=== PATIENT | female | born 1945 | race Caucasian/White ===

== ENCOUNTER → 2019-09-18 14:30 | Outpatient (BNVA) | payer MEDICARE, MEDICAID, SELFPAY | PROVIDERS: Family Provider Family Medicine; PCP Family Medicine; Visit Provider Urology | DX: N39.41 Urge incontinence (principal); N99.89 Other postprocedural complications and disorders of genitourinary system; N39.0 Urinary tract infection, site not specified | CPT/HCPCS: 81001 ==

== ENCOUNTER 2019-11-07 19:26 | Emergency (ER) | payer MEDICARE, MEDICAID, SELFPAY ==
[2019-11-07 19:27] VITALS: BP 142/96; PULSE 81; RESP 18; TEMP 36.6; O2SAT 96; BMI 41.1
--- NOTE | 2019-11-07 19:42 | ECG_ITS ---
Measurements Intervals [place] Rate: 81 P: CA: 0 QRS: -11 QRSD: 91 T: 152 QT: 372 QTc: 434 ECTOPIC ATRIAL RHYTHM WITH FREQUENT SUPRAVENTRICULAR ECTOPIC BEATS POSSIBLE ANTERIOR MYOCARDIAL INFARCTION , OF INDETERMINATE AGE MODERATE T-WAVE ABNORMALITY, CONSIDER LATERAL ISCHEMIA Compared to ECG 07/17/2019 23:30:45 T-wave abnormality now present Possible ischemia now present Ectopic atrial rhythm no longer present Left ventricular hypertrophy no longer present Myocardial infarct finding still present Electronically Signed On 11-08-2019 11:12:18 TEXTILES PRINTER by Destiny Goodman M.D. [id number]
--- NOTE | 2019-11-07 19:42 | XRR_ITS ---
PROCEDURE INFORMATION: Exam: XR Chest, 1 View Exam date and time: 11/07/2019 9:00 PM Age: 74 years old Clinical indication: Shortness of breath; Additional info: SOB x 3 days TECHNIQUE: Imaging protocol: XR of the chest Views: 1 view. COMPARISON: CR Chest 1 [place] [id number] 07/17/2019 11:39 PM FINDINGS: Lungs: Lungs are well aerated without a focal area of consolidation. Pleural space: Unremarkable. No pleural effusion. No pneumothorax. Heart/Mediastinum: The cardiac silhouette appears enlarged, some of which is magnification related to the AP projection. Bones/joints: Unremarkable. XR/XR chest 1V portable [id number] IMPRESSION: Lungs are well aerated without a focal area of consolidation.
--- NOTE | 2019-11-07 19:43 | ED_ITS ---
HPI - General Adult General: Chief complaint: Shortness of Breath/Dyspnea Stated complaint: MULTIPLE COMPL. Time Seen by Provider: 11/07/19 19:35 History of Present Illness: HPI narrative: Patient arrives via ambulance with complaints of some shortness of breath states her CPAP quit working last night. That she has had a cough for a while has been short of breath quit smoking last week. Said his cough has been productive she has had some chills. Complains of pain when deep inspiration history of COPD MD complaint: Shortness of breath Onset (ago): day(s) Associated symptoms: Reports cough, fevers/chills and short of breath; Deny chest pain, dyspnea, headache(s), nausea, rash or vomiting Review of Systems Const: Denies: fever, chills or body aches Eyes: Denies: change in vision or blurry vision ENMT: Denies: throat pain or nasal congestion Card: Denies: chest pain or shortness of breath on exertion Resp: Denies: shortness of breath, productive cough or non-productive cough GI: Denies: abdominal pain, nausea or vomiting Musc: Denies: extremity pain Skin/Breast: Denies: rash Neuro: Denies: headache Psych: Denies: anxiety or depression Timo/Lymph: Denies: easy bruising PFSH ED PFSH: Social History Smoking and tobacco status: former smoker Alcohol intake: never Marital status: Current occupational status: disabled Physical Exam Const: COMMON NORMALS: no apparent distress, average body habitus and oriented x3 HENMT: COMMON NORMALS: normocephalic HEAD & SCALP: normal to inspection and normocephalic FACE & SINUS: normal facial exam Eye: COMMON NORMALS: conjunctivae normal GENERAL EYE: normal appearance of both eyes CONJUNCTIVA: Yes conjunctivae normal Neck/C-Spine: COMMON NORMALS: no JVD Chest: COMMONS NORMALS: inspection of chest normal Resp: COMMON NORMALS: normal respiratory effort AUSCULTATION: diminished lung sounds (Bilateral) bilateral Cardio: COMMON NORMALS: no JVD, regular rate and regular rhythm RATE: regular rate RHYTHM: regular rhythm GI: COMMON NORMALS: normal to inspection, nondistended, normoactive bowel sounds Extremity: COMMON NORMALS: normal to inspection and full ROM Neuro: COMMON NORMALS: oriented x3 Course Vital Signs: Vital signs: Vital Signs Temperature 97.8 F 11/07/19 19:27 Pulse Rate 88 11/07/19 20:23 Respiratory Rate 18 11/07/19 20:18 Blood Pressure 142/96 11/07/19 19:27 Pulse Oximetry 93 11/07/19 20:23 MDM - General Adult MDM Narrative: Medical decision making narrative: Discussed case with Dr. Smith Lab Data: Labs: Lab Results 11/07/19 11/07/19 11/07/19 Range/Units 19:54 19:58 19:58 WBC 4.7 (4.0-10.0) 10^3/ uL RBC 4.23 (4.1-5.3) 10^6/u L Hgb 13.3 (11.5-15.3) g/dL Hct 42.3 (37.0-47.0) % MCV 100.0 H (81-99) fL MCH 31.4 (28.0-34.0) pg MCHC 31.4 (30.0-36.0) g/dL RDW 13.8 (12.1-15.1) % Plt Count 166 (130-400) 10^3/c mm MPV 10.7 H (7.4-10.4) fL Neut % (Auto) 53.1 % Lymph % (Auto) 32.3 % [place] % (Auto) 13.2 % Eos % (Auto) 0.8 % Baso % (Auto) 0.2 % Neut # (Auto) 2.5 (1.8-7.7) 10^3/u L Lymph # (Auto) 1.5 (0.8-4.8) 10^3/u L [place] # (Auto) 0.6 (0.2-0.9) 10^3/u L Eos # (Auto) 0.0 (0.0-0.8) 10^3/u L Baso # (Auto) 0.0 (0.0-0.1) 10^3/u L Nucleated RBC % (a uto) 0 % Nucleated RBCs # 0.0 /100WBC Sodium 142 (136-145) mmol/L Potassium 3.5 (3.5-5.1) mmol/L Chloride 107 (98-107) mmol/L Carbon Dioxide 23 (22-29) mmol/L Anion Gap 15.5 (5-19) BUN 8 (8-23) mg/dL Creatinine 0.8 (0.5-0.9) mg/dL Glucose 105 (65-115) mg/dL Calcium 10.9 H (8.5-10.5) mg/dL Total Bilirubin 0.3 (0.15-1.2) mg/dL AST 33 H (0-32) U/L ALT 24 (0-33) U/L Alkaline Phosphata se 154 H (35-105) IU/L Troponin T Baselin e (0-10) ng/mL Troponin T 120 Min justin (0-10) ng/mL Delta Troponin T (0-10) ABS# NT-Pro-B Natriuret Pep 342 (0-450) pg/mL Total Protein 6.6 (6.6-8.7) g/dL Albumin 3.2 L (3.5-5.2) g/dL Globulin 3.4 (1.3-4.6) g/dL Urine Color Yellow (Yellow) Urine Appearance Clear (CLEAR) Urine pH 6 (5-7) Ur Specific Gravit y 1.010 (1.005-1.030) Urine Protein Neg (Negative) Urine Glucose (UA) Norm (Normal) Urine Ketones Negative (Negative) Urine Blood 2+ H (Negative) Urine Nitrate Negative (Negative) Urine Bilirubin Neg (NEGATIVE) Urine Urobilinogen Norm (Negative) mg/dL Ur Leukocyte Ilana ase Trace H (Negative) Urine RBC 0-4 H (0-2) /hpf Urine WBC 5-10 H (0-5) /hpf Ur Squamous Epith Cells 5-10 H (0-5) Urine Bacteria 2+ H (NONE) Influenza Type A A g (Negative) POC Influenza B Ag (Negative) 11/07/19 11/07/19 11/07/19 Range/Units 19:58 20:32 22:03 WBC (4.0-10.0) 10^3/ uL RBC (4.1-5.3) 10^6/u L Hgb (11.5-15.3) g/dL Hct (37.0-47.0) % MCV (81-99) fL MCH (28.0-34.0) pg MCHC (30.0-36.0) g/dL RDW (12.1-15.1) % Plt Count (130-400) 10^3/c mm MPV (7.4-10.4) fL Neut % (Auto) % Lymph % (Auto) % [place] % (Auto) % Eos % (Auto) % Baso % (Auto) % Neut # (Auto) (1.8-7.7) 10^3/u L Lymph # (Auto) (0.8-4.8) 10^3/u L [place] # (Auto) (0.2-0.9) 10^3/u L Eos # (Auto) (0.0-0.8) 10^3/u L Baso # (Auto) (0.0-0.1) 10^3/u L Nucleated RBC % (a uto) % Nucleated RBCs # /100WBC Sodium (136-145) mmol/L Potassium (3.5-5.1) mmol/L Chloride (98-107) mmol/L Carbon Dioxide (22-29) mmol/L Anion Gap (5-19) BUN (8-23) mg/dL Creatinine (0.5-0.9) mg/dL Glucose (65-115) mg/dL Calcium (8.5-10.5) mg/dL Total Bilirubin (0.15-1.2) mg/dL AST (0-32) U/L ALT (0-33) U/L Alkaline Phosphata se (35-105) IU/L Troponin T Baselin e 18 H (0-10) ng/mL Troponin T 120 Min justin 18.55 H (0-10) ng/mL Delta Troponin T 0.55 (0-10) ABS# NT-Pro-B Natriuret Pep (0-450) pg/mL Total Protein (6.6-8.7) g/dL Albumin (3.5-5.2) g/dL Globulin (1.3-4.6) g/dL Urine Color (Yellow) Urine Appearance (CLEAR) Urine pH (5-7) Ur Specific Gravit y (1.005-1.030) Urine Protein (Negative) Urine Glucose (UA) (Normal) Urine Ketones (Negative) Urine Blood (Negative) Urine Nitrate (Negative) Urine Bilirubin (NEGATIVE) Urine Urobilinogen (Negative) mg/dL Ur Leukocyte Ilana ase (Negative) Urine RBC (0-2) /hpf Urine WBC (0-5) /hpf Ur Squamous Epith Cells (0-5) Urine Bacteria (NONE) Influenza Type A A g Negative (Negative) POC Influenza B Ag Negative (Negative) EKG Data^: EKG 1: EKG interpretation date: 11/07/19 EKG interpretation time: 20:42 Interpretation: AFIB, Qwave v3/v4, rate 81bpm EKG 2: EKG interpretation date: 11/07/19 EKG interpretation time: 22:35 Interpretation: 89 bpm, St deviation v4,v5 atrial rhythm Discharge Plan Discharge Patient Disposition: Home, Self-Care Clinical Impression: Atrial fibrillation, chronic, Nicotine dependence, cigarettes, with unspecified nicotine-induced disorders COPD (chronic obstructive pulmonary disease) Qualifiers: COPD type: COPD with acute exacerbation Qualified Code(s): J44.1 - Chronic obstructive pulmonary disease with (acute) exacerbation Condition: Stable Prescriptions: New Zithromax Z-Zheng 250 mg tablet See Rx Instructions .ROUTE .COMPLEX Qty: 6 RF: 0 Medrol (Zheng) 4 mg tablets,dose pack See Rx Instructions .ROUTE .COMPLEX Qty: 21 RF: 0 No Action methenamine hippurate 1 gram tablet 1 gm PO BID Qty: 60 RF: 6 Myrbetriq 25 mg tablet extended release 24 hr 25 mg PO Q24H Qty: 30 RF: 6 albuterol sulfate [ProAir HFA] 90 mcg/actuation HFA aerosol inhaler 2 puff INHALATION Q6H PRN (Reason: SOB) Qty: 3 RF: 2 temazepam [Restoril] 30 mg capsule 30 mg PO ONCE RF: 0 nystatin 100,000 unit/gram powder 1 applic TOPICAL BID RF: 0 Eliquis 5 mg tablet 5 mg PO ONCE RF: 0 diltiazem HCl 240 mg capsule,extended release 24 hr 240 mg PO QAM RF: 0 hydrocodone-acetaminophen 5-325 mg tablet 1 tab PO Q4H PRN (Reason: Pain) RF: 0 pantoprazole [Protonix] 40 mg tablet,delayed release (DR/EC) 40 mg PO BID RF: 0 simethicone 80 mg tablet,chewable 160 mg PO ONCE PRN (Reason: abdominal distention) RF: 0 omega-3 fatty acids 1,000 mg capsule 1,000 mg PO ONCE RF: 0 melatonin 5 mg capsule 5 mg PO ONCE RF: 0 polyethylene glycol 3350 17 gram/dose powder 17 gm PO ONCE RF: 0 cholecalciferol (vitamin D3) 1,000 unit capsule 1,000 unit PO .THREE TIMES WEEKLY RF: 0 gemfibrozil 600 mg tablet 600 mg PO ONCE RF: 0 VITAMIN B12 1 tab PO DAILY RF: 0 tizanidine 4 mg tablet 4 mg PO ONCE RF: 0 Discharge Orders: Discharge Order (Routine); Ordered 11/07/19 Ordered By: Leonard Johnson Referrals: Alyce Lozoya DO [Primary Care Provider] - Discharge Diet: Advance as tolerated Discharge Activity: Increase activity as tolerated Patient Instructions: Chronic Obstructive Pulmonary Disease (ED) Activity Restrictions/Additional Instructions: Follow-up with medical provider as directed. Take medications as prescribed. Return to the ER or your medical provider if condition worsens. Please read and understand discharge instructions. If any questions ask please. Coding Level of Care Code ED Coat Hanger Shaper Machine Operator for Leta Fwakash Exam Comprehensive
--- NOTE | 2019-11-07 19:57 | PC.NURSE ---
collected urine for a UA and sent to lab.
--- NOTE | 2019-11-07 20:02 | PC.NURSE ---
placed patient 3 liters of oxygen due to low oxygen saturation. Consulted with a nurse as patient stated to me she was only on oxygen at night when she is sleeping but is on oxygen at all times.
[2019-11-07 20:07] LABS: Basophils % 0.2 %; Eosinophils % 0.8 %; Hematocrit 42.3 % (37.0-47.0); Hemoglobin 13.3 g/dL (11.5-15.3); Lymphocytes # 1.5 10^3/uL (0.8-4.8); Lymphocytes % 32.3 %; Mean Corpuscular HGB Conc 31.4 g/dL (30.0-36.0); Mean Corpuscular Hemoglobin 31.4 pg (28.0-34.0); Mean Platelet Volume 10.7 fL (7.4-10.4); Monocytes # 0.6 10^3/uL (0.2-0.9); Monocytes % 13.2 %; Neutrophils # 2.5 10^3/uL (1.8-7.7); Neutrophils % 53.1 %; Nucleated Red Blood Cells % 0 %; Platelet Count 166 10^3/cmm (130-400); Red Blood Count 4.23 10^6/uL (4.1-5.3); Red Cell Distribution Width 13.8 % (12.1-15.1); White Blood Count 4.7 10^3/uL (4.0-10.0)
[2019-11-07 20:18] VITALS: PULSE 84; RESP 18; O2SAT 94
[2019-11-07] MEDS: ipratropium-albuterol 3 mL Neb INHALATION (20:18)
[2019-11-07 20:23] VITALS: PULSE 88; O2SAT 93
[2019-11-07 20:30] LABS: Alanine Aminotransferase 24 U/L (0-33); Albumin Level 3.2 g/dL (3.5-5.2); Alkaline Phosphatase 154 IU/L (35-105); Anion Gap 15.5 (5-19); Aspartate Amino Transferase 33 U/L (0-32); Blood Urea Nitrogen 8 mg/dL (8-23); Calcium 10.9 mg/dL (8.5-10.5); Carbon Dioxide 23 mmol/L (22-29); Chloride 107 mmol/L (98-107); Creatinine Clr Calc Pharmacy 81.3951; Globulin 3.4 g/dL (1.3-4.6); Glucose 105 mg/dL (65-115); NT Pro B Type Natriuretic Pept 342 pg/mL (0-450); Potassium 3.5 mmol/L (3.5-5.1); Sodium 142 mmol/L (136-145); Total Bilirubin 0.3 mg/dL (0.15-1.2); Total Protein 6.6 g/dL (6.6-8.7)
[2019-11-07 20:32] LABS: Add Urine Microscopic? YES; Bilirubin Urine Neg (NEGATIVE); Blood Urine 2+ (Negative); Glucose Urine UA Norm (Normal); Ketones Urine Negative (Negative); Leukocyte Esterase Urine Trace (Negative); Nitrate Urine Negative (Negative); Protein Urine Neg (Negative); Urine Appearance Clear (CLEAR); Urine Color Yellow (Yellow); Urobilinogen Urine Norm (Negative); pH Urine 6 (5-7)
[2019-11-07 20:33] LABS: Add Urine Culture? Yes; Bacteria Urine 2+; RBC Urine 0-4 /hpf (0-2)
--- NOTE | 2019-11-07 20:42 | ECG_ITS ---
Measurements Intervals [place] Rate: 89 P: -89 MD: 155 QRS: -7 QRSD: 94 T: 120 QT: 382 QTc: 465 ECTOPIC ATRIAL RHYTHM WITH FREQUENT SUPRAVENTRICULAR PREMATURE COMPLEXES ST DEVIATION AND MODERATE T-WAVE ABNORMALITY, CONSIDER LATERAL ISCHEMIA Compared to ECG 07/17/2019 23:30:45 T-wave abnormality now present Possible ischemia now present Left ventricular hypertrophy no longer present Myocardial infarct finding no longer present Electronically Signed On 11-08-2019 11:10:50 ABE TEACHER by Destiny Goodman M.D. [id number]
[2019-11-07 21:00] LABS: Troponin(5th) Baseline 18 ng/mL (0-10)
[2019-11-07 21:02] LABS: Influenza A by IFA Negative (Negative); Influenza B by IFA Negative (Negative)
[2019-11-07] MEDS: azithromycin 250 mg Tablet 500 MG PO (21:24)
[2019-11-07] MEDS: ketorolac 30 mg/mL INJ 15 MG IVP (21:28)
[2019-11-07 22:36] LABS: Troponin 5 2HR 18.55 ng/mL (0-10); Troponin 5 2HR Delta 0.55 ABS# (0-10)
[2019-11-07 22:46] VITALS: BP 144/70; PULSE 85; RESP 20; O2SAT 93
== END 2019-11-07 22:46 | disposition home or self-care (01) ==
PROVIDERS: Emergency Provider Nurse Practitioner Family; Family Provider Family Medicine; PCP Family Medicine
DX: I48.20 Chronic atrial fibrillation, unspecified (principal); J44.9 Chronic obstructive pulmonary disease, unspecified; Z79.01 Long term (current) use of anticoagulants; Z87.891 Personal history of nicotine dependence; Z99.89 Dependence on other enabling machines and devices
CPT/HCPCS: 36415; 71045; 80053; 81001; 83880; 84484; 85025; 87077; 87086; 87186; 87804; 93005; 94640; 96374; 96375; 99283; 99284; J1885; J2930; Q0144

== ENCOUNTER → 2020-05-05 15:44 | Outpatient (BNVA) | payer MEDICARE, MEDICAID, SELFPAY | PROVIDERS: Family Provider Family Medicine; PCP Family Medicine; Visit Provider Urology | DX: N39.0 Urinary tract infection, site not specified (principal) | CPT/HCPCS: 80053; 81001; 87077; 87086; 87186 ==

== ENCOUNTER → 2020-06-17 11:30 | Outpatient (BNVA) | payer MEDICARE, MEDICAID, SELFPAY | PROVIDERS: Family Provider Family Medicine; PCP Family Medicine; Visit Provider Urology | DX: N39.0 Urinary tract infection, site not specified (principal); N20.9 Urinary calculus, unspecified; N39.41 Urge incontinence | CPT/HCPCS: 80053; 81001; 87077; 87086; 87186 ==

== ENCOUNTER → 2020-07-10 12:07 | Outpatient (BNVA) | payer MEDICARE, MEDICAID, SELFPAY | PROVIDERS: PCP Family Medicine; Visit Provider Family Medicine | DX: I10 Essential (primary) hypertension (principal); F51.01 Primary insomnia; E78.00 Pure hypercholesterolemia, unspecified; M62.838 Other muscle spasm; K92.1 Melena | CPT/HCPCS: 80053; 80061; 82043; 85025; 87635 ==

== ENCOUNTER 2020-07-14 08:57 | Day surgery (SDC) | payer MEDICARE, MEDICAID, SELFPAY ==
[2020-07-09 10:33] VITALS: BMI 40.0
[2020-07-14 09:21] VITALS: BP 131/87; PULSE 66; RESP 18; TEMP 36.3; O2SAT 95
[2020-07-14] MEDS: sodium chloride 0.9% 1,000 ML 30 ML IV ×2 (09:30→09:35)
--- NOTE | 2020-07-14 10:24 | ANES.PREANE2 ---
Pre-Anesthetic Assessment Pre-Anesthetic Assessment: Height/Weight: Height 1.45 m Weight 83.915 kg Temp Pulse Resp BP Pulse Ox 97.3 F L 66 18 131/87 95 07/14/20 09:21 07/14/20 09:21 07/14/20 09:21 07/14/20 09:21 07/14/20 09:21 Preop Diagnosis: gerd, hematochezia Proposed Procedure: Operation Date: 07/14/20 10:30 Proposed Procedures p EGD [id number] 59793 K92.1(Not Applicable) - Karan Burton MD s Colonoscopy(Not Applicable) - Karan Burton MD Familial anesthetic complications: None Was Beta [place] taken within 24 hours: Yes Last intake: Intake Last Liquid Date 07/14/20 Last Liquid Time 02:00 Last Solid Date 07/12/20 Social: Social History: Tobacco and No alcohol Exam: Pre-Anes Outpt Exam: alert, oriented x 3, clear to auscultation bilaterally and regular rate & rhythm Airway: Cervical ROM: Other (cervical discs 1-7 are all bulging, she prefers to lay completely flat without pillow) MP: 2 Dentition: Other (2 teeth remaining) Pulmonary: Pulmonary: COPD and Sleep apnea CV/HEM: CV/HEM: Afib (chronic), Angina (Stable) (atypical) and HTN Comments: echo 2019 - EF 69%, trace AVR GI: GI: GERD and Hiatus hernia Musc/skel: Musc/skel: Lower Back Pain and Scoliosis Comments: neck and lumbar disc bulging, Anesthetic Plan: ASA status: 3 Anesthesia: MAC Risk of > 500 ml blood loss (7ml/kg in children): No Meds/Allergies Current Medications: Current Medications Generic Name Dose Route Start Last Admin Trade Name Freq PRN Reason Stop Dose Admin Sodium Chloride 1,000 mls @ 30 ml s/hr 07/14/20 09:30 07/14/20 09:35 Sodium Chloride 0.9% IV 30 mls/hr .Q24H ANNELIESE Administration PFSH Anesthesia PFSH: Medical History (Updated 07/10/20 @ 11:57 by Alyce Lozoya DO) Atrial fibrillation Atypical chest pain Benign essential hypertension with target blood pressure below 140/90 Chronic episodic atrial fibrillation COPD (chronic obstructive pulmonary disease) GERD (gastroesophageal reflux disease) History of hiatal hernia Hypercholesterolemia Other cervical disc displacement, unspecified cervical region Recurrent UTI Sleep apnea Unspecified hydronephrosis Urgency incontinence Urolithiasis Surgical History H/O cataract extraction H/O esophagogastroduodenoscopy (2015) H/O knee surgery H/O shoulder surgery History of appendectomy History of cholecystectomy S/P hysterectomy Family History Father Stroke Mother Cancer BLADDER, BREAST Brother Cancer ESOPHAGEAL Social History Smoking and tobacco status: former smoker Alcohol intake: never Marital status: Current occupational status: disabled Data Anesthesia Cardiac Studies: Holter Monitor 03/20/20
[2020-07-14 11:40] VITALS: RESP 18
[2020-07-14] MEDS: fentaNYL 50 mcg/mL INJ 2mL 25 MCG IVP (11:40)
--- NOTE | 2020-07-14 12:13 | W.PM.OPSUD ---
Surgery/Procedure H&P Update DATE OF PROCEDURE: July 14, 2020 DATE H&P PERFORMED: 06/16/20 H&P UPDATE INFORMATION: I have reviewed H&P completed within last 30 days, I have examined patient prior to procedure and No changes to prior documentation PREOP DIAGNOSIS: gerd, hematochezia PLANNED PROCEDURE: Operation Date: 07/14/20 10:30 Proposed Procedures p EGD [id number] K92.1(Not Applicable) - Karan Burton MD s Colonoscopy(Not Applicable) - Karan Burton MD
[2020-07-14 12:40] VITALS: BP 100/50; PULSE 50; RESP 18; TEMP 36.6; O2SAT 94
[2020-07-14 12:55] VITALS: BP 106/49; PULSE 50; RESP 18; O2SAT 95
--- NOTE | 2020-07-14 13:20 | ANE.PACU2 ---
Inpatient post-anesthesia follow up: Airway intact: Yes Vital signs: Temperature 97.8 F Pulse Rate 50 Respiratory Rate 18 Blood Pressure 106/49 Pulse Oximetry 95 Oxygen Delivery Me thod Room Air Oxygen Flow Rate 3 Fraction of Inspir ed Oxygen Hydration adequate: Yes Nausea and vomiting: No Pain level: 2 Mental status: Baseline
== END 2020-07-14 13:25 | disposition home or self-care (01) ==
PROVIDERS: PCP Family Medicine; Visit Provider Surgery
PROC: 0DJ08ZZ Inspection of Upper Intestinal Tract, Via Natural or Artificial Opening Endoscopic (ICD-10-PCS; CPT 43235; principal; 2020-07-14 10:30)
PROC: 0DJD8ZZ Inspection of Lower Intestinal Tract, Via Natural or Artificial Opening Endoscopic (ICD-10-PCS; CPT 45378; 2020-07-14 10:30)
DX: K92.1 Melena (principal); K21.9 Gastro-esophageal reflux disease without esophagitis; K29.70 Gastritis, unspecified, without bleeding; K57.30 Diverticulosis of large intestine without perforation or abscess without bleeding; K64.8 Other hemorrhoids; J44.9 Chronic obstructive pulmonary disease, unspecified; G47.30 Sleep apnea, unspecified; I48.91 Unspecified atrial fibrillation; I10 Essential (primary) hypertension; E78.00 Pure hypercholesterolemia, unspecified; Z87.891 Personal history of nicotine dependence
CPT/HCPCS: 12345; 43239; 88305; G0121; J3010; J3490; J7030

== ENCOUNTER 2020-09-21 13:03 | Outpatient (CLI) | payer MEDICARE, MEDICAID, SELFPAY ==
--- NOTE | 2020-09-21 12:45 | USCV_ITS ---
Bre Lara Age: 75 Gender: F : 1945 Exam Date: 09/21/2020 13:28 Ordering Phys: Kwabena Marie MD ([email or web address]) Technologist: Chito Stevens Exam Location: [facility] – [place] Indication: HISTORY: Lower extremity swelling. PROCEDURES: Bilateral duplex Venous Insufficiency study of the Deep and Superficial systems was carried out according to normal protocol with the patient in supine positon for deep system and dependent position for the superficial system. FINDINGS: All deep veins demonstrated compressibility without evidence of intraluminal thrombus or increased echogenicity. Spectral analysis of Doppler signals demonstrates normal response to compression maneuvers indicating patency without obstruction. Reflux determinations were made with the patient in the dependent position, the weight being on the contralateral leg. Vein measurements and reflux times are listed below were applicable. THERE IS DEEP VEIN REFLUX IN THE RT POP. NO SIGNIFICANT REFLUX IN THE GSAPH OR LESSER SAPH VEINS. CONCLUSIONS #1. No evidence of DVT in the above-mentioned identifiable veins. #2. On the right side, no significant venous reflux were noted either in the deep or superficial veins. #3. On the left side, significant venous reflux of greater than 1000 ms was noted in the popliteal vein. No significant venous reflux was noted in the superficial veins. The venous dimensions, reflux time, depth from the surface are as mentioned above Dr Kwabena Marie MD [facility] (Electronically Signed) Final Date: 22 September 2020 09:13 S
== END 2020-09-21 13:04 | disposition home or self-care (01) ==
LOC: RAD 13:05
PROVIDERS: PCP Family Medicine; Visit Provider Internal Medicine Cardiovascular Disease
DX: M79.89 Other specified soft tissue disorders (principal); I87.2 Venous insufficiency (chronic) (peripheral)
CPT/HCPCS: 93970

== ENCOUNTER → 2020-11-09 14:56 | Outpatient (BNVA) | payer MEDICARE, MEDICAID, SELFPAY | PROVIDERS: PCP Family Medicine; Visit Provider Specialist | DX: M17.12 Unilateral primary osteoarthritis, left knee (principal) | CPT/HCPCS: 73560; 73565 ==

== ENCOUNTER → 2020-11-12 16:00 | Outpatient (BNVA) | payer MEDICARE, MEDICAID, SELFPAY | PROVIDERS: PCP Family Medicine; Visit Provider Internal Medicine Cardiovascular Disease | DX: I87.2 Venous insufficiency (chronic) (peripheral) (principal); M79.89 Other specified soft tissue disorders; R07.89 Other chest pain | CPT/HCPCS: 83880 ==

== ENCOUNTER → 2021-02-04 15:30 | Outpatient (BNVA) | payer MEDICARE, MEDICAID, SELFPAY | PROVIDERS: PCP Family Medicine; Visit Provider Family Medicine | DX: E83.52 Hypercalcemia (principal); D53.9 Nutritional anemia, unspecified | CPT/HCPCS: 82310; 82607; 82746; 83970 ==

== ENCOUNTER → 2021-02-22 15:30 | Outpatient (BNVA) | payer MEDICARE, MEDICAID, SELFPAY | PROVIDERS: PCP Family Medicine; Visit Provider Specialist | DX: M17.12 Unilateral primary osteoarthritis, left knee (principal) | CPT/HCPCS: 73560 ==

== ENCOUNTER 2021-02-22 16:48 | Outpatient (CLI) | payer MEDICARE, MEDICAID, SELFPAY ==
--- NOTE | 2021-02-22 17:00 | USR_ITS ---
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 Limited exam focused on the left lower extremity veins. COMPARISON: No relevant prior studies available. FINDINGS: Left deep veins: Unremarkable. The common femoral, femoral, proximal profunda femoral and popliteal veins are patent without thrombus. Normal Doppler waveforms. Normal compressibility and/or augmentation response. Left superficial veins: Unremarkable. Saphenofemoral junction is patent without thrombus. Soft tissues: Subcutaneous soft tissue edema in the left leg. US/CV venous duplex [facility] [id number] IMPRESSION: 1. No evidence for deep vein thrombosis. 2. Subcutaneous soft tissue edema.
== END 2021-02-22 16:49 | disposition home or self-care (01) ==
LOC: RAD 16:52
PROVIDERS: PCP Family Medicine; Visit Provider Specialist
DX: M17.12 Unilateral primary osteoarthritis, left knee (principal); I87.2 Venous insufficiency (chronic) (peripheral); R60.0 Localized edema
CPT/HCPCS: 73560; 93971

== ENCOUNTER 2021-02-24 15:27 | Emergency (ER) | payer MEDICARE, MEDICAID, SELFPAY ==
[2021-02-24] VITALS (12 sets, daily range): BP systolic 106–190; BP diastolic 69–96; PULSE 77–85; RESP 12–26; TEMP 36.7–36.9; O2SAT 94–97; BMI 42.5
[2021-02-24 16:03] LABS: Basophils # 0.1 10^3/uL (0.0-0.1); Basophils % 0.6 %; Eosinophils # 0.1 10^3/uL (0.0-0.8); Eosinophils % 1.4 %; Hematocrit 42.9 % (37.0-47.0); Hemoglobin 13.6 g/dL (11.5-15.3); Lymphocytes # 2.3 10^3/uL (0.8-4.8); Lymphocytes % 29.2 %; Mean Corpuscular HGB Conc 31.7 g/dL (30.0-36.0); Mean Corpuscular Hemoglobin 32.1 pg (28.0-34.0); Mean Corpuscular Volume 101.2 fL (81-99); Mean Platelet Volume 11.8 fL (7.4-10.4); Monocytes # 0.6 10^3/uL (0.2-0.9); Monocytes % 7.5 %; Neutrophils # 4.71 10^3/uL (1.8-7.7); Neutrophils % 60.9 %; Nucleated Red Blood Cells % 0 %; Platelet Count 207 10^3/cmm (130-400); Red Blood Count 4.24 10^6/uL (4.1-5.3); Red Cell Distribution Width 14.7 % (12.1-15.1); White Blood Count 7.7 10^3/uL (4.0-10.0)
[2021-02-24 16:13] LABS: Bilirubin Urine Neg (Negative); Blood Urine 3+ (Negative); Glucose Urine UA Norm (Normal); Ketones Urine Negative (Negative); Leukocyte Esterase Urine 2+ (Negative); Nitrate Urine Negative (Negative); Protein Urine Neg (Negative); Specific Gravity, Urine 1.025 (1.005-1.030); Urine Appearance Hazy (CLEAR); Urine Color Yellow (Yellow); Urobilinogen Urine Norm (Negative); pH Urine 5 (5-7)
[2021-02-24 16:17] LABS: RBC Urine 15-25 /hpf (0-2)
--- NOTE | 2021-02-24 16:17 | ECG_ITS ---
[facility] Test Date: 2021-02-24 Pat Name: Bre Lara Department: Room: Gender: Female Funeral Workers: : 1945 Requested By: Sue Kong I Order Number: [id number] Emmanuel MD: Kwabena Marie M.D. Measurements Intervals [place] Rate: 83 P: [place]: QRS: -12 QRSD: 86 T: 149 QT: 378 QTc: 445 Interpretive Statements ATRIAL FIBRILLATION MODERATE VOLTAGE CRITERIA FOR LVH, CONSIDER NORMAL VARIANT [MEETS CRITERIA IN ONE OF: R(aVL), S(V1), R(V5), R(V5/V6)+S(V1)] INFERIOR MYOCARDIAL INFARCTION [40+ ms Q WAVE AND/OR ST/T ABNORMALITY IN II/aVF], PROBABLY OLD MODERATE T-WAVE ABNORMALITY, CONSIDER LATERAL ISCHEMIA [-0.1+ mV T WAVE IN I/aVL/V5/V6] Compared to ECG 11/07/2019 22:35:02 Myocardial infarct finding now present Ectopic atrial rhythm no longer present T-wave abnormality still present Possible ischemia still present Electronically Signed On 02-24-2021 17:47:19 CDT by Kwabena Marie M.D. [email or web address] [facility] [email or web address].[email or web address]/[id number] f
--- NOTE | 2021-02-24 16:18 | XRR_ITS ---
PROCEDURE INFORMATION: Exam: XR Chest Exam date and time: 02/24/2021 4:18 PM Age: 75 years old Clinical indication: Shortness of breath; Additional info: SOB. A-fib, bilateral edema. HX of chf TECHNIQUE: Imaging protocol: XR of the chest. Views: 1 view. COMPARISON: CR XR chest 1V portable [id number] 11/07/2019 8:51 PM FINDINGS: Lungs: [id number] emphysematous lung changes. No focal lung opacities. Pleural spaces: Unremarkable. No pleural effusion. No pneumothorax. Heart/Mediastinum: Moderate cardiomegaly. Bones/joints: Unremarkable. XR/XR chest 1V portable [id number] IMPRESSION: No acute pulmonary disease identified.
[2021-02-24 16:19] LABS: Bacteria Urine 4+ /hpf; Squamous Epithelial Cell Urine 0-4 /hpf (0-5); WBC Urine 25-40 /hpf (0-5)
[2021-02-24 16:22] LABS: Add Urine Culture? Yes
--- NOTE | 2021-02-24 17:15 | PC.PHAR ---
pt state she is unsure of her medications-pt states she has a nurse from [facility]-medications entered are from pts med list from [facility] and what shows has been filled on ext med history-pts med list from [facility] has lasix 40mg daily but has marked out saying pt not taking [facility] states last filled on oct 01 for 90d/s-pts med list from [facility] has gemfibrozil 600mg [facility] states last filled in 2018
[2021-02-24 17:32] LABS: Troponin(5th) Baseline 16 ng/L (0-10)
[2021-02-24 17:47] LABS: Alanine Aminotransferase 11 U/L (0-33); Albumin Level 3.6 g/dL (3.5-5.2); Alkaline Phosphatase 143 IU/L (35-105); Aspartate Amino Transferase 12 U/L (0-32); Blood Urea Nitrogen 12 mg/dL (8-23); Calcium 9.9 mg/dL (8.5-10.5); Carbon Dioxide 23 mmol/L (22-29); Chloride 110 mmol/L (98-107); Creatinine Clr Calc Pharmacy 80.1233; Globulin 1.7 g/dL (1.3-4.6); Glucose 108 mg/dL (65-115); NT Pro B Type Natriuretic Pept 1128 pg/mL (0-450); Osmolality Calculated 296 mOsm/kg (285-295); Sodium 143 mmol/L (136-145); Total Bilirubin 0.2 mg/dL (0.15-1.2); Total Protein 5.3 g/dL (6.6-8.7)
[2021-02-24 17:49] LABS: Anion Gap 13.9 (5-19); Potassium 3.9 mmol/L (3.5-5.1)
--- NOTE | 2021-02-24 18:17 | ECG_ITS ---
[facility] Test Date: 2021-02-24 Pat Name: Bre Lara Department: Room: Gender: Female Typesetters Printer: : 1945 Requested By: Sue Kong I Order Number: [id number] Emmanuel MD: Destiny Goodman M.D. Measurements Intervals [place] Rate: 84 P: [place]: QRS: -10 QRSD: 87 T: 146 QT: 371 QTc: 440 Interpretive Statements ATRIAL FIBRILLATION MODERATE VOLTAGE CRITERIA FOR LVH, CONSIDER NORMAL VARIANT [MEETS CRITERIA IN ONE OF: R(aVL), S(V1), R(V5), R(V5/V6)+S(V1)] INFERIOR MYOCARDIAL INFARCTION [40+ ms Q WAVE AND/OR ST/T ABNORMALITY IN II/aVF], PROBABLY OLD MODERATE T-WAVE ABNORMALITY, CONSIDER LATERAL ISCHEMIA [-0.1+ mV T WAVE IN I/aVL/V5/V6] Compared to ECG 02/24/2021 16:05:08 No significant changes Electronically Signed On 02-26-2021 22:38:54 CDT by Destiny Goodman M.D. [id number]
[2021-02-24] MEDS: nitrofurantoin SR (BID) 100 mg Capsule PO (19:05)
[2021-02-24] MEDS: FUROsemide 10 mg/mL SDV 4mL 40 MG IVP (19:05)
--- NOTE | 2021-02-24 19:16 | PC.NURSE ---
report and care transferred to CAMPOS Tanner.
--- NOTE | 2021-02-24 19:18 | W.ED.SOB ---
HPI - SOB/Dyspnea General: Chief Complaint: Shortness of Breath/Dyspnea Stated Complaint: INCREASED LEG SWELLING, A-FIB Time Seen by Provider: 02/24/21 16:03 Source: patient Mode of arrival: EMS Limitations: no limitations History of Present Illness: HPI Narrative: Patient is a 75-year-old female with a history of A. fib, congestive heart failure, hypertension, who is not on diuretics because she says oral form of furosemide causes her lots of side effects. She states that over the last 3 to 4 days she has had increased leg swelling, significantly worsening shortness of breath. She also has generalized body aches. She presents to the emergency department for evaluation of these. MD elicited complaint: shortness of breath Pertinent past history: congestive heart failure Onset (ago): day(s) (3) Timing: constant Severity: severe Exacerbating factors: exertion Relieving factors: nothing Known history of: congestive heart failure Associated symptoms: Reports orthopnea; Deny abdominal pain, chest congestion, chest pain, cough, diaphoresis, dizziness, extremity pain, fever(s), hemoptysis, lightheadedness, myalgias, nausea, palpitations, paresthesias, polydipsia, polyuria, rash, sense of impending doom, syncope or vomiting Review of Systems General: Reports: 10 or more systems reviewed and unremarkable except in HPI and below Const: Denies: fever(s) or diaphoresis Card: Reports: orthopnea; Denies: chest pain, palpitations, lightheadedness or syncope Resp: Denies: hemoptysis or chest congestion GI: Denies: abdominal pain, nausea or vomiting Musc: Denies: extremity pain Neuro: Denies: dizziness Endo: Denies: polyuria or polydipsia PFSH ED PFSH: Medical History Atrial fibrillation Benign essential hypertension with target blood pressure below 140/90 Chronic episodic atrial fibrillation COPD (chronic obstructive pulmonary disease) GERD (gastroesophageal reflux disease) Hypercholesterolemia Other cervical disc displacement, unspecified cervical region Recurrent UTI Sleep apnea Unspecified hydronephrosis Urgency incontinence Urolithiasis Surgical History H/O cataract extraction H/O esophagogastroduodenoscopy (07/14/20) H/O knee surgery H/O shoulder surgery History of appendectomy History of cholecystectomy S/P hysterectomy Status post colonoscopy (07/14/20) Family History Father Stroke Mother Cancer BLADDER, BREAST Brother Cancer ESOPHAGEAL Family/Other Cancer Sister Cancer Suicide Denies family history of Diabetes CAD (coronary artery disease) Clotting disorder Dementia Chronic kidney disease (CKD) Anesthesia complication Bleeding disorder Lung disease Social History Smoking and tobacco status: current every day smoker cigarettes Packs smoked per day: 1 Alcohol intake: never Marital status: Current occupational status: disabled Physical Exam Const: COMMON NORMALS: no acute distress, average body habitus, patient oriented x3, no limitations, healthy appearing, alert and well nourished HENMT: COMMON NORMALS: normocephalic, atraumatic and moist oral mucous membranes HEAD & SCALP: normocephalic and atraumatic Neck/C-Spine: COMMON NORMALS: no meningeal signs and no JVD Resp: COMMON NORMALS: normal respiratory effort, No retractions, No use of accessory muscles, clear to auscultation bilaterally and percussion normal AUSCULTATION: clear to auscultation bilaterally PERCUSSION: percussion normal Cardio: COMMON NORMALS: no JVD, regular rate, S1 normal heart sound present, S2 normal heart sound present, No gallops present (Cardio), No clicks present (Cardio), No murmurs present (Cardio), No rub (Cardio) and Peripheral pulses 2+ throughout RATE: regular rate RHYTHM: abnormal rhythm regularly irregular HEART SOUNDS: S1 normal heart sound present and S2 normal heart sound present PERIPHERAL PULSES: Peripheral pulses 2+ throughout GI: COMMON NORMALS: Normal to inspection, nondistended, normoactive bowel sounds present, Soft to palpation, non-tender, No hepatosplenomegaly present, no masses and no bruits PALPATION: Yes Soft to palpation and Yes No hepatosplenomegaly present Extremity: COMMON NORMALS: normal to inspection, full ROM, capillary refill normal and no calf tenderness GENERAL: Yes edema (3+ pitting bilateral) Neuro: COMMON NORMALS: patient oriented x3 SENSORIUM/ORIENTATION: Yes alert MENINGEAL SIGNS: Yes no meningeal signs Course Reevaluation(s): Reevaluation #1: Discussed her lab and imaging findings with her. Explained that she is in CHF exacerbation. Chest x-ray does not show any overt fluid overload. 2-hour troponin delta unremarkable. She has put out about 1-1/2 L of urine so far. She feels better. Advised that we should probably admit her overnight but she declined and felt she was okay to go home. She said she will call Dr. Marie her rice farmer in the morning so we can prescribe her an oral diuretic. Time: 20:46 Consultations: Consultation #1: Discussed the patient with Dr. Garcia, hospitalist and he kindly accepted patient to his service. Time: 20:33 Vital Signs: Vital signs: Vital Signs Temperature 98.0 F 02/24/21 21:49 Pulse Rate 80 02/24/21 21:49 Respiratory Rate 20 H 02/24/21 21:49 Blood Pressure 129/84 02/24/21 21:49 Pulse Oximetry 97 02/24/21 21:49 MDM - SOB/Dyspnea MDM Narrative: Medical decision making narrative: 75-year-old female patient who presented to the emergency department with bilateral lower extremity edema, shortness of breath. She has a history of A. fib and congestive heart failure but is not on any diuretics. She does not take furosemide because she says the oral form gives her lots of side effects. In the emergency department she was noted to be in CHF but does not appear to be in any significant exacerbation. Lungs are clear, chest x-ray is unremarkable and does not show congestion, she is not requiring oxygen. She does have significant pedal edema. She was given a dose of intravenous furosemide 40 mg and she put out about 1-1/2 L of urine. She felt better after this. I was going to admit her overnight so she can be started on an oral diuretic, however she wanted to be discharged home and will call her rice farmer in the morning for him to prescribe one for her. She was also noted to have a urinary tract infection while she was in the emergency department. Medical Records: Attestation: I reviewed the patient's medical records. Lab Data: Attestation: I reviewed the patient's lab results. Labs: Lab Results 06/16/21 06/16/21 06/16/21 Range/Units 15:15 15:15 15:15 WBC 7.7 (4.0-10.0) 10^3/ uL RBC 4.24 (4.1-5.3) 10^6/u L Hgb 13.6 (11.5-15.3) g/dL Hct 42.9 (37.0-47.0) % MCV 101.2 H (81-99) fL MCH 32.1 (28.0-34.0) pg MCHC 31.7 (30.0-36.0) g/dL RDW 14.7 (12.1-15.1) % Plt Count 207 (130-400) 10^3/c mm MPV 11.8 H (7.4-10.4) fL Neut % (Auto) 60.9 % Lymph % (Auto) 29.2 % [place] % (Auto) 7.5 % Eos % (Auto) 1.4 % Baso % (Auto) 0.6 % Neut # (Auto) 4.71 (1.8-7.7) 10^3/u L Lymph # (Auto) 2.3 (0.8-4.8) 10^3/u L [place] # (Auto) 0.6 (0.2-0.9) 10^3/u L Eos # (Auto) 0.1 (0.0-0.8) 10^3/u L Baso # (Auto) 0.1 (0.0-0.1) 10^3/u L Nucleated RBC % (a uto) 0 % Nucleated RBCs # 0.0 /100WBC Sodium Cancelled Potassium Cancelled Chloride Cancelled Carbon Dioxide Cancelled Anion Gap Cancelled BUN Cancelled Creatinine Cancelled GFR Calculation Cancelled Glucose Cancelled Calculated Osmolal ity Cancelled Calcium Cancelled Total Bilirubin Cancelled AST Cancelled ALT Cancelled Alkaline Phosphata se Cancelled Troponin T Gen 5 n g/L Cancelled Troponin T Baselin e (0-10) ng/L Troponin T 120 Min [place] (0-10) ng/L Delta Troponin T (0-10) ABS# NT-Pro-B Natriuret Pep (0-450) pg/mL Total Protein Cancelled Albumin Cancelled Globulin Cancelled Urine Color (Yellow) Urine Appearance (CLEAR) Urine pH (5-7) Ur Specific Gravit y (1.005-1.030) Urine Protein (Negative) Urine Glucose (UA) (Normal) Urine Ketones (Negative) Urine Blood (Negative) Urine Nitrate (Negative) Urine Bilirubin (Negative) Urine Urobilinogen (Negative) mg/dL Ur Leukocyte Ilana ase (Negative) Urine RBC (0-2) /hpf Urine WBC (0-5) /hpf Ur Squamous Epith Cells (0-5) /hpf Amorphous Sediment Urine Bacteria (NONE) /hpf 02/24/21 02/24/21 02/24/21 Range/Units 15:37 17:05 17:05 WBC (4.0-10.0) 10^3/ uL RBC (4.1-5.3) 10^6/u L Hgb (11.5-15.3) g/dL Hct (37.0-47.0) % MCV (81-99) fL MCH (28.0-34.0) pg MCHC (30.0-36.0) g/dL RDW (12.1-15.1) % Plt Count (130-400) 10^3/c mm MPV (7.4-10.4) fL Neut % (Auto) % Lymph % (Auto) % [place] % (Auto) % Eos % (Auto) % Baso % (Auto) % Neut # (Auto) (1.8-7.7) 10^3/u L Lymph # (Auto) (0.8-4.8) 10^3/u L [place] # (Auto) (0.2-0.9) 10^3/u L Eos # (Auto) (0.0-0.8) 10^3/u L Baso # (Auto) (0.0-0.1) 10^3/u L Nucleated RBC % (a uto) % Nucleated RBCs # /100WBC Sodium 143 Potassium 3.9 Chloride 110 H Carbon Dioxide 23 Anion Gap 13.9 BUN 12 Creatinine 0.7 GFR Calculation Not Reportable Glucose 108 Calculated Osmolal ity 296 H Calcium 9.9 Total Bilirubin 0.2 AST 12 ALT 11 Alkaline Phosphata se 143 H Troponin T Gen 5 n g/L Troponin T Baselin e 16 H (0-10) ng/L Troponin T 120 Min [place] (0-10) ng/L Delta Troponin T (0-10) ABS# NT-Pro-B Natriuret Pep 1128 H (0-450) pg/mL Total Protein 5.3 L Albumin 3.6 Globulin 1.7 Urine Color Yellow (Yellow) Urine Appearance Hazy A (CLEAR) Urine pH 5 (5-7) Ur Specific Gravit y 1.025 (1.005-1.030) Urine Protein Neg (Negative) Urine Glucose (UA) Norm (Normal) Urine Ketones Negative (Negative) Urine Blood 3+ H (Negative) Urine Nitrate Negative (Negative) Urine Bilirubin Neg (Negative) Urine Urobilinogen Norm (Negative) mg/dL Ur Leukocyte Ilana ase 2+ H (Negative) Urine RBC 15-25 H (0-2) /hpf Urine WBC 25-40 H (0-5) /hpf Ur Squamous Epith Cells 0-4 H (0-5) /hpf Amorphous Sediment Not Reportable Urine Bacteria 4+ H (NONE) /hpf / Range/Units 19:08 WBC (4.0-10.0) 10^3/ uL RBC (4.1-5.3) 10^6/u L Hgb (11.5-15.3) g/dL Hct (37.0-47.0) % MCV (81-99) fL MCH (28.0-34.0) pg MCHC (30.0-36.0) g/dL RDW (12.1-15.1) % Plt Count (130-400) 10^3/c mm MPV (7.4-10.4) fL Neut % (Auto) % Lymph % (Auto) % [place] % (Auto) % Eos % (Auto) % Baso % (Auto) % Neut # (Auto) (1.8-7.7) 10^3/u L Lymph # (Auto) (0.8-4.8) 10^3/u L [place] # (Auto) (0.2-0.9) 10^3/u L Eos # (Auto) (0.0-0.8) 10^3/u L Baso # (Auto) (0.0-0.1) 10^3/u L Nucleated RBC % (a uto) % Nucleated RBCs # /100WBC Sodium Potassium Chloride Carbon Dioxide Anion Gap BUN Creatinine GFR Calculation Glucose Calculated Osmolal ity Calcium Total Bilirubin AST ALT Alkaline Phosphata se Troponin T Gen 5 n g/L Troponin T Baselin e (0-10) ng/L Troponin T 120 Min [place] 15.21 H (0-10) ng/L Delta Troponin T -0.79 L (0-10) ABS# NT-Pro-B Natriuret Pep (0-450) pg/mL Total Protein Albumin Globulin Urine Color (Yellow) Urine Appearance (CLEAR) Urine pH (5-7) Ur Specific Gravit y (1.005-1.030) Urine Protein (Negative) Urine Glucose (UA) (Normal) Urine Ketones (Negative) Urine Blood (Negative) Urine Nitrate (Negative) Urine Bilirubin (Negative) Urine Urobilinogen (Negative) mg/dL Ur Leukocyte Ilana ase (Negative) Urine RBC (0-2) /hpf Urine WBC (0-5) /hpf Ur Squamous Epith Cells (0-5) /hpf Amorphous Sediment Urine Bacteria (NONE) /hpf Imaging Data^: CXR: Attestation: I personally reviewed and interpreted this imaging study as follows: Radiologist's impression: [address] [id number] ReportSigned Patient: Bre Lara AUnit #: [id number]: 1945cct#:[id number]/Sex: 75 / FADM Date: 02/24/21Loc: ERRoom/Bed:Attending Dr: Ordering Provider/Ordering MD: Sue Kong MD, [facility] [place] Date of Service: 02/24/21 Procedure(s): XR chest 1V portable [id number] Accession Number(s): [id number] Report Number: [id number] PROCEDURE INFORMATION: Exam: XR Chest Exam date and time: 02/24/2021 4:18 PM Age: 75 years old Clinical indication: Shortness of breath; Additional info: SOB. A-fib, bilateral edema. HX of chf TECHNIQUE: Imaging protocol: XR of the chest. Views: 1 view. COMPARISON: CR XR chest 1V portable [id number] 11/07/2019 8:51 PM FINDINGS: Lungs: [id number] emphysematous lung changes. No focal lung opacities. Pleural spaces: Unremarkable. No pleural effusion. No pneumothorax. Heart/Mediastinum: Moderate cardiomegaly. Bones/joints: Unremarkable. XR/XR chest 1V portable [id number] IMPRESSION: No acute pulmonary disease identified. Dictated By:Felice Michael By:Felice Michael Date/Time:02/24/21 [id number]/ 174 EKG Data^: EKG 1: Attestation: I personally reviewed and interpreted this EKG as follows: EKG Interpretation Date: 02/24/21 EKG interpretation time: 16:05 Prior EKG tracings: available for review Interpretation: Atrial fibrillation. Heart rate [address] changes. EKG 2: Attestation: I personally reviewed and interpreted this EKG as follows: EKG Interpretation Date: 02/24/21 EKG interpretation time: 18:39 Prior EKG tracings: available for review Interpretation: Atrial fibrillation. Heart rate 84 bpm. LVH. No significant change from earlier today. Discharge Plan Discharge Patient Disposition: Home Clinical Impression: CHF (congestive heart failure) Qualifiers: Heart failure type: unspecified Heart failure chronicity: unspecified Qualified Code(s): I50.9 - Heart failure, unspecified UTI (urinary tract infection) Qualifiers: Urinary tract infection type: acute cystitis Hematuria presence: without hematuria Qualified Code(s): N30.00 - Acute cystitis without hematuria Condition: Stable Prescriptions: New nitrofurantoin macrocrystal 100 mg capsule 100 mg PO BID 7 Days Qty: 14 RF: 0 Continued hydrocodone-acetaminophen 5-325 mg tablet 1 tab PO QID PRN (Reason: Pain) RF: 0 melatonin 5 mg capsule 5 mg PO BEDTIME RF: 0 polyethylene glycol 3350 17 gram/dose powder 17 gm PO PRN RF: 0 cholecalciferol (vitamin D3) 1,000 unit capsule 2,000 unit PO .THREE TIMES WEEKLY RF: 0 albuterol sulfate [ProAir HFA] 90 mcg/actuation HFA aerosol inhaler 2 puff INHALATION Q6H PRN (Reason: SOB) Qty: 3 RF: 2 diltiazem HCl 360 mg capsule,extended release 24hr 360 mg PO DAILY Qty: 90 RF: 3 Eliquis 5 mg tablet 5 mg PO BID Qty: 180 RF: 3 tizanidine 4 mg tablet 4 mg PO DAILY Qty: 30 RF: 0 ipratropium-albuterol 0.5 mg-3 mg(2.5 mg base)/3 mL Solution For Nebulization 3 ml INHALATION BID PRN (Reason: Shortness Of Breath) RF: 0 Zyrtec 10 mg Tablet 10 mg PO DAILY RF: 0 Tylenol 8 Hour 650 mg Tablet Extended Release 650 mg PO BEDTIME PRN (Reason: unknown) RF: 0 simethicone 166 mg Capsule 166 mg PO PRN RF: 0 omega-3 fatty acids Capsule 1,000 mg PO DAILY RF: 0 vitamin [id number] acid 500-400 mcg Tablet 1 tab PO DAILY RF: 0 potassium chloride 8 mEq capsule, extended release 8 meq PO DAILY RF: 0 Restoril 30 mg capsule 30 mg PO BEDTIME RF: 0 pantoprazole 40 mg tablet,delayed release (DR/EC) 40 mg PO BID RF: 0 simethicone 80 mg tablet,chewable 160 mg PO PRN RF: 0 metoprolol tartrate 25 mg tablet 25 mg PO DAILY RF: 0 Discharge Orders: Discharge ED (Routine); Ordered 02/24/21 Ordered By: Sue Kong Referrals: Sue Kong MD, [facility] [Emergency Provider] - Kwabena Marie MD [Physician] - 1-3 days Alyce Lozoya DO [Primary Care Provider] - 1-3 days Discharge Diet: As Directed Discharge Activity: Increase activity as tolerated Patient Instructions: Heart Failure (ED), Urinary Tract Infection in Women (ED) Activity Restrictions/Additional Instructions: Return for any new or worsening symptoms. Follow-up with your primary care provider within [address] Marie's office tomorrow so he can prescribe a water pill for you. Coding Level of Care Code ED Negative Turner Apprentice for Chg Fwd Exam Detailed
[2021-02-24] MEDS: ondansetron 2 mg/ML SDV 2 mL 4 MG IVP (19:26)
[2021-02-24] MEDS: morphine 4 mg/mL SDV 1 mL IVP (19:26)
[2021-02-24 19:36] LABS: Troponin 5 2HR 15.21 ng/L (0-10)
[2021-02-24 19:37] LABS: Troponin 5 2HR Delta -0.79 ABS# (0-10)
== END 2021-02-24 21:10 | disposition home or self-care (01) ==
PROVIDERS: Emergency Provider Family Medicine; PCP Family Medicine
DX: I11.0 Hypertensive heart disease with heart failure (principal); I50.9 Heart failure, unspecified; N30.00 Acute cystitis without hematuria; Z79.01 Long term (current) use of anticoagulants; J44.9 Chronic obstructive pulmonary disease, unspecified; Z87.440 Personal history of urinary (tract) infections; F17.210 Nicotine dependence, cigarettes, uncomplicated
CPT/HCPCS: 51702; 71045; 80053; 81001; 83880; 84484; 85025; 87077; 87086; 87186; 93005; 96374; 96375; 99284; J1940; J2270; J2405

== ENCOUNTER 2021-02-24 22:45 | Inpatient (IN) | payer MEDICARE, MEDICAID, SELFPAY ==
[2021-02-24 22:47] VITALS: BP 152/96; PULSE 91; RESP 17; TEMP 36.6; O2SAT 90; BMI 42.7
--- NOTE | 2021-02-24 23:05 | XRR_ITS ---
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 Views: 2 or more views. COMPARISON: No relevant prior studies available. FINDINGS: Bones/joints: Impacted proximal humeral neck fracture extends through the greater tuberosity with mild displacement of the greater tuberosity. Glenohumeral joint is grossly aligned. Acromioclavicular alignment is unremarkable. Mild hypertrophic osseous spurring. Bones are diffusely demineralized. Soft tissues: Normal. XR/XR shoulder RT min 2V* [id number] IMPRESSION: Acute right proximal humeral neck fracture.
--- NOTE | 2021-02-24 23:05 | XRR_ITS ---
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 Views: 3 or more views. COMPARISON: No relevant prior studies available. FINDINGS: Bones/joints: Normal. Soft tissues: Normal. XR/XR elbow RT min 3V* [id number] IMPRESSION: No acute findings.
--- NOTE | 2021-02-24 23:06 | ED_ITS ---
HPI - Fall General: Chief Complaint: Fall Stated Complaint: FELL HIT HEAD Time Seen by Provider: 02/24/21 22:48 Source: patient Mode of arrival: EMS Limitations: no limitations History of Present Illness: HPI Narrative: Patient is a 75-year-old female with a history of atrial fibrillation, CHF, HTN, morbid obesity, COPD, GERD, hypercholesterolemia here for evaluation following a fall. Patient was recently discharged from our facility a few hours ago. She was diagnosed with CHF exacerbation as well as a UTI. Physician at the time recommended admission to [facility] however patient wanted to go home. Patient tells me at home she uses a walker at all times as she chronically has problems with gait and balance. She states when she got home she took a step backwards and lost her balance and fell. She did not have any lightheadedness, dizziness, chest pain, shortness of breath. She did strike at the posterior aspect of her head. No LOC. Her main complaint is right shoulder and right elbow pain. Does state her neck feels sore. complaint: fall Onset (ago): hour(s) Fall from: standing Fall witnessed: no Place fall occurred: home Loss of consciousness: None Prolonged down time: no Symptoms prior to fall: none Context: tripped/slipped Location of injury: head and neck Location of injury - extremities: Right: shoulder and elbow Associated symptoms-after fall: Reports neck pain (soreness); Denies abdominal pain, chest pain, headache(s) or lightheadedness Review of Systems Const: Denies: fever(s), chills, body aches, fatigue or malaise Eyes: Denies: change in vision or blurry vision Card: Reports: edema and swelling of feet/ankles; Denies: chest pain, palpitations, irregular heart rhythm, lightheadedness, syncope or pre-syncope Resp: Denies: dyspnea GI: Denies: abdominal pain Musc: Reports: neck pain (soreness) and joint pain (R shoulder/elbow); Denies: back pain or joint swelling Neuro: Denies: headache(s), numbness in extremities, weakness in extremities or sensory changes [facility] ED PFSH: Medical History Atrial fibrillation Benign essential hypertension with target blood pressure below 140/90 Chronic episodic atrial fibrillation COPD (chronic obstructive pulmonary disease) GERD (gastroesophageal reflux disease) Hypercholesterolemia Other cervical disc displacement, unspecified cervical region Recurrent UTI Sleep apnea Unspecified hydronephrosis Urgency incontinence Urolithiasis Surgical History H/O cataract extraction H/O esophagogastroduodenoscopy (07/14/20) H/O knee surgery H/O shoulder surgery History of appendectomy History of cholecystectomy S/P hysterectomy Status post colonoscopy (07/14/20) Family History Father Stroke Mother Cancer BLADDER, BREAST Brother Cancer ESOPHAGEAL Family/Other Cancer Sister Cancer Suicide Denies family history of Diabetes CAD (coronary artery disease) Clotting disorder Dementia Chronic kidney disease (CKD) Anesthesia complication Bleeding disorder Lung disease Social History Smoking and tobacco status: current every day smoker cigarettes Packs smoked per day: 1 Alcohol intake: never Marital status: Current occupational status: disabled Physical Exam Const: COMMON NORMALS: no acute distress, patient oriented x3, no limitations and alert GENERAL APPEARANCE: cooperative NUTRITIONAL APPEARANCE: obese ORIENTATION/CONSCIOUSNESS: Yes awake, Yes oriented to person, Yes oriented to place and Yes oriented to time HENMT: COMMON NORMALS: normocephalic HEAD & SCALP: normal to inspection, normocephalic and other (small abrasion to posterior scalp; does not require repair) FACE & SINUS: normal facial exam Neck/C-Spine: CERVICAL SPINE: Yes cervical ROM normal, Yes Cervical spine tenderness (mid to lower c spine), No step off deformity and No Paracervical muscle tenderness Chest: COMMONS NORMALS: normal inspection of the chest and normal palpation of entire chest wall Resp: COMMON NORMALS: normal respiratory effort and clear to auscultation bilaterally AUSCULTATION: clear to auscultation bilaterally Cardio: COMMON NORMALS: regular rate RATE: regular rate RHYTHM: abnormal rhythm irregularly irregular GI: COMMON NORMALS: Normal to inspection, nondistended, normoactive bowel sounds present, Soft to palpation and non-tender PALPATION: Yes Soft to palpation Back/Pelvis: COMMON NORMALS: thoracic and lumbar spine normal to inspection, no thoracic nor lumbar tenderness and thoraco-lumbar ROM normal Extremity: RIGHT UPPER EXTREMITY: Yes shoulder joint (significant tenderness w /o obvious deformity) Right shoulder: Yes Right shoulder joint ROM exam (dec secondary to pain) and Yes Right shoulder joint neurovascular exam (normal) Neuro: COMMON NORMALS: patient oriented x3, no focal motor deficits and no sensory deficits noted SENSORIUM/ORIENTATION: Yes alert, Yes oriented to person, Yes oriented to place and Yes oriented to time GAIT: Yes Unable to assess gait Course Consultations: Consultation #1: Dr. Garcia-accepts admission Vital Signs: Vital signs: Vital Signs Temperature 97.8 F 02/24/21 22:47 Pulse Rate 91 02/24/21 22:47 Respiratory Rate 20 H 02/24/21 23:22 Blood Pressure 152/96 02/24/21 22:47 Pulse Oximetry 97 02/24/21 23:22 MDM - Fall MDM Narrative: Medical decision making narrative: Patient is a 75-year-old female here following a fall. She tells me she chronically has problems with gait and balance. She tells me she uses a walker at all times and is very unsteady without it. She is noted to have a right proximal humeral fracture following her fall today. With this fracture it is not going to be possible for patient to ambulate with her walker. She is not going to be able to use a wheelchair. Patient ultimately is going to have to go to a retirement facility. She agrees with this plan. Patient will be placed in a sling and admitted to the hospital. Patient was seen here earlier today for complaints of CHF exacerbation. She received IV lasix a few hours ago. She was also found to have a UTI-will start dose of IV Rocephin now. Repeat labs, urine, imaging was not obtained as these were just completed a few hours ago. Spoke to Dr. Smith who agrees with plan for patient. Imaging Data^: XR R shoulder : Radiologist's impression: [address] 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 Pain in right shoulder; Additional info: Fall/trauma TECHNIQUE: Imaging protocol: XR Right shoulder. Views: 2 or more views. COMPARISON: No relevant prior studies available. FINDINGS: Bones/joints: Impacted proximal humeral neck fracture extends through the greater tuberosity with mild displacement of the greater tuberosity. Glenohumeral joint is grossly aligned. Acromioclavicular alignment is unremarkable. Mild hypertrophic osseous spurring. Bones are diffusely demineralized. Soft tissues: Normal. XR/XR shoulder RT min 2V* [id number] IMPRESSION: Acute right proximal humeral neck fracture. Dictated By: Enio Michael Signed By: Enio Michael Signed Date/Time: 02/24/212337 DD/ 36 XR R elbow: Radiologist's impression: [address] [address] XRay Report Signed Patient: Bre Lara Unit #: [id number] : 1945 Age/Sex: 75 / F ADM Date: 02/24/21 Loc: ER Room/Bed: Attending Dr: Ordering Provider/Ordering MD: Virginie Hernández Date of Service: 02/24/21 Procedure(s): XR elbow RT min 3V* 98870 Accession Number(s): [id number] Report Number: [id number] PROCEDURE INFORMATION: Exam: XR Right Elbow Exam date and time: 02/24/2021 11:05 PM Age: 75 years old Clinical indication: Injury or trauma; Blunt trauma (contusions or hematomas); 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 Views: 3 or more views. COMPARISON: No relevant prior studies available. FINDINGS: Bones/joints: Normal. Soft tissues: Normal. XR/XR elbow RT min 3V* [id number] IMPRESSION: No acute findings. Dictated By: Enio Michael Signed By: Enio Michael Signed Date/Time: 02/24/212336 DD/ 35 CT Head: Radiologist's impression: [address] [address]AY Scan ReportSigned Patient: Bre Lara AUnit #: [id number]: cct#:[id number]/Sex: 75 / FADM Date: 02/24/21Loc: ERRoom/Bed:Attending Dr: Ordering Provider/Ordering MD: Virginie Hernández Date of Service: 02/24/21 Procedure(s): CT head wo con* 63683 Accession Number(s): [id number] Report Number: [id number] PROCEDURE INFORMATION: Exam: CT Head Without Contrast Exam date and time: 02/24/2021 11:05 PM Age: 75 years old Clinical indication: Injury or trauma; Blunt trauma (contusions or hematomas); 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 Hit back of head. Lac to back of head. ; Additional info: Trauma/fall TECHNIQUE: Imaging protocol: Computed tomography of the head without contrast. Radiation optimization: All CT scans at this facility use at least one of these dose optimization techniques: automated exposure control; mA and/or kV adjustment per patient size (includes targeted exams where dose is matched to clinical indication); or iterative reconstruction. COMPARISON: CT head wo con* [id number] 07/18/2019 12:47 AM RADIATION DOSE METRICS: Total DLP (mGy-cm): 787.51 FINDINGS: Brain: There is moderate cerebral atrophy. There is mild diffuse heterogeneity of the white matter attenuation, consistent with chronic white matter ischemic changes. Negative for intracranial negative for intracranial mass. No midline shift of brain. Obrien matter and white matter interfaces are preserved. No cerebral sulcal effacement Cerebral ventricles: No ventriculomegaly. Paranasal sinuses: Visualized sinuses are unremarkable. No fluid levels. Mastoid air cells: Visualized mastoid air cells are well aerated. Orbital cavity: Symmetric orbits. Bones/joints: Unremarkable. No acute fracture. Soft tissues: Unremarkable. CT/CT head wo con* [id number] IMPRESSION: 1. Negative for intracranial injury. 2. No changes from comparison Radiation Dose CTDIVOL = (mGy): DLP = 787.51 (mGy-cm) Dictated By:AlecKevinSigned By:Alec,KevinSigned Date/Time:02/24/212358DD/ 57 CT cervical: Radiologist's impression: [place] [place], [place] [address]EV Scan ReportSigned Patient: Bre Lara AUnit #: [id number]: 1945cct#:[id number]/Sex: 75 / FADM Date: 02/24/21Loc: ERRoom/Bed:Attending Dr: Ordering Provider/Ordering MD: Virginie Hernández Date of Service: 02/24/21 Procedure(s): CT cervical spin wo con* 80084 Accession Number(s): [id number] Report Number: [id number] PROCEDURE INFORMATION: Exam: CT Cervical Spine Without Contrast Exam date and time: 02/24/2021 11:05 PM Age: 75 years old Clinical indication: Injury or trauma; Blunt trauma; 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 Hit back of head and has a lac TECHNIQUE: Imaging protocol: Computed tomography images of the cervical spine without contrast. Radiation optimization: All CT scans at this facility use at least one of these dose optimization techniques: automated exposure control; mA and/or kV adjustment per patient size (includes targeted exams where dose is matched to clinical indication); or iterative reconstruction. COMPARISON: CT Cervical Spine wo* [id number] 07/21/2019 10:46 PM RADIATION DOSE METRICS: Total DLP (mGy-cm): 2231.26 FINDINGS: Vertebrae: No acute fractures. No malalignment. Exaggerated lordosis.The cervical spine demonstrates marked degenerative changes at multiple levels. Other bones/joints: Diffuse osseous demineralization. Soft tissues: Unremarkable. Lungs: Lung apices are normal. CT/CT cervical spin wo con* [id number] IMPRESSION: Negative for cervical spine fracture. Radiation Dose CTDIVOL = (mGy): DLP = 2231.26 (mGy-cm) Dictated By:Felice Michael By:Felice Michael Date/Time:02/25/21 0001DD/ 0000 Discharge Plan Discharge Patient Disposition: Admitted As Inpatient Clinical Impression: Unable to care for self CHF (congestive heart failure) Qualifiers: Heart failure type: unspecified Heart failure chronicity: acute on chronic Qualified Code(s): I50.9 - Heart failure, unspecified UTI (urinary tract infection) Qualifiers: Urinary tract infection type: acute cystitis Hematuria presence: with hematuria Qualified Code(s): N30.01 - Acute cystitis with hematuria Closed fracture of proximal end of right humerus Qualifiers: Encounter type: initial encounter Fracture morphology: other fracture Fracture alignment: nondisplaced Qualified Code(s): S42.294A - Other nondisplaced fracture of upper end of right humerus, initial encounter for closed fracture Condition: Stable Coding Level of Care Code ED Electrical Sign Wirer Helper for Leta Fwd Exam Comprehensive
[2021-02-24 23:22] VITALS: RESP 20; O2SAT 97
[2021-02-24] MEDS: morphine 4 mg/mL SDV 1 mL IM (23:22)
[2021-02-25] VITALS (13 sets, daily range): BP systolic 83–150; BP diastolic 55–79; PULSE 78–100; RESP 16–22; TEMP 36.7–37.1; O2SAT 91–98
--- NOTE | 2021-02-25 00:41 | ECG_ITS ---
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 Measurements Intervals [place] Rate: 88 P: [place]: QRS: -6 QRSD: 93 T: 151 QT: 367 QTc: 445 Interpretive Statements ATRIAL FIBRILLATION WITH ABERRANT CONDUCTION OR VENTRICULAR PREMATURE COMPLEXES MODERATE T-WAVE ABNORMALITY, CONSIDER ANTEROLATERAL ISCHEMIA [-0.1+ mV T WAVE IN V3-V6] Compared to ECG 02/24/2021 18:37:59 Ventricular premature complex(es) now present Aberrant conduction of supraventricular beat(s) now present Myocardial infarct finding no longer present T-wave abnormality still present Possible ischemia still present Electronically Signed On 02-25-2021 18:31:07 CDT by Keven Leyva M.D. [id number]
[2021-02-25] MEDS: cefTRIAXone 1,000 MG in sodium chloride 0.9% (plus) 50 ML 100 MG IV (01:36)
--- NOTE | 2021-02-25 01:55 | PC.NURSE ---
report called to CAMPOS Riggs on Med-Surg.
[2021-02-25 02:27] LABS: Anion Gap 14.7 (5-19); Blood Urea Nitrogen 13 mg/dL (8-23); Calcium 9.9 mg/dL (8.5-10.5); Carbon Dioxide 27 mmol/L (22-29); Chloride 105 mmol/L (98-107); Creatinine Clr Calc Pharmacy 80.1233; Glucose 133 mg/dL (65-115); Magnesium 1.7 mg/dL (1.7-2.3); Osmolality Calculated 298 mOsm/kg (285-295); Potassium 3.7 mmol/L (3.5-5.1); Sodium 143 mmol/L (136-145)
--- NOTE | 2021-02-25 03:14 | PM.HP ---
Providers/Chief Complaint Admitting Physician: Red Garcia Primary Care Provider: Alyce Lozoya DO Chief Complaint: FELL HIT HEAD History of Present Illness 75-year-old female with past medical history significant for hypertension, hypercholesterolemia, obstructive sleep apnea, gastroesophageal reflux disease, paroxysmal atrial fibrillation on anticoagulation, chronic obstructive pulmonary disease with presented to the hospital initially for evaluation of increasing lower extremity edema. Patient stated that she was previously on Lasix at home however had stopped this due to adverse effects which she noted as abdominal discomfort, diarrhea. she had refused to take oral Lasix at home. She was agreeable to IV Lasix which were given after which she was advised to remain in the hospital however she had opted to return home. Shortly after returning home she stated that she felt lightheaded dizzy and fell backwards hitting her head. Family member at bedside stated that she had briefly lost consciousness for few seconds. She denies chest pain. At this point she return to the hospital complaining of right shoulder pain. Imaging studies has shown a right proximal humeral neck fracture. At this point she was not able to return home as she stated she is not able to care for herself. As she is dependent on the use of a walker which now limited due to humeral fracture. Requested SNF placement. Laboratory workup on arrival showed a WBC of 7.7, hemoglobin of 13.6, hematocrit of 42.9 and a platelet count of 207. Sodium 143, potassium 3.9, chloride 110, bicarb 23, BUN 12 and creatinine of 0.7. Troponin T delta was -0.7. ProBNP was elevated at 1128. Urinalysis showed negative nitrite, 2+ leukocyte esterase, 25 to 40 abcs and 4+ bacteria. Imaging studies included a chest x-ray which did not show any acute abnormality.CT head and cervical spine were also negative.Right shoulder x-ray showed acute right proximal humeral neck fracture Review of Systems General: Reports: 10 or more systems reviewed and unremarkable except in HPI and below Medications/Allergies Home Medications Medication Instructions Recorded Confirmed Last Taken Type cholecalciferol (vitamin D3) 25 2,000 unit PO .THREE TIMES WEEKLY 09/14/19 02/25/21 07/13/20 History mcg (1,000 unit) capsule cap hydrocodone 5 mg-acetaminophen 325 1 tab PO QID PRN 09/14/19 02/25/21 02/24/21 History mg tablet melatonin 5 mg capsule 5 mg PO BEDTIME cap 09/14/19 02/25/21 02/23/21 History polyethylene glycol 3350 17 17 gm PO PRN gm 09/14/19 02/25/21 02/23/21 History gram/dose oral powder albuterol sulfate 90 mcg/actuation 2 puff INHALATION Q6H PRN #3 each 12/10/19 02/25/21 07/13/20 Rx aerosol inhaler apixaban 5 mg tablet 5 mg PO BID #180 tab 11/23/20 02/25/21 02/24/21 Rx diltiazem HCl 360 mg 360 mg PO DAILY #90 cap 11/23/20 02/25/21 02/24/21 Rx capsule,extended release 24 hr tizanidine 4 mg tablet 4 mg PO DAILY #30 tab 12/24/20 02/25/21 Unknown Rx acetaminophen [Tylenol 8 Hour] 650 mg PO BEDTIME PRN 02/24/21 02/25/21 Unknown History cetirizine [Zyrtec] 10 mg PO DAILY 02/24/21 02/25/21 02/23/21 History ipratropium-albuterol 3 ml INHALATION BID PRN 02/24/21 02/25/21 Unknown History metoprolol tartrate 25 mg PO DAILY 02/24/21 02/25/21 02/23/21 History nitrofurantoin macrocrystal 100 mg PO BID 7 Days #14 cap 02/24/21 02/25/21 Unknown Rx omega-3 fatty acids 1,000 mg PO DAILY 02/24/21 02/25/21 Unknown History pantoprazole 40 mg PO BID 02/24/21 02/25/21 02/24/21 History potassium chloride 8 meq PO DAILY 02/24/21 02/25/21 02/23/21 History simethicone 160 mg PO PRN 02/24/21 02/24/21 Unknown History simethicone 166 mg PO PRN 02/24/21 02/25/21 02/24/21 History temazepam [Restoril] 30 mg PO BEDTIME 02/24/21 02/25/21 Unknown History vitamin C56-[id number] acid 1 tab PO DAILY 02/24/21 02/25/21 02/23/21 History Allergies Allergy/AdvReac Type Severity Reaction Status Date / Time Penicillins Allergy Unknown Unknown Verified 02/24/21 16:59 cefdinir Allergy Unknown Verified 02/24/21 16:59 ciprofloxacin [From Cipro] Allergy NA Verified 02/24/21 16:59 fluoxetine Allergy NA Verified 02/24/21 16:59 nabumetone Allergy NA Verified 02/24/21 16:59 penicillin G Allergy NA Verified 02/24/21 16:59 pentazocine [From Talwin] Allergy NA Verified 02/24/21 16:59 Sulfa (Sulfonamide Allergy NA Verified 02/24/21 16:59 Antibiotics) furosemide [From Lasix] AdvReac diarrhea, Verified 02/24/21 16:59 vomiting, chills, generalized weakness PFSH Acute PFSH: Medical History Atrial fibrillation Benign essential hypertension with target blood pressure below 140/90 Chronic episodic atrial fibrillation COPD (chronic obstructive pulmonary disease) GERD (gastroesophageal reflux disease) Hypercholesterolemia Other cervical disc displacement, unspecified cervical region Recurrent UTI Sleep apnea Unspecified hydronephrosis Urgency incontinence Urolithiasis Surgical History H/O cataract extraction H/O esophagogastroduodenoscopy (07/14/20) H/O knee surgery H/O shoulder surgery History of appendectomy History of cholecystectomy S/P hysterectomy Status post colonoscopy (07/14/20) Family History Father Stroke Mother Cancer BLADDER, BREAST Brother Cancer ESOPHAGEAL Family/Other Cancer Sister Cancer Suicide Denies family history of Diabetes CAD (coronary artery disease) Clotting disorder Dementia Chronic kidney disease (CKD) Anesthesia complication Bleeding disorder Lung disease Social History Smoking and tobacco status: current every day smoker cigarettes Packs smoked per day: 1 Alcohol intake: never Marital status: Current occupational status: disabled Vitals/I&O/Wt Last Vital Signs Temp 98.1 F 02/25/21 03:59 Pulse 81 02/25/21 03:59 Resp 16 02/25/21 03:59 BP 139/79 02/25/21 03:59 Pulse Ox 92 02/25/21 03:59 02/24/21 02/24/21 02/25/21 14:59 22:59 06:59 Intake Total 50 / 50 Output Total 600 / 600 Balance -550 / -550 Weight last 48 hrs Weight 86.183 kg Physical Exam Narrative: EXAM NARRATIVE: General-Alert, awake, no distress HEENT-grossly unremarkable CVS- regular rate rhythm obvious murmurs Chest - CTABL Abdomen -soft nontender nondistended Extremities- LUE sling, B/L LE - 2+ edema Urinary Catheter Management^: [place]: Cath Placed During This Visit: yes Urinary Catheter Date of Insertion: 02/25/21 Urinary Catheter Time of Insertion: 00:55 Data : 02/25/21 01:50 A&P Assessment and plan (1) CHF (congestive heart failure): Status: Acute Qualifiers: Heart failure chronicity: acute on chronic Heart failure type: unspecified Qualified Code(s): I50.9 - Heart failure, unspecified (2) UTI (urinary tract infection): Status: Acute Qualifiers: Hematuria presence: with hematuria Urinary tract infection type: acute cystitis Qualified Code(s): N30.01 - Acute cystitis with hematuria (3) Closed fracture of proximal end of right humerus: Status: Acute Qualifiers: Encounter type: initial encounter Fracture alignment: nondisplaced Fracture morphology: other fracture Qualified Code(s): S42.294A - Other nondisplaced fracture of upper end of right humerus, initial encounter for closed fracture (4) Hypercholesterolemia: Status: Chronic (5) Chronic episodic atrial fibrillation: Status: Acute (6) COPD (chronic obstructive pulmonary disease): Status: Chronic Qualifiers: COPD type: COPD with acute exacerbation Qualified Code(s): J44.1 - Chronic obstructive pulmonary disease with (acute) exacerbation (7) Benign essential hypertension with target blood pressure below 140/90: Status: Acute Fall with right proximal humeral fracture Right UE sling Consider ortho consult Likely non-surgical management CT head neg / Cervical spine neg Pain control PT/OT consult Acute CHF exacerbation No prior echo - unspecified type Lasix 40 mg IV daily ECHO ordered Daily weight Low NA diet Paroxysmal Atrial fibrillation Diltiazem 360 ER daily Metoprolol 25mg PO BID Monitor on telemetry Held OAC - can resume if stable May need med dose adjustment UTI Follow up on ucx Multiple allergies Macrobid 100 mg PO BID Further abx plan per culture results Additional Medical Problems Hypertension Dyslipidemia [place] GERD DVT ppx - SCDs - resume OAC if stable Attestations Medical Necessity Statement*: anticipate over 2 midnight stay in hospital for eval and treatment Time Spent in Patient Care: Greater than 35 minutes (>than 50% of time spent in counselling and/or direct pt care on unit). Coding Level of Care Code Acute Business Process Architect for Chg Fwd Diagnoses CHF (congestive heart failure) I50.9 Heart failure chronicity: acute on chronic Heart failure type: unspecified UTI (urinary tract infection) N30.01 Hematuria presence: with hematuria Urinary tract infection type: acute cystitis Closed fracture of proximal end of right humerus S42.294A Encounter type: initial encounter Fracture alignment: nondisplaced Fracture morphology: other fracture Hypercholesterolemia E78.00 Chronic episodic atrial fibrillation I48.20 COPD (chronic obstructive pulmonary disease) J44.1 COPD type: COPD with acute exacerbation Benign essential hypertension with target blood pressure below 140/90 I10
[2021-02-25] MEDS: HYDROcodone-acetaminophen 5-325 mg Tablet 1 TAB PO ×5 (04:31→22:23)
--- NOTE | 2021-02-25 06:06 | USCV_ITS ---
Bre Lara Age: 75 Gender: F : 1945 Exam Date: 02/25/2021 14:13 Ordering Phys: Red Garcia MD Technologist: Annamarie Gold Exam Location: [facility] Indication: Edema, respiratory distress BP: 101 / 69 HR: 73 Rhythm: Sinus Technical Quality: Suboptimal MEASUREMENTS (Male / Female) Normal Values 2D ECHO LV Diastolic Diameter PLAX 4.0 cm 4.2 - 5.9 / 3.9 - 5.3 cm LV Systolic Diameter PLAX 2.5 cm LV Chamber Size 3.7 cm IVS Diastolic Thickness 1.4 cm 0.6 - 1.0 / 0.6 - 0.9 cm IVS Systolic Thickness 1.8 cm LVPW Diastolic Thickness 1.1 cm 0.6 - 1.0 / 0.6 - 0.9 cm LVPW Systolic Thickness 1.6 cm RV Chamber Size 2.4 cm LVOT Diameter 2.0 cm LV Ejection Fraction 2D Teich 67.8 % LV Ejection Fraction MOD 2C 56.7 % LV Ejection Fraction 2C AL 56.7 % LA Diameter 4.1 cm LA Width 3.4 cm LA Height 6.2 cm RA Width 2.7 cm RA Height 5.4 cm Aorta at Sinotubular Diameter 2.9 cm M-MODE LV Diastolic Diameter MM 5.4 cm 4.2 - 5.9 / 3.9 - 5.3 cm LV Systolic Diameter MM 3.1 cm LV Ejection Fraction MM Teich 72.7 % IVS Diastolic Thickness MM 1.1 cm 0.6 - 1.0 / 0.6 - 0.9 cm IVS Systolic Thickness MM 1.9 cm LVPW Diastolic Thickness MM 1.4 cm 0.6 - 1.0 / 0.6 - 0.9 cm LVPW Systolic Thickness MM 1.7 cm RV Diastolic Diameter MM 1.4 cm Aortic Annulus Diameter 3.2 cm LA Ao Ratio MM 1.3 MV E Point Septal Separation 0.5 cm DOPPLER AV Peak Velocity 151.0 cm/s LVOT Peak Velocity 86.0 cm/s AV Area Cont Eq vti 1.7 cm squared AV Area Cont Eq pk 1.8 cm squared MV Area PHT 4.9 cm squared MV E' Velocity 90.0 cm/s TV Peak E Velocity 52.0 cm/s Right Atrial Pressure 3.0 mmHg PV Peak Velocity 64.0 cm/s RV Acceleration Time 0.1 s RV Ejection Time 0.3 s RV AcT/ET 0.3 FINDINGS Left Ventricle Left ventricular cavity not well visualized. Probably normal left ventricle systolic function. Left ventricular ejection fraction is estimated at 60-65%. This study is inadequate for estimation of regional wall motion abnormality. Right Ventricle Right ventricle not well visualized. Normal right ventricular size and systolic function. Right Atrium Mildly increased right atrial size. Left Atrium Severely increased left atrial size. Mitral Valve Thickened mitral valve. Trace mitral valve regurgitation. Aortic Valve Aortic valve not well visualized. No aortic valve stenosis. Tricuspid Valve Tricuspid valve not well visualized. Trace tricuspid valve regurgitation. Pulmonic Valve Pulmonic valve not well visualized. Trace pulmonary valve regurgitation. Pericardium No pericardial effusion. Aorta Normal size aortic root and proximal ascending aorta. CONCLUSIONS 1. This is a technically very difficult study. 2. Probably normal left ventricle systolic function. Left ventricular ejection fraction is estimated at 60-65%. This study is inadequate for estimation of regional wall motion abnormality. 3. Normal right ventricular size and systolic function. 4. Severely increased left atrial size. 5. Repeat study with echo contrast may be considered for better assessment of regional wall motion abnormality. Destiny Goodman MD (Electronically Signed) Final Date: 25 February 2021 18:38 S
[2021-02-25] MEDS: FUROsemide 10 mg/mL SDV 4mL 40 MG IVP (06:21)
[2021-02-25] MEDS: nitrofurantoin SR (BID) 100 mg Capsule PO ×2 (09:11→18:15)
[2021-02-25] MEDS: dilTIAZem ER (24HR) 180 mg Capsule 360 MG PO (09:11)
[2021-02-25] MEDS: docusate sodium 100 mg Capsule PO ×2 (09:11→18:15)
[2021-02-25] MEDS: metoprolol tartrate 25 mg Tablet PO (09:11)
[2021-02-25] MEDS: pantoprazole DR 40 mg Tablet PO (09:11)
--- NOTE | 2021-02-25 11:19 | XR_ITS ---
WS: [id number] Exam: XR ribs RT 2V* [id number] Date/Time of Exam: 02/25/2021 1:29 PM Reason For Exam: fall No acute right rib fracture or pneumothorax is noted. Healed posterior right sixth rib fracture is no karime. There is an impacted comminuted fracture of the surgical neck and head of the humerus which appe ars to be recent. There is posterior rotation of the humeral head. This was not present on the chest radiograph performed 02/24/2021. XR/XR ribs RT 2V* [id number] IMPRESSION: 1. No acute right rib fracture or pneumothorax. 2. Comminuted impacted fracture of the surgical neck and head of the right slim rayray which appears recent.
--- NOTE | 2021-02-25 13:57 | P.CONIM_ITS ---
Providers/Reason For Consult Consulting Physician/Specialty*: Chris Lucas MD; orthopedic surgery Reason for Consult*: Right humerus fracture Attending Physician: Eusebio Keenan DO Primary Care Provider: Alyce Lozoya DO History of Present Illness History of Present Illness Bre Lara is a 75 year old female who fell at home the evening of 02/24/2021. She describes losing loss of consciousness following with immediate pain in the shoulder. Radiographs on admission revealed a right proximal femoral fracture. She is previously dependent on a walker for ambulation and is now limited due to her humeral fracture. She is asking for a retirement placement. Meds/Allergies Home Medications and Allergies Home Medications Medication Instructions Recorded Confirmed Last Taken Type cholecalciferol (vitamin D3) 25 2,000 unit PO .THREE TIMES WEEKLY 09/14/19 02/25/21 07/13/20 History mcg (1,000 unit) capsule cap hydrocodone 5 mg-acetaminophen 325 1 tab PO QID PRN 09/14/19 02/25/21 02/24/21 History mg tablet melatonin 5 mg capsule 5 mg PO BEDTIME cap 09/14/19 02/25/21 02/23/21 History polyethylene glycol 3350 17 17 gm PO PRN gm 09/14/19 02/25/21 02/23/21 History gram/dose oral powder albuterol sulfate 90 mcg/actuation 2 puff INHALATION Q6H PRN #3 each 12/10/19 02/25/21 07/13/20 Rx aerosol inhaler apixaban 5 mg tablet 5 mg PO BID #180 tab 11/23/20 02/25/21 02/24/21 Rx diltiazem HCl 360 mg 360 mg PO DAILY #90 cap 11/23/20 02/25/21 02/24/21 Rx capsule,extended release 24 hr tizanidine 4 mg tablet 4 mg PO DAILY #30 tab 12/24/20 02/25/21 Unknown Rx acetaminophen [Tylenol 8 Hour] 650 mg PO BEDTIME PRN 02/24/21 02/25/21 Unknown History cetirizine [Zyrtec] 10 mg PO DAILY 02/24/21 02/25/21 02/23/21 History ipratropium-albuterol 3 ml INHALATION BID PRN 02/24/21 02/25/21 Unknown History metoprolol tartrate 25 mg PO DAILY 02/24/21 02/25/21 02/23/21 History nitrofurantoin macrocrystal 100 mg PO BID 7 Days #14 cap 02/24/21 02/25/21 Unknown Rx omega-3 fatty acids 1,000 mg PO DAILY 02/24/21 02/25/21 Unknown History pantoprazole 40 mg PO BID 02/24/21 02/25/21 02/24/21 History potassium chloride 8 meq PO DAILY 02/24/21 02/25/21 02/23/21 History simethicone 166 mg PO PRN 02/24/21 02/25/21 02/24/21 History temazepam [Restoril] 30 mg PO BEDTIME 02/24/21 02/25/21 Unknown History vitamin [id number] acid 1 tab PO DAILY 02/24/21 02/25/21 02/23/21 History Allergies Allergy/AdvReac Type Severity Reaction Status Date / Time Penicillins Allergy Unknown Unknown Verified 02/24/21 16:59 cefdinir Allergy Unknown Verified 02/24/21 16:59 ciprofloxacin [From Cipro] Allergy NA Verified 02/24/21 16:59 fluoxetine Allergy NA Verified 02/24/21 16:59 nabumetone Allergy NA Verified 02/24/21 16:59 penicillin G Allergy NA Verified 02/24/21 16:59 pentazocine [From Talwin] Allergy NA Verified 02/24/21 16:59 Sulfa (Sulfonamide Allergy NA Verified 02/24/21 16:59 Antibiotics) furosemide [From Lasix] AdvReac diarrhea, Verified 02/24/21 16:59 vomiting, chills, generalized weakness Current Medications Current Medications Generic Name Dose Route Start Last Admin Trade Name Freq PRN Reason Stop Dose Admin Hydrocodone Bitart/Acetaminophen 1 tab 02/25/21 01:37 02/25/21 09:11 Hydrocodone-Acetaminophen 5-325 Mg Tablet PO 1 tab Q4H PRN Administration MODERATE TO SEVERE PAIN Diltiazem HCl 360 mg 02/25/21 09:00 02/25/21 09:11 Diltiazem Er (24hr) 180 Mg Capsule PO 360 mg DAILY ANNELIESE Administration Docusate Sodium 100 mg 02/25/21 09:00 02/25/21 09:11 Docusate Sodium 100 Mg Capsule PO 100 mg BID ANNELIESE Administration Furosemide 40 mg 02/25/21 06:30 02/25/21 06:21 Furosemide 10 Mg/Ml Sdv 4ml IVP 40 mg Q24H ANNELIESE Administration Metoprolol Tartrate 25 mg 02/25/21 09:00 02/25/21 09:11 Metoprolol Tartrate 25 Mg Tablet PO 25 mg DAILY ANNELIESE Administration Nitrofurantoin Macrocrystals 100 mg 02/25/21 09:00 02/25/21 09:11 Nitrofurantoin Sr (Bid) 100 Mg Capsule PO 100 mg BID ANNELIESE Administration Pantoprazole Sodium 40 mg 02/25/21 09:00 02/25/21 09:[address] 40 Mg Tablet PO 40 mg DAILY ANNELIESE Administration PFSH Acute PFSH: Medical History Atrial fibrillation Benign essential hypertension with target blood pressure below 140/90 Chronic episodic atrial fibrillation COPD (chronic obstructive pulmonary disease) GERD (gastroesophageal reflux disease) Hypercholesterolemia Other cervical disc displacement, unspecified cervical region Recurrent UTI Sleep apnea Unspecified hydronephrosis Urgency incontinence Urolithiasis Surgical History H/O cataract extraction H/O esophagogastroduodenoscopy (07/14/20) H/O knee surgery H/O shoulder surgery History of appendectomy History of cholecystectomy S/P hysterectomy Status post colonoscopy (07/14/20) Family History Father Stroke Mother Cancer BLADDER, BREAST Brother Cancer ESOPHAGEAL Family/Other Cancer Sister Cancer Suicide Denies family history of Diabetes CAD (coronary artery disease) Clotting disorder Dementia Chronic kidney disease (CKD) Anesthesia complication Bleeding disorder Lung disease Social History Smoking and tobacco status: current every day smoker cigarettes Packs smoked per day: 1 Alcohol intake: never Marital status: Current occupational status: disabled Vitals/I&O/Wt Last Vital Signs Temp 98.2 F 02/25/21 11:22 Pulse 78 02/25/21 11:22 Resp 18 02/25/21 11:22 BP 101/69 02/25/21 11:22 Pulse Ox 92 02/25/21 11:22 02/24/21 02/25/21 02/25/21 22:59 06:59 14:59 Intake Total 50 / 50 Output Total 600 / 600 1000 / 1000 Balance -550 / -550 -1000 / -1000 Weight last 48 hrs Weight 190 lb Physical Exam Narrative: EXAM NARRATIVE: Patient is a heavier set female in no obvious distress. She is immobilized in sling. She answers questions appropriately. She has swelling about her right shoulder and humerus She is unable to move her shoulder due to pain. She can actively flex and extend her elbow to some degree although is limited by pain. She has no distal right motor or sensory deficits. Urinary Catheter Management^: [place]: Cath Placed During This Visit: yes Reason for Continuing Indwelling Catheter: Other Urinary Catheter Date of Insertion: 02/25/21 Urinary Catheter Time of Insertion: 00:55 Data Imaging^: Xray Ortho: My impression: 3 views of the right shoulder consisting of AP and internal and external rotation as well as a scapular Y radiograph are obtained. The patient has a fracture that appears to be 3 part surgical neck and tuberosities overall alignment is very reasonable. A&P Assessment and plan (1) Closed fracture of proximal end of right humerus: Current position of the proximal humerus fracture is satisfactory. I told the patient that I do not think that I could improve her outcome at all with surgery. I recommend a sling for comfort. I will have her begin working with occupational therapy here. She can perform pendulum exercises and active range of motion of her elbow wrist and hand. I would like to see her back in clinic in 2 weeks with repeat radiographs to be sure no displacement occurs. For si gnout anticipate nonweightbearing status for at least 6 weeks on the right upper extremity. Status: Acute Qualifiers: Encounter type: initial encounter Fracture alignment: nondisplaced Fracture morphology: other fracture Qualified Code(s): S42.294A - Other nondisplaced fracture of upper end of right humerus, initial encounter for closed fracture Coding Level of Care Code Acute Terminal Makeup Operator for [facility] Fwd Diagnoses Closed fracture of proximal end of right humerus S42.294A Encounter type: initial encounter Fracture alignment: nondisplaced Fracture morphology: other fracture
--- NOTE | 2021-02-25 17:36 | PM.PN ---
Subjective Subjective: Interval history: Patient has no complaints. She knows she will need to go to a fdc for therapy. I was in the room her son and daughter came in. They were just asking when transfer would occur. I told them it was up to her insurance. Vitals/I&O/Wt Last Vital Signs Temp 98.4 F 02/25/21 15:45 Pulse 78 02/25/21 15:45 Resp 16 02/25/21 15:45 BP 100/58 02/25/21 15:45 Pulse Ox 91 02/25/21 15:45 02/25/21 02/25/21 02/25/21 06:59 14:59 22:59 Intake Total 50 / 50 Output Total 600 / 600 1000 / 1000 Balance -550 / -550 -1000 / -1000 Weight last 48 hrs Weight 86.183 kg Physical Exam Narrative: EXAM NARRATIVE: Obese woman who appears approximately her stated age she appears to be in mild distress due to pain and dyspnea. Heart regular S1-S2 without murmurs clicks clicks gallops or rubs Lungs I could only auscultate anteriorly due to her severe pain in her right shoulder. She was clear anteriorly. Abdomen obese nontender nondistended positive bowel sounds Extremities pitting edema to the lower extremities. Urinary Catheter Management^: [place]: Cath Placed During This Visit: yes Reason for Continuing Indwelling Catheter: Other Urinary Catheter Date of Insertion: 02/25/21 Urinary Catheter Time of Insertion: 00:55 Data : 02/25/21 01:50 A&P Assessment and plan (1) CHF (congestive heart failure): Status: Acute Qualifiers: Heart failure chronicity: acute on chronic Heart failure type: unspecified Qualified Code(s): I50.9 - Heart failure, unspecified (2) UTI (urinary tract infection): Status: Acute Qualifiers: Hematuria presence: with hematuria Urinary tract infection type: acute cystitis Qualified Code(s): N30.01 - Acute cystitis with hematuria (3) Closed fracture of proximal end of right humerus: Status: Acute Qualifiers: Encounter type: initial encounter Fracture alignment: nondisplaced Fracture morphology: other fracture Qualified Code(s): S42.294A - Other nondisplaced fracture of upper end of right humerus, initial encounter for closed fracture (4) Hypercholesterolemia: Status: Chronic (5) Chronic episodic atrial fibrillation: Status: Acute (6) COPD (chronic obstructive pulmonary disease): Status: Chronic Qualifiers: COPD type: COPD with acute exacerbation Qualified Code(s): J44.1 - Chronic obstructive pulmonary disease with (acute) exacerbation (7) Benign essential hypertension with target blood pressure below 140/90: Status: Acute Fall with right proximal humeral fracture Right UE sling ortho consulted- appreciate input Pain control PT/OT consult SNF since pt uses walker and unable to use with sling Acute CHF exacerbation Echo done, BUT note reported. Need to follow up. Continue Lasix 40 mg IV daily Consideration for other oral diuretic therapy on discharge as pt has untolerable side effects from lasix. Daily weight Low NA diet Paroxysmal Atrial fibrillation Diltiazem 360 ER daily Metoprolol 25mg PO BID Monitor on telemetry restart AC UTI Follow up on ucx Multiple allergies Macrobid 100 mg PO BID Further abx plan per culture results Additional Medical Problems Hypertension Dyslipidemia [place] GERD DVT ppx - SCDs /AC Attestations Medical Necessity Statement*: pt requires IV diuretics for CHF IV meds for pain control. Will require another [place] Coding Level of Care Code Acute Organizational Effectiveness Consultant for [facility] Fwd Diagnoses CHF (congestive heart failure) I50.9 Heart failure chronicity: acute on chronic Heart failure type: unspecified UTI (urinary tract infection) N30.01 Hematuria presence: with hematuria Urinary tract infection type: acute cystitis Closed fracture of proximal end of right humerus S42.294A Encounter type: initial encounter Fracture alignment: nondisplaced Fracture morphology: other fracture Hypercholesterolemia E78.00 Chronic episodic atrial fibrillation I48.20 COPD (chronic obstructive pulmonary disease) J44.1 COPD type: COPD with acute exacerbation Benign essential hypertension with target blood pressure below 140/90 I10
--- NOTE | 2021-02-25 17:48 | P.PN_ITS ---
Subjective Subjective: Interval history: Patient has no complaints. She knows she will need to go to a shelter for therapy. I was in the room her son and daughter came in. They were just asking when transfer would occur. I told them it was up to her insurance. Vitals/I&O/Wt Last Vital Signs Temp 98.4 F 02/25/21 15:45 Pulse 78 02/25/21 15:45 Resp 16 02/25/21 15:45 BP 100/58 02/25/21 15:45 Pulse Ox 91 02/25/21 15:45 02/25/21 02/25/21 02/25/21 06:59 14:59 22:59 Intake Total 50 / 50 Output Total 600 / 600 1000 / 1000 Balance -550 / -550 -1000 / -1000 Weight last 48 hrs Weight 86.183 kg Physical Exam 2 Narrative: EXAM NARRATIVE: Obese woman who appears approximately her stated age she appears to be in mild distress due to pain and dyspnea. Heart regular S1-S2 without murmurs clicks clicks gallops or rubs Lungs I could only auscultate anteriorly due to her severe pain in her right shoulder. She was clear anteriorly. Abdomen obese nontender nondistended positive bowel sounds Extremities pitting edema to the lower extremities. Urinary Catheter Management^: [place]: Cath Placed During This Visit: yes Reason for Continuing Indwelling Catheter: Other Urinary Catheter Date of Insertion: 02/25/21 Urinary Catheter Time of Insertion: 00:55 Data : 02/25/21 01:50 A&P Assessment and plan (1) CHF (congestive heart failure): Status: Acute Qualifiers: Heart failure chronicity: acute on chronic Heart failure type: unspecified Qualified Code(s): I50.9 - Heart failure, unspecified (2) UTI (urinary tract infection): Status: Acute Qualifiers: Hematuria presence: with hematuria Urinary tract infection type: acute cystitis Qualified Code(s): N30.01 - Acute cystitis with hematuria (3) Closed fracture of proximal end of right humerus: Status: Acute Qualifiers: Encounter type: initial encounter Fracture alignment: nondisplaced Fracture morphology: other fracture Qualified Code(s): S42.294A - Other nondisplaced fracture of upper end of right humerus, initial encounter for closed fracture (4) Hypercholesterolemia: Status: Chronic (5) Chronic episodic atrial fibrillation: Status: Acute (6) COPD (chronic obstructive pulmonary disease): Status: Chronic Qualifiers: COPD type: COPD with acute exacerbation Qualified Code(s): J44.1 - Chronic obstructive pulmonary disease with (acute) exacerbation (7) Benign essential hypertension with target blood pressure below 140/90: Status: Acute Fall with right proximal humeral fracture Right UE sling ortho consulted- appreciate input. Not surgical candidate at this time. NWB right shoulder for 6 weeks. FU in 2 weeks to ensure stability of should. Pain control PT/OT consult SNF since pt uses walker and unable to use with sling Acute CHF exacerbation Echo done, BUT note reported. Need to follow up. Continue Lasix 40 mg IV daily Consideration for other oral diuretic therapy on discharge as pt has untolerable side effects from lasix. Daily weight Low NA diet Paroxysmal Atrial fibrillation Diltiazem 360 ER daily Metoprolol 25mg PO BID Monitor on telemetry restart AC UTI Follow up on ucx Multiple allergies Macrobid 100 mg PO BID Further abx plan per culture results Additional Medical Problems Hypertension Dyslipidemia [place] GERD DVT ppx - SCDs /AC Attestations Medical Necessity Statement*: Pt requires IV diuresis and IV pain medication. Requires continued hospitalization Coding Level of Care Code Acute Food Services Director for [facility] Fwd Diagnoses CHF (congestive heart failure) I50.9 Heart failure chronicity: acute on chronic Heart failure type: unspecified UTI (urinary tract infection) N30.01 Hematuria presence: with hematuria Urinary tract infection type: acute cystitis Closed fracture of proximal end of right humerus S42.294A Encounter type: initial encounter Fracture alignment: nondisplaced Fracture morphology: other fracture Hypercholesterolemia E78.00 Chronic episodic atrial fibrillation I48.20 COPD (chronic obstructive pulmonary disease) J44.1 COPD type: COPD with acute exacerbation Benign essential hypertension with target blood pressure below 140/90 I10
[2021-02-25 18:48] LABS: SARS Covid-2 Antigen Negative (Negative)
--- NOTE | 2021-02-25 19:50 | PC.NURSE ---
Blood Pressure Patient blood pressure auto by machine is 83/60. This nurse unable to hear manual BP. Patient is asymptomatic at this time. Patient care nurse TIP Mcgregor notified and will assess manual BP.
[2021-02-26] VITALS (12 sets, daily range): BP systolic 105–124; BP diastolic 63–74; PULSE 67–99; RESP 18–22; TEMP 36.5–36.9; O2SAT 91–98
[2021-02-26] MEDS: HYDROcodone-acetaminophen 5-325 mg Tablet 1 TAB PO ×5 (02:23→22:04)
[2021-02-26] MEDS: FUROsemide 10 mg/mL SDV 4mL 40 MG IVP (05:35)
[2021-02-26 06:29] LABS: Basophils % 0.5 %; Eosinophils # 0.1 10^3/uL (0.0-0.8); Eosinophils % 0.9 %; Hematocrit 40.5 % (37.0-47.0); Lymphocytes # 1.9 10^3/uL (0.8-4.8); Lymphocytes % 24.5 %; Mean Corpuscular HGB Conc 32.1 g/dL (30.0-36.0); Mean Corpuscular Hemoglobin 32.5 pg (28.0-34.0); Mean Corpuscular Volume 101.3 fL (81-99); Mean Platelet Volume 11.2 fL (7.4-10.4); Monocytes # 0.7 10^3/uL (0.2-0.9); Monocytes % 9.2 %; Neutrophils # 4.95 10^3/uL (1.8-7.7); Neutrophils % 64.5 %; Nucleated Red Blood Cells % 0 %; Platelet Count 163 10^3/cmm (130-400); Red Cell Distribution Width 14.1 % (12.1-15.1); White Blood Count 7.7 10^3/uL (4.0-10.0)
[2021-02-26 06:51] LABS: Anion Gap 14.6 (5-19); Blood Urea Nitrogen 14 mg/dL (8-23); Carbon Dioxide 27 mmol/L (22-29); Chloride 100 mmol/L (98-107); Creatinine Clr Calc Pharmacy 80.1233; Glucose 105 mg/dL (65-115); Osmolality Calculated 287 mOsm/kg (285-295); Potassium 3.6 mmol/L (3.5-5.1); Sodium 138 mmol/L (136-145)
[2021-02-26] MEDS: dilTIAZem ER (24HR) 180 mg Capsule 360 MG PO (10:53)
[2021-02-26] MEDS: metoprolol tartrate 25 mg Tablet PO (10:53)
[2021-02-26] MEDS: docusate sodium 100 mg Capsule PO ×2 (10:54→18:31)
[2021-02-26] MEDS: pantoprazole DR 40 mg Tablet PO (10:54)
[2021-02-26] MEDS: nitrofurantoin SR (BID) 100 mg Capsule PO ×2 (10:58→18:30)
--- NOTE | 2021-02-26 17:50 | P.PN_ITS ---
Subjective Subjective: Interval history: Pending insurance auth wants to keep hcaves noted constipation Medications: Reviewed: Yes Vitals/I&O/Wt Last Vital Signs Temp 97.9 F 02/26/21 16:00 Pulse 70 02/26/21 16:00 Resp 18 02/26/21 16:00 BP 109/66 02/26/21 16:00 Pulse Ox 91 02/26/21 16:00 02/26/21 02/26/21 02/26/21 06:59 14:59 22:59 Intake Total 236 / 236 480 / 480 Output Total 1050 / 2050 1100 / 1100 Balance -814 / -1814 -620 / -620 Weight last 48 hrs Weight 86.183 kg Physical Exam Narrative: EXAM NARRATIVE: General-Alert, awake, no distress HEENT-grossly unremarkable CVS- regular rate rhythm obvious murmurs Chest - CTABL Abdomen -soft nontender nondistended Extremities- LUE sling, B/L LE - 2+ edema Urinary Catheter Management^: Chaves: Cath Placed During This Visit: yes Reason for Continuing Indwelling Catheter: Other Urinary Catheter Date of Insertion: 02/25/21 Urinary Catheter Time of Insertion: 00:55 Data : 02/26/21 06:06 02/26/21 06:06 A&P Assessment and plan (1) CHF (congestive heart failure): Status: Acute Qualifiers: Heart failure chronicity: acute on chronic Heart failure type: unspecified Qualified Code(s): I50.9 - Heart failure, unspecified (2) UTI (urinary tract infection): Status: Acute Qualifiers: Hematuria presence: with hematuria Urinary tract infection type: acute cystitis Qualified Code(s): N30.01 - Acute cystitis with hematuria (3) Closed fracture of proximal end of right humerus: Status: Acute Qualifiers: Encounter type: initial encounter Fracture alignment: nondisplaced Fracture morphology: other fracture Qualified Code(s): S42.294A - Other nondisplaced fracture of upper end of right humerus, initial encounter for closed fracture (4) Hypercholesterolemia: Status: Chronic (5) Chronic episodic atrial fibrillation: Status: Acute (6) COPD (chronic obstructive pulmonary disease): Status: Chronic Qualifiers: COPD type: COPD with acute exacerbation Qualified Code(s): J44.1 - Chronic obstructive pulmonary disease with (acute) exacerbation (7) Benign essential hypertension with target blood pressure below 140/90: Status: Acute Fall with right proximal humeral fracture Right UE sling ortho consulted- appreciate input. Not surgical candidate at this time. NWB right shoulder for 6 weeks. FU in 2 weeks to ensure stability of should. Pain control PT/OT consult SNF since pt uses walker and unable to use with sling Acute CHF exacerbation Echo done, BUT note reported. Need to follow up. Continue Lasix 40 mg IV daily Consideration for other oral diuretic therapy on discharge as pt has untolera ble side effects from lasix. Daily weight Low NA diet Paroxysmal Atrial fibrillation Diltiazem 360 ER daily Metoprolol 25mg PO BID Monitor on telemetry restart AC UTI Follow up on ucx Multiple allergies Macrobid 100 mg PO BID Further abx plan per culture results Additional Medical Problems Hypertension Dyslipidemia SAL[place] GERD DVT ppx - SCDs /AC Attestations Medical Necessity Statement*: continue hospital stay until pending insurane auth Time Spent in Patient Care: Greater than 35 minutes (>than 50% of time spent in counselling and/or direct pt care on unit) . Coding Level of Care Code Acute Technology Training Associate for [facility] Fwd Diagnoses CHF (congestive heart failure) I50.9 Heart failure chronicity: acute on chronic Heart failure type: unspecified UTI (urinary tract infection) N30.01 Hematuria presence: with hematuria Urinary tract infection type: acute cystitis Closed fracture of proximal end of right humerus S42.294A Encounter type: initial encounter Fracture alignment: nondisplaced Fracture morphology: other fracture Hypercholesterolemia E78.00 Chronic episodic atrial fibrillation I48.20 COPD (chronic obstructive pulmonary disease) J44.1 COPD type: COPD with acute exacerbation Benign essential hypertension with target blood pressure below 140/90 I10
[2021-02-26] MEDS: morphine 4 mg/mL SDV 1 mL 2 MG IVP (18:06)
[2021-02-26] MEDS: polyethylene glycol 3350 Pkt 17 gm PO (18:31)
--- NOTE | 2021-02-26 20:14 | PC.RESP ---
Smoking Cessation and Pulmonary Rehab information sent to patient.
[2021-02-27] VITALS (11 sets, daily range): BP systolic 100–130; BP diastolic 56–79; PULSE 75–89; RESP 15–20; TEMP 36.3–37; O2SAT 96–98
[2021-02-27] MEDS: HYDROcodone-acetaminophen 5-325 mg Tablet 1 TAB PO ×4 (02:08→20:45)
[2021-02-27] MEDS: morphine 4 mg/mL SDV 1 mL 2 MG IVP (05:22)
[2021-02-27] MEDS: FUROsemide 10 mg/mL SDV 4mL 40 MG IVP (07:02)
[2021-02-27] MEDS: polyethylene glycol 3350 Pkt 17 gm PO ×2 (08:15→17:55)
[2021-02-27] MEDS: dilTIAZem ER (24HR) 180 mg Capsule 360 MG PO (08:16)
[2021-02-27] MEDS: pantoprazole DR 40 mg Tablet PO (08:17)
[2021-02-27] MEDS: docusate sodium 100 mg Capsule PO ×2 (08:17→17:55)
[2021-02-27] MEDS: metoprolol tartrate 25 mg Tablet PO (08:18)
[2021-02-27] MEDS: nitrofurantoin SR (BID) 100 mg Capsule PO ×2 (09:40→17:55)
[2021-02-27] MEDS: acetaminophen 325 mg Tablet 650 MG PO (13:01)
--- NOTE | 2021-02-27 18:34 | PM.PN ---
Subjective Subjective: Interval history: Pending insurance auth wants to keep chaves noted constipation Medications: Reviewed: Yes Vitals/I&O/Wt Last Vital Signs Temp 98.0 F 02/27/21 20:00 Pulse 77 02/27/21 22:07 Resp 17 02/27/21 22:07 BP 110/77 02/27/21 20:00 Pulse Ox 97 02/27/21 22:07 02/27/21 02/27/21 02/28/21 14:59 22:59 06:59 Intake Total 240 / 240 240 / 480 Output Total 1700 / 1700 Balance 240 / 240 -1460 / -1220 Physical Exam Narrative: EXAM NARRATIVE: General-Alert, awake, no distress HEENT-grossly unremarkable CVS- regular rate rhythm obvious murmurs Chest - CTABL Abdomen -soft nontender nondistended Extremities- LUE sling, B/L LE - 2+ edema Urinary Catheter Management^: Chaves: Cath Placed During This Visit: yes Reason for Continuing Indwelling Catheter: Other Urinary Catheter Date of Insertion: 02/25/21 Urinary Catheter Time of Insertion: 00:55 Data : 02/26/21 06:06 02/26/21 06:06 A&P Assessment and plan (1) CHF (congestive heart failure): Status: Acute Qualifiers: Heart failure chronicity: acute on chronic Heart failure type: unspecified Qualified Code(s): I50.9 - Heart failure, unspecified (2) UTI (urinary tract infection): Status: Acute Qualifiers: Hematuria presence: with hematuria Urinary tract infection type: acute cystitis Qualified Code(s): N30.01 - Acute cystitis with hematuria (3) Closed fracture of proximal end of right humerus: Status: Acute Qualifiers: Encounter type: initial encounter Fracture alignment: nondisplaced Fracture morphology: other fracture Qualified Code(s): S42.294A - Other nondisplaced fracture of upper end of right humerus, initial encounter for closed fracture (4) Hypercholesterolemia: Status: Chronic (5) Chronic episodic atrial fibrillation: Status: Acute (6) COPD (chronic obstructive pulmonary disease): Status: Chronic Qualifiers: COPD type: COPD with acute exacerbation Qualified Code(s): J44.1 - Chronic obstructive pulmonary disease with (acute) exacerbation (7) Benign essential hypertension with target blood pressure below 140/90: Status: Acute Fall with right proximal humeral fracture Right UE sling ortho consulted- appreciate input. Not surgical candidate at this time. NWB right shoulder for 6 weeks. FU in 2 weeks to ensure stability of should. Pain control PT/OT consult SNF since pt uses walker and unable to use with sling Acute CHF exacerbation Echo done, BUT note reported. Need to follow up. Continue Lasix 40 mg IV daily Consideration for other oral diuretic therapy on discharge as pt has untolerable side effects from lasix. Daily weight Low NA diet Paroxysmal Atrial fibrillation Diltiazem 360 ER daily Metoprolol 25mg PO BID Monitor on telemetry restart AC UTI Follow up on ucx Multiple allergies Macrobid 100 mg PO BID Further abx plan per culture results Additional Medical Problems Hypertension Dyslipidemia SALBADOR GERD DVT ppx - SCDs /AC Attestations Medical Necessity Statement*: pending dischage placement arrangements Time Spent in Patient Care: Greater than 35 minutes (>than 50% of time spent in counselling and/or direct pt care on unit). Coding Level of Care Code Acute Cylindrical Mixer for Yashirag Fwd Diagnoses CHF (congestive heart failure) I50.9 Heart failure chronicity: acute on chronic Heart failure type: unspecified UTI (urinary tract infection) N30.01 Hematuria presence: with hematuria Urinary tract infection type: acute cystitis Closed fracture of proximal end of right humerus S42.294A Encounter type: initial encounter Fracture alignment: nondisplaced Fracture morphology: other fracture Hypercholesterolemia E78.00 Chronic episodic atrial fibrillation I48.20 COPD (chronic obstructive pulmonary disease) J44.1 COPD type: COPD with acute exacerbation Benign essential hypertension with target blood pressure below 140/90 I10
[2021-02-27] MEDS: zolpidem 5 mg Tablet PO (23:05)
[2021-02-28] VITALS (9 sets, daily range): BP systolic 113–138; BP diastolic 68–79; PULSE 75–113; RESP 16–22; TEMP 36.2–37.2; O2SAT 92–100
[2021-02-28] MEDS: morphine 4 mg/mL SDV 1 mL 2 MG IVP (01:53)
[2021-02-28] MEDS: FUROsemide 10 mg/mL SDV 4mL 40 MG IVP (06:02)
[2021-02-28 06:09] LABS: Basophils % 0.5 %; Eosinophils # 0.1 10^3/uL (0.0-0.8); Eosinophils % 0.9 %; Hemoglobin 12.2 g/dL (11.5-15.3); Lymphocytes # 1.4 10^3/uL (0.8-4.8); Lymphocytes % 15.5 %; Mean Corpuscular HGB Conc 32.1 g/dL (30.0-36.0); Mean Corpuscular Hemoglobin 32.1 pg (28.0-34.0); Mean Platelet Volume 11.4 fL (7.4-10.4); Monocytes # 0.7 10^3/uL (0.2-0.9); Monocytes % 8.3 %; Neutrophils # 6.57 10^3/uL (1.8-7.7); Neutrophils % 74.3 %; Nucleated Red Blood Cells % 0 %; Platelet Count 191 10^3/cmm (130-400); Red Cell Distribution Width 13.8 % (12.1-15.1); White Blood Count 8.8 10^3/uL (4.0-10.0)
[2021-02-28 06:27] LABS: Alanine Aminotransferase 9 U/L (0-33); Alkaline Phosphatase 109 IU/L (35-105); Anion Gap 16.7 (5-19); Aspartate Amino Transferase 13 U/L (0-32); Blood Urea Nitrogen 21 mg/dL (8-23); Calcium 9.8 mg/dL (8.5-10.5); Carbon Dioxide 26 mmol/L (22-29); Chloride 97 mmol/L (98-107); Creatinine Clr Calc Pharmacy 80.1233; Globulin 2.7 g/dL (1.3-4.6); Glucose 107 mg/dL (65-115); Osmolality Calculated 285 mOsm/kg (285-295); Potassium 3.7 mmol/L (3.5-5.1); Sodium 136 mmol/L (136-145); Total Bilirubin 0.5 mg/dL (0.15-1.2); Total Protein 5.7 g/dL (6.6-8.7)
[2021-02-28] MEDS: nitrofurantoin SR (BID) 100 mg Capsule PO ×2 (09:39→18:23)
[2021-02-28] MEDS: docusate sodium 100 mg Capsule PO ×2 (09:40→18:23)
[2021-02-28] MEDS: dilTIAZem ER (24HR) 180 mg Capsule 360 MG PO (09:40)
[2021-02-28] MEDS: HYDROcodone-acetaminophen 5-325 mg Tablet 1 TAB PO ×4 (09:40→22:22)
[2021-02-28] MEDS: pantoprazole DR 40 mg Tablet PO (09:41)
[2021-02-28] MEDS: polyethylene glycol 3350 Pkt 17 gm PO ×2 (09:41→18:24)
[2021-02-28] MEDS: metoprolol tartrate 25 mg Tablet PO (09:41)
--- NOTE | 2021-02-28 12:18 | PC.CHAP ---
Pastoral Care Encounter/Spiritual Assessment Type of Contact [] Declined engineering professor visit [] Patient/Family/Request visit [] Outpatient visit [] Follow-up visit [] Physician referral [] Code/Alert [XX] Routine visit [] Staff referral [] Actively dying [] Patient sleeping [] Family support [] [] Out of room [] Palliative care [] [XX] Receiving care in room [] Pre-surgical visit [] Trauma [] Long length of stay [] ICU visit [] Other: Relational/Emotional Strength [] Patient feels connected with others/family/visitors/staff [] Distress [] Loneliness/isolation [] Abandonment Spirituality of Patient [] Person of Jessica [] Attends Shinto of their Jessica [] Believes in Prayer [] Reads Bible or Scientology materials [] There are Spiritual issues to be addressed Drill Press Operator Interventions [] Prayer [] Active listening [] Non-anxious presence [] Spiritual/emotional support [] Crisis/trauma care [] Spiritual counseling [] Bereavement support [] Provided bereavement packet [] Provided Bible/devotional materials [] Provided toy/stuffed animal, coloring book to patient or family member [] Provided Communion [] Anointing/Baxter [] Salvation [] Completed spiritual assessment [] Other: Impact on Illness or Injury [] Angry [] Fearful [] Anxious [] Often cries [] Exhaustion [] Unable to work [] Unable to attend caodaism [] Unable to walk/stand [] Unable to read [] Unable to drive [] Unable to eat/drink [] Unable to sleep [] Unable to be with family [] Patient intubated [] Other: Summary Time spent with patient
--- NOTE | 2021-02-28 14:15 | PC.SOCIAL ---
Pg 2 IMM. Explained to pt Pg 2 IMM. No questions voiced. Provided pt a copy. Signed, dated, & timed a copy & placed in chart.
--- NOTE | 2021-02-28 14:51 | PM.PN ---
Subjective Subjective: Interval history: 75-year-old female with past medical history significant for hypertension, hypercholesterolemia, obstructive sleep apnea, gastroesophageal reflux disease, paroxysmal atrial fibrillation on anticoagulation, chronic obstructive pulmonary disease with presented to the hospital initially for evaluation of increasing lower extremity edema. Patient stated that she was previously on Lasix at home however had stopped this due to adverse effects which she noted as abdominal discomfort, diarrhea. she had refused to take oral Lasix at home. She was agreeable to IV Lasix which were given after which she was advised to remain in the hospital however she had opted to return home. Shortly after returning home she stated that she felt lightheaded dizzy and fell backwards hitting her head. Family member at bedside stated that she had briefly lost consciousness for few seconds. She denies chest pain. At this point she return to the hospital complaining of right shoulder pain. Imaging studies has shown a right proximal humeral neck fracture. At this point she was not able to return home as she stated she is not able to care for herself. As she is dependent on the use of a walker which now limited due to humeral fracture. Requested SNF placement. Laboratory workup on arrival showed a WBC of 7.7, hemoglobin of 13.6, hematocrit of 42.9 and a platelet count of 207. Sodium 143, potassium 3.9, chloride 110, bicarb 23, BUN 12 and creatinine of 0.7. Troponin T delta was -0.7. ProBNP was elevated at 1128. Urinalysis showed negative nitrite, 2+ leukocyte esterase, 25 to 40 abcs and 4+ bacteria. Imaging studies included a chest x-ray which did not show any acute abnormality.CT head and cervical spine were also negative. Right shoulder x-ray showed acute right proximal humeral neck fracture. This was placed in a sling. Upon admission to the hospital patient was seen by orthopedic surgery. No surgical intervention was required. Patient was continued on pain control. Additionally was started on Lasix 40 mg IV daily. Patient remains stable. Had been awaiting placement to alf facility. Patient agreed to Lasix as long as she has a Medina in place. At this time she stated that she was not able to get up quickly to use the restroom due to humeral fracture and thus wanted Medina to remain in place. Was agreeable to oral Lasix as long as Medina is in place. 02/28/2021 No new clinical events overnight. Medications: Reviewed: Yes Vitals/I&O/Wt Last Vital Signs Temp 97.1 F L 02/28/21 12:00 Pulse 81 02/28/21 12:00 Resp 18 02/28/21 12:00 BP 135/79 02/28/21 12:00 Pulse Ox 93 02/28/21 12:00 02/27/21 02/28/21 02/28/21 22:59 06:59 14:59 Intake Total 240 / 480 480 / 480 Output Total 1700 / 1700 925 / 2625 Balance -1460 / -1220 -925 / -2145 480 / 480 Physical Exam Narrative: EXAM NARRATIVE: General-Alert, awake, no distress HEENT-grossly unremarkable CVS- regular rate rhythm obvious murmurs Chest - CTABL Abdomen -soft nontender nondistended Extremities- LUE sling, B/L LE - 2+ edema with bruising around shoulder Urinary Catheter Management^: Medina: Cath Placed During This Visit: yes Reason for Continuing Indwelling Catheter: Other Urinary Catheter Date of Insertion: 02/25/21 Urinary Catheter Time of Insertion: 00:55 Data : 02/28/21 05:30 02/28/21 05:30 A&P Assessment and plan (1) CHF (congestive heart failure): Status: Acute Qualifiers: Heart failure chronicity: acute on chronic Heart failure type: unspecified Qualified Code(s): I50.9 - Heart failure, unspecified (2) UTI (urinary tract infection): Status: Acute Qualifiers: Hematuria presence: with hematuria Urinary tract infection type: acute cystitis Qualified Code(s): N30.01 - Acute cystitis with hematuria (3) Closed fracture of proximal end of right humerus: Status: Acute Qualifiers: Encounter type: initial encounter Fracture alignment: nondisplaced Fracture morphology: other fracture Qualified Code(s): S42.294A - Other nondisplaced fracture of upper end of right humerus, initial encounter for closed fracture (4) Hypercholesterolemia: Status: Chronic (5) Chronic episodic atrial fibrillation: Status: Acute (6) COPD (chronic obstructive pulmonary disease): Status: Chronic Qualifiers: COPD type: COPD with acute exacerbation Qualified Code(s): J44.1 - Chronic obstructive pulmonary disease with (acute) exacerbation (7) Benign essential hypertension with target blood pressure below 140/90: Status: Acute Fall with right proximal humeral fracture Right UE sling ortho consulted- appreciate input. Not surgical candidate at this time. NWB right shoulder for 6 weeks. FU in 2 weeks to ensure stability of should. Pain control PT/OT consult SNF since pt uses walker and unable to use with sling Acute CHF exacerbation Echo done, BUT note reported. Need to follow up. Continue Lasix 40 mg IV daily -change to Lasix 40 mg oral daily while Medina in place Low NA diet Monitor daily weights Paroxysmal Atrial fibrillation Diltiazem 360 ER daily Metoprolol 25mg PO BID Monitor on telemetry Continue Eliquis 5 mg oral b.i.d. UTI -Klebsiella pneumonia Multiple allergies Macrobid 100 mg PO BID x7 days total Additional Medical Problems Hypertension Dyslipidemia SALBADOR GERD DVT ppx - SCDs /AC Attestations Medical Necessity Statement*: Require further hospitalization for management of heart failure exacerbation, left humeral fracture awaiting placement Time Spent in Patient Care: Greater than 35 minutes (>than 50% of time spent in counselling and/or direct pt care on unit). Coding Level of Care Code Acute Emergency Response Technician for Yashirag Fwd Diagnoses CHF (congestive heart failure) I50.9 Heart failure chronicity: acute on chronic Heart failure type: unspecified UTI (urinary tract infection) N30.01 Hematuria presence: with hematuria Urinary tract infection type: acute cystitis Closed fracture of proximal end of right humerus S42.294A Encounter type: initial encounter Fracture alignment: nondisplaced Fracture morphology: other fracture Hypercholesterolemia E78.00 Chronic episodic atrial fibrillation I48.20 COPD (chronic obstructive pulmonary disease) J44.1 COPD type: COPD with acute exacerbation Benign essential hypertension with target blood pressure below 140/90 I10
[2021-03-01] VITALS (7 sets, daily range): BP systolic 111–147; BP diastolic 70–82; PULSE 85–101; RESP 16–18; TEMP 36.7–36.9; O2SAT 95–98
[2021-03-01] MEDS: acetaminophen 325 mg Tablet 650 MG PO ×2 (04:42→12:21)
[2021-03-01] MEDS: dilTIAZem ER (24HR) 180 mg Capsule 360 MG PO (09:26)
[2021-03-01] MEDS: polyethylene glycol 3350 Pkt 17 gm PO (09:27)
[2021-03-01] MEDS: docusate sodium 100 mg Capsule PO (09:27)
[2021-03-01] MEDS: FUROsemide 40 mg Tablet PO (09:27)
[2021-03-01] MEDS: metoprolol tartrate 25 mg Tablet PO (09:27)
[2021-03-01] MEDS: pantoprazole DR 40 mg Tablet PO (09:27)
[2021-03-01] MEDS: nitrofurantoin SR (BID) 100 mg Capsule PO (09:29)
--- NOTE | 2021-03-01 14:32 | P.DS_ITS ---
Discharge Providers Date of Admission: 02/25/21 00:57 Date of Discharge: March 01, 2021 Attending Provider at Admission: Red Garcia Attending Provider at Discharge: Red Garcia Primary Care Provider: Alyce Lozoya DO Diagnoses at Discharge Discharge Diagnosis (1) CHF (congestive heart failure): Status: Acute Qualifiers: Heart failure chronicity: acute on chronic Heart failure type: unspecified Qualified Code(s): I50.9 - Heart failure, unspecified (2) UTI (urinary tract infection): Status: Acute Qualifiers: Hematuria presence: with hematuria Urinary tract infection type: acute cystitis Qualified Code(s): N30.01 - Acute cystitis with hematuria (3) Closed fracture of proximal end of right humerus: Status: Acute Qualifiers: Encounter type: initial encounter Fracture alignment: nondisplaced Fracture morphology: other fracture Qualified Code(s): S42.294A - Other nondisplaced fracture of upper end of right humerus, initial encounter for closed fracture (4) Hypercholesterolemia: Status: Chronic (5) Chronic episodic atrial fibrillation: Status: Acute (6) COPD (chronic obstructive pulmonary disease): Status: Chronic Qualifiers: COPD type: COPD with acute exacerbation Qualified Code(s): J44.1 - Chronic obstructive pulmonary disease with (acute) exacerbation (7) Benign essential hypertension with target blood pressure below 140/90: Status: Acute Reason for Visit Reason for Visit: FELL HIT HEAD Hospital Course Hospital Course 75-year-old female with past medical history significant for hypertension, hypercholesterolemia, obstructive sleep apnea, gastroesophageal reflux disease, paroxysmal atrial fibrillation on anticoagulation, chronic obstructive pulmonary disease with presented to the hospital initially for evaluation of increasing lower extremity edema. Patient stated that she was previously on Lasix at home however had stopped this due to adverse effects which she noted as abdominal discomfort, diarrhea. she had refused to take oral Lasix at home. She was agreeable to IV Lasix which were given after which she was advised to remain in the hospital however she had opted to return home. Shortly after returning home she stated that she felt lightheaded dizzy and fell backwards hitting her head. Family member at bedside stated that she had briefly lost consciousness for few seconds. She denies chest pain. At this point she return to the hospital complaining of right shoulder pain. Imaging studies has shown a right proximal humeral neck fracture. At this point she was not able to return home as she stated she is not able to care for herself. As she is dependent on the use of a walker which now limited due to humeral fracture. Requested SNF placement. Laboratory workup on arrival showed a WBC of 7.7, hemoglobin of 13.6, hematocrit of 42.9 and a platelet count of 207. Sodium 143, potassium 3.9, chloride 110, bicarb 23, BUN 12 and creatinine of 0.7. Troponin T delta was -0.7. ProBNP was elevated at 1128. Urinalysis showed negative nitrite, 2+ leukocyte esterase, 25 to 40 abcs and 4+ bacteria. Imaging studies included a chest x-ray which did not show any acute abnormality.CT head and cervical spine were also negative.Right shoulder x-ray showed acute right proximal humeral neck fracture. Patient was seen by orthopedic surgery and recommendations were to continue sling and follow-up outpatient. No surgical intervention was needed. In addition patient was continued on Lasix 40 mg IV daily. Noted significant improvement in lower extremity edema. Respiratory status also remained stable. Echocardiogram showed preserved EF with severely dilated left atrium.Patient stated due to limited mobility Medina catheter to remain for now. She was found to have urinary tract infection. This was on arrival. Culture results showed Klebsiella pneumonia. She was started on nitrofurantoin which was continued for an additional 4 days at the time of discharge. Patient remained afebrile. Discharged in stable condition. Physical Exam Narrative: EXAM NARRATIVE: General-Alert, awake, no distress HEENT-grossly unremarkable CVS- regular rate rhythm obvious murmurs Chest - CTABL Abdomen -soft nontender nondistended Extremities- LUE sling, B/L LE - 2+ edema with bruising around shoulder Urinary Catheter Management^: Medina: Cath Placed During This Visit: yes Reason for Continuing Indwelling Catheter: Other Urinary Catheter Date of Insertion: 02/25/21 Urinary Catheter Time of Insertion: 00:55 Discharge Data Data Completed and Pending: Completed Studies During Hospitalization Category Date Time Status CT cervical spin wo con* [id number] Urge nt Cat Scan 02/24/21 23:[address] head wo con* 7 0450 Urgent Cat Scan 02/24/21 23:05 Completed XR elbow RT min 3 V* [id number] Urgent Exams 02/24/21 23:05 Completed XR ribs RT 2V* 71 100 Routine Exams 02/25/21 11:19 Completed XR shoulder RT mi n 2V* [id number] Urgent Exams 02/24/21 23:05 Completed CV echo complete* [id number] Routine Ultrasound 02/25/21 06:06 Completed Pending at discharge Category Date Time Status COVID [SARS Covid -2 Antigen] Routin e Lab 03/01/21 14:10 Received Labs from last 24 hours 03/01/21 14:10 SARS-CoV-2 Ag (Rap id) Pending Vitals: Last Vital Signs Temp 98.5 F 03/01/21 11:55 Pulse 86 03/01/21 11:55 Resp 18 03/01/21 11:55 BP 116/79 03/01/21 11:55 Pulse Ox 98 03/01/21 11:55 Discharge Plan Discharge Patient Disposition: Xfer [facility] Condition: Stable Prescriptions: New furosemide 40 mg Tablet 40 mg PO DAILY@0800 Qty: 30 RF: 0 Continued hydrocodone-acetaminophen 5-325 mg tablet 1 tab PO QID PRN (Reason: Pain) RF: 0 melatonin 5 mg capsule 5 mg PO BEDTIME RF: 0 polyethylene glycol 3350 17 gram/dose powder 17 gm PO PRN RF: 0 cholecalciferol (vitamin D3) 1,000 unit capsule 2,000 unit PO .THREE TIMES WEEKLY RF: 0 albuterol sulfate [ProAir HFA] 90 mcg/actuation HFA aerosol inhaler 2 puff INHALATION Q6H PRN (Reason: SOB) Qty: 3 RF: 2 diltiazem HCl 360 mg capsule,extended release 24hr 360 mg PO DAILY Qty: 90 RF: 3 Eliquis 5 mg tablet 5 mg PO BID Qty: 180 RF: 3 tizanidine 4 mg tablet 4 mg PO DAILY Qty: 30 RF: 0 ipratropium-albuterol 0.5 mg-3 mg(2.5 mg base)/3 mL Solution For Nebulization 3 ml INHALATION BID PRN (Reason: Shortness Of Breath) RF: 0 cetirizine [Zyrtec] 10 mg Tablet 10 mg PO DAILY RF: 0 acetaminophen [Tylenol 8 Hour] 650 mg Tablet Extended Release 650 mg PO BEDTIME PRN (Reason: unknown) RF: 0 simethicone 166 mg Capsule 166 mg PO PRN RF: 0 omega-3 fatty acids Capsule 1,000 mg PO DAILY RF: 0 vitamin V80-ganfs acid 500-400 mcg Tablet 1 tab PO DAILY RF: 0 potassium chloride 8 mEq capsule, extended release 8 meq PO DAILY RF: 0 pantoprazole 40 mg tablet,delayed release (DR/EC) 40 mg PO BID RF: 0 metoprolol tartrate 25 mg tablet 25 mg PO DAILY RF: 0 nitrofurantoin macrocrystal 100 mg capsule 100 mg PO BID 4 Days Qty: 14 RF: 0 Discontinued temazepam [Restoril] 30 mg capsule 30 mg PO BEDTIME RF: 0 Discharge Orders: Discharge Order (Routine); Ordered 03/01/21 Ordered By: Red Garcia Referrals: Alyce Lozoya DO [Primary Care Provider] - Chris Lucas MD [Physician] - 2 weeks Discharge Diet: Cardiac Discharge Activity: Limit activity as instructed Activity Restrictions/Additional Instructions: Exercises as per occupational therapy Discharge Attestations Time Spent in Discharge Care*: greater than 30 min Specific Discharge Activities: educating patient, educating and/or supporting family/caregiver, discussing with pcp/other providers, discussing with director of casework services/social workers/dc planners, documenting/other paperwork and evaluating patient/reviewing data Status at Discharge: Cognitive status at discharge: cognitively intact , Behavioral status at discharge: cooperative , Functional status at discharge: other assisted ambulation (LUE sling in place- Difficult useing walker due to this) Overall status at discharge: patient is progressing back to baseline Quality Metrics Clinical Quality Measures During this hospital stay, did patient experience: None Coding Level of Care Code Acute [facility] DC note Diagnoses CHF (congestive heart failure) I50.9 Heart failure chronicity: acute on chronic Heart failure type: unspecified UTI (urinary tract infection) N30.01 Hematuria presence: with hematuria Urinary tract infection type: acute cystitis Closed fracture of proximal end of right humerus S42.294A Encounter type: initial encounter Fracture alignment: nondisplaced Fracture morphology: other fracture Hypercholesterolemia E78.00 Chronic episodic atrial fibrillation I48.20 COPD (chronic obstructive pulmonary disease) J44.1 COPD type: COPD with acute exacerbation Benign essential hypertension with target blood pressure below 140/90 I10
[2021-03-01 14:38] LABS: SARS Covid-2 Antigen Negative (Negative)
[2021-03-01] MEDS: TRAMadol 50 mg Tablet PO (18:11)
== END 2021-03-01 18:35 | disposition skilled nursing facility (03) | DRG 292 ==
LOC: ER 02-25 01:01 → MEDSURG 02-25 01:39
PROVIDERS: Internal Medicine; Admitting Provider Hospitalist; Emergency Provider Physician Assistant; PCP Family Medicine; Visit Provider Hospitalist
DX: I11.0 Hypertensive heart disease with heart failure (principal); S42.294A Other nondisplaced fracture of upper end of right humerus, initial encounter for closed fracture; J44.1 Chronic obstructive pulmonary disease with (acute) exacerbation; N30.01 Acute cystitis with hematuria; I50.33 Acute on chronic diastolic (congestive) heart failure; W18.30XA Fall on same level, unspecified, initial encounter; E78.00 Pure hypercholesterolemia, unspecified; G47.33 Obstructive sleep apnea (adult) (pediatric); K21.9 Gastro-esophageal reflux disease without esophagitis; I48.0 Paroxysmal atrial fibrillation; Z79.01 Long term (current) use of anticoagulants; M50.20 Other cervical disc displacement, unspecified cervical region; Z87.440 Personal history of urinary (tract) infections; Z87.442 Personal history of urinary calculi; F17.210 Nicotine dependence, cigarettes, uncomplicated; T50.1X6A Underdosing of loop [high-ceiling] diuretics, initial encounter; Z91.128 Patient's intentional underdosing of medication regimen for other reason; Z79.51 Long term (current) use of inhaled steroids; Z79.891 Long term (current) use of opiate analgesic; B96.1 Klebsiella pneumoniae [K. pneumoniae] as the cause of diseases classified elsewhere
CPT/HCPCS: 36415; 51702; 70450; 71045; 71100; 72125; 73030; 73080; 73560; 80048; 80053; 81001; 83735; 83880; 84484; 85025; 87077; 87086; 87186; 87426; 93005; 93306; 93971; 94660; 96372; 96374; 96375; 97110; 97162; 97166; 97530; 97535; 99284; 99285; J0696; J1940; J2270; J2405

== ENCOUNTER → 2021-03-16 11:27 | Outpatient (BNVA) | payer MEDICARE, MEDICAID, SELFPAY | PROVIDERS: PCP Family Medicine; Visit Provider Orthopaedic Surgery | DX: S42.294A Other nondisplaced fracture of upper end of right humerus, initial encounter for closed fracture (principal); W19.XXXA Unspecified fall, initial encounter | CPT/HCPCS: 73030 ==

== ENCOUNTER 2021-03-27 16:40 | Inpatient (IN) | payer MEDICARE, MEDICAID, SELFPAY ==
[2021-03-27 16:42] VITALS: BP 151/73; PULSE 84; RESP 16; TEMP 36.8; O2SAT 96; BMI 42.5
[2021-03-27 17:14] VITALS: BP 134/78; PULSE 81; RESP 15; O2SAT 95
--- NOTE | 2021-03-27 17:14 | CTR_ITS ---
PROCEDURE INFORMATION: Exam: CT Chest Without Contrast; Diagnostic Exam date and time: 03/27/2021 5:14 PM Age: 75 years old Clinical indication: Injury or trauma; Fall; Generalized; Blunt trauma (contusions or hematomas); Patient HX: Fell this am denies injury is on elequis. Best images possible; Additional info: Fall on eliquis TECHNIQUE: Imaging protocol: Diagnostic computed tomography of the chest without contrast. Radiation optimization: All CT scans at this facility use at least one of these dose optimization techniques: automated exposure control; mA and/or kV adjustment per patient size (includes targeted exams where dose is matched to clinical indication); or iterative reconstruction. COMPARISON: CT chest w con* [id number] 03/15/2019 1:46 PM RADIATION DOSE METRICS: Total DLP (mGy-cm): 2303.59 FINDINGS: Lungs: There is subpleural atelectasis of the dependent portions of the lungs. There is an unchanged 5 mm nodule left lung image 21. There are moderate emphysematous changes. There is subpleural atelectasis of the dependent portions of the lungs. There is some mild ground-glass opacity in the right lung base that may reflect atelectasis, mild contusion or pneumonitis. Pleural spaces: Unremarkable. No pneumothorax. No pleural effusion. Heart: The heart is enlarged. Aorta: Unremarkable. No aortic aneurysm. Lymph nodes: Unchanged left perifissural lymph node image 23. Bones/joints: There is a subacute to comminuted fracture of the surgical neck and greater tuberosity of the right humerus with some immature bony remodeling/callus. No right glenohumeral joint dislocation. There is diffuse osteopenia. Age indeterminate fractures of the anterior left 2nd through 8th ribs are noted. Probable old fractures of the right anterior 8th and 9th ribs are noted. There are also posteromedial left rib fracture deformities that have a more chronic appearance with sclerosis and bridging bone. There is a buckle fracture of the manubrium of the sternum. No acute fracture in the thoracic spine. Moderate to severe degenerative changes and osteopenia in the thoracic spine are noted. Soft tissues: Unremarkable. IMPRESSION: 1. There is a subacute to comminuted fracture of the surgical neck and greater tuberosity of the right humerus with some immature bony remodeling/callus. 2. Age indeterminate fractures of the anterior left 2nd through 8th ribs are noted. 3. There is a buckle fracture of the manubrium of the sternum. 4. There is some mild ground-glass opacity in the right lung base that may reflect atelectasis, mild contusion or pneumonitis. 5. Unchanged 5 mm nodular density left lung stable since March 15, 2019. No follow-up is necessary. PROCEDURE INFORMATION: Exam: CT Abdomen And Pelvis Without Contrast Exam date and time: 03/27/2021 5:14 PM Age: 75 years old Clinical indication: Injury or trauma; Fall; Generalized; Blunt trauma (contusions or hematomas); Patient HX: Fell this am denies injury is on elequis. Best images possible; Additional info: Fall on eliquis TECHNIQUE: Imaging protocol: Computed tomography of the abdomen and pelvis without contrast. Radiation optimization: All CT scans at this facility use at least one of these dose optimization techniques: automated exposure control; mA and/or kV adjustment per patient size (includes targeted exams where dose is matched to clinical indication); or iterative reconstruction. COMPARISON: CT chest w con* [id number] 03/15/2019 1:46 PM RADIATION DOSE METRICS: Total DLP (mGy-cm): 2303.59 FINDINGS: Liver: The liver is intact. The liver measures 22.3 cm in length. Gallbladder and bile ducts: There has been a cholecystectomy. There is no common bile duct dilation. Pancreas: Normal. No ductal dilation. Spleen: Normal. No splenomegaly. Adrenal glands: Normal. No mass. Kidneys and ureters: There is no evidence of hydronephrosis. There is nonobstructive left nephrolithiasis with the largest calculus measuring 9 mm in size. There is atrophy and cortical thinning left kidney. Stomach and bowel: Extensive diverticulosis is present in the distal colon. There is a segment of sigmoid colonic wall thickening with haziness of the adjacent fat consistent with mild acute colitis/diverticulitis. As an underlying colonic malignancy cannot be excluded, a follow-up examination after a course of treatment is recommended if clinically warranted. Appendix: No evidence of appendicitis. Intraperitoneal space: Unremarkable. No free air. No significant fluid collection. Vasculature: The aorta demonstrates moderate atherosclerotic calcification. Lymph nodes: Unremarkable.No enlarged lymph nodes. Urinary bladder: There is nonspecific bladder wall thickening. This may be related to incomplete distention. Reproductive: Unremarkable as visualized. Bones/joints: There is severe osteopenia. There is osteopenia. There is grade 1/grade 2 degenerative spondylolisthesis of L5 on S1. No additional acute bony abnormality. Soft tissues: Unremarkable. Other findings: There is laxity of the pelvic floor. CT/CT chest abd pel wo con IMPRESSION: 1. There is a segment of sigmoid colonic wall thickening with haziness of the adjacent fat consistent with mild acute colitis/diverticulitis. As an underlying colonic malignancy cannot be excluded, a follow-up examination after a course of treatment is recommended if clinically warranted. 2. No additional acute abnormality in the abdomen or pelvis. Radiation Dose CTDIVOL = (mGy): DLP = 2303.59~2303.59 (mGy-cm)
--- NOTE | 2021-03-27 17:14 | XRR_ITS ---
PROCEDURE INFORMATION: Exam: XR Right Shoulder Exam date and time: 03/27/2021 5:14 PM Age: 75 years old Clinical indication: Injury or trauma; Fall; Blunt trauma (contusions or hematomas); Shoulder; Right; Additional info: Fall/ pain. Previous FX TECHNIQUE: Imaging protocol: XR Right shoulder. Views: 2 or more views. COMPARISON: CR XR shoulder RT min 2V* [id number] 03/16/2021 11:36 AM FINDINGS: Bones/joints: There is a comminuted subacute fracture of the surgical neck and greater tuberosity right humerus unchanged in alignment compared to the prior exam. No glenohumeral joint dislocation. No new fracture. There is bony remodeling compatible with subacute fracture. Soft tissues: Normal. XR/XR shoulder RT min 2V* [id number] IMPRESSION: There is a comminuted subacute fracture of the surgical neck and greater tuberosity right humerus unchanged in alignment compared to the prior exam.
--- NOTE | 2021-03-27 17:14 | CTR_ITS ---
PROCEDURE INFORMATION: Exam: CT Head Without Contrast Exam date and time: 03/27/2021 5:14 PM Age: 75 years old Clinical indication: Injury or trauma; Fall; Blunt trauma (contusions or hematomas); Without loss of consciousness; Patient HX: Fell this am denies injury is on elequis. Best images possible; Additional info: Fall on eliquis TECHNIQUE: Imaging protocol: Computed tomography of the head without contrast. Radiation optimization: All CT scans at this facility use at least one of these dose optimization techniques: automated exposure control; mA and/or kV adjustment per patient size (includes targeted exams where dose is matched to clinical indication); or iterative reconstruction. COMPARISON: CT head wo con* [id number] 02/24/2021 11:36 PM RADIATION DOSE METRICS: Total DLP (mGy-cm): 1743.3 FINDINGS: Brain: Normal. No hemorrhage. Unremarkable white matter. No mass effect. Cerebral ventricles: No ventriculomegaly. Paranasal sinuses: Visualized sinuses are unremarkable. No fluid levels. Mastoid air cells: Visualized mastoid air cells are well aerated. Bones/joints: Unremarkable. No acute fracture. Soft tissues: Unremarkable. CT/CT head wo con* [id number] IMPRESSION: Negative for intracranial hemorrhage or mass effect. Radiation Dose CTDIVOL = (mGy): DLP = 1743.3 (mGy-cm)
--- NOTE | 2021-03-27 17:14 | CTR_ITS ---
PROCEDURE INFORMATION: Exam: CT Cervical Spine Without Contrast Exam date and time: 03/27/2021 5:14 PM Age: 75 years old Clinical indication: Injury or trauma; Fall; Blunt trauma; Patient HX: Fell this am denies injury is on elequis. Best images possible; Additional info: Fall on eliquis TECHNIQUE: Imaging protocol: Computed tomography images of the cervical spine without contrast. Radiation optimization: All CT scans at this facility use at least one of these dose optimization techniques: automated exposure control; mA and/or kV adjustment per patient size (includes targeted exams where dose is matched to clinical indication); or iterative reconstruction. COMPARISON: CT cervical spin wo con* [id number] 02/24/2021 11:39 PM RADIATION DOSE METRICS: Total DLP (mGy-cm): 1526.75 FINDINGS: Vertebrae: No acute fracture. Normal alignment. C2-C3: No significant disc protrusion. No severe spinal canal stenosis. No significant neural foraminal narrowing. C3-C4: No significant disc protrusion. No severe spinal canal stenosis. No significant neural foraminal narrowing. C4-C5: No significant disc protrusion. No severe spinal canal stenosis. No significant neural foraminal narrowing. C5-C6: No significant disc protrusion. No severe spinal canal stenosis. No significant neural foraminal narrowing. C6-C7: No significant disc protrusion. No severe spinal canal stenosis. No significant neural foraminal narrowing. C7-T1: No significant disc protrusion. No severe spinal canal stenosis. No significant neural foraminal narrowing. Soft tissues: Unremarkable. Lungs: Lung apices are normal. CT/CT cervical spin wo con* [id number] IMPRESSION: Negative for fracture or dislocation Radiation Dose CTDIVOL = (mGy): DLP = 1526.75 (mGy-cm)
--- NOTE | 2021-03-27 17:18 | ECG_ITS ---
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 Measurements Intervals [place] Rate: 84 P: HI: QRS: 30 QRSD: 82 T: 152 QT: 365 QTc: 432 Interpretive Statements ATRIAL FIBRILLATION SEPTAL MYOCARDIAL INFARCTION [40+ ms Q WAVE IN V1/V2], OF INDETERMINATE AGE Compared to ECG 02/25/2021 01:02:39 Myocardial infarct finding now present Ventricular premature complex(es) no longer present Aberrant conduction of supraventricular beat(s) no longer present T-wave abnormality no longer present Possible ischemia no longer present Electronically Signed On 03-28-2021 20:03:02 CDT by Kwabena Marie M.D. [id number]
--- NOTE | 2021-03-27 17:19 | XRR_ITS ---
PROCEDURE INFORMATION: Exam: XR Right Elbow Exam date and time: 03/27/2021 5:19 PM Age: 75 years old Clinical indication: Injury or trauma; Fall; Blunt trauma (contusions or hematomas); Elbow; Right; Additional info: Fall/ pain TECHNIQUE: Imaging protocol: XR Right elbow. Views: 1 or 2 views. COMPARISON: CR (UP EXM, ) 02/24/2021 11:05 PM FINDINGS: Bones/joints: No elbow joint effusion. No acute fracture or dislocation. Soft tissues: There is soft tissue edema. Soft tissue calcifications dorsal to the proximal ulna are noted. XR/XR elbow RT 2V [id number] IMPRESSION: No acute bony abnormality.
--- NOTE | 2021-03-27 17:56 | PC.NURSE ---
Patient going via gurney to CT.
[2021-03-27 18:58] VITALS: BP 152/96; PULSE 79; RESP 18; O2SAT 96
[2021-03-27 19:22] LABS: Add Urine Microscopic? YES; Bacteria Urine TRACE /hpf; Bilirubin Urine Neg (Negative); Blood Urine Neg (Negative); Glucose Urine UA Norm (Normal); Ketones Urine Negative (Negative); Leukocyte Esterase Urine 1+ (Negative); Mucus Urine TRACE /hpf; Nitrate Urine Negative (Negative); Protein Urine Neg (Negative); Specific Gravity, Urine 1.005 (1.005-1.030); Squamous Epithelial Cell Urine 0-4 /hpf (0-5); Urine Appearance SL Hazy (CLEAR); Urine Color Yellow (Yellow); Urobilinogen Urine Norm (Negative); WBC Urine 25-40 /hpf (0-5); pH Urine 7 (5-7)
[2021-03-27 19:23] LABS: Add Urine Culture? Yes
[2021-03-27 19:36] LABS: Basophils # 0.1 10^3/uL (0.0-0.1); Basophils % 0.7 %; Eosinophils # 0.1 10^3/uL (0.0-0.8); Eosinophils % 1.3 %; Hematocrit 39.5 % (37.0-47.0); Hemoglobin 12.3 g/dL (11.5-15.3); Lymphocytes # 1.6 10^3/uL (0.8-4.8); Lymphocytes % 22.8 %; Mean Corpuscular HGB Conc 31.1 g/dL (30.0-36.0); Mean Corpuscular Hemoglobin 32.5 pg (28.0-34.0); Mean Corpuscular Volume 104.5 fL (81-99); Mean Platelet Volume 10.1 fL (7.4-10.4); Monocytes # 0.5 10^3/uL (0.2-0.9); Monocytes % 7.5 %; Neutrophils # 4.85 10^3/uL (1.8-7.7); Neutrophils % 67.4 %; Nucleated Red Blood Cells % 0 %; Platelet Count 213 10^3/cmm (130-400); Positive C 1; Red Blood Count 3.78 10^6/uL (4.1-5.3); Red Cell Distribution Width 14.6 % (12.1-15.1); White Blood Count 7.2 10^3/uL (4.0-10.0)
[2021-03-27] MEDS: FUROsemide 10 mg/mL SDV 4mL 40 MG IVP (19:41)
[2021-03-27 20:02] LABS: Alanine Aminotransferase 8 U/L (0-33); Albumin Level 3.2 g/dL (3.5-5.2); Alkaline Phosphatase 190 IU/L (35-105); Aspartate Amino Transferase 9 U/L (0-32); Blood Urea Nitrogen 10 mg/dL (8-23); Calcium 9.5 mg/dL (8.5-10.5); Carbon Dioxide 27 mmol/L (22-29); Chloride 105 mmol/L (98-107); Creatinine Clr Calc Pharmacy 80.1233; Glucose 93 mg/dL (65-115); NT Pro B Type Natriuretic Pept 1209 pg/mL (0-450); Osmolality Calculated 293 mOsm/kg (285-295); Sodium 142 mmol/L (136-145); Total Bilirubin 0.3 mg/dL (0.15-1.2); Total Protein 5.2 g/dL (6.6-8.7)
[2021-03-27 20:44] LABS: Troponin(5th) Baseline 17 ng/L (0-10)
[2021-03-27] MEDS: HYDROcodone-acetaminophen 5-325 mg Tablet 1 TAB PO (21:29)
[2021-03-27 22:38] LABS: Troponin 5 2HR 16.22 ng/L (0-10)
[2021-03-27 22:43] LABS: Troponin 5 2HR Delta -0.78 ABS# (0-10)
[2021-03-27 22:44] VITALS: BP 148/89; PULSE 96; RESP 18; TEMP 37; O2SAT 96
--- NOTE | 2021-03-27 23:08 | W.ED.GENADLT ---
HPI - General Adult General: Chief complaint: General Medical Stated complaint: CHILLS Time Seen by Provider: 03/27/21 16:45 History of Present Illness: HPI narrative: The patient is a 75-year-old female with past medical history atrial fibrillation on Eliquis, CHF, and approximately a month ago fell fracturing her proximal right humerus and she has followed up with orthopedic surgery and they recommend no intervention despite it not healing well. Today she comes to the ER complaining of chills. She says she fell earlier today she thinks on her left side but she cannot remember the details. She says she felt like she lowered herself to the floor but complains of pain on her left side when I touch her left ribs. She also complains of right shoulder pain chronically since it was fractured. She also has a history of CHF and after her discharge 3 weeks ago she has not taken her Lasix because she is unable to tolerate it it makes her nauseous and vomit as well as diarrhea. She has been having increasing lower extremity edema and now complains of shortness of breath worse with lying flat. She has 2-3+ pitting edema in bilateral lower extremities. Severity: moderate Quality: sharp Pain Consistency: constant Associated symptoms: Reports no associated symptoms and dyspnea; Deny chest pain, confusion, headache(s), rash or palpitations Review of Systems General: Reports: 10 or more systems reviewed and unremarkable except in HPI and below Const: Reports: chills; Denies: fever(s) or fatigue Eyes: Denies: change in vision, blurry vision or eye redness ENMT: Denies: throat pain, swelling of lips/tongue, ear or mastoid pain or nasal congestion Card: Reports: edema; Denies: chest pain, palpitations, irregular heart rhythm, dyspnea on exertion or orthopnea Resp: Reports: dyspnea; Denies: productive cough or non-productive cough GI: Denies: abdominal pain, diarrhea or GI cramping : Denies: flank pain, difficulty voiding, urinary frequency or urinary urgency Musc: Denies: neck pain, back pain, extremity pain, joint pain, joint redness, limited range of motion or muscle weakness Skin/Breast: Denies: rash, pruritus, erythema, skin pain or skin tenderness Neuro: Denies: headache(s), numbness in extremities, weakness in extremities, sensory changes, difficulty walking, dizziness, confusion or Slurred speech present Psych: Denies: anxiety or depression Endo: Denies: polyuria All/Imm: Denies: urticaria, throat swelling or tongue swelling PFSH ED PFSH: Medical History Atrial fibrillation Benign essential hypertension with target blood pressure below 140/90 Chronic episodic atrial fibrillation COPD (chronic obstructive pulmonary disease) GERD (gastroesophageal reflux disease) Hypercholesterolemia Other cervical disc displacement, unspecified cervical region Recurrent UTI Sleep apnea Unspecified hydronephrosis Urgency incontinence Urolithiasis Surgical History H/O cataract extraction H/O esophagogastroduodenoscopy (07/14/20) H/O knee surgery H/O shoulder surgery History of appendectomy History of cholecystectomy S/P hysterectomy Status post colonoscopy (07/14/20) Family History Father Stroke Mother Cancer BLADDER, BREAST Brother Cancer ESOPHAGEAL Family/Other Cancer Sister Cancer Suicide Denies family history of Diabetes CAD (coronary artery disease) Clotting disorder Dementia Chronic kidney disease (CKD) Anesthesia complication Bleeding disorder Lung disease Social History Smoking and tobacco status: current every day smoker cigarettes Packs smoked per day: 1 Alcohol intake: never Marital status: Current occupational status: disabled Physical Exam Narrative: EXAM NARRATIVE: 2-3+ bilateral lower extremity pitting edema to knee. A. fib with normal rate. She is tender to her left chest wall. Right shoulder tenderness chronic and chronic bruising as well from previous injury. Const: COMMON NORMALS: no acute distress, average body habitus, patient oriented x3, no limitations, healthy appearing, alert and well nourished GENERAL APPEARANCE: cooperative, comfortable, well kempt and well developed ORIENTATION/CONSCIOUSNESS: Yes awake, Yes oriented to person, Yes oriented to place and Yes oriented to time HENMT: COMMON NORMALS: normocephalic, external ears normal and Normal external nose present HEAD & SCALP: normal to inspection and normocephalic NOSE: Normal external nose present EXTERNAL EAR: Yes external ears normal MOUTH: Normal oral and palatal mucosa present THROAT: posterior oropharynx normal Eye: COMMON NORMALS: Equal, round and reactive pupils present and EOMs intact bilaterally GENERAL EYE: appearance normal, both eyes and all related structures PUPIL: Yes Equal, round and reactive pupils present Neck/C-Spine: COMMON NORMALS: full ROM, no lymphadenopathy, no meningeal signs and no JVD GENERAL: Yes normal visual inspection Lymph: LYMPHATIC: no lymphadenopathy noted Chest: COMMONS NORMALS: normal inspection of the chest and normal palpation of entire chest wall Resp: COMMON NORMALS: normal respiratory effort, No retractions, No use of accessory muscles, clear to auscultation bilaterally and percussion normal EFFORT & INSPECTION: Yes able to speak in complete sentences AUSCULTATION: clear to auscultation bilaterally PERCUSSION: percussion normal Cardio: COMMON NORMALS: no JVD, regular rate, S1 normal heart sound present, S2 normal heart sound present and Peripheral pulses 2+ throughout RATE: regular rate RHYTHM: abnormal rhythm (Atrial fibrillation) irregularly irregular HEART SOUNDS: S1 normal heart sound present and S2 normal heart sound present PERIPHERAL PULSES: Peripheral pulses 2+ throughout GI: COMMON NORMALS: Normal to inspection, nondistended, normoactive bowel sounds present, Soft to palpation, non-tender and no masses INSPECTION: Yes normal to inspection PALPATION: Yes Soft to palpation : COMMON NORMALS: Yes no CVA tenderness BLADDER/KIDNEY EXAM: Yes no CVA tenderness Back/Pelvis: COMMON NORMALS: no CVA tenderness, thoracic and lumbar spine normal to inspection, no thoracic nor lumbar tenderness and thoraco-lumbar ROM normal Extremity: COMMON NORMALS: normal to inspection, full ROM, capillary refill normal, no joint enlargement and no pedal edema NARRATIVE EXTREMITY EXAM: 2-3+ pitting edema to lower extremities up to the knees bilaterally. GENERAL: Yes normal exam except as noted Neuro: COMMON NORMALS: patient oriented x3, CN's II-XII intact bilaterally, moves all extremities, no focal motor deficits, no sensory deficits noted and gait normal SENSORIUM/ORIENTATION: Yes alert, Yes oriented to person, Yes oriented to place and Yes oriented to time MENINGEAL SIGNS: Yes no meningeal signs Psych: COMMON NORMALS: mental status grossly normal, Normal thought process present, cooperative, normal affect and speech normal APPEARANCE: Yes well kempt ATTITUDE: Yes calm SPEECH: Yes normal speech THOUGHT PROCESS: Normal thought process present Skin: COMMON NORMALS: no rashes or lesions noted GENERAL SKIN EXAM: no rashes or lesions noted Course Vital Signs: Vital signs: Vital Signs Temperature 98.6 F 03/27/21 22:44 Pulse Rate 96 03/27/21 22:44 Respiratory Rate 18 03/27/21 22:44 Blood Pressure 148/89 03/27/21 22:44 Pulse Oximetry 96 03/27/21 22:44 MDM - General Adult MDM Narrative: Medical decision making narrative: The patient came to the ER initially complaining of chills, shortness of breath however on exam she noted moderate left chest wall tenderness and CT did show fractured ribs 2 through 8 on the left side. It says age-indeterminate but she has no fall since a month ago that she can recall. She is tender there so they are likely acute. They are not displaced. No respiratory distress. Also her BNP is elevated and she is complaining of orthopnea with 2-3+ pitting edema in lower extremities. Catheter was placed and given IV Lasix as she is intolerant of this medication at home and has not taken it since discharge despite being prescribed it. She easily produced 1 L of urine. Discussed with Dr. Marc who accepts for observation Lab Data: Labs: Lab Results 03/27/21 03/27/21 03/27/21 Range/Units 19:00 19:25 19:25 WBC 7.2 (4.0-10.0) 10^3/ uL RBC 3.78 L (4.1-5.3) 10^6/u L Hgb 12.3 (11.5-15.3) g/dL Hct 39.5 (37.0-47.0) % MCV 104.5 H (81-99) fL MCH 32.5 (28.0-34.0) pg MCHC 31.1 (30.0-36.0) g/dL RDW 14.6 (12.1-15.1) % Plt Count 213 (130-400) 10^3/c mm MPV 10.1 (7.4-10.4) fL Neut % (Auto) 67.4 % Lymph % (Auto) 22.8 % [place] % (Auto) 7.5 % Eos % (Auto) 1.3 % Baso % (Auto) 0.7 % Neut # (Auto) 4.85 (1.8-7.7) 10^3/u L Lymph # (Auto) 1.6 (0.8-4.8) 10^3/u L [place] # (Auto) 0.5 (0.2-0.9) 10^3/u L Eos # (Auto) 0.1 (0.0-0.8) 10^3/u L Baso # (Auto) 0.1 (0.0-0.1) 10^3/u L Nucleated RBC % (a uto) 0 % Nucleated RBCs # 0.0 /100WBC Sodium 142 (136-145) mmol/L Potassium 4.0 (3.5-5.1) mmol/L Chloride 105 (98-107) mmol/L Carbon Dioxide 27 (22-29) mmol/L Anion Gap 14.0 (5-19) BUN 10 (8-23) mg/dL Creatinine 0.6 (0.5-0.9) mg/dL GFR Calculation Not Reportable Glucose 93 (65-115) mg/dL Calculated Osmolal ity 293 (285-295) mOsm/k g Calcium 9.5 (8.5-10.5) mg/dL Total Bilirubin 0.3 (0.15-1.2) mg/dL AST 9 (0-32) U/L ALT 8 (0-33) U/L Alkaline Phosphata se 190 H (35-105) IU/L Troponin T Baselin e (0-10) ng/L NT-Pro-B Natriuret Pep 1209 H (0-450) pg/mL Total Protein 5.2 L (6.6-8.7) g/dL Albumin 3.2 L (3.5-5.2) g/dL Globulin 2.0 (1.3-4.6) g/dL Urine Color Yellow (Yellow) Urine Appearance Sl hazy (CLEAR) Urine pH 7 (5-7) Ur Specific Gravit y 1.005 (1.005-1.030) Urine Protein Neg (Negative) Urine Glucose (UA) Norm (Normal) Urine Ketones Negative (Negative) Urine Blood Neg (Negative) Urine Nitrate Negative (Negative) Urine Bilirubin Neg (Negative) Urine Urobilinogen Norm (Negative) mg/dL Ur Leukocyte Ilana ase 1+ H (Negative) Urine RBC None (0-2) /hpf Urine WBC 25-40 H (0-5) /hpf Ur Squamous Epith Cells 0-4 H (0-5) /hpf Amorphous Sediment Not Reportable Urine Bacteria Trace (NONE) /hpf Urine Mucus Trace /hpf 03/27/21 Range/Units 19:25 WBC (4.0-10.0) 10^3/ uL RBC (4.1-5.3) 10^6/u L Hgb (11.5-15.3) g/dL Hct (37.0-47.0) % MCV (81-99) fL MCH (28.0-34.0) pg MCHC (30.0-36.0) g/dL RDW (12.1-15.1) % Plt Count (130-400) 10^3/c mm MPV (7.4-10.4) fL Neut % (Auto) % Lymph % (Auto) % [place] % (Auto) % Eos % (Auto) % Baso % (Auto) % Neut # (Auto) (1.8-7.7) 10^3/u L Lymph # (Auto) (0.8-4.8) 10^3/u L [place] # (Auto) (0.2-0.9) 10^3/u L Eos # (Auto) (0.0-0.8) 10^3/u L Baso # (Auto) (0.0-0.1) 10^3/u L Nucleated RBC % (a uto) % Nucleated RBCs # /100WBC Sodium (136-145) mmol/L Potassium (3.5-5.1) mmol/L Chloride (98-107) mmol/L Carbon Dioxide (22-29) mmol/L Anion Gap (5-19) BUN (8-23) mg/dL Creatinine (0.5-0.9) mg/dL GFR Calculation Glucose (65-115) mg/dL Calculated Osmolal ity (285-295) mOsm/k g Calcium (8.5-10.5) mg/dL Total Bilirubin (0.15-1.2) mg/dL AST (0-32) U/L ALT (0-33) U/L Alkaline Phosphata se (35-105) IU/L Troponin T Baselin e 17 H (0-10) ng/L NT-Pro-B Natriuret Pep (0-450) pg/mL Total Protein (6.6-8.7) g/dL Albumin (3.5-5.2) g/dL Globulin (1.3-4.6) g/dL Urine Color (Yellow) Urine Appearance (CLEAR) Urine pH (5-7) Ur Specific Gravit y (1.005-1.030) Urine Protein (Negative) Urine Glucose (UA) (Normal) Urine Ketones (Negative) Urine Blood (Negative) Urine Nitrate (Negative) Urine Bilirubin (Negative) Urine Urobilinogen (Negative) mg/dL Ur Leukocyte Ilana ase (Negative) Urine RBC (0-2) /hpf Urine WBC (0-5) /hpf Ur Squamous Epith Cells (0-5) /hpf Amorphous Sediment Urine Bacteria (NONE) /hpf Urine Mucus /hpf Discharge Plan Discharge Patient Disposition: Admitted As Inpatient Admit Provider: Lisa Marc Clinical Impression: Acute exacerbation of CHF (congestive heart failure), Fracture of ribs, multiple Condition: Stable Coding Level of Care Code ED Die Maker Apprentice for Leta Albarran
[2021-03-27 23:15] VITALS: BP 126/73; PULSE 84; RESP 20; TEMP 37.5; O2SAT 94
--- NOTE | 2021-03-27 23:18 | ECG_ITS ---
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 Measurements Intervals [place] Rate: 88 P: DE: QRS: 8 QRSD: 83 T: 155 QT: 350 QTc: 426 Interpretive Statements ATRIAL FIBRILLATION WITH ABERRANT CONDUCTION OR VENTRICULAR PREMATURE COMPLEXES SEPTAL MYOCARDIAL INFARCTION [40+ ms Q WAVE IN V1/V2], OF INDETERMINATE AGE Compared to ECG 02/25/2021 01:02:39 Myocardial infarct finding now present T-wave abnormality no longer present Possible ischemia no longer present Electronically Signed On 03-30-2021 16:52:07 CDT by Destiny Goodman M.D. [id number]
--- NOTE | 2021-03-27 23:18 | PM.HP ---
Providers/Chief Complaint Admitting Physician: Lisa Marc MD Primary Care Provider: Alyce Lozoya DO Chief Complaint: CHILLS History of Present Illness Bre Lara is a 75 year old female recently discharged to SNF from 03/01 returned today with increasing LE edema, mechanical fall at home this morning. In the setting of noncompliance with p.o. Lasix. She reports allergy to it as diarrhea vomiting but apparently tolerates the IV form. Recent history is notable for being admitted at [facility] between February 24 to March 01 after presenting with increasing lower extremity edema again in the setting of Lasix noncompliance. She was found to have CHF exacerbation, treated with with IV Lasix which she tolerated well. She had also sustained a fall prior to that admission which resulted in a humeral neck fracture which is being managed conservatively at this point. Since she was unable to care for herself and could not ambulate with a walker anymore given the fracture she was discharged to SNF. She was discharged from SNF 4 days ago. Hospital course also significant for Klebsiella pneumonia UTI for which she received treatment with IV antibiotics. She denies any fever chills palpitations chest pain today. On imaging today, she is found to have subacute comminuted fracture of the humerus, already known from last admission, age and indeterminate fractures of the anterior left second through eighth ribs, buckle fracture of the manubrium of the sternum. Incidental note made of groundglass opacities in the right lung base that may be atelectasis versus developing pneumonitis. Incidental note made of sigmoid colonic wall thickening probable acute colitis or diverticulitis however malignancy could not be excluded either. Review of Systems General: Reports: 10 or more systems reviewed and unremarkable except in HPI and below Const: Denies: fever(s), chills or body aches Eyes: Denies: change in vision, blurry vision or photophobia ENMT: Reports: hoarseness; Denies: throat pain, enlarged tonsils, odynophagia or nasal congestion Card: Denies: chest pain, palpitations, irregular heart rhythm, edema, swelling of feet/ankles, lightheadedness, pre-syncope, dyspnea on exertion or orthopnea Resp: Denies: dyspnea, productive cough, non-productive cough, wheezing, stridor, pain on inspiration, change in phlegm color, hemoptysis or chest congestion GI: Denies: abdominal pain, nausea, vomiting, hematemesis, coffee ground emesis, dysphagia, heartburn, diarrhea, constipation, GI cramping, change in stool character, hematochezia or melena : Denies: flank pain, difficulty voiding, dysuria, urinary frequency, urinary urgency, urinary hesitancy or hematuria Musc: Denies: neck pain, back pain, extremity pain, joint swelling, joint warmth or deformity Neuro: Denies: headache(s), numbness in extremities, weakness in extremities, sensory changes, difficulty walking, frequent falls, dizziness, vertigo, behavioral changes, Slurred speech present or seizure-like activity Psych: Denies: anxiety, depression, suicidal ideation or homicidal ideation Endo: Denies: polyuria, polydipsia, tired all the time, cold intolerance or hot flashes Timo/Lymph: Denies: easy bruising or easy bleeding Medications/Allergies Home Medications Medication Instructions Recorded Confirmed Last Taken Type cholecalciferol (vitamin D3) 25 2,000 unit PO .THREE TIMES WEEKLY 09/14/19 03/16/21 07/13/20 History mcg (1,000 unit) capsule cap hydrocodone 5 mg-acetaminophen 325 1 tab PO QID PRN 09/14/19 03/16/21 02/24/21 History mg tablet melatonin 5 mg capsule 5 mg PO BEDTIME cap 09/14/19 03/16/21 02/23/21 History polyethylene glycol 3350 17 17 gm PO PRN gm 09/14/19 03/16/21 02/23/21 History gram/dose oral powder albuterol sulfate 90 mcg/actuation 2 puff INHALATION Q6H PRN #3 each 12/10/19 03/16/21 07/13/20 Rx aerosol inhaler apixaban 5 mg tablet 5 mg PO BID #180 tab 11/23/20 03/16/21 02/24/21 Rx diltiazem HCl 360 mg 360 mg PO DAILY #90 cap 11/23/20 03/16/21 02/24/21 Rx capsule,extended release 24 hr tizanidine 4 mg tablet 4 mg PO DAILY #30 tab 12/24/20 03/16/21 Unknown Rx acetaminophen [Tylenol 8 Hour] 650 mg PO BEDTIME PRN 02/24/21 03/16/21 Unknown History cetirizine [Zyrtec] 10 mg PO DAILY 02/24/21 03/16/21 02/23/21 History ipratropium-albuterol 3 ml INHALATION BID PRN 02/24/21 03/16/21 Unknown History metoprolol tartrate 25 mg PO DAILY 02/24/21 03/16/21 02/23/21 History omega-3 fatty acids 1,000 mg PO DAILY 02/24/21 03/16/21 Unknown History pantoprazole 40 mg PO BID 02/24/21 03/16/21 02/24/21 History potassium chloride 8 meq PO DAILY 02/24/21 03/16/21 02/23/21 History simethicone 166 mg PO PRN 02/24/21 03/16/21 02/24/21 History vitamin K61-mdyws acid 1 tab PO DAILY 02/24/21 03/16/21 02/23/21 History furosemide 40 mg PO DAILY@0800 #30 tab 03/01/21 03/16/21 Unknown Rx nystatin 100,000 unit/gram topical 1 applic TOPICAL BID 30 Days #30 g 03/25/21 Unknown Rx cream Allergies Allergy/AdvReac Type Severity Reaction Status Date / Time Penicillins Allergy Unknown Unknown Verified 03/16/21 11:22 cefdinir Allergy Unknown Verified 03/16/21 11:22 ciprofloxacin [From Cipro] Allergy NA Verified 03/16/21 11:22 fluoxetine Allergy NA Verified 03/16/21 11:22 nabumetone Allergy NA Verified 03/16/21 11:22 penicillin G Allergy NA Verified 03/16/21 11:22 pentazocine [From Talwin] Allergy NA Verified 03/16/21 11:22 Sulfa (Sulfonamide Allergy NA Verified 03/16/21 11:22 Antibiotics) furosemide [From Lasix] AdvReac diarrhea, Verified 03/16/21 11:22 vomiting, chills, generalized weakness PFSH Acute PFSH: Medical History Atrial fibrillation Benign essential hypertension with target blood pressure below 140/90 Chronic episodic atrial fibrillation COPD (chronic obstructive pulmonary disease) GERD (gastroesophageal reflux disease) Hypercholesterolemia Other cervical disc displacement, unspecified cervical region Recurrent UTI Sleep apnea Unspecified hydronephrosis Urgency incontinence Urolithiasis Surgical History H/O cataract extraction H/O esophagogastroduodenoscopy (07/14/20) H/O knee surgery H/O shoulder surgery History of appendectomy History of cholecystectomy S/P hysterectomy Status post colonoscopy (07/14/20) Family History Father Stroke Mother Cancer BLADDER, BREAST Brother Cancer ESOPHAGEAL Family/Other Cancer Sister Cancer Suicide Denies family history of Diabetes CAD (coronary artery disease) Clotting disorder Dementia Chronic kidney disease (CKD) Anesthesia complication Bleeding disorder Lung disease Social History Smoking and tobacco status: current every day smoker cigarettes Packs smoked per day: 1 Alcohol intake: never Marital status: Current occupational status: disabled Vitals/I&O/Wt Last Vital Signs Temp 99.5 F 03/27/21 23:15 Pulse 84 03/27/21 23:15 Resp 20 H 03/27/21 23:15 BP 126/73 03/27/21 23:15 Pulse Ox 94 03/27/21 23:15 Weight last 48 hrs Weight 86.183 kg Physical Exam Narrative: EXAM NARRATIVE: General: No acute distress, AO x3 HEENT: PERRLA, pupils bilaterally equal and reactive, pallors not present Chest: Normal vesicular breath sounds, no added sounds, equal good air entry bilaterally CVS: S1-S2 regular, no murmurs, no tachycardia, no gallops, no rubs Abdomen: Soft, nontender, no organomegaly, bowel sounds present Neuro: No focal deficits, no facial deformity, AO x3, power 5/5 in all limbs Extremities: Right arm in shoulder sling, 2+ pitting edema B/L LE Urinary Catheter Management^: [place] Latex: Cath Placed During This Visit: yes Reason for Continuing Indwelling Catheter: Other Urinary Catheter Date of Insertion: 03/27/21 Urinary Catheter Time of Insertion: 18:55 Data : 03/27/21 19:25 03/27/21 19:25 Micro: Microbiology 03/27/21 20:53 Blood Culture - Preliminary Blood SPECIMEN COLLECTED 03/27/21 19:25 Blood Culture - Preliminary Blood SPECIMEN COLLECTED A&P Assessment and plan (1) Acute exacerbation of CHF (congestive heart failure): Status: Acute Qualifiers: Heart failure type: diastolic Qualified Code(s): I50.33 - Acute on chronic diastolic (congestive) heart failure (2) Fracture of ribs, multiple: Status: Acute Qualifiers: Encounter type: initial encounter Fracture type: closed Laterality: left Qualified Code(s): S22.42XA - Multiple fractures of ribs, left side, initial encounter for closed fracture (3) UTI (urinary tract infection): Status: Acute Qualifiers: Hematuria presence: with hematuria Urinary tract infection type: acute cystitis Qualified Code(s): N30.01 - Acute cystitis with hematuria (4) COPD (chronic obstructive pulmonary disease): Status: Chronic Qualifiers: COPD type: COPD with acute exacerbation Qualified Code(s): J44.1 - Chronic obstructive pulmonary disease with (acute) exacerbation (5) Recurrent UTI: Status: Acute (6) Chronic episodic atrial fibrillation: Status: Acute Additional A&P Information #Acute on chronic CHF exacerbation related to noncompliance with prescribed diuretics Echo recently with preserved EF with severely dilated left atrium Start Lasix 40 mg IV q12h Monitor daily weight, I/O, urine output and renal function Currently at baseline 02 requirement # Manubrium fracture : manage conservatively # Multiple rib fractures, age indeterminate Incentive spirometry Pain control with Percocet monitor for pneumonia, atelactasis, PTX # right proximal humeral fracture Continue Right UE sling Follows with Dr. Lucas as outpatient #Paroxysmal Atrial fibrillation Continue Diltiazem 360 ER daily, Metoprolol 25mg PO BID, Eliquis 5 mg oral b.i.d. # Asymptomatic bacteriuria: Monitor off antibiotics for now Attestations Medical Necessity Statement*: Acute on chronic CHF exacerbation,needs iv diuresis , rib fractures, needs close monitoring of respiratory status Coding Level of Care Code Acute Imaging Engineer for Chg Fwd Diagnoses Acute exacerbation of CHF (congestive heart failure) I50.33 Heart failure type: diastolic Fracture of ribs, multiple S22.42XA Encounter type: initial encounter Fracture type: closed Laterality: left UTI (urinary tract infection) N30.01 Hematuria presence: with hematuria Urinary tract infection type: acute cystitis COPD (chronic obstructive pulmonary disease) J44.1 COPD type: COPD with acute exacerbation Recurrent UTI N39.0 Chronic episodic atrial fibrillation I48.20
[2021-03-27 23:43] VITALS: PULSE 88; RESP 18; O2SAT 96
[2021-03-28] VITALS (10 sets, daily range): BP systolic 94–149; BP diastolic 60–80; PULSE 55–98; RESP 15–18; TEMP 36–36.9; O2SAT 90–97
[2021-03-28] MEDS: cefTRIAXone 1,000 MG in sodium chloride 0.9% (plus) 100 ML 100 MG IV ×2 (00:23→23:14)
[2021-03-28] MEDS: FUROsemide 10 mg/mL SDV 4mL 40 MG IVP ×3 (00:28→23:14)
[2021-03-28] MEDS: temazepam 15 mg Capsule 30 MG PO ×2 (01:00→21:29)
[2021-03-28] MEDS: HYDROcodone-acetaminophen 5-325 mg Tablet 1 TAB PO ×4 (03:38→21:29)
[2021-03-28 07:12] LABS: Basophils # 0.1 10^3/uL (0.0-0.1); Basophils % 0.8 %; Eosinophils # 0.1 10^3/uL (0.0-0.8); Eosinophils % 1.5 %; Hematocrit 40.4 % (37.0-47.0); Hemoglobin 12.5 g/dL (11.5-15.3); Lymphocytes # 1.8 10^3/uL (0.8-4.8); Lymphocytes % 27.3 %; Mean Corpuscular HGB Conc 30.9 g/dL (30.0-36.0); Mean Corpuscular Hemoglobin 32.2 pg (28.0-34.0); Mean Corpuscular Volume 104.1 fL (81-99); Mean Platelet Volume 10.3 fL (7.4-10.4); Monocytes # 0.7 10^3/uL (0.2-0.9); Monocytes % 9.9 %; Neutrophils # 3.94 10^3/uL (1.8-7.7); Neutrophils % 60.2 %; Nucleated Red Blood Cells % 0 %; Platelet Count 214 10^3/cmm (130-400); Red Blood Count 3.88 10^6/uL (4.1-5.3); Red Cell Distribution Width 14.4 % (12.1-15.1); White Blood Count 6.6 10^3/uL (4.0-10.0)
[2021-03-28 07:38] LABS: Alanine Aminotransferase 7 U/L (0-33); Albumin Level 2.9 g/dL (3.5-5.2); Alkaline Phosphatase 181 IU/L (35-105); Anion Gap 11.4 (5-19); Aspartate Amino Transferase 11 U/L (0-32); Blood Urea Nitrogen 9 mg/dL (8-23); Calcium 9.5 mg/dL (8.5-10.5); Carbon Dioxide 30 mmol/L (22-29); Chloride 101 mmol/L (98-107); Creatinine Clr Calc Pharmacy 80.1233; Globulin 2.8 g/dL (1.3-4.6); Glucose 96 mg/dL (65-115); Osmolality Calculated 287 mOsm/kg (285-295); Potassium 3.4 mmol/L (3.5-5.1); Sodium 139 mmol/L (136-145); Total Bilirubin 0.4 mg/dL (0.15-1.2); Total Protein 5.7 g/dL (6.6-8.7)
[2021-03-28] MEDS: ipratropium-albuterol 3 mL Neb INHALATION (08:03)
[2021-03-28] MEDS: dilTIAZem ER (24HR) 180 mg Capsule 360 MG PO (08:58)
[2021-03-28] MEDS: nystatin cream 30 gm 1 APPLIC TOPICAL ×2 (08:58→17:43)
[2021-03-28] MEDS: apixaban 5 mg Tablet PO ×2 (08:59→17:42)
[2021-03-28] MEDS: metoprolol tartrate 25 mg Tablet PO (08:59)
[2021-03-28] MEDS: pantoprazole DR 40 mg Tablet PO ×2 (08:59→17:42)
--- NOTE | 2021-03-28 10:24 | PC.CHAP ---
Pastoral Care Encounter/Spiritual Assessment Type of Contact [] Declined manager crisis visit [] Patient/Family/Request visit [] Outpatient visit [] Follow-up visit [] Physician referral [] Code/Alert [x] Routine visit [] Staff referral [] Actively dying [] Patient sleeping [] Family support [] [] Out of room [] Palliative care [] [] Receiving care in room [] Pre-surgical visit [] Trauma [] Long length of stay [] ICU visit [] Other: Relational/Emotional Strength [x Patient feels connected with others/family/visitors/staff [] Distress [] Loneliness/isolation [] Abandonment Spirituality of Patient [x] Person of Jessica [] Attends Mu-Ism of their Jessica [x] Believes in Prayer [] Reads Bible or Methodist materials [] There are Spiritual issues to be addressed Manager Investment Interventions [x] Prayer [x] Active listening [x] Non-anxious presence [x] Spiritual/emotional support [] Crisis/trauma care [] Spiritual counseling [] Bereavement support [] Provided bereavement packet [] Provided Bible/devotional materials [] Provided toy/stuffed animal, coloring book to patient or family member [] Provided Communion [] Anointing/[place] [] Salvation [x] Completed spiritual assessment [] Other: Impact on Illness or Injury [] Angry [] Fearful [] Anxious [] Often cries [] Exhaustion [] Unable to work [] Unable to attend buddhism [] Unable to walk/stand [] Unable to read [] Unable to drive [] Unable to eat/drink [] Unable to sleep [] Unable to be with family [] Patient intubated [] Other: Summary Manager Investment prayed with patient. Time spent with patient 7 minutes.
--- NOTE | 2021-03-28 10:48 | PC.NURSE ---
Patient resting with eyes closed, no distress noted, FLACC pain level 0.
--- NOTE | 2021-03-28 10:55 | PC.NURSE ---
Patient requesting milk of magnesia, reports I normally have several BM's a day and last one I had was yesterday morning. Dr. Garcia notified.
--- NOTE | 2021-03-28 11:27 | P.PN_ITS ---
Subjective Subjective: Interval history: requesting pain medication. No new clinical events overnight. Medications: Reviewed: Yes Vitals/I&O/Wt Last Vital Signs Temp 97.4 F L 03/28/21 11:13 Pulse 78 03/28/21 11:13 Resp 17 03/28/21 11:13 BP 124/75 03/28/21 11:13 Pulse Ox 97 03/28/21 11:13 03/27/21 03/28/21 03/28/21 22:59 06:59 14:59 Intake Total 100 / 100 Output Total 1700 / 1700 Balance -1600 / -1600 Weight last 48 hrs Weight 86.183 kg Physical Exam Narrative: EXAM NARRATIVE: General: No acute distress, AO x3 HEENT: PERRLA, pupils bilaterally equal and reactive, pallors not present Chest: Normal vesicular breath sounds, no added sounds, equal good air entry bilaterally CVS: S1-S2 regular, no murmurs, no tachycardia, no gallops, no rubs Abdomen: Soft, nontender, no organomegaly, bowel sounds present Neuro: No focal deficits, no facial deformity, AO x3, power 5/5 in all limbs Extremities: Right arm in shoulder sling, 2+ pitting edema B/L LE Urinary Catheter Management^: [place] Latex: Cath Placed During This Visit: yes Reason for Continuing Indwelling Catheter: Other Urinary Catheter Date of Insertion: 03/27/21 Urinary Catheter Time of Insertion: 18:55 Data : 03/28/21 06:39 03/28/21 06:39 Micro: Microbiology 03/27/21 20:53 Blood Culture - Preliminary Blood SPECIMEN COLLECTED 03/27/21 19:25 Blood Culture - Preliminary Blood SPECIMEN COLLECTED A&P Assessment and plan (1) Acute exacerbation of CHF (congestive heart failure): Status: Acute Qualifiers: Heart failure type: diastolic Qualified Code(s): I50.33 - Acute on chronic diastolic (congestive) heart failure (2) Fracture of ribs, multiple: Status: Acute Qualifiers: Encounter type: initial encounter Fracture type: closed Laterality: left Qualified Code(s): S22.42XA - Multiple fractures of ribs, left side, initial encounter for closed fracture (3) UTI (urinary tract infection): Status: Acute Qualifiers: Hematuria presence: with hematuria Urinary tract infection type: acute cystitis Qualified Code(s): N30.01 - Acute cystitis with hematuria (4) COPD (chronic obstructive pulmonary disease): Status: Chronic Qualifiers: COPD type: COPD with acute exacerbation Qualified Code(s): J44.1 - Chronic obstructive pulmonary disease with (acute) exacerbation (5) Recurrent UTI: Status: Acute (6) Chronic episodic atrial fibrillation: Status: Acute Additional A&P Information #Acute on chronic CHF exacerbation related to noncompliance with prescribed diuretics Echo recently with preserved EF with severely dilated left atrium Continue Lasix 40 mg IV q12h Monitor daily weight, I/O, urine output and renal function Currently at baseline 02 requirement # Manubrium fracture : manage conservatively Pain control # Multiple rib fractures, age indeterminate Incentive spirometry Pain control with Percocet Monitor for pneumonia, atelactasis, PTX # Right proximal humeral fracture Continue Right UE sling Follows with Dr. Lucas as outpatient #Paroxysmal Atrial fibrillation Continue Diltiazem 360 ER daily, Metoprolol 25mg PO BID, Eliquis 5 mg oral b.i.d. # Asymptomatic bacteriuria: Monitor off antibiotics for now Attestations Medical Necessity Statement*: Continue hospitalization for management of heart failure exacerbation requiring IV diuretics Time Spent in Patient Care: Greater than 35 minutes (>than 50% of time spent in counselling and/or direct pt care on unit) . Coding Level of Care Code Acute Director Of Public Works for Leta Albarran Diagnoses Acute exacerbation of CHF (congestive heart failure) I50.33 Heart failure type: diastolic Fracture of ribs, multiple S22.42XA Encounter type: initial encounter Fracture type: closed Laterality: left UTI (urinary tract infection) N30.01 Hematuria presence: with hematuria Urinary tract infection type: acute cystitis COPD (chronic obstructive pulmonary disease) J44.1 COPD type: COPD with acute exacerbation Recurrent UTI N39.0 Chronic episodic atrial fibrillation I48.20
[2021-03-28] MEDS: tizanidine 4 mg Tablet PO (13:56)
--- NOTE | 2021-03-28 13:57 | PC.NURSE ---
PRN pain medication and zanaflex given per doctors orders, patient rates pain 10/10 to her back, ribs, shoulder. See MAR for further details.
--- NOTE | 2021-03-28 18:41 | PC.NURSE ---
Patient tolerated sitting up in chair for lunch and dinner, patient encouraged to keep up ambulation and mobility with assistance, verbalized understanding.
[2021-03-29] VITALS (11 sets, daily range): BP systolic 96–131; BP diastolic 62–76; PULSE 60–104; RESP 17–20; TEMP 36.4–37.4; O2SAT 91–96
[2021-03-29] MEDS: HYDROcodone-acetaminophen 5-325 mg Tablet 1 TAB PO ×3 (04:28→17:52)
[2021-03-29 06:46] LABS: Basophils % 0.4 %; Eosinophils # 0.1 10^3/uL (0.0-0.8); Eosinophils % 1.2 %; Hematocrit 43.4 % (37.0-47.0); Hemoglobin 13.1 g/dL (11.5-15.3); Lymphocytes # 1.9 10^3/uL (0.8-4.8); Lymphocytes % 23.6 %; Mean Corpuscular HGB Conc 30.2 g/dL (30.0-36.0); Mean Corpuscular Hemoglobin 31.7 pg (28.0-34.0); Mean Corpuscular Volume 105.1 fL (81-99); Mean Platelet Volume 10.3 fL (7.4-10.4); Monocytes # 0.5 10^3/uL (0.2-0.9); Monocytes % 6.5 %; Neutrophils # 5.47 10^3/uL (1.8-7.7); Neutrophils % 67.9 %; Nucleated Red Blood Cells % 0 %; Platelet Count 211 10^3/cmm (130-400); Red Blood Count 4.13 10^6/uL (4.1-5.3); Red Cell Distribution Width 14.3 % (12.1-15.1); White Blood Count 8.1 10^3/uL (4.0-10.0)
[2021-03-29 07:19] LABS: Alanine Aminotransferase < 5 U/L (0-33); Alkaline Phosphatase 187 IU/L (35-105); Anion Gap 14.3 (5-19); Aspartate Amino Transferase 7 U/L (0-32); Blood Urea Nitrogen 13 mg/dL (8-23); Carbon Dioxide 31 mmol/L (22-29); Chloride 100 mmol/L (98-107); Creatinine Clr Calc Pharmacy 80.1233; Globulin 2.9 g/dL (1.3-4.6); Glucose 93 mg/dL (65-115); Osmolality Calculated 294 mOsm/kg (285-295); Potassium 3.3 mmol/L (3.5-5.1); Sodium 142 mmol/L (136-145); Total Bilirubin 0.3 mg/dL (0.15-1.2); Total Protein 5.9 g/dL (6.6-8.7)
[2021-03-29] MEDS: pantoprazole DR 40 mg Tablet PO ×2 (09:18→17:50)
[2021-03-29] MEDS: apixaban 5 mg Tablet PO ×2 (09:18→17:50)
[2021-03-29] MEDS: dilTIAZem ER (24HR) 180 mg Capsule 360 MG PO (09:18)
[2021-03-29] MEDS: metoprolol tartrate 25 mg Tablet PO (09:18)
[2021-03-29] MEDS: tizanidine 4 mg Tablet PO (09:32)
[2021-03-29] MEDS: nystatin cream 30 gm 1 APPLIC TOPICAL ×2 (09:33→17:50)
--- NOTE | 2021-03-29 11:04 | PC.NUTR ---
Nutrition assessment completed for MST score of 2. Recommend Ensure with meals to provide additional kcal/protein. Recommend encourage po intakes of meals/supplements and provide preferences as appropriate. Also recommend [employer] eval--notified nurse. See RD assessment for further details.
[2021-03-29] MEDS: FUROsemide 10 mg/mL SDV 4mL 40 MG IVP (11:35)
[2021-03-29] MEDS: potassium chloride ER 20 mEq Tablet 40 MEQ PO (14:21)
--- NOTE | 2021-03-29 16:04 | PM.PN ---
Subjective Subjective: Interval history: Patient was seen and examined this morning, no acute events overnight. Medications: Reviewed: Yes Vitals/I&O/Wt Last Vital Signs Temp 97.8 F 03/29/21 12:00 Pulse 76 03/29/21 12:00 Resp 18 03/29/21 12:00 BP 96/64 03/29/21 12:00 Pulse Ox 93 03/29/21 12:00 03/29/21 03/29/21 03/29/21 06:59 14:59 22:59 Intake Total 700 / 700 Output Total 2300 / 3500 Balance -2300 / -2900 700 / 700 Weight last 48 hrs Weight 86.183 kg Physical Exam Const: COMMON NORMALS: patient oriented x3 HENMT: COMMON NORMALS: normocephalic and atraumatic HEAD & SCALP: normocephalic and atraumatic Resp: COMMON NORMALS: clear to auscultation bilaterally AUSCULTATION: clear to auscultation bilaterally Cardio: COMMON NORMALS: regular rate, regular rhythm, S1 normal heart sound present, S2 normal heart sound present, No gallops present (Cardio), No murmurs present (Cardio), No rub (Cardio) and Peripheral pulses 2+ throughout RATE: regular rate RHYTHM: regular rhythm HEART SOUNDS: S1 normal heart sound present and S2 normal heart sound present PERIPHERAL PULSES: Peripheral pulses 2+ throughout GI: COMMON NORMALS: Normal to inspection, nondistended, normoactive bowel sounds present, Soft to palpation, non-tender, No hepatosplenomegaly present and no masses AUSCULTATION: Yes normoactive bowel sounds PALPATION: Yes Soft to palpation and Yes No hepatosplenomegaly present RECTAL EXAM: deferred Extremity: COMMON NORMALS: no clubbing, cyanosis or edema and no pedal edema OTHER: Right arm in shoulder sling Neuro: COMMON NORMALS: patient oriented x3 Urinary Catheter Management^: [place] Latex: Cath Placed During This Visit: yes Reason for Continuing Indwelling Catheter: Other Urinary Catheter Date of Insertion: 03/27/21 Urinary Catheter Time of Insertion: 18:55 Data : 03/29/21 06:22 03/29/21 06:22 Micro: Microbiology 03/27/21 19:00 Urine Culture - Preliminary Urine,Clean Catch Gram Negative Rods 03/27/21 20:53 Blood Culture - Preliminary Blood NEGATIVE TO DATE 03/27/21 19:25 Blood Culture - Preliminary Blood NEGATIVE TO DATE A&P Assessment and plan (1) Acute exacerbation of CHF (congestive heart failure): Status: Acute Qualifiers: Heart failure type: diastolic Qualified Code(s): I50.33 - Acute on chronic diastolic (congestive) heart failure (2) Fracture of ribs, multiple: Status: Acute Qualifiers: Encounter type: initial encounter Fracture type: closed Laterality: left Qualified Code(s): S22.42XA - Multiple fractures of ribs, left side, initial encounter for closed fracture (3) UTI (urinary tract infection): Status: Acute Qualifiers: Hematuria presence: with hematuria Urinary tract infection type: acute cystitis Qualified Code(s): N30.01 - Acute cystitis with hematuria (4) COPD (chronic obstructive pulmonary disease): Status: Chronic Qualifiers: COPD type: COPD with acute exacerbation Qualified Code(s): J44.1 - Chronic obstructive pulmonary disease with (acute) exacerbation (5) Recurrent UTI: Status: Acute (6) Chronic episodic atrial fibrillation: Status: Acute Additional A&P Information #Acute on chronic CHF exacerbation related to noncompliance with prescribed diuretics Echo recently with preserved EF with severely dilated left atrium Continue Lasix 40 mg IV q12h Monitor daily weight, I/O, urine output and renal function Currently at baseline 02 requirement # Manubrium fracture : manage conservatively Pain control # Multiple rib fractures, age indeterminate Incentive spirometry Pain control with Percocet Monitor for pneumonia, atelactasis, PTX # Right proximal humeral fracture Continue Right UE sling Follows with Dr. Lucas as outpatient #Paroxysmal Atrial fibrillation Continue Diltiazem 360 ER daily, Metoprolol 25mg PO BID, Eliquis 5 mg oral b.i.d. # Asymptomatic bacteriuria: Monitor off antibiotics for now Attestations Medical Necessity Statement*: Patient is to be in hospital for management of decompensated heart failure Coding Level of Care Code Acute Production Scheduler for Leta Albarran Diagnoses Acute exacerbation of CHF (congestive heart failure) I50.33 Heart failure type: diastolic Fracture of ribs, multiple S22.42XA Encounter type: initial encounter Fracture type: closed Laterality: left UTI (urinary tract infection) N30.01 Hematuria presence: with hematuria Urinary tract infection type: acute cystitis COPD (chronic obstructive pulmonary disease) J44.1 COPD type: COPD with acute exacerbation Recurrent UTI N39.0 Chronic episodic atrial fibrillation I48.20
--- NOTE | 2021-03-29 18:58 | PC.RESP ---
SMOKING CESSATION AND PULMONARY REHAB INFORMATION SENT TO PATIENT.
[2021-03-29] MEDS: temazepam 15 mg Capsule 30 MG PO (21:15)
[2021-03-30] VITALS (10 sets, daily range): BP systolic 101–115; BP diastolic 65–73; PULSE 61–101; RESP 18–20; TEMP 36.6–36.9; O2SAT 94–98
[2021-03-30] MEDS: HYDROcodone-acetaminophen 5-325 mg Tablet 1 TAB PO ×4 (00:48→16:36)
[2021-03-30 06:58] LABS: Basophils % 0.3 %; Eosinophils # 0.1 10^3/uL (0.0-0.8); Eosinophils % 1.5 %; Hematocrit 41.2 % (37.0-47.0); Hemoglobin 12.8 g/dL (11.5-15.3); Lymphocytes # 1.8 10^3/uL (0.8-4.8); Lymphocytes % 20.5 %; Mean Corpuscular HGB Conc 31.1 g/dL (30.0-36.0); Mean Corpuscular Hemoglobin 31.8 pg (28.0-34.0); Mean Corpuscular Volume 102.5 fL (81-99); Mean Platelet Volume 10.3 fL (7.4-10.4); Monocytes # 0.8 10^3/uL (0.2-0.9); Monocytes % 8.5 %; Neutrophils # 6.07 10^3/uL (1.8-7.7); Neutrophils % 68.7 %; Nucleated Red Blood Cells % 0 %; Platelet Count 206 10^3/cmm (130-400); Red Blood Count 4.02 10^6/uL (4.1-5.3); Red Cell Distribution Width 14.1 % (12.1-15.1); White Blood Count 8.8 10^3/uL (4.0-10.0)
[2021-03-30 07:19] LABS: Alanine Aminotransferase < 5 U/L (0-33); Albumin Level 2.7 g/dL (3.5-5.2); Alkaline Phosphatase 166 IU/L (35-105); Anion Gap 12.6 (5-19); Aspartate Amino Transferase 7 U/L (0-32); Blood Urea Nitrogen 15 mg/dL (8-23); Calcium 9.9 mg/dL (8.5-10.5); Carbon Dioxide 29 mmol/L (22-29); Chloride 102 mmol/L (98-107); Creatinine Clr Calc Pharmacy 80.1233; Globulin 2.9 g/dL (1.3-4.6); Glucose 102 mg/dL (65-115); Osmolality Calculated 291 mOsm/kg (285-295); Potassium 3.6 mmol/L (3.5-5.1); Sodium 140 mmol/L (136-145); Total Bilirubin 0.3 mg/dL (0.15-1.2); Total Protein 5.6 g/dL (6.6-8.7)
[2021-03-30] MEDS: FUROsemide 10 mg/mL SDV 4mL 40 MG IVP (10:12)
[2021-03-30] MEDS: nystatin cream 30 gm 1 APPLIC TOPICAL ×2 (10:12→16:36)
[2021-03-30] MEDS: dilTIAZem ER (24HR) 180 mg Capsule 360 MG PO (10:12)
[2021-03-30] MEDS: metoprolol tartrate 25 mg Tablet PO (10:12)
[2021-03-30] MEDS: apixaban 5 mg Tablet PO ×2 (10:12→16:36)
[2021-03-30] MEDS: pantoprazole DR 40 mg Tablet PO ×2 (10:12→16:36)
--- NOTE | 2021-03-30 10:51 | PC.SOCIAL ---
IMM UPDATE Gave patient IMM update. Provided her copy of pg 2. Verbalized understanding. 03/30/21 @ 0945. Initialed, dated, timed and placed in chart.
--- NOTE | 2021-03-30 12:03 | P.PN_ITS ---
Subjective Subjective: Interval history: Patient was seen and examined this morning , continue to have good urine output , currently she is net around 5ls negative. Deny any shortness of breath. Overall she is doing better. Medications: Reviewed: Yes Vitals/I&O/Wt Last Vital Signs Temp 98.1 F 03/30/21 11:52 Pulse 86 03/30/21 11:52 Resp 18 03/30/21 11:52 BP 115/69 03/30/21 11:52 Pulse Ox 97 03/30/21 11:52 03/29/21 03/30/21 03/30/21 22:59 06:59 14:59 Intake Total 480 / 1180 50 / 1230 Output Total 1400 / 1400 800 / 2200 Balance -920 / -220 -750 / -970 Physical Exam Const: COMMON NORMALS: patient oriented x3 HENMT: COMMON NORMALS: normocephalic and atraumatic HEAD & SCALP: normocephalic and atraumatic Resp: COMMON NORMALS: clear to auscultation bilaterally AUSCULTATION: clear to auscultation bilaterally Cardio: COMMON NORMALS: regular rate, regular rhythm, S1 normal heart sound present, S2 normal heart sound present, No gallops present (Cardio), No murmurs present (Cardio), No rub (Cardio) and Peripheral pulses 2+ throughout RATE: regular rate RHYTHM: regular rhythm HEART SOUNDS: S1 normal heart sound present and S2 normal heart sound present PERIPHERAL PULSES: Peripheral pulses 2+ throughout GI: COMMON NORMALS: Normal to inspection, nondistended, normoactive bowel sounds present, Soft to palpation, non-tender, No hepatosplenomegaly present and no masses AUSCULTATION: Yes normoactive bowel sounds PALPATION: Yes Soft to palpation and Yes No hepatosplenomegaly present RECTAL EXAM: deferred Extremity: COMMON NORMALS: no clubbing, cyanosis or edema and no pedal edema OTHER: Right arm in shoulder sling Neuro: COMMON NORMALS: patient oriented x3 Urinary Catheter Management^: Medina Latex: Cath Placed During This Visit: yes Reason for Continuing Indwelling Catheter: Other Urinary Catheter Date of Insertion: 03/27/21 Urinary Catheter Time of Insertion: 18:55 Data : 03/30/21 06:30 03/30/21 06:30 Micro: Microbiology 03/27/21 19:00 Urine Culture - Preliminary Urine,Clean Catch Gram Negative Rods A&P Assessment and plan (1) Acute exacerbation of CHF (congestive heart failure): Status: Acute Qualifiers: Heart failure type: diastolic Qualified Code(s): I50.33 - Acute on chronic diastolic (congestive) heart failure (2) Fracture of ribs, multiple: Status: Acute Qualifiers: Encounter type: initial encounter Fracture type: closed Laterality: left Qualified Code(s): S22.42XA - Multiple fractures of ribs, left side, initial encounter for closed fracture (3) UTI (urinary tract infection): Status: Acute Qualifiers: Hematuria presence: with hematuria Urinary tract infection type: acute cystitis Qualified Code(s): N30.01 - Acute cystitis with hematuria (4) COPD (chronic obstructive pulmonary disease): Status: Chronic Qualifiers: COPD type: COPD with acute exacerbation Qualified Code(s): J44.1 - Chronic obstructive pulmonary disease with (acute) exacerbation (5) Recurrent UTI: Status: Acute (6) Chronic episodic atrial fibrillation: Status: Acute Additional A&P Information #Acute on chronic CHF exacerbation related to noncompliance with prescribed diuretics Echo recently with preserved EF with severely dilated left atrium Continue Lasix 40 mg IV q12h. Monitor daily weight, I/O, urine output and renal function Currently at baseline 02 requirement # Manubrium fracture : manage conservatively Pain control # Multiple rib fractures, age indeterminate Incentive spirometry Pain control with Percocet Monitor for pneumonia, atelactasis, PTX # Right proximal humeral fracture Continue Right UE sling Follows with Dr. Lucas as outpatient #Paroxysmal Atrial fibrillation Continue Diltiazem 360 ER daily, Metoprolol 25mg PO BID, Eliquis 5 mg oral b.i.d. # Asymptomatic bacteriuria: Monitor off antibiotics for now Attestations Medical Necessity Statement*: Patient needs to be in the hospital for management of decompensated heart failure. Coding Level of Care Code Acute Press Room Supervisor for Chg Fwd Diagnoses Acute exacerbation of CHF (congestive heart failure) I50.33 Heart failure type: diastolic Fracture of ribs, multiple S22.42XA Encounter type: initial encounter Fracture type: closed Laterality: left UTI (urinary tract infection) N30.01 Hematuria presence: with hematuria Urinary tract infection type: acute cystitis COPD (chronic obstructive pulmonary disease) J44.1 COPD type: COPD with acute exacerbation Recurrent UTI N39.0 Chronic episodic atrial fibrillation I48.20
[2021-03-30 15:22] LABS: Coronavirus Test Green County Not Detected
[2021-03-30] MEDS: tizanidine 4 mg Tablet PO (19:20)
[2021-03-30] MEDS: temazepam 15 mg Capsule 30 MG PO (21:10)
[2021-03-31] MEDS: cefTRIAXone 1,000 MG in sodium chloride 0.9% (plus) 100 ML 100 MG IV (00:34)
[2021-03-31] MEDS: HYDROcodone-acetaminophen 5-325 mg Tablet 1 TAB PO ×3 (00:54→14:00)
[2021-03-31 04:00] VITALS: BP 108/66; PULSE 69; RESP 18; TEMP 36.7; O2SAT 96
[2021-03-31 06:13] LABS: Basophils # 0.1 10^3/uL (0.0-0.1); Basophils % 0.6 %; Eosinophils # 0.2 10^3/uL (0.0-0.8); Hematocrit 40.3 % (37.0-47.0); Hemoglobin 12.3 g/dL (11.5-15.3); Lymphocytes # 2.5 10^3/uL (0.8-4.8); Lymphocytes % 29.6 %; Mean Corpuscular HGB Conc 30.5 g/dL (30.0-36.0); Mean Corpuscular Hemoglobin 31.9 pg (28.0-34.0); Mean Corpuscular Volume 104.4 fL (81-99); Mean Platelet Volume 10.2 fL (7.4-10.4); Monocytes # 0.6 10^3/uL (0.2-0.9); Monocytes % 7.6 %; Neutrophils # 4.98 10^3/uL (1.8-7.7); Neutrophils % 59.8 %; Nucleated Red Blood Cells % 0 %; Platelet Count 221 10^3/cmm (130-400); Red Blood Count 3.86 10^6/uL (4.1-5.3); White Blood Count 8.3 10^3/uL (4.0-10.0)
[2021-03-31 06:20] VITALS: PULSE 71
[2021-03-31 06:29] LABS: Alanine Aminotransferase < 5 U/L (0-33); Albumin Level 2.8 g/dL (3.5-5.2); Alkaline Phosphatase 144 IU/L (35-105); Anion Gap 13.8 (5-19); Aspartate Amino Transferase 7 U/L (0-32); Blood Urea Nitrogen 17 mg/dL (8-23); Calcium 10.3 mg/dL (8.5-10.5); Carbon Dioxide 30 mmol/L (22-29); Chloride 100 mmol/L (98-107); Creatinine Clr Calc Pharmacy 80.1233; Globulin 2.9 g/dL (1.3-4.6); Glucose 88 mg/dL (65-115); Osmolality Calculated 291 mOsm/kg (285-295); Potassium 3.8 mmol/L (3.5-5.1); Sodium 140 mmol/L (136-145); Total Bilirubin 0.2 mg/dL (0.15-1.2); Total Protein 5.7 g/dL (6.6-8.7)
[2021-03-31 07:26] VITALS: BP 101/68; PULSE 80; RESP 16; TEMP 36.8; O2SAT 93
[2021-03-31 08:40] VITALS: PULSE 89; RESP 16; O2SAT 92
--- NOTE | 2021-03-31 09:05 | PM.DCS ---
Discharge Providers Date of Admission: 03/27/21 23:19 Date of Discharge: March 31, 2021 Attending Provider at Admission: Lisa Marc MD Attending Provider at Discharge: Luis Luther MD Primary Care Provider: Alyce Lozoya DO Diagnoses at Discharge Discharge Diagnosis (1) Acute exacerbation of CHF (congestive heart failure): Status: Resolved Qualifiers: Heart failure type: diastolic Qualified Code(s): I50.33 - Acute on chronic diastolic (congestive) heart failure (2) Fracture of ribs, multiple: Status: Acute Qualifiers: Encounter type: initial encounter Fracture type: closed Laterality: left Qualified Code(s): S22.42XA - Multiple fractures of ribs, left side, initial encounter for closed fracture (3) UTI (urinary tract infection): Status: Resolved Qualifiers: Hematuria presence: with hematuria Urinary tract infection type: acute cystitis Qualified Code(s): N30.01 - Acute cystitis with hematuria (4) COPD (chronic obstructive pulmonary disease): Status: Chronic Qualifiers: COPD type: COPD with acute exacerbation Qualified Code(s): J44.1 - Chronic obstructive pulmonary disease with (acute) exacerbation (5) Recurrent UTI: Status: Resolved (6) Chronic episodic atrial fibrillation: Status: Acute Reason for Visit Reason for Visit: [facility] Hospital Course Hospital Course 75 year old female with past medical history of heart failure with preserved ejection fraction, A. fib, COPD, hypertension recently discharged to SNF from 03/01 returned with increasing LE edema, mechanical fall at home. Upon removal in the ER she was worked up for above mentioned complaint. On imaging she was found to have subacute comminuted fracture of the humerus, already known from last admission, age and indeterminate fractures of the anterior left second through eighth ribs, buckle fracture of the manubrium of the sternum. She was admitted for the management of acute on chronic CHF exacerbation, she has known history of noncompliance with Lasix , as it causes diarrhea itching nausea vomiting. During this hospital stay she was kept on IV diuresis, he responded very well, with good urine output, and with significant improvement in bilateral lower extremity swelling as well as shortness of breath.At the time of discharge she was euvolemic, she was discharged on torsemide 20 mg p.o. daily, given the proven recent benefit of torsemide in patient with heart failure with preservation fraction, and she also not been on torsemide in the past. Right proximal humeral fracture Continue Right UE sling, Follows with Dr. Lucas as outpatient.Manubrium fracture : Was managed conservatively. Multiple rib fractures were also managed conservatively, incentive spirometer pain control. She was also managed for UTI she was on ceftriaxone, urine culture grew E. coli sensitive to ceftriaxone, blood culture grew Corynebacterium species 1 out of 4 bottles, likely contaminant, will follow repeat blood culture.For her history of paroxysmal A. fib she was continued on Diltiazem 360 ER daily, Metoprolol 25mg PO BID, Eliquis 5 mg oral b.i.d. heart rate was well controlled. Patient overall responded very well to medical management and is being discharged in stable condition to home.Patient refused going to any detention.Continue to follow Dr. Marie as an outpatient, as well as Dr. Lucas as an outpatient. Physical Exam Const: COMMON NORMALS: patient oriented x3 HENMT: COMMON NORMALS: normocephalic and atraumatic HEAD & SCALP: normocephalic and atraumatic Resp: COMMON NORMALS: clear to auscultation bilaterally AUSCULTATION: clear to auscultation bilaterally Cardio: COMMON NORMALS: regular rate, regular rhythm, S1 normal heart sound present, S2 normal heart sound present, No gallops present (Cardio), No murmurs present (Cardio), No rub (Cardio) and Peripheral pulses 2+ throughout RATE: regular rate RHYTHM: regular rhythm HEART SOUNDS: S1 normal heart sound present and S2 normal heart sound present PERIPHERAL PULSES: Peripheral pulses 2+ throughout GI: COMMON NORMALS: Normal to inspection, nondistended, normoactive bowel sounds present, Soft to palpation, non-tender, No hepatosplenomegaly present and no masses AUSCULTATION: Yes normoactive bowel sounds PALPATION: Yes Soft to palpation and Yes No hepatosplenomegaly present RECTAL EXAM: deferred Extremity: COMMON NORMALS: no clubbing, cyanosis or edema and no pedal edema OTHER: Right arm in shoulder sling Neuro: COMMON NORMALS: patient oriented x3 Urinary Catheter Management^: Medina Latex: Cath Placed During This Visit: yes, but has since been removed by the nurse Reason for Continuing Indwelling Catheter: Decision to DC Catheter Urinary Catheter Date of Insertion: 03/27/21 Urinary Catheter Time of Insertion: 18:55 Date Urinary Catheter Removed: 03/30/21 Time Urinary Catheter Discontinued: 15:30 Discharge Data Data Completed and Pending: Completed Studies During Hospitalization Category Date Time Status CT cervical spin wo con* [id number] Urge nt Cat Scan 03/27/21 17:[address] chest abd pel wo con Urgent Cat Scan 03/27/21 17:[address] head wo con* [id number] Urgent Cat Scan 03/27/21 17:14 Completed XR elbow RT 2V [id number] Stat Exams 03/27/21 17:19 Completed XR shoulder RT mi n 2V* [id number] Stat Exams 03/27/21 17:14 Completed Pending at discharge Category Date Time Status Blood Culture Sta t Lab 03/27/21 20:53 Results Complete Blood Co unt w/Auto AM LABS Lab 04/01/21 04:00 Ordered Comprehensive Met abolic Panel AM LA BS Lab 04/01/21 04:00 Ordered Labs from last 24 hours 03/31/21 03/31/21 03/29/21 05:20 05:20 09:23 WBC 8.3 RBC 3.86 L Hgb 12.3 Hct 40.3 MCV 104.4 H MCH 31.9 MCHC 30.5 RDW 14.0 Plt Count 221 MPV 10.2 Neut % (Auto) 59.8 Lymph % (Auto) 29.6 Allen % (Auto) 7.6 Eos % (Auto) 2.0 Baso % (Auto) 0.6 Neut # (Auto) 4.98 Lymph # (Auto) 2.5 Allen # (Auto) 0.6 Eos # (Auto) 0.2 Baso # (Auto) 0.1 Nucleated RBC % (a uto) 0 Nucleated RBCs # 0.0 Sodium 140 Potassium 3.8 Chloride 100 Carbon Dioxide 30 H Anion Gap 13.8 BUN 17 Creatinine 0.7 GFR Calculation Not Reportable Glucose 88 Calculated Osmolal ity 291 Calcium 10.3 Total Bilirubin 0.2 AST 7 ALT < 5 Alkaline Phosphata se 144 H Total Protein 5.7 L Albumin 2.8 L Globulin 2.9 Nasal/Oral COVID-1 9 PCR Not detected Vitals: Last Vital Signs Temp 98.3 F 03/31/21 07:26 Pulse 89 03/31/21 08:40 Resp 16 03/31/21 08:40 BP 101/68 03/31/21 07:26 Pulse Ox 92 03/31/21 08:40 Discharge Plan Discharge Patient Disposition: Home Condition: Stable Prescriptions: New torsemide 20 mg tablet 20 mg PO DAILY Qty: 30 RF: 1 Klor-Con 10 10 mEq tablet extended release 20 meq PO DAILY Qty: 30 RF: 1 Continued hydrocodone-acetaminophen 5-325 mg tablet 1 tab PO QID PRN (Reason: Pain) RF: 0 melatonin 5 mg capsule 5 mg PO BEDTIME RF: 0 polyethylene glycol 3350 17 gram/dose powder 17 gm PO DAILY PRN (Reason: Constipation) RF: 0 cholecalciferol (vitamin D3) 1,000 unit capsule 2,000 unit PO .THREE TIMES WEEKLY RF: 0 albuterol sulfate [ProAir HFA] 90 mcg/actuation HFA aerosol inhaler 2 puff INHALATION Q6H PRN (Reason: SOB) Qty: 3 RF: 2 diltiazem HCl 360 mg capsule,extended release 24hr 360 mg PO DAILY Qty: 90 RF: 3 Eliquis 5 mg tablet 5 mg PO BID Qty: 180 RF: 3 tizanidine 4 mg tablet 4 mg PO DAILY Qty: 30 RF: 0 nystatin 100,000 unit/gram cream 1 applic topical BID 30 Days Qty: 30 RF: 2 ipratropium-albuterol 0.5 mg-3 mg(2.5 mg base)/3 mL Solution For Nebulization 3 ml INHALATION BID PRN (Reason: Shortness Of Breath) RF: 0 cetirizine [Zyrtec] 10 mg Tablet 10 mg PO DAILY RF: 0 acetaminophen [Tylenol 8 Hour] 650 mg Tablet Extended Release 650 mg PO BEDTIME PRN (Reason: unknown) RF: 0 simethicone 166 mg Capsule 166 mg PO PRN RF: 0 omega-3 fatty acids Capsule 1,000 mg PO DAILY RF: 0 vitamin F08-dyqwa acid 500-400 mcg Tablet 1 tab PO DAILY RF: 0 pantoprazole 40 mg tablet,delayed release (DR/EC) 40 mg PO BID RF: 0 metoprolol tartrate 25 mg tablet 25 mg PO DAILY RF: 0 temazepam 30 mg Capsule 30 mg PO DAILY RF: 0 Discontinued potassium chloride 8 mEq capsule, extended release 8 meq PO DAILY RF: 0 Discharge Orders: Discharge Order (Routine); Ordered 03/31/21 Ordered By: Luis Luther Referrals: [facility] [Outside] [facility]) [Outside] Kwabena Marie MD [Physician] - 04/19/21 3:00 pm Discharge Diet: Cardiac Discharge Activity: Increase activity as tolerated Patient Instructions: Potassium Chloride (By mouth), Torsemide (By mouth), Heart Failure (DC), Atrial Fibrillation (DC), Urinary Tract Infection in Women (DC), Rib Fracture (DC), CHF Stoplight Discharge Attestations Time Spent in Discharge Care*: less than 30 min Specific Discharge Activities: educating patient, educating and/or supporting family/caregiver, discussing with pcp/other providers, discussing with disability case manager/social workers/dc planners, documenting/other paperwork and evaluating patient/reviewing data Status at Discharge: Cognitive status at discharge: cognitively intact, Behavioral status at discharge: cooperative, Quality Metrics Clinical Quality Measures During this hospital stay, did patient experience: None Coding Level of Care Code Acute Chg FW DC note Diagnoses Acute exacerbation of CHF (congestive heart failure) I50.33 Heart failure type: diastolic Fracture of ribs, multiple S22.42XA Encounter type: initial encounter Fracture type: closed Laterality: left UTI (urinary tract infection) N30.01 Hematuria presence: with hematuria Urinary tract infection type: acute cystitis COPD (chronic obstructive pulmonary disease) J44.1 COPD type: COPD with acute exacerbation Recurrent UTI N39.0 Chronic episodic atrial fibrillation I48.20
[2021-03-31] MEDS: pantoprazole DR 40 mg Tablet PO (09:41)
[2021-03-31] MEDS: nystatin cream 30 gm 1 APPLIC TOPICAL (09:41)
[2021-03-31] MEDS: apixaban 5 mg Tablet PO (09:41)
[2021-03-31] MEDS: metoprolol tartrate 25 mg Tablet PO (09:41)
[2021-03-31] MEDS: dilTIAZem ER (24HR) 180 mg Capsule 360 MG PO (09:41)
[2021-03-31 12:00] VITALS: BP 127/79; PULSE 75; RESP 18; TEMP 36.9; O2SAT 93
[2021-03-31 14:23] VITALS: BP 127/79; PULSE 75; RESP 18; TEMP 36.9; O2SAT 93
--- NOTE | 2021-03-31 14:24 | PC.NURSE ---
PT HAS DONE WELL FOR ME TODAY. PT HAS HAD SOME COMPLAINTS OF PAIN. PAIN SEEMS TO BE TOLERATED WELL WITH ORDERED PRN HYDROCODONE. PT IS DOING WELL GETTING UP TO THE BEDSIDE COMMODE AND GETTING HERSELF BACK IN BED. PT WILL DISCHARGE TODAY. DISCHARGE PAPERWORK GONE OVER WITH PT. ALL QUESTIONS ANSWERE. IV WAS REMOVED. PT TOLERATED WELL. CATHETER TIP INTACT. PT WAS ASSISTED IN GETTING DRESSED BY THIS NURSE AND THE AID. PT WAS THEN WHEELED OUT BY THE AID. PT SAFELY DISCHARGED FROM THE HOSPITAL.
== END 2021-03-31 14:28 | disposition home health service (06) | DRG 292 ==
LOC: ER 18:43 → MEDSURG 22:11
PROVIDERS: Hospitalist; Admitting Provider Student in an Organized Health Care Education/Training Program; Emergency Provider Family Medicine; PCP Family Medicine; Visit Provider Internal Medicine
DX: I11.0 Hypertensive heart disease with heart failure (principal); S42.214A Unspecified nondisplaced fracture of surgical neck of right humerus, initial encounter for closed fracture; S22.42XA Multiple fractures of ribs, left side, initial encounter for closed fracture; I48.20 Chronic atrial fibrillation, unspecified; J44.1 Chronic obstructive pulmonary disease with (acute) exacerbation; I50.33 Acute on chronic diastolic (congestive) heart failure; T50.1X6A Underdosing of loop [high-ceiling] diuretics, initial encounter; Z91.128 Patient's intentional underdosing of medication regimen for other reason; K21.9 Gastro-esophageal reflux disease without esophagitis; E78.00 Pure hypercholesterolemia, unspecified; Z87.440 Personal history of urinary (tract) infections; G47.30 Sleep apnea, unspecified; Z87.442 Personal history of urinary calculi; F17.210 Nicotine dependence, cigarettes, uncomplicated; Z79.51 Long term (current) use of inhaled steroids; Z79.01 Long term (current) use of anticoagulants; W18.30XA Fall on same level, unspecified, initial encounter
CPT/HCPCS: 36415; 51702; 70450; 71250; 72125; 73030; 73070; 74176; 80053; 81001; 83880; 84484; 85025; 87040; 87077; 87086; 87186; 87205; 87635; 93005; 94640; 96374; 97116; 97161; 97530; 99285; J0696; J1940

== ENCOUNTER 2021-04-11 20:35 | Emergency (ER) | payer MEDICARE, MEDICAID, SELFPAY ==
[2021-04-11 20:39] VITALS: PULSE 98; RESP 18; TEMP 37; O2SAT 98; BMI 43.2
[2021-04-11 20:42] VITALS: BP 180/102; PULSE 91; RESP 18; O2SAT 95; O2SAT 96
--- NOTE | 2021-04-11 21:08 | XRR_ITS ---
PROCEDURE INFORMATION: Exam: XR Chest Exam date and time: 04/11/2021 9:08 PM Age: 75 years old Clinical indication: Dyspnea; Additional info: SOB TECHNIQUE: Imaging protocol: XR of the chest. Views: 1 view. COMPARISON: CT chest abd pel wo con 03/27/2021 6:13 PM FINDINGS: Lungs: Unremarkable. No consolidation. Pleural spaces: Unremarkable. No pleural effusion. No pneumothorax. Heart/Mediastinum: Borderline cardiomegaly. Bones/joints: Unremarkable. XR/XR chest 1V portable [id number] IMPRESSION: Borderline cardiomegaly.
--- NOTE | 2021-04-11 21:10 | ECG_ITS ---
[facility] ED Test Date: 2021-04-11 Pat Name: Bre Lara Department: Room: Gender: Female Emergency Response Coordinator: : 1945 Requested By: Sammy Martinez Order Number: [id number] Emmanuel MD: Destiny Goodman M.D. Measurements Intervals [place] Rate: 87 P: SC: QRS: -28 QRSD: 85 T: 127 QT: 357 QTc: 430 Interpretive Statements ATRIAL FIBRILLATION WITH ABERRANT CONDUCTION OR VENTRICULAR PREMATURE COMPLEXES VOLTAGE CRITERIA FOR LVH [MEETS CRITERIA IN ONE OF: R(aVL), S(V1), R(V5), R(V5/V6)+S(V1)] INFERIOR MYOCARDIAL INFARCTION [40+ ms Q WAVE AND/OR ST/T ABNORMALITY IN II/aVF], OF INDETERMINATE AGE MODERATE T-WAVE ABNORMALITY, CONSIDER LATERAL ISCHEMIA [-0.1+ mV T WAVE IN I/aVL/V5/V6] Compared to ECG 04/11/2021 21:29:41 No significant changes Electronically Signed On 04-15-2021 9:56:28 CDT by Destiny Goodman M.D. [id number]
[2021-04-11 22:00] VITALS: BP 150/94; PULSE 94; RESP 18; O2SAT 92
[2021-04-11] MEDS: ondansetron 2 mg/ML SDV 2 mL 4 MG IV (22:05)
[2021-04-11] MEDS: dexamethasone 4 mg/mL INJ 6 MG IVP (22:10)
[2021-04-11 22:17] LABS: ABG PCO2 43.9 mmHg (35-45); ABG PH Result 7.47 (7.35-7.45); Arterial Blood Gas Hematocrit 41.4 % (37-47); Base Excess ABG 6.9 mmol/L (-2.0-2.0); Blood Gas Sample Site Brachial, left; Blood Gas Sample Type Arterial; HCO3 ABG 31.5 mmol/L (22-26); Oxygen Device ROOM AIR; PO2 ABG 67.4 mmHg (80.0-100.0)
[2021-04-11 22:27] LABS: Basophils # 0.1 10^3/uL (0.0-0.1); Basophils % 0.6 %; Eosinophils # 0.1 10^3/uL (0.0-0.8); Eosinophils % 0.7 %; Hematocrit 42.8 % (37.0-47.0); Hemoglobin 13.7 g/dL (11.5-15.3); Lymphocytes # 1.6 10^3/uL (0.8-4.8); Lymphocytes % 15.8 %; Mean Corpuscular Hemoglobin 32.5 pg (28.0-34.0); Mean Corpuscular Volume 101.4 fL (81-99); Mean Platelet Volume 10.7 fL (7.4-10.4); Monocytes # 0.6 10^3/uL (0.2-0.9); Neutrophils # 7.81 10^3/uL (1.8-7.7); Neutrophils % 76.4 %; Nucleated Red Blood Cells % 0 %; Platelet Count 295 10^3/cmm (130-400); Red Blood Count 4.22 10^6/uL (4.1-5.3); Red Cell Distribution Width 14.1 % (12.1-15.1); White Blood Count 10.2 10^3/uL (4.0-10.0)
[2021-04-11 22:37] LABS: SARS Covid-2 Antigen Negative (Negative)
[2021-04-11 22:53] LABS: INR 1.04 (0.8-1.2)
[2021-04-11 22:54] LABS: Partial Thromboplastin Time 28.1 SECONDS (23.9-36.7)
[2021-04-11 22:55] LABS: Fibrinogen 499 mg/dL (174-498)
[2021-04-11 22:57] LABS: D Dimer 1.56 ug/mIFEU (0-0.59)
[2021-04-11 23:00] VITALS: BP 155/74; RESP 22; O2SAT 94
[2021-04-11 23:01] LABS: Troponin(5th) Baseline 15 ng/L (0-10)
[2021-04-11 23:07] LABS: NT Pro B Type Natriuretic Pept 1454 pg/mL (0-450); Procalcitonin 0.06 ng/mL (0-0.5)
--- NOTE | 2021-04-11 23:10 | ECG_ITS ---
[facility] Test Date: 2021-04-11 Pat Name: Bre Lara Department: Room: Gender: Female Welt Maker: : 1945 Requested By: Sammy Martinez Order Number: [id number] Emmanuel MD: DAYDAY REDDING Measurements Intervals [place] Rate: 85 P: AL: QRS: -28 QRSD: 87 T: 134 QT: 339 QTc: 405 Interpretive Statements ATRIAL FIBRILLATION WITH ABERRANT CONDUCTION OR VENTRICULAR PREMATURE COMPLEXES VOLTAGE CRITERIA FOR LVH [MEETS CRITERIA IN ONE OF: R(aVL), S(V1), R(V5), R(V5/V6)+S(V1)] INFERIOR MYOCARDIAL INFARCTION [40+ ms Q WAVE AND/OR ST/T ABNORMALITY IN II/aVF], PROBABLY OLD MODERATE T-WAVE ABNORMALITY, CONSIDER LATERAL ISCHEMIA [-0.1+ mV T WAVE IN I/aVL/V5/V6] Compared to ECG 03/27/2021 23:39:45 Left ventricular hypertrophy now present T-wave abnormality now present Possible ischemia now present Myocardial infarct finding still present Electronically Signed On 04-12-2021 23:37:18 CDT by DAYDAY REDDING [id number]
[2021-04-11 23:18] LABS: Alanine Aminotransferase 6 U/L (0-33); Albumin Level 3.3 g/dL (3.5-5.2); Alkaline Phosphatase 164 IU/L (35-105); Aspartate Amino Transferase 10 U/L (0-32); Blood Urea Nitrogen 11 mg/dL (8-23); C Reactive Protein 31.7 mg/L (0.0-4.9); Calcium 10.1 mg/dL (8.5-10.5); Carbon Dioxide 24 mmol/L (22-29); Chloride 103 mmol/L (98-107); Creatinine Clr Calc Pharmacy 84.3394; Glucose 124 mg/dL (65-115); Osmolality Calculated 295 mOsm/kg (285-295); Sodium 142 mmol/L (136-145); Total Bilirubin 0.3 mg/dL (0.15-1.2); Total Protein 5.3 g/dL (6.6-8.7)
[2021-04-11 23:21] LABS: Anion Gap 18.8 (5-19); Potassium 3.8 mmol/L (3.5-5.1)
--- NOTE | 2021-04-11 23:24 | CTR_ITS ---
PROCEDURE INFORMATION: Exam: CT Abdomen And Pelvis With Contrast Exam date and time: 04/11/2021 11:24 PM Age: 75 years old Clinical indication: Abdominal pain; Localized; Left lower quadrant (llq); Prior surgery; Surgery date: 6+ months; Surgery type: Appy, gb, hernia; Patient HX: C/O llq abd pain w n/v/d x 1 week; Additional info: Llq pain TECHNIQUE: Imaging protocol: Computed tomography of the abdomen and pelvis with contrast. Radiation optimization: All CT scans at this facility use at least one of these dose optimization techniques: automated exposure control; mA and/or kV adjustment per patient size (includes targeted exams where dose is matched to clinical indication); or iterative reconstruction. Contrast material: VISI 320; Contrast volume: 95 ml; Contrast route: INTRAVENOUS (IV); COMPARISON: CT chest abd pel wo con 03/27/2021 6:13 PM RADIATION DOSE METRICS: Total DLP (mGy-cm): 1592.06 FINDINGS: Liver: Normal. No mass. Gallbladder and bile ducts: Stable cholecystectomy. Pancreas: Normal. No ductal dilation. Spleen: One or more stable accessory splenules. Adrenal glands: Normal. No mass. Kidneys and ureters: Stable left nonobstructing renal calyceal stones. Stomach and bowel: Severe colonic diverticulosis. Dilated loops of small bowel up to 4.6 cm in diameter with decompressed loops distally with no definite transition point suggesting jejunitis and proximal ileitis in the left abdomen. Appendix: Normal appendix. Intraperitoneal space: Unremarkable. No free air. No significant fluid collection. Vasculature: Calcification of the abdominal aorta and/or iliac arteries consistent with atherosclerotic vessel disease. Lymph nodes: Unremarkable. No enlarged lymph nodes. Urinary bladder: Unremarkable as visualized. Reproductive: Stable hysterectomy. Bones/joints: Grade 2 anterior non-spondylitic spondylolisthesis of L5 on S1. Soft tissues: Unremarkable. CT/CT abdomen pelvis w con* [id number] IMPRESSION: Dilated loops of small bowel up to 4.6 cm in diameter with decompressed loops distally with no definite transition point suggesting jejunitis and proximal ileitis in the left abdomen. Radiation Dose CTDIVOL = (mGy): DLP = 1592.06 (mGy-cm)
[2021-04-12] VITALS: BP 145/79; RESP 22; O2SAT 96
[2021-04-12 00:17] LABS: Lactic Sepsis W/Reflex 1.9 mmol/L (0.5-2.2)
[2021-04-12 00:23] LABS: Troponin 5 2HR 15.85 ng/L (0-10); Troponin 5 2HR Delta 0.85 ABS# (0-10)
--- NOTE | 2021-04-12 00:24 | W.ED.COVID ---
HPI - COVID General: Chief Complaint: COVID symptoms Stated Complaint: chills Time Seen by Provider: 04/11/21 20:45 Triage information: No fever, cough or shortness of breath. No known COVID + exposure last 14 days History of Present Illness: HPI Narrative: 85-year-old female has been home from the hospital 10 days. She presents with abdominal pain, vomiting, and diarrhea for the past few days. She denies significant fever. She says she is a little short of breath, but has a history of heart failure. She has been chilling at home. Negative by PCR for Covid on 03/29. COVID 19 common symptoms: positive chills, cough, dyspnea, nausea, vomiting and diarrhea; negative fever(s), non-productive cough, productive cough or headache(s) COVID 19 other sytmptoms: negative chest pain or requiring oxygen Onset (ago): day(s) Severity: moderate Pertinent comorbid conditions: hypertension, heart disease and COPD/respiratory disease Treatment prior to arrival: none COVID Results: SARS-CoV-2 Antigen (Rapid) Negative (Negative) 04/11/21 22:00 04/11/21 SARS-CoV-2 RNA (RT-PCR) Not detected (NOT DETECTED) 07/10/20 13:08 07/10/20 Nasal/Oral Coronavirus 2019 PCR Not detected 03/29/21 09:23 03/29/21 Review of Systems Const: Reports: chills; Denies: fever(s) Card: Denies: chest pain Resp: Reports: dyspnea; Denies: productive cough or non-productive cough GI: Reports: abdominal pain, nausea, vomiting and diarrhea; Denies: hematochezia Neuro: Denies: headache(s) PFSH ED PFSH: Medical History Atrial fibrillation Benign essential hypertension with target blood pressure below 140/90 Chronic episodic atrial fibrillation COPD (chronic obstructive pulmonary disease) GERD (gastroesophageal reflux disease) Hypercholesterolemia Other cervical disc displacement, unspecified cervical region Recurrent UTI Sleep apnea Unspecified hydronephrosis Urgency incontinence Urolithiasis Surgical History H/O cataract extraction H/O esophagogastroduodenoscopy (07/14/20) H/O knee surgery H/O shoulder surgery History of appendectomy History of cholecystectomy S/P hysterectomy Status post colonoscopy (07/14/20) Family History Father Stroke Mother Cancer BLADDER, BREAST Brother Cancer ESOPHAGEAL Family/Other Cancer Sister Cancer Suicide Denies family history of Diabetes CAD (coronary artery disease) Clotting disorder Dementia Chronic kidney disease (CKD) Anesthesia complication Bleeding disorder Lung disease Social History Smoking and tobacco status: current every day smoker cigarettes Packs smoked per day: 1 Alcohol intake: never Marital status: Current occupational status: disabled Physical Exam Const: COMMON NORMALS: no acute distress and alert Eye: COMMON NORMALS: Equal, round and reactive pupils present and EOMs intact bilaterally PUPIL: Yes Equal, round and reactive pupils present Chest: COMMONS NORMALS: normal inspection of the chest Resp: COMMON NORMALS: normal respiratory effort, No use of accessory muscles and clear to auscultation bilaterally AUSCULTATION: clear to auscultation bilaterally Cardio: COMMON NORMALS: regular rate RATE: regular rate RHYTHM: abnormal rhythm irregularly irregular GI: COMMON NORMALS: Soft to palpation INSPECTION: Yes abdominal distension AUSCULTATION: Yes normoactive bowel sounds PALPATION: Yes Soft to palpation, Yes Tenderness to palpation present (GI) and Yes Guarding due to palpation present (GI) Neuro: SENSORIUM/ORIENTATION: Yes alert Course Vital Signs: Vital signs: Vital Signs Temperature 98.6 F 04/11/21 20:39 Pulse Rate 94 04/11/21 22:00 Respiratory Rate 20 H 04/12/21 05:14 Blood Pressure 151/81 04/12/21 05:14 Pulse Oximetry 95 04/12/21 05:14 MDM - COVID MDM Narrative: Medical decision making narrative: Patient has maintained oxygen saturations here. Her white blood cell count is 10.2. Other labs are benign. Her COVID-19 antigen test is negative again. CT shows enteritis with some distended loops, but no distinct transition point. She will be placed on Flagyl. She is allergic to Cipro and penicillin. She will be given magnesium citrate for the ileus. She will be allowed discharge. Lab Data: Labs: Lab Results 04/11/21 04/11/21 04/11/21 Range/Units 21:50 21:50 21:50 WBC 10.2 H (4.0-10.0) 10^3/ uL RBC 4.22 (4.1-5.3) 10^6/u L Hgb 13.7 (11.5-15.3) g/dL Hct 42.8 (37.0-47.0) % MCV 101.4 H (81-99) fL MCH 32.5 (28.0-34.0) pg MCHC 32.0 (30.0-36.0) g/dL RDW 14.1 (12.1-15.1) % Plt Count 295 (130-400) 10^3/c mm MPV 10.7 H (7.4-10.4) fL Neut % (Auto) 76.4 % Lymph % (Auto) 15.8 % Sumner % (Auto) 6.0 % Eos % (Auto) 0.7 % Baso % (Auto) 0.6 % Neut # (Auto) 7.81 H (1.8-7.7) 10^3/u L Lymph # (Auto) 1.6 (0.8-4.8) 10^3/u L Sumner # (Auto) 0.6 (0.2-0.9) 10^3/u L Eos # (Auto) 0.1 (0.0-0.8) 10^3/u L Baso # (Auto) 0.1 (0.0-0.1) 10^3/u L Nucleated RBC % (a uto) 0 % Nucleated RBCs # 0.0 /100WBC PT 13.90 (12.1-14.9) SECO NDS INR 1.04 (0.8-1.2) APTT 28.1 (23.9-36.7) SECO NDS Fibrinogen 499 H (174-498) mg/dL D-Dimer 1.56 H (0-0.59) ug/mIFE U Specimen Type Sample Site ABG pH (7.35-7.45) ABG pCO2 (35-45) mmHg ABG pO2 (80.0-100.0) mmH g ABG HCO3 (22-26) mmol/L ABG Base Excess (-2.0-2.0) mmol/ L Jj Test Hematocrit (37-47) % O2 Delivery Device [employer] ID Sodium 142 (136-145) mmol/L Potassium 3.8 (3.5-5.1) mmol/L Chloride 103 (98-107) mmol/L Carbon Dioxide 24 (22-29) mmol/L Anion Gap 18.8 (5-19) BUN 11 (8-23) mg/dL Creatinine 0.6 (0.5-0.9) mg/dL GFR Calculation Not Reportable Glucose 124 H (65-115) mg/dL Calculated Osmolal ity 295 (285-295) mOsm/k g Lactic Acid (0.5-2.2) mmol/L Calcium 10.1 (8.5-10.5) mg/dL Total Bilirubin 0.3 (0.15-1.2) mg/dL AST 10 (0-32) U/L ALT 6 (0-33) U/L Alkaline Phosphata se 164 H (35-105) IU/L Troponin T Baselin e (0-10) ng/L Troponin T 120 Min [place] (0-10) ng/L Delta Troponin T (0-10) ABS# C-Reactive Protein 31.7 H (0.0-4.9) mg/L NT-Pro-B Natriuret Pep 1454 H (0-450) pg/mL Total Protein 5.3 L (6.6-8.7) g/dL Albumin 3.3 L (3.5-5.2) g/dL Globulin 2.0 (1.3-4.6) g/dL Procalcitonin 0.06 (0-0.5) ng/mL SARS-CoV-2 Ag (Rap id) (Negative) 04/11/21 04/11/21 04/11/21 Range/Units 21:50 22:00 22:05 WBC (4.0-10.0) 10^3/ uL RBC (4.1-5.3) 10^6/u L Hgb (11.5-15.3) g/dL Hct (37.0-47.0) % MCV (81-99) fL MCH (28.0-34.0) pg MCHC (30.0-36.0) g/dL RDW (12.1-15.1) % Plt Count (130-400) 10^3/c mm MPV (7.4-10.4) fL Neut % (Auto) % Lymph % (Auto) % Sumner % (Auto) % Eos % (Auto) % Baso % (Auto) % Neut # (Auto) (1.8-7.7) 10^3/u L Lymph # (Auto) (0.8-4.8) 10^3/u L Sumner # (Auto) (0.2-0.9) 10^3/u L Eos # (Auto) (0.0-0.8) 10^3/u L Baso # (Auto) (0.0-0.1) 10^3/u L Nucleated RBC % (a uto) % Nucleated RBCs # /100WBC PT (12.1-14.9) SECO NDS INR (0.8-1.2) APTT (23.9-36.7) SECO NDS Fibrinogen (174-498) mg/dL D-Dimer (0-0.59) ug/mIFE U Specimen Type Arterial Sample Site Brachial, left ABG pH 7.47 H (7.35-7.45) ABG pCO2 43.9 (35-45) mmHg ABG pO2 67.4 L (80.0-100.0) mmH g ABG HCO3 31.5 H (22-26) mmol/L ABG Base Excess 6.9 H (-2.0-2.0) mmol/ L Jj Test N/a Hematocrit 41.4 (37-47) % O2 Delivery Device Room air [employer] ID ellpe Sodium (136-145) mmol/L Potassium (3.5-5.1) mmol/L Chloride (98-107) mmol/L Carbon Dioxide (22-29) mmol/L Anion Gap (5-19) BUN (8-23) mg/dL Creatinine (0.5-0.9) mg/dL GFR Calculation Glucose (65-115) mg/dL Calculated Osmolal ity (285-295) mOsm/k g Lactic Acid (0.5-2.2) mmol/L Calcium (8.5-10.5) mg/dL Total Bilirubin (0.15-1.2) mg/dL AST (0-32) U/L ALT (0-33) U/L Alkaline Phosphata se (35-105) IU/L Troponin T Baselin e 15 H (0-10) ng/L Troponin T 120 Min [place] (0-10) ng/L Delta Troponin T (0-10) ABS# C-Reactive Protein (0.0-4.9) mg/L NT-Pro-B Natriuret Pep (0-450) pg/mL Total Protein (6.6-8.7) g/dL Albumin (3.5-5.2) g/dL Globulin (1.3-4.6) g/dL Procalcitonin (0-0.5) ng/mL SARS-CoV-2 Ag (Rap id) Negative (Negative) 04/11/21 04/11/21 Range/Units 23:30 23:30 WBC (4.0-10.0) 10^3/ uL RBC (4.1-5.3) 10^6/u L Hgb (11.5-15.3) g/dL Hct (37.0-47.0) % MCV (81-99) fL MCH (28.0-34.0) pg MCHC (30.0-36.0) g/dL RDW (12.1-15.1) % Plt Count (130-400) 10^3/c mm MPV (7.4-10.4) fL Neut % (Auto) % Lymph % (Auto) % Sumner % (Auto) % Eos % (Auto) % Baso % (Auto) % Neut # (Auto) (1.8-7.7) 10^3/u L Lymph # (Auto) (0.8-4.8) 10^3/u L Sumner # (Auto) (0.2-0.9) 10^3/u L Eos # (Auto) (0.0-0.8) 10^3/u L Baso # (Auto) (0.0-0.1) 10^3/u L Nucleated RBC % (a uto) % Nucleated RBCs # /100WBC PT (12.1-14.9) SECO NDS INR (0.8-1.2) APTT (23.9-36.7) SECO NDS Fibrinogen (174-498) mg/dL D-Dimer (0-0.59) ug/mIFE U Specimen Type Sample Site ABG pH (7.35-7.45) ABG pCO2 (35-45) mmHg ABG pO2 (80.0-100.0) mmH g ABG HCO3 (22-26) mmol/L ABG Base Excess (-2.0-2.0) mmol/ L Jj Test Hematocrit (37-47) % O2 Delivery Device [employer] ID Sodium (136-145) mmol/L Potassium (3.5-5.1) mmol/L Chloride (98-107) mmol/L Carbon Dioxide (22-29) mmol/L Anion Gap (5-19) BUN (8-23) mg/dL Creatinine (0.5-0.9) mg/dL GFR Calculation Glucose (65-115) mg/dL Calculated Osmolal ity (285-295) mOsm/k g Lactic Acid 1.9 (0.5-2.2) mmol/L Calcium (8.5-10.5) mg/dL Total Bilirubin (0.15-1.2) mg/dL AST (0-32) U/L ALT (0-33) U/L Alkaline Phosphata se (35-105) IU/L Troponin T Baselin e (0-10) ng/L Troponin T 120 Min [place] 15.85 H (0-10) ng/L Delta Troponin T 0.85 (0-10) ABS# C-Reactive Protein (0.0-4.9) mg/L NT-Pro-B Natriuret Pep (0-450) pg/mL Total Protein (6.6-8.7) g/dL Albumin (3.5-5.2) g/dL Globulin (1.3-4.6) g/dL Procalcitonin (0-0.5) ng/mL SARS-CoV-2 Ag (Rap id) (Negative) COVID Results: SARS-CoV-2 Antigen (Rapid) Negative (Negative) 04/11/21 22:00 04/11/21 SARS-CoV-2 RNA (RT-PCR) Not detected (NOT DETECTED) 07/10/20 13:08 07/10/20 Nasal/Oral Coronavirus 2019 PCR Not detected 03/29/21 09:23 03/29/21 Discharge Plan Discharge Patient Disposition: Home Clinical Impression: Acute duodenitis Condition: Stable Prescriptions: New Flagyl 500 mg tablet 500 mg PO Q8H 7 Days Qty: 21 RF: 0 No Action hydrocodone-acetaminophen 5-325 mg tablet 1 tab PO QID PRN (Reason: Pain) RF: 0 melatonin 5 mg capsule 5 mg PO BEDTIME RF: 0 polyethylene glycol 3350 17 gram/dose powder 17 gm PO DAILY PRN (Reason: Constipation) RF: 0 cholecalciferol (vitamin D3) 1,000 unit capsule 2,000 unit PO .THREE TIMES WEEKLY RF: 0 albuterol sulfate [ProAir HFA] 90 mcg/actuation HFA aerosol inhaler 2 puff INHALATION Q6H PRN (Reason: SOB) Qty: 3 RF: 2 diltiazem HCl 360 mg capsule,extended release 24hr 360 mg PO DAILY Qty: 90 RF: 3 Eliquis 5 mg tablet 5 mg PO BID Qty: 180 RF: 3 tizanidine 4 mg tablet 4 mg PO DAILY Qty: 30 RF: 0 nystatin 100,000 unit/gram cream 1 applic topical BID 30 Days Qty: 30 RF: 2 ipratropium-albuterol 0.5 mg-3 mg(2.5 mg base)/3 mL Solution For Nebulization 3 ml INHALATION BID PRN (Reason: Shortness Of Breath) RF: 0 cetirizine [Zyrtec] 10 mg Tablet 10 mg PO DAILY RF: 0 acetaminophen [Tylenol 8 Hour] 650 mg Tablet Extended Release 650 mg PO BEDTIME PRN (Reason: unknown) RF: 0 simethicone 166 mg Capsule 166 mg PO PRN RF: 0 omega-3 fatty acids Capsule 1,000 mg PO DAILY RF: 0 vitamin P98-yohfj acid 500-400 mcg Tablet 1 tab PO DAILY RF: 0 pantoprazole 40 mg tablet,delayed release (DR/EC) 40 mg PO BID RF: 0 metoprolol tartrate 25 mg tablet 25 mg PO DAILY RF: 0 temazepam 30 mg Capsule 30 mg PO DAILY RF: 0 torsemide 20 mg tablet 20 mg PO DAILY Qty: 30 RF: 1 Klor-Con 10 10 mEq tablet extended release 20 meq PO DAILY Qty: 30 RF: 1 Discharge Orders: Discharge ED (Routine); Ordered 04/12/21 Ordered By: Sammy Cedeno Referrals: Alyce Lozoay DO [Primary Care Provider] - 4-7 days Patient Instructions: Infectious Colitis (ED) Activity Restrictions/Additional Instructions: Return for worsening pain despite treatment, fever greater than 100 not relieved by 2 to 3 days of antibiotics, worsening shortness of breath, mental status changes, vomiting liquids or medications, other concerning symptoms. Take the magnesium citrate when you get home, and stay close to a toilet. 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
[2021-04-12] MEDS: diphenhydrAMINE 50 mg/mL SDV 1mL IVP (01:00)
[2021-04-12] MEDS: hydrocortisone 100 mg/2 mL SDV IVP (01:00)
--- NOTE | 2021-04-12 01:13 | PC.NURSE ---
meds delayed due protocol of adm just prior to CT scan
[2021-04-12] MEDS: iodixanol 320 mg/mL 100mL Btl IV (01:16)
[2021-04-12 03:00] VITALS: BP 131/75; O2SAT 93
[2021-04-12 04:00] VITALS: BP 151/81; O2SAT 96
[2021-04-12 04:23] VITALS: RESP 18; O2SAT 94
[2021-04-12] MEDS: morphine 4 mg/mL SDV 1 mL IVP (04:23)
[2021-04-12] MEDS: metroNIDAZOLE 500 MG Tablet PO (04:25)
[2021-04-12 05:14] VITALS: BP 151/81; RESP 20; O2SAT 95
== END 2021-04-12 05:00 | disposition home or self-care (01) ==
PROVIDERS: Emergency Provider Emergency Medicine; PCP Family Medicine
DX: K29.80 Duodenitis without bleeding (principal); Z79.01 Long term (current) use of anticoagulants; I10 Essential (primary) hypertension; J44.9 Chronic obstructive pulmonary disease, unspecified; F17.210 Nicotine dependence, cigarettes, uncomplicated
CPT/HCPCS: 36415; 36600; 71045; 74177; 80053; 82803; 83605; 83880; 84145; 84484; 85025; 85378; 85384; 85610; 85730; 86140; 87040; 87426; 93005; 96374; 96375; 99284; J1100; J1200; J1720; J2270; J2405; Q9967

== ENCOUNTER → 2021-04-13 13:36 | Outpatient (BNVA) | payer MEDICARE, MEDICAID, SELFPAY | PROVIDERS: PCP Family Medicine; Visit Provider Orthopaedic Surgery | DX: S42.294A Other nondisplaced fracture of upper end of right humerus, initial encounter for closed fracture (principal); X58.XXXA Exposure to other specified factors, initial encounter | CPT/HCPCS: 73030 ==

== ENCOUNTER → 2021-04-19 16:14 | Outpatient (BNVA) | payer MEDICARE, MEDICAID, SELFPAY | PROVIDERS: PCP Family Medicine; Visit Provider Internal Medicine Cardiovascular Disease | DX: I50.33 Acute on chronic diastolic (congestive) heart failure (principal); R06.02 Shortness of breath; R55 Syncope and collapse | CPT/HCPCS: 80048; 83880 ==

== ENCOUNTER 2021-04-21 10:00 | Inpatient (IN) | payer MEDICARE, MEDICAID, SELFPAY ==
[2021-04-21] VITALS (13 sets, daily range): BP systolic 121–157; BP diastolic 58–93; PULSE 81–110; RESP 17–20; TEMP 36.7–39.2; O2SAT 93–98; BMI 41.0
--- NOTE | 2021-04-21 10:13 | CT_ITS ---
WS: [id number] CT ABDOMEN PELVIS TECHNIQUE: Contrast-enhanced CT of the abdomen and pelvis with coronal and sagittal reformatted image s. CLINICAL INFORMATION: pain, decreased bowel sounds, colitis COMPARISON: April 12, 2021 DLP: 2369.[address] scans at [facility] use at least one of these dose optimization techniques: automat ed exposure control; mA and/or kV adjustment per patient size (includes targeted exams where dose is matched to clinical indication); or iterative reconstruction. FINDINGS: Fluid distended stomach with air-fluid level. Dilated loops of fluid-filled small bowel with air-flui d levels in the left upper quadrant and mid abdomen similar to the recent examination. Fecalization o f the terminal ileum. Most of the ileal bowel loops are decompressed. No focal transition point or te thering. Findings compatible with partial small bowel obstruction. Persistent air within the colon. Colon is decompressed. Sigmoid diverticulosis. No evidence of acute diverticulitis. No free fluid in the pelvis. Tiny fat-containing umbilical hernia. Normal liver. Cholecystectomy. Bibasilar atelectasis. Cardiomegaly. Fatty atrophy of the pancreas. Di lated common bile duct with a small calculus or sludge in the distal common bile duct unchanged since 2018. Small esophageal hiatal hernia. Adrenal glands are normal. Normal renal parenchymal enhancemen t. No hydronephrosis. Atrophic left kidney. Normal caliber abdominal aorta. Aortic calcification. Adv anced spondylitic changes lumbar spine with grade 1 anterol[address] L5 on S1. CT/CT abdomen pelvis w con* [id number] IMPRESSION: 1. Fluid distended stomach with air-fluid level. Fluid distended loops of smal l bowel with air-fluid levels in the midabdomen and left upper quadrant. Ileal bowel loops relatively decompressed. 2. No focal transition point. Persistent air within the colon. Findings likely due to partial small bowel obstruction. Bowel dilatation is similar to previou s. 3. Sigmoid diverticulosis. No evidence of acute diverticulitis. 4. Small esophageal hiatal hernia. 5. Tiny calculus or sludge within the distal common bile duct unchanged since 2018. 6. Cholecystectomy. 7. No other significant interval changes.
--- NOTE | 2021-04-21 10:15 | W.ED.NAVMDI ---
Documented by User: JOSE Mcknight 04/21/21 10:17 HPI - Nausea/Vomiting/Diarrhea General: Chief complaint: Nausea/Vomiting/Diarrhea Stated complaint: DIARRHEA X 3 DAYS Time Seen by Provider: 04/21/21 10:02 History of Present Illness: HPI Narrative: Patient arrives via ambulance with history of vomiting since yesterday. Had a diagnosed with colitis 2 weeks ago. Patient took antibiotics and got better. But now with vomiting and diarrhea that she said she has had for 3 days. Complains about abdominal pain. MD elicited complaint: nausea, vomiting, diarrhea and abdominal pain Pertinent past history: other (Colitis) Onset (ago): day(s) Description of vomiting: watery Description of diarrhea: watery Associated nausea: Yes Associated abdominal pain: Yes Location of pain: Other (Generalized) Pain consistency: constant Severity: moderate Quality: aching Context: recent antibiotic use Associated symtoms: Reports no associated symptoms and nausea; Denies anxiety, change in vision, chest pain or headache(s) Review of Systems Const: Denies: fever(s), chills or body aches Eyes: Denies: change in vision or blurry vision ENMT: Denies: throat pain or nasal congestion Card: Denies: chest pain or dyspnea on exertion Resp: Denies: dyspnea, productive cough or non-productive cough GI: Reports: nausea, vomiting and diarrhea Musc: Reports: extremity pain (From recent fracture and separation right shoulder and ribs) Skin/Breast: Denies: rash Neuro: Denies: headache(s) Psych: Denies: anxiety or depression Timo/Lymph: Denies: easy bruising PFSH ED PFSH: Medical History Acute exacerbation of CHF (congestive heart failure) Atrial fibrillation Benign essential hypertension with target blood pressure below 140/90 Chronic episodic atrial fibrillation Chronic episodic atrial fibrillation COPD (chronic obstructive pulmonary disease) Fracture of ribs, multiple GERD (gastroesophageal reflux disease) Hypercholesterolemia Other cervical disc displacement, unspecified cervical region Recurrent UTI Sleep apnea Unspecified hydronephrosis Urgency incontinence Urolithiasis UTI (urinary tract infection) Surgical History H/O cataract extraction H/O esophagogastroduodenoscopy (07/14/20) H/O knee surgery H/O shoulder surgery History of appendectomy History of cholecystectomy S/P hysterectomy Status post colonoscopy (07/14/20) Family History Father Stroke Mother Cancer BLADDER, BREAST Brother Cancer ESOPHAGEAL Family/Other Cancer Sister Cancer Suicide Denies family history of Diabetes CAD (coronary artery disease) Clotting disorder Dementia Chronic kidney disease (CKD) Anesthesia complication Bleeding disorder Lung disease Social History Smoking and tobacco status: former smoker Alcohol intake: never Marital status: Current occupational status: disabled Physical Exam Const: COMMON NORMALS: no acute distress, average body habitus and patient oriented x3 HENMT: COMMON NORMALS: normocephalic HEAD & SCALP: normal to inspection and normocephalic FACE & SINUS: normal facial exam Eye: COMMON NORMALS: conjunctivae normal GENERAL EYE: appearance normal, both eyes and all related structures CONJUNCTIVA: Yes conjunctivae normal Neck/C-Spine: COMMON NORMALS: no JVD Chest: COMMONS NORMALS: normal inspection of the chest Resp: COMMON NORMALS: normal respiratory effort and clear to auscultation bilaterally AUSCULTATION: clear to auscultation bilaterally Cardio: COMMON NORMALS: no JVD, regular rate and regular rhythm RATE: regular rate RHYTHM: regular rhythm GI: AUSCULTATION: Yes Hypoactive bowel sounds present PALPATION: Yes Tenderness to palpation present (GI) PERCUSSION: tympanic to percussion Extremity: COMMON NORMALS: normal to inspection and full ROM OTHER: 1+ edema bilateral lower extremities Neuro: COMMON NORMALS: patient oriented x3 Course Vital Signs: Vital signs: Vital Signs Temperature 98.2 F 04/21/21 10:11 Pulse Rate 84 04/21/21 10:11 Respiratory Rate 20 H 04/21/21 10:43 Blood Pressure 140/58 04/21/21 11:16 Pulse Oximetry 93 04/21/21 11:16 MDM - Nausea/Vomiting/Diarrhea Lab Data: Labs: Lab Results 04/21/21 04/21/21 04/21/21 Range/Units 11:00 11:00 11:14 WBC 9.6 (4.0-10.0) 10^3/ uL RBC 4.09 L (4.1-5.3) 10^6/u L Hgb 12.9 (11.5-15.3) g/dL Hct 41.5 (37.0-47.0) % MCV 101.5 H (81-99) fL MCH 31.5 (28.0-34.0) pg MCHC 31.1 (30.0-36.0) g/dL RDW 14.1 (12.1-15.1) % Plt Count 201 (130-400) 10^3/c mm MPV 10.4 (7.4-10.4) fL Neut % (Auto) 82.2 % Lymph % (Auto) 10.2 % [place] % (Auto) 6.2 % Eos % (Auto) 0.6 % Baso % (Auto) 0.5 % Neut # (Auto) 7.91 H (1.8-7.7) 10^3/u L Lymph # (Auto) 1.0 (0.8-4.8) 10^3/u L [place] # (Auto) 0.6 (0.2-0.9) 10^3/u L Eos # (Auto) 0.1 (0.0-0.8) 10^3/u L Baso # (Auto) 0.1 (0.0-0.1) 10^3/u L Nucleated RBC % (a uto) 0 % Nucleated RBCs # 0.0 /100WBC Sodium 140 (136-145) mmol/L Potassium 4.0 (3.5-5.1) mmol/L Chloride 104 (98-107) mmol/L Carbon Dioxide 28 (22-29) mmol/L Anion Gap 12.0 (5-19) BUN 12 (8-23) mg/dL Creatinine 0.5 (0.5-0.9) mg/dL GFR Calculation Not Reportable Glucose 147 H (65-115) mg/dL Calculated Osmolal ity 292 (285-295) mOsm/k g Calcium 9.6 (8.5-10.5) mg/dL Total Bilirubin 0.2 (0.15-1.2) mg/dL AST 10 (0-32) U/L ALT < 5 (0-33) U/L Alkaline Phosphata se 148 H (35-105) IU/L Total Protein 5.8 L (6.6-8.7) g/dL Albumin 3.2 L (3.5-5.2) g/dL Globulin 2.6 (1.3-4.6) g/dL Lipase 7 L (13-60) U/L Urine Color Yellow (Yellow) Urine Appearance Clear (CLEAR) Urine pH 8 H (5-7) Ur Specific Gravit y 1.010 (1.005-1.030) Urine Protein Neg (Negative) Urine Glucose (UA) Norm (Normal) Urine Ketones Negative (Negative) Urine Blood Neg (Negative) Urine Nitrate Negative (Negative) Urine Bilirubin Neg (Negative) Prot Sulfosalicyli c Acd Negative (Negative) Urine Urobilinogen Neg (Negative) mg/dL Ur Leukocyte Ilana ase Negative (Negative) Discharge Plan Discharge Patient Disposition: Admitted As Inpatient Clinical Impression: SBO (small bowel obstruction) Condition: Stable Prescriptions: No Action hydrocodone-acetaminophen 5-325 mg tablet 1 tab PO QID PRN (Reason: Pain) RF: 0 melatonin 5 mg capsule 5 mg PO BEDTIME RF: 0 polyethylene glycol 3350 17 gram/dose powder 17 gm PO DAILY PRN (Reason: Constipation) RF: 0 diltiazem HCl 360 mg capsule,extended release 24hr 360 mg PO DAILY Qty: 90 RF: 3 Eliquis 5 mg tablet 5 mg PO BID Qty: 180 RF: 3 tizanidine 4 mg tablet 4 mg PO DAILY Qty: 30 RF: 0 nystatin 100,000 unit/gram cream 1 applic topical BID 30 Days Qty: 30 RF: 2 cetirizine [Zyrtec] 10 mg Tablet 10 mg PO DAILY RF: 0 acetaminophen [Tylenol 8 Hour] 650 mg Tablet Extended Release 650 mg PO BEDTIME PRN (Reason: Pain) RF: 0 simethicone 166 mg Capsule 166 mg PO PRN RF: 0 vitamin X90-ruugo acid 500-400 mcg Tablet 1 tab PO DAILY RF: 0 pantoprazole 40 mg tablet,delayed release (DR/EC) 40 mg PO BID RF: 0 potassium chloride [Klor-Con 10] 10 mEq tablet extended release 20 meq PO DAILY Qty: 30 RF: 1 ProAir HFA 90 mcg/actuation HFA aerosol inhaler 2 puff INHALATION Q6H PRN (Reason: Shortness Of Breath) RF: 0 metoprolol tartrate 25 mg tablet 25 mg PO DAILY RF: 0 Referrals: Alyce Lozoya DO [Primary Care Provider] - Sign Out Sign Out Data: Patient Sign Out occurred on 04/21/21 at 11:41. Patient's care was discussed, and care was transferred from to Kashmir Cody DO. Coding Level of Care Code ED Waste Collector for Chg Fwd Exam Comprehensive Documented by User: Kashmir Cody DO 04/21/21 12:44 HPI - Nausea/Vomiting/Diarrhea General: Chief complaint: Nausea/Vomiting/Diarrhea Stated complaint: DIARRHEA X 3 DAYS Time Seen by Provider: 04/21/21 10:02 History of Present Illness: HPI Narrative: 75-year-old female who presents emergency room with complaint of 3 days of nausea and vomiting and diarrhea. 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 MD elicited complaint: nausea, vomiting and diarrhea Pertinent past history: bowel obstruction and abdominal surgery Onset (ago): day(s) Description of vomiting: watery and bilious Associated nausea: Yes Associated abdominal pain: Yes Location of pain: Diffuse Severity: moderate Quality: cramping Exacerbating factors: eating Relieving factors: none Associated symtoms: Reports bloating, anorexia, malaise and nausea; Denies altered mental status, anxiety, change in vision, chest pain, cough, diaphoresis, decreased urine output, dizziness, dysuria, epistaxis, fatigue, fecal incontinence, fevers/chills, headache(s), myalgias, numbness, palpitations, rash, short of breath, syncope, tenesmus or weakness Review of Systems Const: Reports: malaise; Denies: fatigue or diaphoresis Eyes: Denies: change in vision ENMT: Denies: epistaxis Card: Denies: chest pain, palpitations or syncope GI: Reports: nausea and bloating; Denies: fecal incontinence : Denies: dysuria Neuro: Denies: headache(s) or dizziness Psych: Denies: anxiety PFSH ED PFSH: Medical History Acute exacerbation of CHF (congestive heart failure) Atrial fibrillation Benign essential hypertension with target blood pressure below 140/90 Chronic episodic atrial fibrillation Chronic episodic atrial fibrillation COPD (chronic obstructive pulmonary disease) Fracture of ribs, multiple GERD (gastroesophageal reflux disease) Hypercholesterolemia Other cervical disc displacement, unspecified cervical region Recurrent UTI Sleep apnea Unspecified hydronephrosis Urgency incontinence Urolithiasis UTI (urinary tract infection) Surgical History H/O cataract extraction H/O esophagogastroduodenoscopy (07/14/20) H/O knee surgery H/O shoulder surgery History of appendectomy History of cholecystectomy S/P hysterectomy Status post colonoscopy (07/14/20) Family History Father Stroke Mother Cancer BLADDER, BREAST Brother Cancer ESOPHAGEAL Family/Other Cancer Sister Cancer Suicide Denies family history of Diabetes CAD (coronary artery disease) Clotting disorder Dementia Chronic kidney disease (CKD) Anesthesia complication Bleeding disorder Lung disease Social History Smoking and tobacco status: former smoker Alcohol intake: never Marital status: Current occupational status: disabled Physical Exam Const: COMMON NORMALS: no acute distress EXAM LIMITATIONS: no altered mental status GENERAL APPEARANCE: cooperative and comfortable ORIENTATION/CONSCIOUSNESS: Yes awake, Yes oriented to person, Yes oriented to place and Yes oriented to time HENMT: COMMON NORMALS: normocephalic, atraumatic and hearing grossly normal bilaterally HEAD & SCALP: normocephalic and atraumatic Neck/C-Spine: COMMON NORMALS: no JVD Resp: COMMON NORMALS: normal respiratory effort, No retractions, No use of accessory muscles and clear to auscultation bilaterally AUSCULTATION: clear to auscultation bilaterally Cardio: COMMON NORMALS: no JVD, regular rate, regular rhythm and No murmurs present (Cardio) RATE: regular rate RHYTHM: regular rhythm GI: COMMON NORMALS: No hepatosplenomegaly present INSPECTION: Yes central obesity AUSCULTATION: Yes Hypoactive bowel sounds present PALPATION: Yes Tenderness to palpation present (GI), Yes Guarding due to palpation present (GI) and Yes No hepatosplenomegaly present PERCUSSION: tympanic to percussion Extremity: COMMON NORMALS: normal to inspection, capillary refill normal, no clubbing, cyanosis or edema, no calf tenderness and no pedal edema Neuro: SENSORIUM/ORIENTATION: Yes oriented to person, Yes oriented to place and Yes oriented to time Skin: COMMON NORMALS: no rashes or lesions noted GENERAL SKIN EXAM: no rashes or lesions noted Course Vital Signs: Vital signs: Vital Signs Temperature 98.2 F 04/21/21 10:11 Pulse Rate 84 04/21/21 10:11 Respiratory Rate 20 H 04/21/21 10:43 Blood Pressure 140/58 04/21/21 11:16 Pulse Oximetry 93 04/21/21 11:16 MDM - Nausea/Vomiting/Diarrhea MDM Narrative: Medical decision making narrative: Reviewed CT and labs. Discussed with hospitalist and Dr. Burton will admit for small bowel obstruction NG tube bowel rest Lab Data: Labs: Lab Results 04/21/21 04/21/21 04/21/21 Range/Units 11:00 11:00 11:14 WBC 9.6 (4.0-10.0) 10^3/ uL RBC 4.09 L (4.1-5.3) 10^6/u L Hgb 12.9 (11.5-15.3) g/dL Hct 41.5 (37.0-47.0) % MCV 101.5 H (81-99) fL MCH 31.5 (28.0-34.0) pg MCHC 31.1 (30.0-36.0) g/dL RDW 14.1 (12.1-15.1) % Plt Count 201 (130-400) 10^3/c mm MPV 10.4 (7.4-10.4) fL Neut % (Auto) 82.2 % Lymph % (Auto) 10.2 % [place] % (Auto) 6.2 % Eos % (Auto) 0.6 % Baso % (Auto) 0.5 % Neut # (Auto) 7.91 H (1.8-7.7) 10^3/u L Lymph # (Auto) 1.0 (0.8-4.8) 10^3/u L [place] # (Auto) 0.6 (0.2-0.9) 10^3/u L Eos # (Auto) 0.1 (0.0-0.8) 10^3/u L Baso # (Auto) 0.1 (0.0-0.1) 10^3/u L Nucleated RBC % (a uto) 0 % Nucleated RBCs # 0.0 /100WBC Sodium 140 (136-145) mmol/L Potassium 4.0 (3.5-5.1) mmol/L Chloride 104 (98-107) mmol/L Carbon Dioxide 28 (22-29) mmol/L Anion Gap 12.0 (5-19) BUN 12 (8-23) mg/dL Creatinine 0.5 (0.5-0.9) mg/dL GFR Calculation Not Reportable Glucose 147 H (65-115) mg/dL Calculated Osmolal ity 292 (285-295) mOsm/k g Calcium 9.6 (8.5-10.5) mg/dL Total Bilirubin 0.2 (0.15-1.2) mg/dL AST 10 (0-32) U/L ALT < 5 (0-33) U/L Alkaline Phosphata se 148 H (35-105) IU/L Total Protein 5.8 L (6.6-8.7) g/dL Albumin 3.2 L (3.5-5.2) g/dL Globulin 2.6 (1.3-4.6) g/dL Lipase 7 L (13-60) U/L Urine Color Yellow (Yellow) Urine Appearance Clear (CLEAR) Urine pH 8 H (5-7) Ur Specific Gravit y 1.010 (1.005-1.030) Urine Protein Neg (Negative) Urine Glucose (UA) Norm (Normal) Urine Ketones Negative (Negative) Urine Blood Neg (Negative) Urine Nitrate Negative (Negative) Urine Bilirubin Neg (Negative) Prot Sulfosalicyli c Acd Negative (Negative) Urine Urobilinogen Neg (Negative) mg/dL Ur Leukocyte Ilana ase Negative (Negative) Discharge Plan Discharge Patient Disposition: Admitted As Inpatient Clinical Impression: SBO (small bowel obstruction) Condition: Stable Prescriptions: No Action hydrocodone-acetaminophen 5-325 mg tablet 1 tab PO QID PRN (Reason: Pain) RF: 0 melatonin 5 mg capsule 5 mg PO BEDTIME RF: 0 polyethylene glycol 3350 17 gram/dose powder 17 gm PO DAILY PRN (Reason: Constipation) RF: 0 diltiazem HCl 360 mg capsule,extended release 24hr 360 mg PO DAILY Qty: 90 RF: 3 Eliquis 5 mg tablet 5 mg PO BID Qty: 180 RF: 3 tizanidine 4 mg tablet 4 mg PO DAILY Qty: 30 RF: 0 nystatin 100,000 unit/gram cream 1 applic topical BID 30 Days Qty: 30 RF: 2 cetirizine [Zyrtec] 10 mg Tablet 10 mg PO DAILY RF: 0 acetaminophen [Tylenol 8 Hour] 650 mg Tablet Extended Release 650 mg PO BEDTIME PRN (Reason: Pain) RF: 0 simethicone 166 mg Capsule 166 mg PO PRN RF: 0 vitamin F17-glmys acid 500-400 mcg Tablet 1 tab PO DAILY RF: 0 pantoprazole 40 mg tablet,delayed release (DR/EC) 40 mg PO BID RF: 0 potassium chloride [Klor-Con 10] 10 mEq tablet extended release 20 meq PO DAILY Qty: 30 RF: 1 ProAir HFA 90 mcg/actuation HFA aerosol inhaler 2 puff INHALATION Q6H PRN (Reason: Shortness Of Breath) RF: 0 metoprolol tartrate 25 mg tablet 25 mg PO DAILY RF: 0 Referrals: Alyce Lozoya DO [Primary Care Provider] - Sign Out Sign Out Data: Patient Sign Out occurred on 04/21/21 at 11:41. Patient's care was discussed, and care was transferred from to Kashmir Cody DO. Coding Level of Care Code ED Waste Collector for Chg Fwd Exam Comprehensive
[2021-04-21] MEDS: iohexol 300 mg/mL 100 mL Btl IV (10:38)
[2021-04-21] MEDS: ondansetron 2 mg/ML SDV 2 mL 4 MG IVP ×2 (10:42→14:31)
[2021-04-21] MEDS: morphine 4 mg/mL SDV 1 mL IVP ×2 (10:43→14:31)
[2021-04-21] MEDS: sodium chloride 0.9% 1,000 ML 999 ML IV (10:44)
[2021-04-21 11:07] LABS: Basophils # 0.1 10^3/uL (0.0-0.1); Basophils % 0.5 %; Eosinophils # 0.1 10^3/uL (0.0-0.8); Eosinophils % 0.6 %; Hematocrit 41.5 % (37.0-47.0); Hemoglobin 12.9 g/dL (11.5-15.3); Lymphocytes % 10.2 %; Mean Corpuscular HGB Conc 31.1 g/dL (30.0-36.0); Mean Corpuscular Hemoglobin 31.5 pg (28.0-34.0); Mean Corpuscular Volume 101.5 fL (81-99); Mean Platelet Volume 10.4 fL (7.4-10.4); Monocytes # 0.6 10^3/uL (0.2-0.9); Monocytes % 6.2 %; Neutrophils # 7.91 10^3/uL (1.8-7.7); Neutrophils % 82.2 %; Nucleated Red Blood Cells % 0 %; Platelet Count 201 10^3/cmm (130-400); Red Blood Count 4.09 10^6/uL (4.1-5.3); Red Cell Distribution Width 14.1 % (12.1-15.1); White Blood Count 9.6 10^3/uL (4.0-10.0)
--- NOTE | 2021-04-21 11:17 | PC.NURSE ---
PATIENT STRAIGHT CATH UA COLLECTED. PATIENT IN BED. PATIENT COMPLAINT OF PAIN IN HER RIGHT ARM FROM WHERE IT IS BROKEN. PATIENT CALL LIGHT WITHIN REACH.
--- NOTE | 2021-04-21 11:31 | PC.NURSE ---
PATIENT RATES PAIN A 9/10 BUT EASING AFTER MORPHINE ADMINISTRATION.
[2021-04-21 11:33] LABS: Alanine Aminotransferase < 5 U/L (0-33); Albumin Level 3.2 g/dL (3.5-5.2); Alkaline Phosphatase 148 IU/L (35-105); Aspartate Amino Transferase 10 U/L (0-32); Blood Urea Nitrogen 12 mg/dL (8-23); Calcium 9.6 mg/dL (8.5-10.5); Carbon Dioxide 28 mmol/L (22-29); Chloride 104 mmol/L (98-107); Globulin 2.6 g/dL (1.3-4.6); Glucose 147 mg/dL (65-115); Lipase 7 U/L (13-60); Osmolality Calculated 292 mOsm/kg (285-295); Sodium 140 mmol/L (136-145); Total Bilirubin 0.2 mg/dL (0.15-1.2); Total Protein 5.8 g/dL (6.6-8.7)
[2021-04-21 12:20] LABS: Add Urine Microscopic? NO; Charge for UA Resulting for Rev
[2021-04-21 12:22] LABS: Bilirubin Urine Neg (Negative); Blood Urine Neg (Negative); Glucose Urine UA Norm (Normal); Ketones Urine Negative (Negative); Nitrate Urine Negative (Negative); Protein Urine Neg (Negative); Sulfosalicylic Acid Urine Negative (Negative); Urine Appearance Clear (CLEAR); Urine Color Yellow (Yellow); Urobilinogen Urine Neg (Negative); pH Urine 8 (5-7)
[2021-04-21 12:23] LABS: Leukocyte Esterase Urine Negative (Negative)
--- NOTE | 2021-04-21 12:47 | PC.PHAR ---
PT STATES SHE IS NOT TAKING TORSEMIDE OR LASIX UNLESS SHE IS IN THE HOSPITAL CATHED DUE TO FREQUENT URINATION.
[2021-04-21] MEDS: LORazepam 2 mg/mL INJ 1 mL 0.5 MG IVP (14:24)
--- NOTE | 2021-04-21 14:44 | PC.NURSE ---
PATIENT PLACED IN HIGH FOWLERS. NG TUBE PLACEMENT BY DR SYKES. PATIENT TOLERATED WELL. PATIENT CONNECTED TO LOW INTERMITTENT SUCTIONING.
--- NOTE | 2021-04-21 16:09 | P.HP_ITS ---
Providers/Chief Complaint Admitting Physician: Jam Mcdonough MD Primary Care Provider: Alyce Lozoya DO Chief Complaint: DIARRHEA X 3 DAYS History of Present Illness Bre Lara is a 75 year old female with past medical history of atrial fibrillation, on chronic anticoagulation, recent femur fracture, Klebsiella UTI, hypertension, COPD, congestive heart failure with preserved ejection fraction she presented to the ER today with history of having 6-7 loose bowel movement a day for last 2 weeks but since last night start him multiple episodes of vomiting so presented to the ER because she was feeling dizzy. She has history of hemorrhoids. Had last EGD and colonoscopy last year and was noted to have moderate sigmoid diverticulosis and internal hemorrhoids. In the ER she had CT abdomen pelvis which showed results as below. Review of Systems General: Reports: 10 or more systems reviewed and unremarkable except in HPI and below Const: Denies: fever(s), chills, body aches, change in appetite, change in we ight, malaise, night sweats, diaphoresis, change in sleep pattern, daytime sleepiness or snoring Eyes: Denies: change in vision, blurry vision, photophobia, eye discomfort or eye discharge ENMT: Denies: throat pain, enlarged tonsils, hoarseness, mouth pain, oral sores, dry mouth, tinnitus, nasal congestion or post nasal drip Card: Denies: chest pain, palpitations, irregular heart rhythm, edema, swelling of feet/ankles, lightheadedness, syncope, pre-syncope, dyspnea on exertion, orthopnea, leg pain with exertion or acrocyanosis Resp: Denies: dyspnea, productive cough, non-productive cough, wheezing, stridor, pain on inspiration, change in phlegm color, hemoptysis or chest congestion GI: Denies: abdominal pain, nausea, vomiting, hematemesis, coffee ground emesis, dysphagia, heartburn, diarrhea, constipation, bloating, GI cramping, change in bowel habits, pain on defecation, hematochezia or melena : Denies: flank pain, dysuria, urinary frequency, urinary urgency, urinary hesitancy, nocturia or hematuria Musc: Denies: neck pain, back pain, extremity pain, joint pain, joint swelling, joint redness, joint stiffness or limited range of motion Neuro: Denies: headache(s), numbness in extremities, weakness in extremities, sensory changes, lack of coordination, difficulty walking, frequent falls, dizziness, vertigo, confusion, Slurred speech present, difficulty communicating thoughts or seizure-like activity Psych: Denies: anxiety, depression, mood swings, panic attacks, hopelessness or irritability Endo: Denies: polyuria, polydipsia, tired all the time, cold intolerance, excessive sweating, flushing or heat intolerance Timo/Lymph: Denies: easy bruising or easy bleeding All/Imm: Denies: tongue swelling, facial swelling or acute wheezing Medications/Allergies Home Medications Medication Instructions Recorded Confirmed Last Taken Type hydrocodone 5 mg-acetaminophen 325 1 tab PO QID PRN 09/14/19 04/21/21 02/24/21 History mg tablet melatonin 5 mg capsule 5 mg PO BEDTIME cap 09/14/19 04/21/21 04/20/21 History polyethylene glycol 3350 17 17 gm PO DAILY PRN gm 09/14/19 04/21/21 02/23/21 History gram/dose oral powder apixaban 5 mg tablet 5 mg PO BID #180 tab 11/23/20 04/21/21 04/20/21 Rx diltiazem HCl 360 mg 360 mg PO DAILY #90 cap 11/23/20 04/21/21 04/20/21 Rx capsule,extended release 24 hr tizanidine 4 mg tablet 4 mg PO DAILY #30 tab 12/24/20 04/21/21 04/20/21 Rx acetaminophen [Tylenol 8 Hour] 650 mg PO BEDTIME PRN 02/24/21 04/21/21 Unknown History cetirizine [Zyrtec] 10 mg PO DAILY 02/24/21 04/21/21 04/20/21 History pantoprazole 40 mg PO BID 02/24/21 04/21/21 04/20/21 History simethicone 166 mg PO PRN 02/24/21 04/21/21 02/24/21 History vitamin D77-[id number] acid 1 tab PO DAILY 02/24/21 04/21/21 04/20/21 History nystatin 100,000 unit/gram topical 1 applic TOPICAL BID 30 Days #30 g 03/25/21 04/21/21 Unknown Rx cream potassium chloride [Klor-Con 10] 20 meq PO DAILY #30 tab 07/04/21/21 04/20/21 Rx ProAir HFA 2 puff INHALATION Q6H PRN 04/21/21 04/21/21 Unknown History metoprolol tartrate 25 mg PO DAILY 04/21/21 04/21/21 04/20/21 History Allergies Allergy/AdvReac Type Severity Reaction Status Date / Time Penicillins Allergy Unknown Unknown Verified 04/21/21 10:09 cefdinir Allergy Unknown Verified 04/21/21 10:09 ciprofloxacin [From Cipro] Allergy NA Verified 04/21/21 10:09 fluoxetine Allergy NA Verified 04/21/21 10:09 nabumetone Allergy NA Verified 04/21/21 10:09 penicillin G Allergy NA Verified 04/21/21 10:09 pentazocine [From Talwin] Allergy NA Verified 04/21/21 10:09 Sulfa (Sulfonamide Allergy NA Verified 04/21/21 10:09 Antibiotics) zolpidem [From Ambien] Allergy hallucinati Verified 04/21/21 10:09 ons furosemide [From Lasix] AdvReac diarrhea, Verified 04/21/21 10:09 vomiting, chills, generalized weakness PFSH Acute PFSH: Medical History (Updated 04/21/21 @ 17:15 by Karan Burton MD) Acute exacerbation of CHF (congestive heart failure) Benign essential hypertension with target blood pressure below 140/90 Chronic episodic atrial fibrillation COPD (chronic obstructive pulmonary disease) Fracture of ribs, multiple GERD (gastroesophageal reflux disease) Hypercholesterolemia Osteoarthritis of left knee Other cervical disc displacement, unspecified cervical region Recurrent UTI Sleep apnea Urgency incontinence Urolithiasis UTI (urinary tract infection) Surgical History H/O cataract extraction H/O esophagogastroduodenoscopy (07/14/20) H/O knee surgery H/O shoulder surgery History of appendectomy History of cholecystectomy S/P hysterectomy Status post colonoscopy (07/14/20) Family History Father Stroke Mother Cancer BLADDER, BREAST Brother Cancer ESOPHAGEAL Family/Other Cancer Sister Cancer Suicide Denies family history of Diabetes CAD (coronary artery disease) Clotting disorder Dementia Chronic kidney disease (CKD) Anesthesia complication Bleeding disorder Lung disease Social History Smoking and tobacco status: former smoker Alcohol intake: never Marital status: Current occupational status: disabled Vitals/I&O/Wt Last Vital Signs Temp 98.2 F 04/21/21 10:11 Pulse 84 04/21/21 14:43 Resp 20 H 04/21/21 10:43 BP 123/68 04/21/21 13:40 Pulse Ox 97 04/21/21 14:43 Weight last 48 hrs Weight 83.007 kg Weight 83.007 kg Physical Exam Narrative: EXAM NARRATIVE: General: No acute distress, AO x3 HEENT: PERRLA, pupils bilaterally equal and reactive Chest: Normal vesicular breath sounds, no added sounds, equal good air entry bilaterally CVS: S1-S2 regular, no murmurs, no tachycardia, no gallops, no rubs Abdomen: Soft, nontender, no organomegaly, bowel sounds present Neuro: No focal deficits, no facial deformity, AO x3, power 5/5 in all limbs Data : 04/21/21 11:00 04/21/21 11:00 Other Labs: Laboratory Results WBC 9.6 10^3/uL (4.0-10.0) 04/21/21 11:00 RBC 4.09 10^6/uL (4.1-5.3) L 04/21/21 11:00 Hgb 12.9 g/dL (11.5-15.3) 04/21/21 11:00 Hct 41.5 % (37.0-47.0) 04/21/21 11:00 MCV 101.5 fL (81-99) H 04/21/21 11:00 MCH 31.5 pg (28.0-34.0) 04/21/21 11:00 MCHC 31.1 g/dL (30.0-36.0) 04/21/21 11:00 RDW 14.1 % (12.1-15.1) 04/21/21 11:00 Plt Count 201 10^3/cmm (130-400) 04/21/21 11:00 MPV 10.4 fL (7.4-10.4) 04/21/21 11:00 Neut % (Auto) 82.2 % 04/21/21 11:00 Lymph % (Auto) 10.2 % 04/21/21 11:00 [place] % (Auto) 6.2 % 04/21/21 11:00 Eos % (Auto) 0.6 % 04/21/21 11:00 Baso % (Auto) 0.5 % 04/21/21 11:00 Neut # (Auto) 7.91 10^3/uL (1.8-7.7) H 04/21/21 11:00 Lymph # (Auto) 1.0 10^3/uL (0.8-4.8) 04/21/21 11:00 [place] # (Auto) 0.6 10^3/uL (0.2-0.9) 04/21/21 11:00 Eos # (Auto) 0.1 10^3/uL (0.0-0.8) 04/21/21 11:00 Baso # (Auto) 0.1 10^3/uL (0.0-0.1) 04/21/21 11:00 Nucleated RBC % (auto) 0 % 04/21/21 11:00 Nucleated RBCs # 0.0 /100WBC 04/21/21 11:00 Sodium 140 mmol/L (136-145) 04/21/21 11:00 Potassium 4.0 mmol/L (3.5-5.1) 04/21/21 11:00 Chloride 104 mmol/L (98-107) 04/21/21 11:00 Carbon Dioxide 28 mmol/L (22-29) 04/21/21 11:00 Anion Gap 12.0 (5-19) 04/21/21 11:00 BUN 12 mg/dL (8-23) 04/21/21 11:00 Creatinine 0.5 mg/dL (0.5-0.9) 04/21/21 11:00 GFR Calculation Not Reportable 04/21/21 11:00 Glucose 147 mg/dL (65-115) H 04/21/21 11:00 Calculated Osmolality 292 mOsm/kg (285-295) 04/21/21 11:00 Calcium 9.6 mg/dL (8.5-10.5) 04/21/21 11:00 Total Bilirubin 0.2 mg/dL (0.15-1.2) 04/21/21 11:00 AST 10 U/L (0-32) 04/21/21 11:00 ALT < 5 U/L (0-33) 04/21/21 11:00 Alkaline Phosphatase 148 IU/L (35-105) H 04/21/21 11:00 Total Protein 5.8 g/dL (6.6-8.7) L 04/21/21 11:00 Albumin 3.2 g/dL (3.5-5.2) L 04/21/21 11:00 Globulin 2.6 g/dL (1.3-4.6) 04/21/21 11:00 Lipase 7 U/L (13-60) L 04/21/21 11:00 Urine Color Yellow (Yellow) 04/21/21 11:14 Urine Appearance Clear (CLEAR) 04/21/21 11:14 Urine pH 8 (5-7) H 04/21/21 11:14 Ur Specific [place] 1.010 (1.005-1.030) 04/21/21 11:14 Urine Protein Neg (Negative) 04/21/21 11:14 Urine Glucose (UA) Norm (Normal) 04/21/21 11:14 Urine Ketones Negative (Negative) 04/21/21 11:14 Urine Blood Neg (Negative) 04/21/21 11:14 Urine Nitrate Negative (Negative) 04/21/21 11:14 Urine Bilirubin Neg (Negative) 04/21/21 11:14 Prot Sulfosalicylic Acd Negative (Negative) 04/21/21 11:14 Urine Urobilinogen Neg mg/dL (Negative) 04/21/21 11:14 Ur Leukocyte Esterase Negative (Negative) 04/21/21 11:14 Impressions Abdomen/Pelvis CT 04/21/21 10:13 IMPRESSION: 1. Fluid distended stomach with air-fluid level. Fluid distended loops of small bowel with air-fluid levels in the midabdomen and left upper quadrant. Ileal bowel loops relatively decompressed. 2. No focal transition point. Persistent air within the colon. Findings likely due to partial small bowel obstruction. Bowel dilatation is similar to previous. 3. Sigmoid diverticulosis. No evidence of acute diverticulitis. 4. Small esophageal hiatal hernia. 5. Tiny calculus or sludge within the distal common bile duct unchanged since 2018. 6. Cholecystectomy. 7. No other significant interval changes. A&P Assessment and plan (1) Abdominal pain: Status: Acute (2) SBO (small bowel obstruction): Status: Acute (3) Benign essential hypertension with target blood pressure below 140/90: Status: Acute (4) Diastolic heart failure: Status: Acute (5) Chronic episodic atrial fibrillation: Status: Acute (6) Chronic venous insufficiency of lower extremity: Status: Acute Additional A&P Information Abdominal pain secondary to possible small bowel obstruction versus ileus: No electrolyte abnormality. Patient does have history of surgical intervention in the past. Does take hydrocodone as needed. Gives possible history of gastroenteritis recently. Appreciate surgery recommendations. NG tube placed. Intermittent suction. Bowel rest. Conservative treatment. NPO. Zofran as needed, famotidine twice daily. Start on IV ciprofloxacin and IV Flagyl. Check blood culture, procalcitonin, TSH, bacterial antigen. History of atrial fibrillation: Takes Cardizem 360 mg daily and metoprolol 25 mg oral daily. Start patient on IV Cardizem 10 mg every 6 hours as needed for heart rate of m ore than 100 bpm and holding for systolic blood pressure of less than 110 mmHg. Metoprolol 2.5 mg IV twice daily Switch Eliquis to full dose Lovenox 1 mg/kg body weight every 12 hourly. Diastolic heart failure: No exacerbation at present. Gives history of allergy to oral diuretics in the past with diarrhea and nausea. IV Lasix 20 mg as needed. History of recurrent UTI: Most recently with E. coli. Does have history of Klebsiella UTI in the past. Because of history of recurrent UTIs will avoid [place] catheterization. Full code. NPO. Full dose Lovenox will help with DVT prophylaxis as well. Attestations Medical Necessity Statement*: Admission for more than 2 midnights for management of small bowel obstruction needing NG tube placement Time Spent in Patient Care: Greater than 35 minutes (>than 50% of time spent in counselling and/or direct pt care on unit) . 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
[2021-04-21 16:54] LABS: NT Pro B Type Natriuretic Pept 965 pg/mL (0-450); Procalcitonin 0.05 ng/mL (0-0.5)
[2021-04-21 17:05] LABS: Iron 26 ug/dL (37-145); Percent Saturation 11.2 % (20-50); Total Iron Binding Capacity 231 mcg/dl; Unsaturated Iron Binding 205 ug/dL (112-347)
[2021-04-21] MEDS: D5-NS 0.45% + KCL 20 mEq 20 MEQ/1,000 ML BAG 50 MEQ IV (17:12)
--- NOTE | 2021-04-21 17:12 | PM.CONSULT ---
Providers/Reason For Consult Consulting Physician/Specialty*: General Surgery Dr. Burton Reason for Consult*: Bowel obstruction Attending Physician: Jam Mcdonough MD Primary Care Provider: Alyce Lozoya DO History of Present Illness History of Present Illness Bre Lara is a 75 year old female on whom I had previously performed an EGD and colonoscopy last year and she was noted to have moderate sigmoid diverticulosis and internal hemorrhoids. I had also previously performed her cholecystectomy Patient states that she has been dealing with 6-7 loose bowel movements a day for the last 2 weeks but last night she started having multiple episodes of vomiting and therefore she presented to the ER today since she was feeling dizzy. Patient states that she has occasional blood in her stool from flareup of her hemorrhoids. She denies significant abdominal pain, hematemesis or melena. She was recently hospitalized in February and March 2021 for CHF exacerbation. Patient has had prior cholecystectomy, bowel resection as a child and hysterectomy Review of Systems General: Reports: 10 or more systems reviewed and unremarkable except in HPI and below Meds/Allergies Home Medications and Allergies Home Medications Medication Instructions Recorded Confirmed Last Taken Type hydrocodone 5 mg-acetaminophen 325 1 tab PO QID PRN 09/14/19 04/21/21 02/24/21 History mg tablet melatonin 5 mg capsule 5 mg PO BEDTIME cap 09/14/19 04/21/21 04/20/21 History polyethylene glycol 3350 17 17 gm PO DAILY PRN gm 09/14/19 04/21/21 02/23/21 History gram/dose oral powder apixaban 5 mg tablet 5 mg PO BID #180 tab 11/23/20 04/21/21 04/20/21 Rx diltiazem HCl 360 mg 360 mg PO DAILY #90 cap 11/23/20 04/21/21 04/20/21 Rx capsule,extended release 24 hr tizanidine 4 mg tablet 4 mg PO DAILY #30 tab 12/24/20 04/21/21 04/20/21 Rx acetaminophen [Tylenol 8 Hour] 650 mg PO BEDTIME PRN 02/24/21 04/21/21 Unknown History cetirizine [Zyrtec] 10 mg PO DAILY 02/24/21 04/21/21 04/20/21 History pantoprazole 40 mg PO BID 02/24/21 04/21/21 04/20/21 History simethicone 166 mg PO PRN 02/24/21 04/21/21 02/24/21 History vitamin H42-mpkjn acid 1 tab PO DAILY 02/24/21 04/21/21 04/20/21 History nystatin 100,000 unit/gram topical 1 applic TOPICAL BID 30 Days #30 g 03/25/21 04/21/21 Unknown Rx cream potassium chloride [Klor-Con 10] 20 meq PO DAILY #30 tab 03/31/21 04/21/21 04/20/21 Rx ProAir HFA 2 puff INHALATION Q6H PRN 04/21/21 04/21/21 Unknown History metoprolol tartrate 25 mg PO DAILY 04/21/21 04/21/21 04/20/21 History Allergies Allergy/AdvReac Type Severity Reaction Status Date / Time Penicillins Allergy Unknown Unknown Verified 04/21/21 10:09 cefdinir Allergy Unknown Verified 04/21/21 10:09 ciprofloxacin [From Cipro] Allergy NA Verified 04/21/21 10:09 fluoxetine Allergy NA Verified 04/21/21 10:09 nabumetone Allergy NA Verified 04/21/21 10:09 penicillin G Allergy NA Verified 04/21/21 10:09 pentazocine [From Talwin] Allergy NA Verified 04/21/21 10:09 Sulfa (Sulfonamide Allergy NA Verified 04/21/21 10:09 Antibiotics) zolpidem [From Ambien] Allergy hallucinati Verified 04/21/21 10:09 ons furosemide [From Lasix] AdvReac diarrhea, Verified 04/21/21 10:09 vomiting, chills, generalized weakness PFSH Acute PFSH: Medical History (Updated 04/21/21 @ 17:15 by Karan Burton MD) Acute exacerbation of CHF (congestive heart failure) Benign essential hypertension with target blood pressure below 140/90 Chronic episodic atrial fibrillation COPD (chronic obstructive pulmonary disease) Fracture of ribs, multiple GERD (gastroesophageal reflux disease) Hypercholesterolemia Osteoarthritis of left knee Other cervical disc displacement, unspecified cervical region Recurrent UTI Sleep apnea Urgency incontinence Urolithiasis UTI (urinary tract infection) Surgical History H/O cataract extraction H/O esophagogastroduodenoscopy (07/14/20) H/O knee surgery H/O shoulder surgery History of appendectomy History of cholecystectomy S/P hysterectomy Status post colonoscopy (07/14/20) Family History Father Stroke Mother Cancer BLADDER, BREAST Brother Cancer ESOPHAGEAL Family/Other Cancer Sister Cancer Suicide Denies family history of Diabetes CAD (coronary artery disease) Clotting disorder Dementia Chronic kidney disease (CKD) Anesthesia complication Bleeding disorder Lung disease Social History Smoking and tobacco status: former smoker Alcohol intake: never Marital status: Current occupational status: disabled Vitals/I&O/Wt Last Vital Signs Temp 98.1 F 04/21/21 16:59 Pulse 87 04/21/21 16:59 Resp 17 04/21/21 16:59 BP 157/93 04/21/21 16:59 Pulse Ox 95 04/21/21 16:59 Weight last 48 hrs Weight 183 lb Weight 183 lb Physical Exam Narrative: EXAM NARRATIVE: HEENT: Normocephalic Eye: Sclera /conjunctiva normal Abdomen: Soft to palpation, nontender, nondistended Neurological: Oriented to place person and time Skin: Intact, no lesions appreciated on gross exam A&P Assessment and plan (1) SBO (small bowel obstruction): 75-year-old female admitted to the hospital with multiple comorbidities and prior abdominal surgeries who presents with nausea, vomiting of 24 hours duration and diarrhea of 2-week duration. Patient is hemodynamically stable without any evidence of peritonitis. CT abdomen and pelvis showed possible partial bowel obstruction Based on his symptoms this could also be ileus but either way the treatment would be bowel rest, NG tube to low abdomen suction Daily abdominal series Stool cultures Daily labs Pepcid for GI prophylaxis Lovenox for DVT prophylaxis IV Cipro and Flagyl given her his 2-week history of diarrhea for suspected enteritis/colitis Status: Acute Consult Attestations Medical Necessity Statement: As per attending physician Coding Level of Care Code Acute Learning Development Specialist for Leta Albarran Diagnoses SBO (small bowel obstruction) K56.609
[2021-04-21] MEDS: metoprolol tartrate 1 mg/1 mL SDV 5 mL 2.5 MG IVP ×2 (17:13→22:28)
[2021-04-21] MEDS: famotidine 20 mg/2 mL INJ IVP (17:13)
[2021-04-21] MEDS: enoxaparin 80 mg/0.8 mL Syringe SUBCUT (17:14)
[2021-04-21] MEDS: metroNIDAZOLE IV 500 MG/100 ML PREMIX 100 MG IV (17:14)
[2021-04-21] MEDS: promethazine 25 mg/mL SDV 1 mL 12.5 MG IM (17:21)
[2021-04-21] MEDS: morphine 4 mg/mL SDV 1 mL 1 MG IVP (17:21)
[2021-04-21 18:17] LABS: Thyroid Stimulating Hormone 1.25 uIU/mL (0.27-4.20)
[2021-04-21] MEDS: ciprofloxacin 200 MG/100 ML PREMIX 100 MG IV (18:23)
[2021-04-22] VITALS (12 sets, daily range): BP systolic 111–127; BP diastolic 72–83; PULSE 86–129; RESP 16–22; TEMP 37.4–39.2; O2SAT 90–97
[2021-04-22] MEDS: haloperidol inj 5 mg/mL INJ 1 mL 1 MG IVP (00:50)
--- NOTE | 2021-04-22 02:35 | PC.NURSE ---
Called Dr Micheal thomas NG tube. Patient has pulled it out twice tonight and only had 200ml out since placement. I requested that we leave it out. Dr Burton agreed to leave it out until he could evaluate her in the morning.
[2021-04-22] MEDS: metroNIDAZOLE IV 500 MG/100 ML PREMIX 100 MG IV (02:47)
--- NOTE | 2021-04-22 03:17 | PC.NURSE ---
Patient is running fever. Does not have any medications in MAR for fever. did apply icepacks to armpits and cold rag to forehead.
[2021-04-22] MEDS: metoprolol tartrate 1 mg/1 mL SDV 5 mL 2.5 MG IVP (04:56)
[2021-04-22] MEDS: famotidine 20 mg/2 mL INJ IVP ×2 (04:57→16:54)
[2021-04-22] MEDS: ciprofloxacin 200 MG/100 ML PREMIX 100 MG IV (04:57)
[2021-04-22] MEDS: enoxaparin 80 mg/0.8 mL Syringe SUBCUT ×2 (04:57→16:55)
[2021-04-22 05:30] LABS: Basophils # 0.1 10^3/uL (0.0-0.1); Basophils % 0.4 %; Eosinophils % 0.1 %; Hematocrit 39.5 % (37.0-47.0); Hemoglobin 11.9 g/dL (11.5-15.3); Lymphocytes # 1.8 10^3/uL (0.8-4.8); Mean Corpuscular HGB Conc 30.1 g/dL (30.0-36.0); Mean Corpuscular Hemoglobin 30.8 pg (28.0-34.0); Mean Corpuscular Volume 102.3 fL (81-99); Mean Platelet Volume 10.9 fL (7.4-10.4); Monocytes # 1.1 10^3/uL (0.2-0.9); Monocytes % 7.7 %; Neutrophils # 11.63 10^3/uL (1.8-7.7); Neutrophils % 79.4 %; Nucleated Red Blood Cells % 0 %; Platelet Count 209 10^3/cmm (130-400); Red Blood Count 3.86 10^6/uL (4.1-5.3); Red Cell Distribution Width 14.5 % (12.1-15.1); White Blood Count 14.6 10^3/uL (4.0-10.0)
--- NOTE | 2021-04-22 06:00 | XR_ITS ---
WS: [id number] Abdomen series, Flat and upright 04/22/2021 Clinical Data: sbo Comparison: KUB, 08/14/2019. Findings: No free air is seen beneath the diaphragms. There are dilated small bowel loops in the uppe r abdomen but air has passed into the colon. There are numerous calcifications overlying the left kid leon. There is a fecal impaction. There are clips in the right upper quadrant from a cholecystectomy. XR/XR abdomen min 2V 14734 Impression: 1. Dilated upper abdominal small bowel loops, but air has passed into the dista l bowel. 2. Left renal calcifications.
[2021-04-22 06:03] LABS: Alanine Aminotransferase 7 U/L (0-33); Alkaline Phosphatase 124 IU/L (35-105); Anion Gap 13.1 (5-19); Aspartate Amino Transferase 8 U/L (0-32); Blood Urea Nitrogen 7 mg/dL (8-23); Calcium 9.2 mg/dL (8.5-10.5); Carbon Dioxide 24 mmol/L (22-29); Chloride 106 mmol/L (98-107); Globulin 2.5 g/dL (1.3-4.6); Glucose 119 mg/dL (65-115); Magnesium 1.8 mg/dL (1.7-2.3); Osmolality Calculated 287 mOsm/kg (285-295); Phosphorus 1.8 mg/dL (2.5-4.5); Potassium 4.1 mmol/L (3.5-5.1); Sodium 139 mmol/L (136-145); Total Bilirubin 0.4 mg/dL (0.15-1.2); Total Protein 5.5 g/dL (6.6-8.7)
--- NOTE | 2021-04-22 06:09 | PC.NURSE ---
Patient up most of the night Pulling at IV and NGtube. Confirmed with Dr Burton that NG tube can wait until this morning when he evaluates her. Continuous complaints of pain and slight fever. Ice packs places in arm pits and groin to bring down fever. PRN meds given for high HR. Will continue to monitor.
[2021-04-22] MEDS: D5-NS 0.45% + KCL 20 mEq 20 MEQ/1,000 ML BAG 50 MEQ IV (08:06)
--- NOTE | 2021-04-22 09:17 | XR_ITS ---
WS: [id number] Portable AP semiupright chest, 04/22/2021 Clinical Data: copd/pna/fever Comparison: Portable chest, 04/11/2021. Findings: No nodules, masses or effusions are seen. There is minimal opacity at the left costophrenic angle which could represent atelectasis. The heart is enlarged. The aortic arch and descending aorta show calcification and tortuosity. No pneumonia or pneumothorax is seen. There are monitor leads on the chest wall. There is a fracture of the right humeral neck. XR/XR chest 1V portable [id number] Impression: 1. Atherosclerosis and cardiomegaly. 2. Minimal opacity left costophrenic angle which may represent atelectasis.
[2021-04-22] MEDS: metoprolol tartrate 1 mg/1 mL SDV 5 mL 5 MG IVP ×3 (09:39→21:35)
--- NOTE | 2021-04-22 10:10 | PC.NURSE ---
covid sending both rapid and send out covid test down to lab
--- NOTE | 2021-04-22 10:15 | P.PN_ITS ---
Subjective Subjective: Interval history: Patient has been complaining of severe abdominal pain, had couple of BMs, no vomiting Vitals/I&O/Wt Last Vital Signs Temp 99.4 F 04/23/21 11:44 Pulse 111 H 04/23/21 11:44 Resp 18 04/23/21 11:44 BP 102/66 04/23/21 11:44 Pulse Ox 94 04/23/21 11:44 04/22/21 04/23/21 04/23/21 22:59 06:59 14:59 Intake Total 200 / 1405 1005 / 1405 535 / 535 Output Total 100 / 100 Balance 100 / 1305 1005 / 1305 535 / 535 Weight last 48 hrs Weight 191 lb 4 oz Weight 187 lb 14.4 oz Weight 183 lb Physical Exam Narrative: EXAM NARRATIVE: Abdomen: Soft, nontender, nondistended Data : 04/23/21 07:23 04/23/21 07:23 Micro: Microbiology 04/22/21 11:40 Blood Culture - Preliminary Blood NEGATIVE TO DATE 04/22/21 11:35 Blood Culture - Preliminary Blood NEGATIVE TO DATE 04/23/21 01:00 Stool Lactoferrin - Final Stool C.difficile Toxin B Gene (PCR) - Final Occult Blood (FIT) - Final 04/21/21 16:50 Blood Culture - Preliminary Blood NEGATIVE TO DATE 04/21/21 17:05 Blood Culture - Preliminary Blood NEGATIVE TO DATE 04/21/21 18:28 MRSA Culture - Final Nose A&P Assessment and plan (1) SBO (small bowel obstruction): 75-year-old female admitted to the hospital with multiple comorbidities and prior abdominal surgeries who presents with nausea, vomiting of 24 hours duration and diarrhea of 2-week duration. Patient is hemodynamically stable without any evidence of peritonitis. CT abdomen and pelvis showed possible partial bowel obstruction Patient had severe abdominal pain, abdominal series shows improvement in ileus/partial SBO Continue clear liquid diet Stool cultures pending Status: Deleted Attestations Medical Necessity Statement*: Partial SBO requiring continued inpatient stay Coding Level of Care Code Acute Pneumatic Tester for [facility] Diagnoses SBO (small bowel obstruction) K56.609
[2021-04-22 11:01] LABS: SARS Covid-2 Antigen Negative (Negative)
--- NOTE | 2021-04-22 12:02 | XR_ITS ---
WS: [id number] Acute abdomen series, 04/22/2021 Clinical Data: abdominal pain, sbo Comparison: Flat and upright films, 04/22/2021 Findings: In the chest there are no nodules, masses or effusions. The heart is enlarged. The pulmonar y vascularity is not increased. The aortic arch and descending aorta show tortuosity. The left costop hrenic angle shows atelectasis and/or scarring. No free air is seen beneath the diaphragms. No abnormal intra-abdominal masses or calcifications are seen. The small bowel has diminished in size and there is passage of air in the colon. The bladder is partly full. XR/XR acute abdomen series 21688 Impression: 1. Cardiomegaly and atherosclerosis unchanged. 2. Improvement in small bowel obstruction with decrease in size of small bowel loops and passage of air into the colon.
[2021-04-22 12:33] LABS: Lactic Sepsis W/Reflex 1.1 mmol/L (0.5-2.2)
[2021-04-22] MEDS: acetaminophen 1,000 MG/100 ML PIGGYBACK 400 MG IV (13:41)
--- NOTE | 2021-04-22 17:31 | P.PN_ITS ---
Subjective Subjective: Interval history: Overnight patient spiked fever. T-max 102.9. Patient pulled out NG tube twice. Today morning patient had 1 bowel movement which as per patient was well formed. She is asking to drink something as feeling extremely thirsty. On examination laying in bed complaining of abdominal pain. Denies any nausea or vomiting or headache or dizziness. Saturating well on room air. Vitals/I&O/Wt Last Vital Signs Temp 99.3 F 04/22/21 15:41 Pulse 101 H 04/22/21 15:31 Resp 22 H 04/22/21 15:31 BP 122/78 04/22/21 15:31 Pulse Ox 97 04/22/21 15:31 04/22/21 04/22/21 04/22/21 06:59 14:59 22:59 Intake Total 1197.5 / 2400.0 200 / 200 100 / 300 Balance 1197.5 / 2300.0 200 / 200 100 / 300 Weight last 48 hrs Weight 85.23 kg Weight 83.007 kg Weight 83.007 kg Physical Exam Narrative: EXAM NARRATIVE: General: No acute distress, AO x3 HEENT: PERRLA, pupils bilaterally equal and reactive Chest: Normal vesicular breath sounds, no added sounds, equal good air entry bi laterally CVS: S1-S2 regular, no murmurs, no tachycardia, no gallops, no rubs Abdomen: Soft, nontender, no organomegaly, bowel sounds present Neuro: No focal deficits, no facial deformity, AO x3, power 5/5 in all limbs Data : 04/22/21 04:51 04/22/21 04:51 Micro: Microbiology 04/21/21 16:50 Blood Culture - Preliminary Blood NEGATIVE TO DATE 04/21/21 17:05 Blood Culture - Preliminary Blood NEGATIVE TO DATE 04/22/21 11:35 Blood Culture - Preliminary Blood SPECIMEN COLLECTED 04/22/21 11:40 Blood Culture - Preliminary Blood SPECIMEN COLLECTED 04/21/21 18:28 MRSA Culture - Final Nose 04/21/21 11:14 Bacterial Antigens - Final Urine Kidney A&P Assessment and plan (1) Abdominal pain: Status: Acute (2) SBO (small bowel obstruction): Status: Acute (3) Benign essential hypertension with target blood pressure below 140/90: Status: Acute (4) Diastolic heart failure: Status: Acute (5) Chronic episodic atrial fibrillation: Status: Acute (6) Chronic venous insufficiency of lower extremity: Status: Acute (7) Sepsis: Status: Acute Additional A&P Information Sepsis: Ruled in by tachycardia, high-grade fever, leukocytosis. MRSA negative, Urine legionella , bacterial antigen negative, urine studies negative for any signs of infection. Check lactate, chest x-ray, procalcitonin/blood cultures. Check stool studies. Check COVID-19 antigen and PCR. Isolation precautions. Abdominal pain secondary to possible small bowel obstruction versus ileus versus possible colitis: Given high-grade fevers overnight high suspicion of colitis. Appreciate surgical recommendations. Broaden antibiotic spectrum to imipenem. Stop ciprofloxacin and Flagyl. Abdominal series as per surgical recommendations. Advance to clear liquid diet. Zofran as needed, famotidine twice daily. History of atrial fibrillation: Takes Cardizem 360 mg daily and metoprolol 25 mg oral daily. Start patient on IV Cardizem 10 mg every 6 hours as needed for heart rate of more than 100 bpm and holding for systolic blood pressure of less than 110 mmHg. Metoprolol 5 mg IV every 6 hourly. Switch Eliquis to full dose Lovenox 1 mg/kg body weight every 12 hourly. Once tolerates clear liquid diet well will switch over to oral medications. Diastolic heart failure: No exacerbation at present. Gives history of allergy to oral diuretics in the past with diarrhea and nausea. IV Lasix 20 mg as needed. History of recurrent UTI: Most recently with E. coli. Does have history of Klebsiella UTI in the past. Because of history of recurrent UTIs will avoid Medina catheterization. Full code. Clear liquid diet. Full dose Lovenox will help with DVT prophylaxis as well. Attestations Medical Necessity Statement*: Requires further hospitalization for management of sepsis of unknown origin, abdominal pain secondary to possible colitis versus ileus Time Spent in Patient Care: Greater than 35 minutes (>than 50% of time spent in counselling and/or direct pt care on unit) . Coding Level of Care Code Acute Chargeback Specialist for [facility] Diagnoses Abdominal pain R10.9 SBO (small bowel obstruction) K56.609 Benign essential hypertension with target blood pressure below 140/90 I10 Diastolic heart failure I50.30 Chronic episodic atrial fibrillation I48.20 Chronic venous insufficiency of lower extremity I87.2 Sepsis A41.9
[2021-04-22 19:55] LABS: Procalcitonin 0.59 ng/mL (0-0.5)
--- NOTE | 2021-04-22 20:52 | PC.NURSE ---
I reported high temp 100.9 to nurse
[2021-04-22] MEDS: ipratropium-albuterol 3 mL Neb INHALATION (21:42)
[2021-04-23] VITALS (18 sets, daily range): BP systolic 101–131; BP diastolic 66–77; PULSE 71–121; RESP 16–19; TEMP 36.9–39.4; O2SAT 92–95
--- NOTE | 2021-04-23 00:01 | PC.NURSE ---
I reported high temp 100.6 and high pluse 109 to nurse
[2021-04-23] MEDS: acetaminophen 1,000 MG/100 ML PIGGYBACK 400 MG IV (01:22)
--- NOTE | 2021-04-23 03:31 | PC.NURSE ---
I reported high temp 99.9 and high pluse 104 to nurse
[2021-04-23] MEDS: enoxaparin 80 mg/0.8 mL Syringe SUBCUT ×2 (04:19→17:41)
[2021-04-23] MEDS: famotidine 20 mg/2 mL INJ IVP ×2 (04:24→19:43)
[2021-04-23] MEDS: metoprolol tartrate 1 mg/1 mL SDV 5 mL 5 MG IVP (04:24)
[2021-04-23] MEDS: ipratropium-albuterol 3 mL Neb INHALATION ×4 (04:37→21:13)
[2021-04-23 07:45] LABS: Basophils % 0.3 %; Eosinophils % 0.1 %; Hematocrit 41.5 % (37.0-47.0); Hemoglobin 12.8 g/dL (11.5-15.3); Lymphocytes # 0.8 10^3/uL (0.8-4.8); Lymphocytes % 5.8 %; Mean Corpuscular HGB Conc 30.8 g/dL (30.0-36.0); Mean Corpuscular Hemoglobin 31.2 pg (28.0-34.0); Mean Corpuscular Volume 101.2 fL (81-99); Mean Platelet Volume 10.8 fL (7.4-10.4); Monocytes # 0.8 10^3/uL (0.2-0.9); Neutrophils # 11.59 10^3/uL (1.8-7.7); Nucleated Red Blood Cells % 0 %; Platelet Count 160 10^3/cmm (130-400); Red Cell Distribution Width 14.5 % (12.1-15.1); White Blood Count 13.3 10^3/uL (4.0-10.0)
[2021-04-23 07:50] LABS: Blood Urea Nitrogen 7 mg/dL (8-23); Calcium 8.6 mg/dL (8.5-10.5); Carbon Dioxide 21 mmol/L (22-29); Chloride 107 mmol/L (98-107); Glucose 106 mg/dL (65-115); Osmolality Calculated 282 mOsm/kg (285-295); Sodium 137 mmol/L (136-145)
[2021-04-23 07:55] LABS: Anion Gap 12.6 (5-19); Potassium 3.6 mmol/L (3.5-5.1)
[2021-04-23] MEDS: D5-NS 0.45% + KCL 20 mEq 20 MEQ/1,000 ML BAG 50 MEQ IV (08:52)
[2021-04-23] MEDS: dilTIAZem 60 mg Tablet PO ×3 (10:12→21:07)
--- NOTE | 2021-04-23 10:45 | PC.CHAP ---
Pastoral Care Encounter/Spiritual Assessment Type of Contact [] Declined viscose department worker visit [] Patient/Family/Request visit [] Outpatient visit [] Follow-up visit [] Physician referral [] Code/Alert [] Routine visit [] Staff referral [] Actively dying [] Patient sleeping [] Family support [] [] Out of room [] Palliative care [] [] Receiving care in room [] Pre-surgical visit [] Trauma [] Long length of stay [] ICU visit [XX] Other: Isolation Relational/Emotional Strength [] Patient feels connected with others/family/visitors/staff [] Distress [] Loneliness/isolation [] Abandonment Spirituality of Patient [] Person of Jessica [] Attends Mandaeism of their Jessica [] Believes in Prayer [] Reads Bible or Yarsani materials [] There are Spiritual issues to be addressed Building Services Coordinator Interventions [] Prayer [] Active listening [] Non-anxious presence [] Spiritual/emotional support [] Crisis/trauma care [] Spiritual counseling [] Bereavement support [] Provided bereavement packet [] Provided Bible/devotional materials [] Provided toy/stuffed animal, coloring book to patient or family member [] Provided Communion [] Anointing/[place] [] Salvation [] Completed spiritual assessment [] Other: Impact on Illness or Injury [] Angry [] Fearful [] Anxious [] Often cries [] Exhaustion [] Unable to work [] Unable to attend nondenominational [] Unable to walk/stand [] Unable to read [] Unable to drive [] Unable to eat/drink [] Unable to sleep [] Unable to be with family [] Patient intubated [] Other: Summary Time spent with patient
--- NOTE | 2021-04-23 12:08 | PC.NUTR ---
Nutrition assessment completed for MST score of 2 (wt loss, decreased appetite) and dx SBO. Consumed 25% of clear liquid tray this AM. Receiving 200 kcal/day from D5 @ 50 ml/hr. Recommend CLEARANCE CUTTER eval d/t documented chewing/swallowing difficulty at admit. Recommend advance diet as tolerated. See full RD assessment for further details.
--- NOTE | 2021-04-23 13:11 | P.PN_ITS ---
Subjective Subjective: Interval history: On exam patient is a lot more awake today. Denies any nausea vomiting, headache. States she tolerated clear liquid diet well. Still complaining of abdominal pain. T-max in last 24 hours 102.9 last night. Since morning 99.4. Had to formed bowel movements. C. difficile came back positive yesterday. Vitals/I&O/Wt Last Vital Signs Temp 99.4 F 04/23/21 11:44 Pulse 111 H 04/23/21 11:44 Resp 18 04/23/21 11:44 BP 102/66 04/23/21 11:44 Pulse Ox 94 04/23/21 11:44 04/22/21 04/23/21 04/23/21 22:59 06:59 14:59 Intake Total 200 / 400 1005 / 1405 535 / 535 Output Total 100 / 100 Balance 100 / 300 1005 / 1305 535 / 535 Weight last 48 hrs Weight 86.75 kg Weight 85.23 kg Weight 83.007 kg Physical Exam Narrative: EXAM NARRATIVE: General: No acute distress, AO x3 HEENT: PERRLA, pupils bilaterally equal and reactive Chest: Normal vesicular breath sounds, no added sounds, equal good air entry bilaterally CVS: S1-S2 regular, no murmurs, no tachycardia, no gallops, no rubs Abdomen: Soft, nontender, no organomegaly, bowel sounds present Neuro: No focal deficits, no facial deformity, AO x3, power 5/5 in all limbs Data : 04/23/21 07:23 04/23/21 07:23 Micro: Microbiology 04/22/21 11:40 Blood Culture - Preliminary Blood NEGATIVE TO DATE 04/22/21 11:35 Blood Culture - Preliminary Blood NEGATIVE TO DATE 04/23/21 01:00 Stool Lactoferrin - Final Stool C.difficile Toxin B Gene (PCR) - Final Occult Blood (FIT) - Final 04/21/21 16:50 Blood Culture - Preliminary Blood NEGATIVE TO DATE 04/21/21 17:05 Blood Culture - Preliminary Blood NEGATIVE TO DATE 04/21/21 18:28 MRSA Culture - Final Nose A&P Assessment and plan (1) Sepsis: Status: Acute (2) C. difficile colitis: Status: Acute (3) Abdominal pain: Status: Acute (4) Benign essential hypertension with target blood pressure below 140/90: Status: Acute (5) Diastolic heart failure: Status: Acute (6) Chronic episodic atrial fibrillation: Status: Acute (7) Chronic venous insufficiency of lower extremity: Status: Acute Additional A&P Information Sepsis: Ruled in by tachycardia, high-grade fever, leukocytosis. MRSA negative, Urine legionella , bacterial antigen negative, urine studies negative for any signs of infection. C. difficile positive. COVID-19 PCR negative. Abdominal pain most likely secondary to C. difficile colitis leading to mild ileus: Ileus have resolved. Appreciate surgical recommendations. Continue imipenem for now. Oral vancomycin 125 4 times daily. Advance to mechanical soft. Concerns for on and off aspiration. Will do swallow evaluation with speech therapy. Abdominal series as per surgical recommendations. Advance diet further. If able to tolerate diet we will stop IV fluids. Zofran as needed, famotidine twice daily. History of atrial fibrillation: Takes Cardizem 360 mg daily and metoprolol 25 mg oral daily. Start on Cardizem 60 mg 4 times daily. Will uptitrate dose as she is able to tolerate diet. Metoprolol 5 mg every 6 hours as needed for heart rate of more than 100. Continue with Lovenox 1 mg/kg body weight every 12 hourly for now. If tolerating oral diet well can switch over to Eliquis from evening. Diastolic heart failure: No exacerbation at present. Gives history of allergy to oral diuretics in the past with diarrhea and nausea. IV Lasix 20 mg as needed. History of recurrent UTI: Most recently with E. coli. Does have history of Klebsiella UTI in the past. Because of history of recurrent UTIs will avoid Medina catheterization. Full code. Mechanical soft diet. Full dose Lovenox will help with DVT prophylaxis as well. Tried calling son to update him regarding Ms. Díaz's health but unable to get in touch for going directly to [facility] which has not been set up. Attestations Medical Necessity Statement*: Requires further hospitalization for management of sepsis secondary to C. difficile, ileus with history of atrial fibrillation diastolic heart failure while diet is advanced. Time Spent in Patient Care: Greater than 35 minutes (>than 50% of time spent in counselling and/or direct pt care on unit) . Coding Level of Care Code Acute Steel Post Installer Supervisor for [facility] Diagnoses Sepsis A41.9 C. difficile colitis A04.72 Abdominal pain R10.9 Benign essential hypertension with target blood pressure below 140/90 I10 Diastolic heart failure I50.30 Chronic episodic atrial fibrillation I48.20 Chronic venous insufficiency of lower extremity I87.2
[2021-04-23] MEDS: morphine 4 mg/mL SDV 1 mL 1 MG IVP ×2 (13:59→19:42)
--- NOTE | 2021-04-23 14:15 | PM.PN ---
Subjective Subjective: Interval history: Patient continues to complain of abdominal pain, no nausea or vomiting, stool cultures positive for C. difficile Vitals/I&O/Wt Last Vital Signs Temp 99.4 F 04/23/21 11:44 Pulse 111 H 04/23/21 11:44 Resp 18 04/23/21 11:44 BP 102/66 04/23/21 11:44 Pulse Ox 94 04/23/21 11:44 04/22/21 04/23/21 04/23/21 22:59 06:59 14:59 Intake Total 200 / 1405 1005 / 1405 535 / 535 Output Total 100 / 100 Balance 100 / 1305 1005 / 1305 535 / 535 Weight last 48 hrs Weight 191 lb 4 oz Weight 187 lb 14.4 oz Weight 183 lb Physical Exam Narrative: EXAM NARRATIVE: Abdomen: Soft, tender, non distended Data : 04/23/21 07:23 04/23/21 07:23 Micro: Microbiology 04/22/21 11:40 Blood Culture - Preliminary Blood NEGATIVE TO DATE 04/22/21 11:35 Blood Culture - Preliminary Blood NEGATIVE TO DATE 04/23/21 01:00 Stool Lactoferrin - Final Stool C.difficile Toxin B Gene (PCR) - Final Occult Blood (FIT) - Final 04/21/21 16:50 Blood Culture - Preliminary Blood NEGATIVE TO DATE 04/21/21 17:05 Blood Culture - Preliminary Blood NEGATIVE TO DATE 04/21/21 18:28 MRSA Culture - Final Nose A&P Assessment and plan (1) C. difficile colitis: 75-year-old female with history of nausea vomiting and diarrhea, stool cultures positive for C. difficile colitis Oral vancomycin 125 mg p.o. 4 times daily for 10 days At this point no surgical intervention is indicated, will sign off Status: Acute Attestations Medical Necessity Statement*: C. difficile colitis Coding Level of Care Code Acute Licensed Physical Therapy Assistant for [facility] Diagnoses C. difficile colitis A04.72
[2021-04-23] MEDS: acetaminophen 325 mg Tablet 650 MG PO (15:56)
[2021-04-24] VITALS (17 sets, daily range): BP systolic 99–121; BP diastolic 62–79; PULSE 74–107; RESP 16–20; TEMP 36.3–38.4; O2SAT 91–96
[2021-04-24] MEDS: morphine 4 mg/mL SDV 1 mL 1 MG IVP ×3 (00:23→10:12)
[2021-04-24] MEDS: ipratropium-albuterol 3 mL Neb INHALATION ×2 (03:53→08:05)
[2021-04-24] MEDS: enoxaparin 80 mg/0.8 mL Syringe SUBCUT (04:22)
[2021-04-24] MEDS: dilTIAZem 60 mg Tablet PO ×4 (04:22→20:30)
[2021-04-24] MEDS: acetaminophen 325 mg Tablet 650 MG PO (04:22)
[2021-04-24] MEDS: D5-NS 0.45% + KCL 20 mEq 20 MEQ/1,000 ML BAG 50 MEQ IV (04:26)
[2021-04-24] MEDS: famotidine 20 mg/2 mL INJ IVP (04:57)
[2021-04-24 06:39] LABS: Basophils # 0.1 10^3/uL (0.0-0.1); Basophils % 0.3 %; Eosinophils # 0.1 10^3/uL (0.0-0.8); Eosinophils % 0.3 %; Hematocrit 38.4 % (37.0-47.0); Hemoglobin 11.8 g/dL (11.5-15.3); Lymphocytes # 1.6 10^3/uL (0.8-4.8); Lymphocytes % 10.6 %; Mean Corpuscular HGB Conc 30.7 g/dL (30.0-36.0); Mean Corpuscular Hemoglobin 30.6 pg (28.0-34.0); Mean Corpuscular Volume 99.7 fl (81-99); Mean Platelet Volume 11.3 fL (7.4-10.4); Monocytes % 6.8 %; Neutrophils % 81.5 %; Nucleated Red Blood Cells % 0 %; Platelet Count 202 10^3/cmm (130-400); Red Blood Count 3.85 10^6/uL (4.1-5.3); Red Cell Distribution Width 14.3 % (12.1-15.1); White Blood Count 15.2 10^3/uL (4.0-10.0)
[2021-04-24 07:06] LABS: Alanine Aminotransferase < 5 U/L (0-33); Albumin Level 2.4 g/dL (3.5-5.2); Alkaline Phosphatase 144 IU/L (35-105); Anion Gap 13.1 (5-19); Aspartate Amino Transferase 8 U/L (0-32); Blood Urea Nitrogen 6 mg/dL (8-23); Calcium 9.3 mg/dL (8.5-10.5); Carbon Dioxide 22 mmol/L (22-29); Chloride 105 mmol/L (98-107); Globulin 2.5 g/dL (1.3-4.6); Glucose 87 mg/dL (65-115); Osmolality Calculated 281 mOsm/kg (285-295); Potassium 3.1 mmol/L (3.5-5.1); Sodium 137 mmol/L (136-145); Total Bilirubin 0.4 mg/dL (0.15-1.2); Total Protein 4.9 g/dL (6.6-8.7)
[2021-04-24] MEDS: vancomycin 1,000 MG in sodium chloride 0.9% 250 ML 250 MG IV (07:30)
--- NOTE | 2021-04-24 08:10 | PC.SOCIAL ---
IM follow up completed and discussed with Son Tushar. He verbalized understanding.
--- NOTE | 2021-04-24 09:32 | CTR_ITS ---
PROCEDURE INFORMATION: Exam: CTA Chest With Contrast Exam date and time: 04/24/2021 9:32 AM Age: 75 years old Clinical indication: Fever and shortness of breath; Prior surgery; Surgery date: 6+ months; Surgery type: Appy, gb, hyst, colon; Additional info: Fever, cdiff, SOB, high dimer TECHNIQUE: Imaging protocol: Computed tomographic angiography of the chest with contrast. 3D rendering (Not supervised by radiologist): MIP and/or 3D reconstructed images were created by the technologist. Radiation optimization: All CT scans at this facility use at least one of these dose optimization techniques: automated exposure control; mA and/or kV adjustment per patient size (includes targeted exams where dose is matched to clinical indication); or iterative reconstruction. Contrast material: OMNI 350; Contrast volume: 95 ml; Contrast route: INTRAVENOUS (IV); COMPARISON: CT chest abd pel wo con 03/27/2021 6:13 PM RADIATION DOSE METRICS: Total DLP (mGy-cm): 2700.14 FINDINGS: Limitations: Study somewhat limited due to streak artifact created by the patient being scanned with the arms at the sides. Pulmonary arteries: There is no evidence of filling defects within the pulmonary arterial circulation to suggest pulmonary embolism. Aorta: There is mild atherosclerotic calcification of the aortic arch and descending thoracic aorta. There is no thoracic aortic aneurysm or dissection. Lungs: There is no acute infiltrate. There is some minimal dependent atelectasis at the left lung base. Small nodule left lung such as an image number [id number] not changed since 03/15/2019. No further follow-up is necessary. Pleural spaces: Unremarkable. No pneumothorax. No pleural effusion. Heart: Unremarkable. No cardiomegaly. No pericardial effusion. Lymph nodes: There is no evidence of lymphadenopathy. Bones/joints: Chronic fracture of the sternal manubrium not significantly changed. There are extensive degenerative changes in the thoracic spine. There is proximal right humerus fracture not significantly changed. Soft tissues: Unremarkable. IMPRESSION: 1. No evidence of pulmonary embolism. 2. Fractures of the proximal right humerus and sternum not changed from the previous study. PROCEDURE INFORMATION: Exam: CT Abdomen And Pelvis With Contrast Exam date and time: 04/24/2021 9:32 AM Age: 75 years old Clinical indication: Fever and shortness of breath; Prior surgery; Surgery date: 6+ months; Surgery type: Appy, gb, hyst, colon; Additional info: Fever, cdiff, SOB, high dimer TECHNIQUE: Imaging protocol: Computed tomography of the abdomen and pelvis with contrast. Radiation optimization: All CT scans at this facility use at least one of these dose optimization techniques: automated exposure control; mA and/or kV adjustment per patient size (includes targeted exams where dose is matched to clinical indication); or iterative reconstruction. Contrast material: OMNI 350; Contrast volume: 95 ml; Contrast route: INTRAVENOUS (IV); COMPARISON: 1. CT chest abd pel wo con 03/27/2021 6:[address] abdomen pelvis w con* [id number] 04/21/2021 10:26:23 AM RADIATION DOSE METRICS: Total DLP (mGy-cm): 2700.14 FINDINGS: Liver: There is no focal abnormality within the liver. Gallbladder and bile ducts: There has been a cholecystectomy. Calcification in the distal common bile duct may represent small stone not changed from previous. Pancreas: Pancreas is mostly fatty. Spleen: The spleen is normal. Adrenal glands: The adrenal glands are normal. The adrenal glands are normal. Kidneys and ureters: There are multiple left renal collecting system calcifications. Left kidney is moderately atrophic. There is no evidence of hydronephrosis. There is no stone along the course of either ureter. Stomach and bowel: There is no evidence of intestinal obstruction. There is abnormal mucosal thickening involving the left colon from the distal transverse colon through the sigmoid. There is some fluid along the pericolic gutter on the left and some mild inflammatory stranding in the pericolonic fat. Findings represent nonspecific colitis hand are compatible with the given clinical history of C diff. Given the stranding in the adjacent fat one could not exclude some mild diverticulitis. Appendix: Not identified Intraperitoneal space: There is no evidence of free intraperitoneal fluid. Vasculature: The aorta demonstrates moderate atherosclerotic calcification. There is no evidence of an abdominal aortic aneurysm. Lymph nodes: There is no evidence of lymphadenopathy. Urinary bladder: Unremarkable as visualized. Reproductive: There has been a hysterectomy. Bones/joints: There is grade 1-2 spondylolisthesis at L5-S1 with severe narrowing and fusion of the L5-S1 disc space not significantly changed. There is chronic compression deformity of the superior endplate of L3 not significantly changed. Soft tissues: Unremarkable. CT/CT angio chest w abd pel w con IMPRESSION: 1. Colitis involving the descending colon 2. No change in common duct stone 3. Left nephrolithiasis Radiation Dose CTDIVOL = (mGy): DLP = 2700.14~2700.14 (mGy-cm)
[2021-04-24] MEDS: potassium chloride ER 20 mEq Tablet 40 MEQ PO (10:12)
[2021-04-24 10:45] LABS: Lactate (Lactic Acid level) 1.6 mmol/L (0.5-2.2)
--- NOTE | 2021-04-24 13:40 | P.PN_ITS ---
Subjective Subjective: Interval history: In last 24 hours patient had a T-max of 101.9 last night. Today morning 99. On examination lying comfortably in bed. States feeling little better but still has abdominal pain. As per the nurse patient has had 3 loose bowel movements. Patient states she does not have vomiting anymore and nausea has improved than mild dry heaving last night. She states she is able to tolerate soft diet for now. Patient is asking for medication to help with sleeping overnight. We discussed about trazodone and patient is agreeable. Vitals/I&O/Wt Last Vital Signs Temp 98.9 F 04/24/21 11:40 Pulse 100 04/24/21 11:40 Resp 20 H 04/24/21 11:40 BP 121/77 04/24/21 11:40 Pulse Ox 96 04/24/21 11:40 04/23/21 04/24/21 04/24/21 22:59 06:59 14:59 Intake Total 440 / 975 978.333 / 1953.333 850 / 850 Output Total 900 / 901 350 / 350 Balance 439 / 974 78.333 / 1052.333 500 / 500 Weight last 48 hrs Weight 85.185 kg Weight 86.75 kg Physical Exam Narrative: EXAM NARRATIVE: General: No acute distress, AO x3 HEENT: PERRLA, pupils bilaterally equal and reactive Chest: Normal vesicular breath sounds, no added sounds, equal good air entry bilaterally CVS: S1-S2 regular, no murmurs, no tachycardia, no gallops, no rubs Abdomen: Soft, tenderness all over the abdomen, no organomegaly, bowel sounds present Neuro: No focal deficits, no facial deformity, AO x3, power 5/5 in all limbs Data : 04/24/21 05:40 04/24/21 05:40 Micro: Microbiology 04/24/21 10:02 Blood Culture - Preliminary Blood SPECIMEN COLLECTED 04/24/21 10:06 Blood Culture - Preliminary Blood SPECIMEN COLLECTED 04/22/21 11:35 Blood Culture - Preliminary Blood 04/23/21 01:00 Stool Lactoferrin - Final Stool Enteric Pathogens (PCR) - Final Parasite Antigen Panel - Final C.difficile Toxin B Gene (PCR) - Final Occult Blood (FIT) - Final 04/22/21 11:40 Blood Culture - Preliminary Blood NEGATIVE TO DATE A&P Assessment and plan (1) Sepsis: Status: Acute (2) C. difficile colitis: Status: Acute (3) Gram-positive bacteremia: Status: Acute (4) Abdominal pain: Status: Acute (5) Diastolic heart failure: Status: Acute (6) Chronic venous insufficiency of lower extremity: Status: Acute (7) Chronic episodic atrial fibrillation: Status: Acute (8) Benign essential hypertension with target blood pressure below 140/90: Status: Acute Additional A&P Information Sepsis: Ruled in by tachycardia, high-grade fever, leukocytosis. MRSA negative, Urine legionella , bacterial antigen negative, urine studies negative for any signs of infection. C. difficile positive. COVID-19 PCR still awaited. Continue isolation precautions. Abdominal pain most likely secondary to C. difficile colitis leading to mild ileus: Ileus have resolved. Appreciate surgical recommendations. 1 out of 3 bottles from admission blood cultures positive for GPC. Given worsening leukocytosis, daily fevers for now we will start patient on IV vancomycin. Continue with imipenem, increase oral vancomycin to 250 mg every 6 hours. Continue with mechanical soft diet. CT chest abdomen pelvis to rule out infective source along with further monitoring of colitis. Appreciate surgical recommendations. We will reconsult if and when needed. Zofran as needed, famotidine twice daily. History of atrial fibrillation: Takes Cardizem 360 mg daily and metoprolol 25 mg oral daily. Patient tolerating oral well. Continue with Cardizem 60 mg 4 times a day, for now keep patient on metoprolol 5 mg IV every 6 hours as needed for heart rate of more than 100. Switch from full dose Lovenox to home dose of Eliquis 5 mg twice daily. Telemetry Diastolic heart failure: No exacerbation at present. Gives history of allergy to oral diuretics in the past with diarrhea and nausea. IV Lasix 20 mg as needed. History of recurrent UTI: Most recently with E. coli. Does have history of Klebsiella UTI in the past. Because of history of recurrent UTIs will avoid Medina catheterization. Trazodone for insomnia. Restart other chronic home oral medications. Med rec done now. Full code. Mechanical soft diet. Full dose Lovenox will help with DVT prophylaxis as well. Replete potassium. Tried calling son to update him regarding Ms. Díaz's health but unable to get in touch for going directly to [facility] which has not been set up. Attestations Medical Necessity Statement*: Patient requires further hospitalization for management of sepsis secondary to C. difficile colitis, GPC bacteremia in setting of history of recurrent UTI, atrial fibrillation while diet is advanced. Time Spent in Patient Care: Greater than 35 minutes (>than 50% of time spent in counselling and/or direct pt care on unit) . Coding Level of Care Code Acute Fast Food Manager for [facility] Diagnoses Sepsis A41.9 C. difficile colitis A04.72 Gram-positive bacteremia R78.81 Abdominal pain R10.9 Diastolic heart failure I50.30 Chronic venous insufficiency of lower extremity I87.2 Chronic episodic atrial fibrillation I48.20 Benign essential hypertension with target blood pressure below 140/90 I10
[2021-04-24] MEDS: HYDROcodone-acetaminophen 5-325 mg Tablet 1 TAB PO ×2 (14:45→20:24)
[2021-04-24] MEDS: iohexol 350 mg/mL 100 mL Btl IV (19:43)
[2021-04-24] MEDS: apixaban 5 mg Tablet PO (20:24)
[2021-04-24] MEDS: pantoprazole DR 40 mg Tablet PO (20:24)
[2021-04-24] MEDS: trazodone 50 mg Tablet PO (20:24)
[2021-04-24] MEDS: nystatin cream 30 gm 1 APPLIC TOPICAL (20:28)
[2021-04-24 21:18] LABS: Quest SARS-CoV-2 RNA NOT DETECTED (NOT DETECTED)
[2021-04-25] MEDS: HYDROcodone-acetaminophen 5-325 mg Tablet 1 TAB PO ×2 (03:16→08:36)
[2021-04-25 03:37] VITALS: BP 121/79; PULSE 95; RESP 17; TEMP 36.7; O2SAT 94
[2021-04-25] MEDS: dilTIAZem 60 mg Tablet PO ×2 (04:47→08:37)
[2021-04-25 06:00] VITALS: PULSE 94
[2021-04-25 06:27] LABS: Basophils % 0.4 %; Eosinophils # 0.2 10^3/uL (0.0-0.8); Eosinophils % 2.7 %; Hematocrit 38.3 % (37.0-47.0); Hemoglobin 11.8 g/dL (11.5-15.3); Lymphocytes # 1.4 10^3/uL (0.8-4.8); Lymphocytes % 15.7 %; Mean Corpuscular HGB Conc 30.8 g/dL (30.0-36.0); Mean Corpuscular Hemoglobin 30.9 pg (28.0-34.0); Mean Corpuscular Volume 100.3 fl (81-99); Mean Platelet Volume 11.1 fL (7.4-10.4); Monocytes # 0.6 10^3/uL (0.2-0.9); Neutrophils # 6.69 10^3/uL (1.8-7.7); Neutrophils % 73.9 %; Nucleated Red Blood Cells % 0 %; Platelet Count 203 10^3/cmm (130-400); Red Blood Count 3.82 10^6/uL (4.1-5.3); Red Cell Distribution Width 14.3 % (12.1-15.1); White Blood Count 9.1 10^3/uL (4.0-10.0)
[2021-04-25 07:04] LABS: Alanine Aminotransferase < 5 U/L (0-33); Albumin Level 2.4 g/dL (3.5-5.2); Alkaline Phosphatase 140 IU/L (35-105); Anion Gap 10.5 (5-19); Aspartate Amino Transferase 7 U/L (0-32); Blood Urea Nitrogen 6 mg/dL (8-23); Calcium 9.6 mg/dL (8.5-10.5); Carbon Dioxide 23 mmol/L (22-29); Chloride 109 mmol/L (98-107); Globulin 2.6 g/dL (1.3-4.6); Glucose 82 mg/dL (65-115); Osmolality Calculated 285 mOsm/kg (285-295); Potassium 3.5 mmol/L (3.5-5.1); Sodium 139 mmol/L (136-145); Total Bilirubin 0.2 mg/dL (0.15-1.2)
[2021-04-25 08:00] VITALS: BP 136/77; PULSE 88; RESP 17; TEMP 36.4; O2SAT 97
[2021-04-25] MEDS: pantoprazole DR 40 mg Tablet PO (08:37)
[2021-04-25] MEDS: D5-NS 0.45% + KCL 20 mEq 20 MEQ/1,000 ML BAG 50 MEQ IV (08:37)
[2021-04-25] MEDS: apixaban 5 mg Tablet PO (08:37)
[2021-04-25] MEDS: nystatin cream 30 gm 1 APPLIC TOPICAL (08:37)
[2021-04-25] MEDS: tizanidine 4 mg Tablet PO (08:37)
--- NOTE | 2021-04-25 08:45 | PC.NURSE ---
Patient assisted to bedside commode, voided 400mL of urine, patient reports I have to push to be able to get my urine out. Notified physician. Small amount of BM noted. green in color, watery. Patient sat up in chair for breakfast, placed non slip socks for fall prevention.
--- NOTE | 2021-04-25 10:28 | PM.DCS ---
Discharge Providers Date of Admission: 04/21/21 12:40 Date of Discharge: April 25, 2021 Attending Provider at Admission: Jam Mcdonough MD Attending Provider at Discharge: Jam Mcdonough MD Consults: Surgery: Dr. Burton Primary Care Provider: lAyce Lozoya DO Diagnoses at Discharge Discharge Diagnosis (1) Sepsis: Status: Acute (2) C. difficile colitis: Status: Acute (3) Gram-positive bacteremia: Status: Acute (4) Abdominal pain: Status: Acute (5) Diastolic heart failure: Status: Acute (6) Chronic venous insufficiency of lower extremity: Status: Acute (7) Chronic episodic atrial fibrillation: Status: Acute (8) Benign essential hypertension with target blood pressure below 140/90: Status: Acute Reason for Visit Reason for Visit: DIARRHEA X 3 DAYS Hospital Course Hospital Course Bre Lara is a 75 year old female with past medical history of atrial fibrillation, on chronic anticoagulation, recent femur fracture, Klebsiella UTI, hypertension, COPD, congestive heart failure with preserved ejection fraction she presented to the ER today with history of having 6-7 loose bowel movement a day for last 2 weeks but since last night start him multiple episodes of vomiting so presented to the ER because she was feeling dizzy. She has history of hemorrhoids. Had last EGD and colonoscopy last year and was noted to have moderate sigmoid diverticulosis and internal hemorrhoids. Patient under the hospital for possible small bowel obstruction versus ileus versus colitis. Surgery was consulted and she was treated conservatively at the start for bowel obstruction and NG tube was placed. Eventually patient started having bowel movements. During hospitalization she was found to be spiking fevers going up to 101 Fahrenheit for which infectious work-up was done and she was found positive for C. difficile colitis. COVID-19 PCR was negative. Blood cultures from admission showed 1 out of 4 bottles positive for GPC's which was ruled out as contaminant. Repeat blood cultures have so far remained negative. Patient was started on oral vancomycin for C. difficile colitis and since then she has stopped having fevers. Patient has been afebrile for over 36 hours. Her bowel movements are more formed and she is back to her baseline with mentation. During hospitalization patient also complained of ongoing urinary frequency for over a year. Urinalysis was done which was negative for UTI. Patient symptoms are most likely secondary to uterine prolapse for which she has been advised to follow-up with gynecology. She has been advised to follow-up with a primary care provider within next 1 week. She is been discharged in hemodynamically stable condition with advised to continue taking oral vancomycin for next 14 days, maintaining her hydration with up to 2 L of liquid including juices/Powerade daily. She is also advised to continue taking GI soft diet with multiple small frequent meals during the day and advance gradually to her usual diet within next 1 week. Physical Exam Narrative: EXAM NARRATIVE: General: No acute distress, AO x3 HEENT: PERRLA, pupils bilaterally equal and reactive Chest: Normal vesicular breath sounds, no added sounds, equal good air entry bilaterally CVS: S1-S2 regular, no murmurs, no tachycardia, no gallops, no rubs Abdomen: Soft, tenderness all over the abdomen, no organomegaly, bowel sounds present Neuro: No focal deficits, no facial deformity, AO x3, power 5/5 in all limbs Discharge Data Data Completed and Pending: Completed Studies During Hospitalization Category Date Time Status CT abdomen pelvis w con* [id number] Stat Cat Scan 04/21/21 10:[address] angio chest w abd pel w con Rout ine Cat Scan 04/24/21 09:32 Completed XR abdomen min 2V [id number] Routine Exams 04/22/21 06:00 Completed XR acute abdomen series [id number] Urgen t Exams 04/22/21 12:02 Completed XR chest 1V erika ble [id number] Routine Exams 04/22/21 09:17 Completed Pending at discharge Category Date Time Status Blood Culture Sta t Lab 04/21/21 16:50 Results Blood Culture Sta t Lab 04/22/21 11:35 Results Blood Culture Sta t Lab 04/24/21 10:02 Results Labs from last 24 hours 04/25/21 04/25/21 04/24/21 05:33 05:33 10:06 WBC 9.1 RBC 3.82 L Hgb 11.8 Hct 38.3 MCV 100.3 H MCH 30.9 MCHC 30.8 RDW 14.3 Plt Count 203 MPV 11.1 H Neut % (Auto) 73.9 Lymph % (Auto) 15.7 [place] % (Auto) 7.0 Eos % (Auto) 2.7 Baso % (Auto) 0.4 Neut # (Auto) 6.69 Lymph # (Auto) 1.4 [place] # (Auto) 0.6 Eos # (Auto) 0.2 Baso # (Auto) 0.0 Nucleated RBC % (a uto) 0 Nucleated RBCs # 0.0 Sodium 139 Potassium 3.5 Chloride 109 H Carbon Dioxide 23 Anion Gap 10.5 BUN 6 L Creatinine 0.4 L GFR Calculation Not Reportable Glucose 82 Calculated Osmolal ity 285 Lactate 1.6 Calcium 9.6 Total Bilirubin 0.2 AST 7 ALT < 5 Alkaline Phosphata se 140 H Total Protein 5.0 L Albumin 2.4 L Globulin 2.6 Procalcitonin 6.60 H SARS-CoV-2 RNA (RT -PCR) 04/23/21 14:15 WBC RBC Hgb Hct MCV MCH MCHC RDW Plt Count MPV Neut % (Auto) Lymph % (Auto) [place] % (Auto) Eos % (Auto) Baso % (Auto) Neut # (Auto) Lymph # (Auto) [place] # (Auto) Eos # (Auto) Baso # (Auto) Nucleated RBC % (a uto) Nucleated RBCs # Sodium Potassium Chloride Carbon Dioxide Anion Gap BUN Creatinine GFR Calculation Glucose Calculated Osmolal ity Lactate Calcium Total Bilirubin AST ALT Alkaline Phosphata se Total Protein Albumin Globulin Procalcitonin SARS-CoV-2 RNA (RT -PCR) Not detected Addt'l Data from Hospital Stay: Abnormal lab results 04/25/21 04/25/21 Range/Units 05:33 05:33 RBC 3.82 L (4.1-5.3) 10^6/u L MCV 100.3 H (81-99) fl MPV 11.1 H (7.4-10.4) fL Chloride 109 H (98-107) mmol/L BUN 6 L (8-23) mg/dL Creatinine 0.4 L (0.5-0.9) mg/dL Alkaline Phosphata se 140 H (35-105) IU/L Total Protein 5.0 L (6.6-8.7) g/dL Albumin 2.4 L (3.5-5.2) g/dL Procalcitonin 6.60 H (0-0.5) ng/mL Laboratory Results WBC 9.1 10^3/uL (4.0- 10.0) 04/25/21 05:33 RBC 3.82 10^6/uL (4.1 -5.3) L 04/25/21 05:33 Hgb 11.8 g/dL (11.5-1 5.3) 04/25/21 05:33 Hct 38.3 % (37.0-47.0 ) 04/25/21 05:33 MCV 100.3 fl (81-99) H 04/25/21 05:33 MCH 30.9 pg (28.0-34. 0) 04/25/21 05:33 MCHC 30.8 g/dL (30.0-3 6.0) 04/25/21 05:33 RDW 14.3 % (12.1-15.1 ) 04/25/21 05:33 Plt Count 203 10^3/cmm (130 -400) 04/25/21 05:33 MPV 11.1 fL (7.4-10.4 ) H 04/25/21 05:33 Neut % (Auto) 73.9 % 04/25/21 05:33 Lymph % (Auto) 15.7 % 04/25/21 05:33 [place] % (Auto) 7.0 % 04/25/21 05:33 Eos % (Auto) 2.7 % 04/25/21 05:33 Baso % (Auto) 0.4 % 04/25/21 05:33 Neut # (Auto) 6.69 10^3/uL (1.8 -7.7) 04/25/21 05:33 Lymph # (Auto) 1.4 10^3/uL (0.8- 4.8) 04/25/21 05:33 [place] # (Auto) 0.6 10^3/uL (0.2- 0.9) 04/25/21 05:33 Eos # (Auto) 0.2 10^3/uL (0.0- 0.8) 04/25/21 05:33 Baso # (Auto) 0.0 10^3/uL (0.0- 0.1) 04/25/21 05:33 Nucleated RBC % (a uto) 0 % 04/25/21 05:33 Nucleated RBCs # 0.0 /100WBC 04/25/21 05:33 Sodium 139 mmol/L (136-1 45) 04/25/21 05:33 Potassium 3.5 mmol/L (3.5-5 .1) 04/25/21 05:33 Chloride 109 mmol/L (98-10 7) H 04/25/21 05:33 Carbon Dioxide 23 mmol/L (22-29) 04/25/21 05:33 Anion Gap 10.5 (5-19) 04/25/21 05:33 BUN 6 mg/dL (8-23) L 04/25/21 05:33 Creatinine 0.4 mg/dL (0.5-0. 9) L 04/25/21 05:33 GFR Calculation Not Reportable 04/25/21 05:33 Glucose 82 mg/dL (65-115) 04/25/21 05:33 Calculated Osmolal ity 285 mOsm/kg (285- 295) 04/25/21 05:33 Lactic Acid 1.1 mmol/L (0.5-2 .2) 04/22/21 11:35 Lactate 1.6 mmol/L (0.5-2 .2) 04/24/21 10:06 Calcium 9.6 mg/dL (8.5-10 .5) 04/25/21 05:33 Phosphorus 1.8 mg/dL (2.5-4. 5) L 04/22/21 04:51 Magnesium 1.8 mg/dL (1.7-2. 3) 04/22/21 04:51 Iron 26 ug/dL (37-145) L 04/21/21 11:00 TIBC 231 mcg/dl 04/21/21 11:00 % Saturation 11.2 % (20-50) L 04/21/21 11:00 Unsat Iron Binding 205 ug/dL (112-34 7) 04/21/21 11:00 Total Bilirubin 0.2 mg/dL (0.15-1 .2) 04/25/21 05:33 AST 7 U/L (0-32) 04/25/21 05:33 ALT < 5 U/L (0-33) 04/25/21 05:33 Alkaline Phosphata se 140 IU/L (35-105) H 04/25/21 05:33 NT-Pro-B Natriuret Pep 965 pg/mL (0-450) H 04/21/21 11:00 Total Protein 5.0 g/dL (6.6-8.7 ) L 04/25/21 05:33 Albumin 2.4 g/dL (3.5-5.2 ) L 04/25/21 05:33 Globulin 2.6 g/dL (1.3-4.6 ) 04/25/21 05:33 Lipase 7 U/L (13-60) L 04/21/21 11:00 Procalcitonin 6.60 ng/mL (0-0.5 ) H 04/25/21 05:33 TSH 1.25 uIU/mL (0.27 -4.20) 04/21/21 11:00 Urine Color Yellow (Yellow) 04/21/21 11:14 Urine Appearance Clear (CLEAR) 04/21/21 11:14 Urine pH 8 (5-7) H 04/21/21 11:14 Ur Specific Gravit y 1.010 (1.005-1.0 30) 04/21/21 11:14 Urine Protein Neg (Negative) 04/21/21 11:14 Urine Glucose (UA) Norm (Normal) 04/21/21 11:14 Urine Ketones Negative (Negati ve) 04/21/21 11:14 Urine Blood Neg (Negative) 04/21/21 11:14 Urine Nitrate Negative (Negati ve) 04/21/21 11:14 Urine Bilirubin Neg (Negative) 04/21/21 11:14 Prot Sulfosalicyli c Acd Negative (Negati ve) 04/21/21 11:14 Urine Urobilinogen Neg mg/dL (Negati ve) 04/21/21 11:14 Ur Leukocyte Ilana ase Negative (Negati ve) 04/21/21 11:14 Nasal/Oral COVID-1 9 PCR Cancelled 04/22/21 10:07 SARS-CoV-2 RNA (RT -PCR) Not detected (NO T DETECTED) 04/23/21 14:15 SARS-CoV-2 Ag (Rap id) Negative (Negati ve) 04/22/21 10:08 Impressions Abdomen/Pelvis CT 04/21/21 10:13 IMPRESSION: 1. Fluid distended stomach with air-fluid level. Fluid distended loops of small bowel with air-fluid levels in the midabdomen and left upper quadrant. Ileal bowel loops relatively decompressed. 2. No focal transition point. Persistent air within the colon. Findings likely due to partial small bowel obstruction. Bowel dilatation is similar to previous. 3. Sigmoid diverticulosis. No evidence of acute diverticulitis. 4. Small esophageal hiatal hernia. 5. Tiny calculus or sludge within the distal common bile duct unchanged since 2018. 6. Cholecystectomy. 7. No other significant interval changes. Abdomen X-Ray 04/22/21 06:00 Impression: 1. Dilated upper abdominal small bowel loops, but air has passed into the distal bowel. 2. Left renal calcifications. Chest X-Ray 04/22/21 09:17 Impression: 1. Atherosclerosis and cardiomegaly. 2. Minimal opacity left costophrenic angle which may represent atelectasis. Chest/Abdomen X-ray 04/22/21 12:02 Impression: 1. Cardiomegaly and atherosclerosis unchanged. 2. Improvement in small bowel obstruction with decrease in size of small bowel loops and passage of air into the colon. Chest/Abdomen/Pelvis CT 04/24/21 09:32 IMPRESSION: 1. Colitis involving the descending colon 2. No change in common duct stone 3. Left nephrolithiasis Radiation Dose CTDIVOL = (mGy): DLP = 2700.14~2700.14 (mGy-cm) Microbiology 04/24/21 10:02 Blood Blood Culture - Preliminary NEGATIVE TO DATE 04/24/21 10:06 Blood Blood Culture - Preliminary NEGATIVE TO DATE 04/22/21 11:35 Blood Blood Culture - Preliminary 04/23/21 01:00 Stool Stool Lactoferrin - Final 04/23/21 01:00 Stool Enteric Pathogens (PCR) - Final 04/23/21 01:00 Stool Parasite Antigen Panel - Final 04/23/21 01:00 Stool C.difficile Toxin B Gene (PCR) - Final 04/23/21 01:00 Stool Occult Blood (FIT) - Final 04/22/21 11:40 Blood Blood Culture - Preliminary NEGATIVE TO DATE 04/21/21 16:50 Blood Blood Culture - Preliminary NEGATIVE TO DATE 04/21/21 17:05 Blood Blood Culture - Preliminary NEGATIVE TO DATE 04/21/21 18:28 Nose MRSA Culture - Final 04/21/21 11:14 Urine Kidney Bacterial Antigens - Final Vitals: Last Vital Signs Temp 97.6 F 04/25/21 08:00 Pulse 88 04/25/21 08:00 Resp 17 04/25/21 08:00 BP 136/77 04/25/21 08:00 Pulse Ox 97 04/25/21 08:00 Discharge Plan Discharge Patient Disposition: Home Condition: Stable Prescriptions: New vancomycin 250 mg capsule 250 mg PO QID 14 Days Qty: 56 RF: 0 Continued hydrocodone-acetaminophen 5-325 mg tablet 1 tab PO QID PRN (Reason: Pain) RF: 0 melatonin 5 mg capsule 5 mg PO BEDTIME RF: 0 polyethylene glycol 3350 17 gram/dose powder 17 gm PO DAILY PRN (Reason: Constipation) RF: 0 diltiazem HCl 360 mg capsule,extended release 24hr 360 mg PO DAILY Qty: 90 RF: 3 Eliquis 5 mg tablet 5 mg PO BID Qty: 180 RF: 3 tizanidine 4 mg tablet 4 mg PO DAILY Qty: 30 RF: 0 nystatin 100,000 unit/gram cream 1 applic topical BID 30 Days Qty: 30 RF: 2 cetirizine [Zyrtec] 10 mg Tablet 10 mg PO DAILY RF: 0 acetaminophen [Tylenol 8 Hour] 650 mg Tablet Extended Release 650 mg PO BEDTIME PRN (Reason: Pain) RF: 0 simethicone 166 mg Capsule 166 mg PO PRN RF: 0 vitamin D10-tjkro acid 500-400 mcg Tablet 1 tab PO DAILY RF: 0 pantoprazole 40 mg tablet,delayed release (DR/EC) 40 mg PO BID RF: 0 potassium chloride [Klor-Con 10] 10 mEq tablet extended release 20 meq PO DAILY Qty: 30 RF: 1 ProAir HFA 90 mcg/actuation HFA aerosol inhaler 2 puff INHALATION Q6H PRN (Reason: Shortness Of Breath) RF: 0 metoprolol tartrate 25 mg tablet 25 mg PO DAILY RF: 0 Discharge Orders: Discharge Order (Routine); Ordered 04/25/21 Ordered By: Jam Mcdonough Referrals: Shankar Wilder MD [Physician] - 2 weeks (Uterine prolapse) Alyce Lozoya DO [Primary Care Provider] - 4-7 days Discharge Diet: Advance as tolerated, As Directed and GI Soft Discharge Activity: Resume usual activity Patient Instructions: Opioid Safety Activity Restrictions/Additional Instructions: Please make sure you take multiple small meals during the day. You maintain your hydration by taking up to 2 L of liquid every day including juices/Powerade/Gatorade. Please continue take antibiotics with vancomycin 4 times a day for next 14 days. Please follow-up with a primary care provider within next 1 week. Please follow-up with gynecology within next 2 weeks for possible uterine prolapse given your history of urinary frequency. Discharge Attestations Time Spent in Discharge Care*: greater than 30 min Specific Discharge Activities: educating patient, educating and/or supporting family/caregiver, discussing with correctional case manager/social workers/dc planners, documenting/other paperwork and evaluating patient/reviewing data Status at Discharge: Cognitive status at discharge: cognitively intact, Behavioral status at discharge: cooperative, Functional status at discharge: independent ambulation Overall status at discharge: patient is back to baseline Quality Metrics Clinical Quality Measures During this hospital stay, did patient experience: None Coding Level of Care Code Acute Chg FW DC note Diagnoses Sepsis A41.9 C. difficile colitis A04.72 Gram-positive bacteremia R78.81 Abdominal pain R10.9 Diastolic heart failure I50.30 Chronic venous insufficiency of lower extremity I87.2 Chronic episodic atrial fibrillation I48.20 Benign essential hypertension with target blood pressure below 140/90 I10
--- NOTE | 2021-04-25 11:31 | PC.NURSE ---
discharge instructions provided to patient, verbalized understanding, ride called and belongings gathered, patient dressed and ready to go.
[2021-04-25 12:24] VITALS: BP 136/77; PULSE 88; RESP 17; TEMP 36.4; O2SAT 97
--- NOTE | 2021-04-28 12:14 | PC.SOCIAL ---
discharge follow up phone call made. patient has appointment with Alyce Lozoya tomorrow, 04-29-21. Patient hasn't made her follow up appointment with Dr. Wilder but she will. Patient doesn't wish for me to make the appointment. Pt is taking Vancomycin as prescribed.
== END 2021-04-25 12:25 | disposition home health service (06) | DRG 689 ==
LOC: ER 12:44 → MEDSURG 14:33
PROVIDERS: Nurse Practitioner Family; Surgery; Admitting Provider Student in an Organized Health Care Education/Training Program; Emergency Provider Family Medicine; PCP Family Medicine; Visit Provider Student in an Organized Health Care Education/Training Program
DX: N39.0 Urinary tract infection, site not specified (principal); A41.9 Sepsis, unspecified organism; K56.609 Unspecified intestinal obstruction, unspecified as to partial versus complete obstruction; I48.20 Chronic atrial fibrillation, unspecified; A04.72 Enterocolitis due to Clostridium difficile, not specified as recurrent; K56.7 Ileus, unspecified; I50.32 Chronic diastolic (congestive) heart failure; J44.9 Chronic obstructive pulmonary disease, unspecified; I11.0 Hypertensive heart disease with heart failure; I87.2 Venous insufficiency (chronic) (peripheral); M17.12 Unilateral primary osteoarthritis, left knee; K21.9 Gastro-esophageal reflux disease without esophagitis; R19.7 Diarrhea, unspecified; Z87.440 Personal history of urinary (tract) infections; Z98.49 Cataract extraction status, unspecified eye; Z20.822 Contact with and (suspected) exposure to COVID-19; Z80.3 Family history of malignant neoplasm of breast; Z82.3 Family history of stroke; Z80.0 Family history of malignant neoplasm of digestive organs; Z81.8 Family history of other mental and behavioral disorders; Z90.710 Acquired absence of both cervix and uterus; Z90.49 Acquired absence of other specified parts of digestive tract; Z88.0 Allergy status to penicillin; Z88.2 Allergy status to sulfonamides; Z79.01 Long term (current) use of anticoagulants; Z87.19 Personal history of other diseases of the digestive system
CPT/HCPCS: 36415; 71045; 71275; 74019; 74022; 74177; 80048; 80053; 81003; 82274; 83540; 83550; 83605; 83630; 83690; 83735; 83880; 84100; 84145; 84443; 85025; 86403; 87040; 87205; 87426; 87493; 87506; 87635; 87641; 92523; 92610; 94640; 94664; 96361; 96372; 96374; 96375; 96376; 99285; J0743; J0744; J1630; J1650; J2060; J2270; J2405; J2550; J3370; J3490; J7030; J7050; Q9967; S0030

== ENCOUNTER 2021-05-05 17:04 | Emergency (ER) | payer MEDICARE, MEDICAID, SELFPAY ==
[2021-05-05 17:08] VITALS: BP 114/56; PULSE 83; RESP 16; TEMP 36.6; O2SAT 98; BMI 41.2
--- NOTE | 2021-05-05 17:51 | XRR_ITS ---
PROCEDURE INFORMATION: Exam: XR Chest Exam date and time: 05/05/2021 5:51 PM Age: 76 years old Clinical indication: Shortness of breath; Additional info: SOB TECHNIQUE: Imaging protocol: XR of the chest. Views: 1 view. COMPARISON: CR XR chest 1V portable [id number] 04/22/2021 9:47 AM FINDINGS: Tubes, catheters and devices: Left-sided medical transcriptionist demonstrated. Lungs: No consolidative pulmonary infiltrates are noted. Pleural spaces: No pleural effusion. No pneumothorax. Heart/Mediastinum: Mild cardiomegaly is noted. Vasculature: Mild atherosclerosis and tortuosity of the thoracic aorta. Bones/joints: Unremarkable. XR/XR chest 1V portable [id number] IMPRESSION: 1. Mild cardiomegaly is noted. 2. No acute pulmonary abnormality demonstrated.
[2021-05-05 18:00] VITALS: BP 118/59; PULSE 72; RESP 18; O2SAT 95
--- NOTE | 2021-05-05 18:15 | W.ED.GENADLT ---
HPI - General Adult General: Chief complaint: General Medical Stated complaint: COMPLICATIONS FROM CHF/ EDEMA Time Seen by Provider: 05/05/21 17:36 Source: patient Mode of arrival: ambulatory Limitations: no limitations History of Present Illness: HPI narrative: Patient is a 76-year-old female with a history of congestive heart failure who has a prescription for oral diuretics but the patient does not take them. She states that they give her diarrhea and so she does not take the diuretics. She complains of progressively worsening leg swelling and mild shortness of breath. She noticed today that the swelling was above her knee and so she called for an ambulance to bring her in to be seen. She states that what she usually does is not to take her diuretics, when the swelling gets bad she comes into the hospital for admission and IV diuresis and then she will be discharged home when she improves. She states that she usually also gets a Med[place] catheter and she wants that done for her Onset (ago): week(s) Location: lower extremity Quality: aching Pain Consistency: constant Relieving factors: none Exacerbating factors: none Associated symptoms: Reports short of breath; Deny chest pain, confusion, cough, diaphoresis, decreased appetite, dyspnea, fevers/chills, headache(s), malaise, nausea, rash, palpitations, seizures, syncope or vomiting Review of Systems General: Reports: 10 or more systems reviewed and unremarkable except in HPI and below Const: Denies: malaise or diaphoresis Card: Denies: chest pain, palpitations or syncope Resp: Denies: dyspnea GI: Denies: nausea or vomiting Skin/Breast: Denies: rash Neuro: Denies: headache(s) or confusion PFS ED PFSH: Medical History (Reviewed 05/05/21 @ 21:53 by Sue Kong MD, [facility] [place] [facility] [place] Acute exacerbation of CHF (congestive heart failure) Benign essential hypertension with target blood pressure below 140/90 Chronic episodic atrial fibrillation Chronic venous insufficiency of lower extremity COPD (chronic obstructive pulmonary disease) Diastolic heart failure Fracture of ribs, multiple GERD (gastroesophageal reflux disease) Hypercholesterolemia Osteoarthritis of left knee Other cervical disc displacement, unspecified cervical region Recurrent UTI Sleep apnea Urgency incontinence Urolithiasis UTI (urinary tract infection) Surgical History (Reviewed 05/05/21 @ 21:53 by Sue Kong MD, [facility] [place] [facility] [place] H/O cataract extraction H/O esophagogastroduodenoscopy (07/14/20) H/O knee surgery H/O shoulder surgery History of appendectomy History of cholecystectomy S/P hysterectomy Status post colonoscopy (07/14/20) Family History (Reviewed 05/05/21 @ 21:53 by Sue Kong MD, [facility] [place] [facility] [place] Father Stroke Mother Cancer BLADDER, BREAST Brother Cancer ESOPHAGEAL Family/Other Cancer Sister Cancer Suicide Denies family history of Diabetes CAD (coronary artery disease) Clotting disorder Dementia Chronic kidney disease (CKD) Anesthesia complication Bleeding disorder Lung disease Social History (Reviewed 05/05/21 @ 21:53 by Sue oKng MD, [facility] [place] [place] Smoking and tobacco status: current every day smoker cigarettes Packs smoked per day: 1 Alcohol intake: never Marital status: Current occupational status: disabled Physical Exam Const: COMMON NORMALS: no acute distress, average body habitus, patient oriented x3, no limitations, healthy appearing, alert and well nourished HENMT: COMMON NORMALS: normocephalic, atraumatic and moist oral mucous membranes HEAD & SCALP: normocephalic and atraumatic Neck/C-Spine: COMMON NORMALS: no meningeal signs and no JVD Resp: COMMON NORMALS: normal respiratory effort, No retractions, No use of accessory muscles, clear to auscultation bilaterally and percussion normal AUSCULTATION: clear to auscultation bilaterally PERCUSSION: percussion normal Cardio: COMMON NORMALS: no JVD, regular rate, regular rhythm, S1 normal heart sound present, S2 normal heart sound present, No gallops present (Cardio), No clicks present (Cardio), No murmurs present (Cardio), No rub (Cardio) and Peripheral pulses 2+ throughout RATE: regular rate RHYTHM: regular rhythm HEART SOUNDS: S1 normal heart sound present and S2 normal heart sound present PERIPHERAL PULSES: Peripheral pulses 2+ throughout GI: COMMON NORMALS: Normal to inspection, nondistended, normoactive bowel sounds present, Soft to palpation, non-tender, No hepatosplenomegaly present, no masses and no bruits PALPATION: Yes Soft to palpation and Yes No hepatosplenomegaly present Extremity: COMMON NORMALS: normal to inspection, full ROM, capillary refill normal and no calf tenderness GENERAL: Yes edema (2+ pitting pedal edema) Neuro: COMMON NORMALS: patient oriented x3 SENSORIUM/ORIENTATION: Yes alert MENINGEAL SIGNS: Yes no meningeal signs Course Reevaluation(s): Reevaluation #1: Discussed her lab and imaging findings with her. Negative for acute findings. No signs of exacerbation of congestive heart failure. Advised that she does not meet admission criteria we will discharge her home. Spent a significant amount of time counseling her on the importance of taking her diuretics at home. She however states that she will not take it only return if her symptoms get worse. Time: 20:26 Vital Signs: Vital signs: Vital Signs Temperature 97.8 F 05/05/21 17:08 Pulse Rate 71 05/05/21 18:30 Respiratory Rate 18 05/05/21 19:58 Blood Pressure 131/60 05/05/21 18:30 Pulse Oximetry 94 05/05/21 18:30 MDM - General Adult MDM Narrative: Medical decision making narrative: 76-year-old female patient with a history of congestive heart failure who presents to the emergency department for intravenous diuretics. She has progressive leg swelling some shortness of breath. She has oral diuretics but refuses to take them as she says the side effects are unbearable for her. In the emergency department evaluation does not show she is in CHF exacerbation. She does have pedal edema and was given a single dose of intravenous furosemide. She does not meet admission criteria and so she is discharged home. Patient was adamant that she would not take her oral diuretics. Medical Records: Attestation: I reviewed the patient's medical records. Lab Data: Attestation: I reviewed the patient's lab results. Labs: Lab Results 05/05/21 05/05/21 Range/Units 17:45 17:45 WBC 8.7 (4.0-10.0) 10^3/ uL RBC 3.86 L (4.1-5.3) 10^6/u L Hgb 12.0 (11.5-15.3) g/dL Hct 39.7 (37.0-47.0) % MCV 102.8 H (81-99) fl MCH 31.1 (28.0-34.0) pg MCHC 30.2 (30.0-36.0) g/dL RDW 14.6 (12.1-15.1) % Plt Count 316 (130-400) 10^3/c mm MPV 9.8 (7.4-10.4) fL Neut % (Auto) 63.7 % Lymph % (Auto) 25.9 % Cameron % (Auto) 7.6 % Eos % (Auto) 2.0 % Baso % (Auto) 0.5 % Neut # (Auto) 5.51 (1.8-7.7) 10^3/u L Lymph # (Auto) 2.2 (0.8-4.8) 10^3/u L Cameron # (Auto) 0.7 (0.2-0.9) 10^3/u L Eos # (Auto) 0.2 (0.0-0.8) 10^3/u L Baso # (Auto) 0.0 (0.0-0.1) 10^3/u L Nucleated RBC % (a uto) 0 % Nucleated RBCs # 0.0 /100WBC Sodium 140 (136-145) mmol/L Potassium 4.3 (3.5-5.1) mmol/L Chloride 104 (98-107) mmol/L Carbon Dioxide 27 (22-29) mmol/L Anion Gap 13.3 (5-19) BUN 18 (8-23) mg/dL Creatinine 0.5 (0.5-0.9) mg/dL GFR Calculation Not Reportable Glucose 108 (65-115) mg/dL Calculated Osmolal ity 292 (285-295) mOsm/k g Calcium 9.9 (8.5-10.5) mg/dL Total Bilirubin 0.2 (0.15-1.2) mg/dL AST 8 (0-32) U/L ALT 6 (0-33) U/L Alkaline Phosphata se 146 H (35-105) IU/L NT-Pro-B Natriuret Pep 787 H (0-450) pg/mL Total Protein 5.9 L (6.6-8.7) g/dL Albumin 3.2 L (3.5-5.2) g/dL Globulin 2.7 (1.3-4.6) g/dL Imaging Data^: CXR: Attestation: I personally reviewed and interpreted this imaging study as follows: Radiologist's impression: [employer] [id number] ReportSigned Patient: Bre Lara AUnit #: [id number]: 1945cct#:[id number]/Sex: 76 / FADM Date: 05/05/21Loc: ERRoom/Bed:Attending Dr: Ordering Provider/Ordering MD: Sue Kong MD, [facility] [place] [facility] [place] Date of Service: 05/05/21 Procedure(s): XR chest 1V portable [id number] Accession Number(s): [id number] Report Number: [id number] PROCEDURE INFORMATION: Exam: XR Chest Exam date and time: 05/05/2021 5:51 PM Age: 76 years old Clinical indication: Shortness of breath; Additional info: SOB TECHNIQUE: Imaging protocol: XR of the chest. Views: 1 view. COMPARISON: CR XR chest 1V portable [id number] 04/22/2021 9:47 AM FINDINGS: Tubes, catheters and devices: Left-sided medical technologist clinical demonstrated. Lungs: No consolidative pulmonary infiltrates are noted. Pleural spaces: No pleural effusion. No pneumothorax. Heart/Mediastinum: Mild cardiomegaly is noted. Vasculature: Mild atherosclerosis and tortuosity of the thoracic aorta. Bones/joints: Unremarkable. XR/XR chest 1V portable [id number] IMPRESSION: 1. Mild cardiomegaly is noted. 2. No acute pulmonary abnormality demonstrated. Dictated By:Idris Olivarez MDSigned By:Idris Olivarez MDSigned Date/Time:05/05/211838DD/ 36 Discharge Plan Discharge Patient Disposition: Home Clinical Impression: Pedal edema Condition: Stable Prescriptions: Continued melatonin 10 mg capsule 10 mg PO DAILY RF: 0 hydrocodone-acetaminophen 5-325 mg tablet 1 tab PO QID PRN (Reason: Pain) RF: 0 polyethylene glycol 3350 17 gram/dose powder 17 gm PO DAILY PRN (Reason: Constipation) RF: 0 gemfibrozil 600 mg tablet 600 mg PO BID RF: 0 pantoprazole 40 mg tablet,delayed release (DR/EC) 40 mg PO BID Qty: 180 RF: 0 sertraline [Zoloft] 25 mg tablet 25 mg PO DAILY Qty: 30 RF: 0 diltiazem HCl 360 mg capsule,extended release 24hr 360 mg PO DAILY Qty: 90 RF: 3 Eliquis 5 mg tablet 5 mg PO BID Qty: 180 RF: 3 nystatin 100,000 unit/gram cream 1 applic topical BID 30 Days Qty: 30 RF: 2 tizanidine 4 mg tablet 4 mg PO DAILY Qty: 30 RF: 0 metoprolol tartrate 25 mg tablet 25 mg PO BID Qty: 60 RF: 5 cetirizine [Zyrtec] 10 mg Tablet 10 mg PO DAILY RF: 0 acetaminophen [Tylenol 8 Hour] 650 mg Tablet Extended Release 650 mg PO BEDTIME PRN (Reason: Pain) RF: 0 Anti-Gas Maximum Strength 166 mg Capsule 166 mg PO PRN RF: 0 vitamin W43-kopph acid 500-400 mcg Tablet 1 tab PO DAILY RF: 0 albuterol sulfate [ProAir HFA] 90 mcg/actuation HFA aerosol inhaler 2 puff INHALATION Q6H PRN (Reason: Shortness Of Breath) RF: 0 vancomycin 250 mg capsule 250 mg PO QID 14 Days Qty: 56 RF: 0 potassium chloride 8 mEq capsule, extended release 8 meq PO BID RF: 0 furosemide 20 mg tablet 20 mg PO DAILY RF: 0 Vitamin B-12 1 tab PO DAILY RF: 0 Discharge Orders: Discharge ED (Routine); Ordered 05/05/21 Ordered By: Sue Kong Referrals: Alyce Lozoya DO [Primary Care Provider] - 1-3 days Discharge Diet: Usual diet Discharge Activity: Increase activity as tolerated Patient Instructions: Leg Edema (ED) Activity Restrictions/Additional Instructions: Return for any new or worsening symptoms. Follow-up with your primary care provider within 3 days. Continue your home medications. Coding Level of Care Code ED Director Of Instruction for Leta Albarran
[2021-05-05 18:16] LABS: Basophils % 0.5 %; Eosinophils # 0.2 10^3/uL (0.0-0.8); Hematocrit 39.7 % (37.0-47.0); Lymphocytes # 2.2 10^3/uL (0.8-4.8); Lymphocytes % 25.9 %; Mean Corpuscular HGB Conc 30.2 g/dL (30.0-36.0); Mean Corpuscular Hemoglobin 31.1 pg (28.0-34.0); Mean Corpuscular Volume 102.8 fl (81-99); Mean Platelet Volume 9.8 fL (7.4-10.4); Monocytes # 0.7 10^3/uL (0.2-0.9); Monocytes % 7.6 %; Neutrophils # 5.51 10^3/uL (1.8-7.7); Neutrophils % 63.7 %; Nucleated Red Blood Cells % 0 %; Platelet Count 316 10^3/cmm (130-400); Red Blood Count 3.86 10^6/uL (4.1-5.3); Red Cell Distribution Width 14.6 % (12.1-15.1); White Blood Count 8.7 10^3/uL (4.0-10.0)
[2021-05-05 18:30] VITALS: BP 131/60; PULSE 71; RESP 18; O2SAT 94
--- NOTE | 2021-05-05 18:53 | PC.PHAR ---
PT HAS HOME HEALTH BUT DID BRING IN A MEDICATION LIST WHICH SHE STATED WAS UPDATED.
[2021-05-05 18:55] LABS: Alanine Aminotransferase 6 U/L (0-33); Albumin Level 3.2 g/dL (3.5-5.2); Alkaline Phosphatase 146 IU/L (35-105); Anion Gap 13.3 (5-19); Aspartate Amino Transferase 8 U/L (0-32); Blood Urea Nitrogen 18 mg/dL (8-23); Calcium 9.9 mg/dL (8.5-10.5); Carbon Dioxide 27 mmol/L (22-29); Chloride 104 mmol/L (98-107); Globulin 2.7 g/dL (1.3-4.6); Glucose 108 mg/dL (65-115); NT Pro B Type Natriuretic Pept 787 pg/mL (0-450); Osmolality Calculated 292 mOsm/kg (285-295); Potassium 4.3 mmol/L (3.5-5.1); Sodium 140 mmol/L (136-145); Total Bilirubin 0.2 mg/dL (0.15-1.2); Total Protein 5.9 g/dL (6.6-8.7)
[2021-05-05] MEDS: FUROsemide 10 mg/mL SDV 4mL 40 MG IVP (18:59)
[2021-05-05 19:58] VITALS: RESP 18
[2021-05-05] MEDS: fentaNYL 50 mcg/mL INJ 2mL 25 MCG IVP (19:58)
== END 2021-05-05 21:44 | disposition home or self-care (01) ==
PROVIDERS: Emergency Provider Family Medicine; PCP Family Medicine
DX: R60.0 Localized edema (principal); I11.0 Hypertensive heart disease with heart failure; I50.30 Unspecified diastolic (congestive) heart failure; I48.20 Chronic atrial fibrillation, unspecified; J44.9 Chronic obstructive pulmonary disease, unspecified; E78.00 Pure hypercholesterolemia, unspecified; F17.210 Nicotine dependence, cigarettes, uncomplicated; Z79.01 Long term (current) use of anticoagulants
CPT/HCPCS: 71045; 80053; 83880; 85025; 96374; 96375; 99284; J1940; J3010

== ENCOUNTER 2021-05-10 12:59 | Emergency (ER) | payer MEDICARE, MEDICAID, SELFPAY ==
--- NOTE | 2021-05-10 13:11 | ECG_ITS ---
[facility] Test Date: 2021-05-10 Pat Name: Bre Lara Department: Room: Gender: Female Health And Safety Technician: : 1945 Requested By: Kashmir Roland Order Number: [id number] Reading MD: Keven Leyva M.D. Measurements Intervals [place] Rate: 109 P: AL: QRS: -8 QRSD: 78 T: 99 QT: 295 QTc: 399 Interpretive Statements ATRIAL FIBRILLATION WITH RAPID VENTRICULAR RESPONSE SEPTAL MYOCARDIAL INFARCTION , OF INDETERMINATE AGE [40+ ms Q WAVE IN V1/V2] Compared to ECG 04/11/2021 22:52:16 Ventricular premature complex(es) no longer present Aberrant conduction of supraventricular beat(s) no longer present Left ventricular hypertrophy no longer present T-wave abnormality no longer present Possible ischemia no longer present Myocardial infarct finding still present Electronically Signed On 05-10-2021 19:28:59 CDT by Keven Leyva M.D. [id number]
--- NOTE | 2021-05-10 13:11 | W.ED.GENADLT ---
HPI - General Adult General: Chief complaint: Abdominal Pain Stated complaint: SWELLING IN LEGS, RECTAL BLEEDING Time Seen by Provider: 05/10/21 13:03 History of Present Illness: HPI narrative: 68-year-old female presents emergency room via EMS complaining of swelling of the legs also some rectal bleeding. She has a extensive list of complaints that range from her atrial fibrillation to swelling in her legs extreme tenderness abdominal pain is difficult to get her to focus on anything in particular. Due to her A. fib she is on oral anticoagulant apixaban. States she has been taking that regularly she was recently treated for C. difficile and has been having some rectal bleeding recently. She is no longer having any diarrhea. She denies any chest pain or shortness of breath. Onset (ago): day(s) Location: lower extremity Radiation: non-radiation Severity: mild Quality: aching Relieving factors: none Exacerbating factors: none Associated symptoms: Deny confusion, cough, diaphoresis, decreased appetite, dyspnea, fevers/chills, headache(s), malaise, nausea, rash, palpitations, seizures, short of breath, syncope, vomiting or weakness Treatments prior to arrival: none Review of Systems Const: Denies: malaise or diaphoresis ENMT: Denies: throat pain, ear or mastoid pain, nasal discharge or nasal congestion Card: Denies: palpitations or syncope Resp: Denies: dyspnea GI: Denies: nausea or vomiting : Denies: flank pain, difficulty voiding, dysuria, urinary frequency or urinary urgency Skin/Breast: Denies: rash Neuro: Denies: headache(s) or confusion PFS ED PFSH: Medical History Acute exacerbation of CHF (congestive heart failure) Benign essential hypertension with target blood pressure below 140/90 Chronic episodic atrial fibrillation Chronic venous insufficiency of lower extremity COPD (chronic obstructive pulmonary disease) Diastolic heart failure Fracture of ribs, multiple GERD (gastroesophageal reflux disease) Hypercholesterolemia Osteoarthritis of left knee Other cervical disc displacement, unspecified cervical region Recurrent UTI Sleep apnea Urgency incontinence Urolithiasis UTI (urinary tract infection) Surgical History H/O cataract extraction H/O esophagogastroduodenoscopy (07/14/20) H/O knee surgery H/O shoulder surgery History of appendectomy History of cholecystectomy S/P hysterectomy Status post colonoscopy (07/14/20) Family History Father Stroke Mother Cancer BLADDER, BREAST Brother Cancer ESOPHAGEAL Family/Other Cancer Sister Cancer Suicide Denies family history of Diabetes CAD (coronary artery disease) Clotting disorder Dementia Chronic kidney disease (CKD) Anesthesia complication Bleeding disorder Lung disease Social History Smoking and tobacco status: current every day smoker cigarettes Packs smoked per day: 1 Alcohol intake: never Marital status: Current occupational status: disabled Physical Exam Const: COMMON NORMALS: no acute distress GENERAL APPEARANCE: cooperative and comfortable ORIENTATION/CONSCIOUSNESS: Yes awake, Yes oriented to person, Yes oriented to place and Yes oriented to time HENMT: COMMON NORMALS: normocephalic, atraumatic and hearing grossly normal bilaterally HEAD & SCALP: normocephalic and atraumatic Neck/C-Spine: COMMON NORMALS: no JVD Resp: COMMON NORMALS: normal respiratory effort, No retractions, No use of accessory muscles and clear to auscultation bilaterally AUSCULTATION: clear to auscultation bilaterally Cardio: COMMON NORMALS: no JVD, regular rate, regular rhythm and No murmurs present (Cardio) RATE: regular rate RHYTHM: regular rhythm GI: COMMON NORMALS: Soft to palpation and No hepatosplenomegaly present AUSCULTATION: Yes normoactive bowel sounds PALPATION: Yes Soft to palpation, No Tenderness to palpation present (GI), No Guarding due to palpation present (GI) and Yes No hepatosplenomegaly present Neuro: SENSORIUM/ORIENTATION: Yes oriented to person, Yes oriented to place and Yes oriented to time Course Vital Signs: Vital signs: Vital Signs Temperature 99.5 F 05/10/21 13:14 Pulse Rate 104 H 05/10/21 15:43 Respiratory Rate 18 05/10/21 15:46 Blood Pressure 146/92 05/10/21 15:43 Pulse Oximetry 96 05/10/21 15:46 MDM - General Adult MDM Narrative: Medical decision making narrative: Patient has some mild exacerbation of CHF she has furosemide on her list but is adamant that she does not take any medications at home because she is allergic to all medications. But she does take Lasix. Discussed with her that if she is able to take Lasix in any form she can take torsemide as well. We will have her increase it to twice daily for 5 days and go back to once daily. To the extent she has some bleeding I suspect it is from the recent C. difficile colitis that she had she finished a course of antibiotics is not having any diarrhea now the CT was read as diverticulitis but I am concerned that by giving her antibiotics for that we would probably precipitated recurrence of her C. difficile at this point and think it is better just to observe she has minimal abdominal discomfort I do not think a course of antibiotics is indicated. She should recheck with her primary care doc before the end of the week. Return if has further problems. Lab Data: Labs: Lab Results 05/10/21 05/10/21 05/10/21 Range/Units 13:45 13:45 13:45 WBC 7.7 (4.0-10.0) 10^3/ uL RBC 3.94 L (4.1-5.3) 10^6/u L Hgb 12.4 (11.5-15.3) g/dL Hct 40.6 (37.0-47.0) % MCV 103.0 H (81-99) fl MCH 31.5 (28.0-34.0) pg MCHC 30.5 (30.0-36.0) g/dL RDW 14.9 (12.1-15.1) % Plt Count 254 (130-400) 10^3/c mm MPV 9.9 (7.4-10.4) fL Neut % (Auto) 67.2 % Lymph % (Auto) 22.4 % Wilcox % (Auto) 8.2 % Eos % (Auto) 1.3 % Baso % (Auto) 0.5 % Neut # (Auto) 5.20 (1.8-7.7) 10^3/u L Lymph # (Auto) 1.7 (0.8-4.8) 10^3/u L Wilcox # (Auto) 0.6 (0.2-0.9) 10^3/u L Eos # (Auto) 0.1 (0.0-0.8) 10^3/u L Baso # (Auto) 0.0 (0.0-0.1) 10^3/u L Nucleated RBC % (a uto) 0 % Nucleated RBCs # 0.0 /100WBC PT 14.20 (12.1-14.9) SECO NDS INR 1.07 (0.8-1.2) APTT 26.9 (23.9-36.7) SECO NDS Sodium 141 (136-145) mmol/L Potassium 4.7 (3.5-5.1) mmol/L Chloride 105 (98-107) mmol/L Carbon Dioxide 27 (22-29) mmol/L Anion Gap 13.7 (5-19) BUN 14 (8-23) mg/dL Creatinine 0.5 (0.5-0.9) mg/dL GFR Calculation Not Reportable Glucose 122 H (65-115) mg/dL Calculated Osmolal ity 294 (285-295) mOsm/k g Calcium 10.7 H (8.5-10.5) mg/dL Total Bilirubin 0.2 (0.15-1.2) mg/dL AST 10 (0-32) U/L ALT 7 (0-33) U/L Alkaline Phosphata se 182 H (35-105) IU/L Troponin T Baselin e (0-10) ng/L Troponin T 120 Min [place] (0-10) ng/L Delta Troponin T (0-10) ABS# NT-Pro-B Natriuret Pep 1141 H (0-450) pg/mL Total Protein 6.1 L (6.6-8.7) g/dL Albumin 3.6 (3.5-5.2) g/dL Globulin 2.5 (1.3-4.6) g/dL Urine Color (Yellow) Urine Appearance (CLEAR) Urine pH (5-7) Ur Specific Gravit y (1.005-1.030) Urine Protein (Negative) Urine Glucose (UA) (Normal) Urine Ketones (Negative) Urine Blood (Negative) Urine Nitrate (Negative) Urine Bilirubin (Negative) Prot Sulfosalicyli c Acd (Negative) Urine Urobilinogen (Negative) mg/dL Ur Leukocyte Ilana ase (Negative) 05/10/21 05/10/21 05/10/21 Range/Units 13:45 14:45 15:47 WBC (4.0-10.0) 10^3/ uL RBC (4.1-5.3) 10^6/u L Hgb (11.5-15.3) g/dL Hct (37.0-47.0) % MCV (81-99) fl MCH (28.0-34.0) pg MCHC (30.0-36.0) g/dL RDW (12.1-15.1) % Plt Count (130-400) 10^3/c mm MPV (7.4-10.4) fL Neut % (Auto) % Lymph % (Auto) % Wilcox % (Auto) % Eos % (Auto) % Baso % (Auto) % Neut # (Auto) (1.8-7.7) 10^3/u L Lymph # (Auto) (0.8-4.8) 10^3/u L Wilcox # (Auto) (0.2-0.9) 10^3/u L Eos # (Auto) (0.0-0.8) 10^3/u L Baso # (Auto) (0.0-0.1) 10^3/u L Nucleated RBC % (a uto) % Nucleated RBCs # /100WBC PT (12.1-14.9) SECO NDS INR (0.8-1.2) APTT (23.9-36.7) SECO NDS Sodium (136-145) mmol/L Potassium (3.5-5.1) mmol/L Chloride (98-107) mmol/L Carbon Dioxide (22-29) mmol/L Anion Gap (5-19) BUN (8-23) mg/dL Creatinine (0.5-0.9) mg/dL GFR Calculation Glucose (65-115) mg/dL Calculated Osmolal ity (285-295) mOsm/k g Calcium (8.5-10.5) mg/dL Total Bilirubin (0.15-1.2) mg/dL AST (0-32) U/L ALT (0-33) U/L Alkaline Phosphata se (35-105) IU/L Troponin T Baselin e 19 H (0-10) ng/L Troponin T 120 Min [place] 16.86 H (0-10) ng/L Delta Troponin T -2.14 L (0-10) ABS# NT-Pro-B Natriuret Pep (0-450) pg/mL Total Protein (6.6-8.7) g/dL Albumin (3.5-5.2) g/dL Globulin (1.3-4.6) g/dL Urine Color Yellow (Yellow) Urine Appearance Clear (CLEAR) Urine pH 8 H (5-7) Ur Specific Gravit y 1.010 (1.005-1.030) Urine Protein Neg (Negative) Urine Glucose (UA) Norm (Normal) Urine Ketones Negative (Negative) Urine Blood Neg (Negative) Urine Nitrate Negative (Negative) Urine Bilirubin Neg (Negative) Prot Sulfosalicyli c Acd Negative (Negative) Urine Urobilinogen Norm (Negative) mg/dL Ur Leukocyte Ilana ase Negative (Negative) Discharge Plan Discharge Patient Disposition: Home Clinical Impression: Diverticulitis, CHF (congestive heart failure) Condition: Stable Prescriptions: Changed torsemide 20 mg tablet 20 mg PO BID Qty: 0 RF: 0 No Action melatonin 10 mg capsule 10 mg PO DAILY RF: 0 hydrocodone-acetaminophen 5-325 mg tablet 1 tab PO QID PRN (Reason: Pain) RF: 0 polyethylene glycol 3350 17 gram/dose powder 17 gm PO DAILY PRN (Reason: Constipation) RF: 0 pantoprazole 40 mg tablet,delayed release (DR/EC) 40 mg PO BID Qty: 180 RF: 0 sertraline [Zoloft] 25 mg tablet 25 mg PO DAILY Qty: 30 RF: 0 diltiazem HCl 360 mg capsule,extended release 24hr 360 mg PO DAILY Qty: 90 RF: 3 Eliquis 5 mg tablet 5 mg PO BID Qty: 180 RF: 3 nystatin 100,000 unit/gram cream 1 applic topical BID 30 Days Qty: 30 RF: 2 tizanidine 4 mg tablet 4 mg PO DAILY Qty: 30 RF: 0 metoprolol tartrate 25 mg tablet 25 mg PO BID Qty: 60 RF: 5 cetirizine [Zyrtec] 10 mg Tablet 10 mg PO DAILY RF: 0 acetaminophen [Tylenol 8 Hour] 650 mg Tablet Extended Release 650 mg PO BEDTIME PRN (Reason: Pain) RF: 0 Anti-Gas Maximum Strength 166 mg Capsule 166 mg PO PRN RF: 0 vitamin L99-[id number] acid 500-400 mcg Tablet 1 tab PO DAILY RF: 0 albuterol sulfate [ProAir HFA] 90 mcg/actuation HFA aerosol inhaler 2 puff INHALATION Q6H PRN (Reason: Shortness Of Breath) RF: 0 Vitamin B-12 1 tab PO DAILY RF: 0 DuoNeb 0.5 mg-3 mg(2.5 mg base)/3 mL Solution For Nebulization 3 ml INHALATION BID PRN (Reason: UNKNOWN) RF: 0 vancomycin 250 mg Capsule 250 mg PO QID RF: 0 potassium chloride 20 mEq tablet extended release 20 meq PO DAILY RF: 0 Discharge Orders: Discharge ED (Routine); Ordered 05/10/21 Ordered By: Kashmir Cody Referrals: Alyce Lozoya DO [Primary Care Provider] - Patient Instructions: Opioid Safety Activity Restrictions/Additional Instructions: Harpreet Rivas my to 1 p.o. twice daily for 5 days then resume once daily. Follow-up with primary care doctor within the next week. Coding Level of Care Code ED Senior Billing Consultant for Yashirag Fwd Exam Detailed
[2021-05-10 13:14] VITALS: BP 162/77; PULSE 105; RESP 20; TEMP 37.5; O2SAT 100; BMI 40.3
[2021-05-10 14:03] LABS: Basophils % 0.5 %; Eosinophils # 0.1 10^3/uL (0.0-0.8); Eosinophils % 1.3 %; Hematocrit 40.6 % (37.0-47.0); Hemoglobin 12.4 g/dL (11.5-15.3); Lymphocytes # 1.7 10^3/uL (0.8-4.8); Lymphocytes % 22.4 %; Mean Corpuscular HGB Conc 30.5 g/dL (30.0-36.0); Mean Corpuscular Hemoglobin 31.5 pg (28.0-34.0); Mean Platelet Volume 9.9 fL (7.4-10.4); Monocytes # 0.6 10^3/uL (0.2-0.9); Monocytes % 8.2 %; Neutrophils % 67.2 %; Nucleated Red Blood Cells % 0 %; Platelet Count 254 10^3/cmm (130-400); Red Blood Count 3.94 10^6/uL (4.1-5.3); Red Cell Distribution Width 14.9 % (12.1-15.1); White Blood Count 7.7 10^3/uL (4.0-10.0)
[2021-05-10 14:15] LABS: INR 1.07 (0.8-1.2)
[2021-05-10 14:16] LABS: Partial Thromboplastin Time 26.9 SECONDS (23.9-36.7)
[2021-05-10 14:41] LABS: Troponin(5th) Baseline 19 ng/L (0-10)
[2021-05-10 14:43] LABS: Alanine Aminotransferase 7 U/L (0-33); Albumin Level 3.6 g/dL (3.5-5.2); Alkaline Phosphatase 182 IU/L (35-105); Anion Gap 13.7 (5-19); Aspartate Amino Transferase 10 U/L (0-32); Blood Urea Nitrogen 14 mg/dL (8-23); Calcium 10.7 mg/dL (8.5-10.5); Carbon Dioxide 27 mmol/L (22-29); Chloride 105 mmol/L (98-107); Globulin 2.5 g/dL (1.3-4.6); Glucose 122 mg/dL (65-115); NT Pro B Type Natriuretic Pept 1141 pg/mL (0-450); Osmolality Calculated 294 mOsm/kg (285-295); Potassium 4.7 mmol/L (3.5-5.1); Sodium 141 mmol/L (136-145); Total Bilirubin 0.2 mg/dL (0.15-1.2); Total Protein 6.1 g/dL (6.6-8.7)
[2021-05-10 14:49] VITALS: BP 150/97; PULSE 115; RESP 18; O2SAT 96
--- NOTE | 2021-05-10 14:54 | CT_ITS ---
WS: [id number] CT ABDOMEN AND PELVIS WITH CONTRAST HISTORY: Abdominal pain. TECHNIQUE: Imaging performed of the abdomen and pelvis with IV contrast. Single phase imaging of the abdomen. Coronal and sagittal reformats are submitted. All CT scans at [facility] use at least one of these dose optimization techniques: automated exposure control; mA and/or kV adjustment per patient size (includes targeted exams where dose is matched to clinical indication); or iterativ e reconstruction. IV CONTRAST: Omnipaque 300; 95 mL IV. Oral contrast: No DLP: 1733.63 mGy.cm COMPARISON: 04/24/2021 Lower thorax: Lung bases are clear. Moderate enlargement of the heart chambers. No hiatal hernia. Liver/biliary system: Normal size liver. Common bile duct contains a 4 mm filling defect which is non occlusive. This filling defect is been present on prior examinations without increase in size. Gallbladder: Status post cholecystectomy. Pancreas: Marked fatty replacement of the pancreas. Spleen: Normal size spleen. No mass or infarct. Adrenal glands: Normal. Right kidney: Normal. Left kidney: Moderate atrophy with numerous calcifications in the renal pelvis. Mild perinephric stra nding is similar to prior studies. Aorta: Mild atherosclerosis with no aneurysm. Lymphadenopathy: None. Free fluid: None. GI tract: Mild thickening of the stomach wall is similar to prior studies. Extensive diverticular dis ease throughout the colon. There is mucosal thickening throughout the sigmoid. Very mild increase in pericolonic inflammation towards the distal sigmoid. Prior appendectomy. Abdominal wall: Unremarkable abdominal wall. No hernia. Pelvis: No free fluid or adenopathy. Urinary bladder is only minimally distended. Nondistention resul ting in wall thickening. Bones: L5 grade 1 spondylolist[address] by [address]/CT abdomen pelvis w con* [id number] IMPRESSION: 1. Extensive diverticular disease. Suspicious for very mild acute diverticulit is involving the sigmoid colon. No perforation, free air or free fluid. 2. Persistent dilated common bile duct 4 mm nodule in the distal CBD. This nod ule some present on prior studies. This may be a polyp or noncalcified stone. N o change since 08/24/2018. 3. Prior appendectomy and cholecystectomy. 4. Extensive atherosclerosis aorta. 5. Mild LEFT renal atrophy with numerous LEFT renal calcifications.
[2021-05-10 14:58] LABS: Add Urine Microscopic? NO; Charge for UA Resulting for Rev
[2021-05-10 15:07] LABS: Urine Appearance Clear (CLEAR); Urine Color Yellow (Yellow)
[2021-05-10 15:08] LABS: Bilirubin Urine Neg (Negative); Blood Urine Neg (Negative); Glucose Urine UA Norm (Normal); Ketones Urine Negative (Negative); Leukocyte Esterase Urine Negative (Negative); Nitrate Urine Negative (Negative); Protein Urine Neg (Negative); Sulfosalicylic Acid Urine Negative (Negative); Urobilinogen Urine Norm (Negative); pH Urine 8 (5-7)
--- NOTE | 2021-05-10 15:11 | ECG_ITS ---
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 Measurements Intervals [place] Rate: 105 P: [place]: QRS: -8 QRSD: 79 T: 106 QT: 294 QTc: 389 Interpretive Statements ATRIAL FIBRILLATION WITH RAPID VENTRICULAR RESPONSE SEPTAL MYOCARDIAL INFARCTION , OF INDETERMINATE AGE [40+ ms Q WAVE IN V1/V2] Compared to ECG 05/10/2021 13:27:17 No significant changes Electronically Signed On 05-10-2021 19:30:31 CDT by Keven Leyva M.D. [id number]
[2021-05-10] MEDS: iohexol 300 mg/mL 100 mL Btl IV (15:13)
[2021-05-10 15:43] VITALS: BP 146/92; PULSE 104; RESP 18; O2SAT 96
[2021-05-10 15:46] VITALS: RESP 18; O2SAT 96
[2021-05-10] MEDS: morphine 4 mg/mL SDV 1 mL IVP (15:46)
--- NOTE | 2021-05-10 15:55 | XRR_ITS ---
PROCEDURE INFORMATION: Exam: XR Chest Exam date and time: 05/10/2021 3:55 PM Age: 76 years old Clinical indication: Cough and dyspnea; Additional info: Dyspnea/cough TECHNIQUE: Imaging protocol: XR of the chest. Views: 1 view. Total images: 1 COMPARISON: 1. CR XR chest 1V portable [id number] 04/22/2021 9:47:50 AM 2. CR (CHEST, ) 05/05/2021 5:57 PM FINDINGS: Tubes, catheters and devices: Loop recorder. EKG leads. Lungs: No visible active interstitial or alveolar airspace disease. Suspected component of COPD/chronic bronchitis. Mild senile fibrosis. Pleural spaces: Unremarkable. No pleural effusion. No pneumothorax. Heart/Mediastinum: Cardiac structures in configuration with cardiomegaly and arteriosclerosis. Bones/joints: Old right humeral head neck fracture. Scoliosis of the spine. XR/XR chest 1V portable [id number] IMPRESSION: Nonacute.
[2021-05-10 16:22] LABS: Troponin 5 2HR 16.86 ng/L (0-10)
[2021-05-10 16:23] LABS: Troponin 5 2HR Delta -2.14 ABS# (0-10)
[2021-05-10 17:58] VITALS: BP 124/91; PULSE 105; RESP 18; O2SAT 96
== END 2021-05-10 17:59 | disposition home or self-care (01) ==
PROVIDERS: Emergency Provider Family Medicine; PCP Family Medicine
DX: K57.92 Diverticulitis of intestine, part unspecified, without perforation or abscess without bleeding (principal); I11.0 Hypertensive heart disease with heart failure; I50.30 Unspecified diastolic (congestive) heart failure; I48.20 Chronic atrial fibrillation, unspecified; J44.9 Chronic obstructive pulmonary disease, unspecified; E78.00 Pure hypercholesterolemia, unspecified; F17.210 Nicotine dependence, cigarettes, uncomplicated; Z79.01 Long term (current) use of anticoagulants
CPT/HCPCS: 36415; 71045; 74177; 80053; 81003; 83880; 84484; 85025; 85610; 85730; 87040; 93005; 96374; 99284; J2270; Q9967

== ENCOUNTER 2021-05-11 11:54 | Emergency (ER) | payer MEDICARE, MEDICAID, SELFPAY ==
--- NOTE | 2021-05-11 11:57 | XR_ITS ---
WS: [id number] PORTABLE CHEST HISTORY: dyspnea/cough COMPARISON: 05/10/2021 Cardiac loop recorder projects over the mid LEFT lung. Lungs are clear and well expanded. No pleural effusion or pneumothorax. Cardiac size: Mildly enlarged cardiac silhouette. Mediastinum/Aorta: Mild atherosclerosis aorta. Deformity involving the RIGHT humeral head and glenoid from prior fracture dislocation. Similar to th e prior examinations. XR/XR chest 1V portable [id number] IMPRESSION: Stable chest. No acute cardiopulmonary disease.
[2021-05-11 11:58] VITALS: BP 121/94; PULSE 117; RESP 18; TEMP 36.7; O2SAT 97; BMI 41.4
--- NOTE | 2021-05-11 11:58 | ECG_ITS ---
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: : 1945 Requested By: Kashmir Roland Order Number: [id number] Reading MD: DAYDAY REDDING Measurements Intervals [place] Rate: 105 P: [place]: QRS: -1 QRSD: 80 T: 97 QT: 321 QTc: 425 Interpretive Statements ATRIAL FIBRILLATION WITH RAPID VENTRICULAR RESPONSE LOW QRS VOLTAGE IN PRECORDIAL LEADS [QRS DEFLECTION < 1.0 mV IN CHEST LEADS] SEPTAL MYOCARDIAL INFARCTION , OF INDETERMINATE AGE [40+ ms Q WAVE IN V1/V2] Compared to ECG 05/10/2021 15:05:02 Low QRS voltage now present Myocardial infarct finding still present Electronically Signed On 05-11-2021 21:03:58 CDT by DAYDAY REDDING [id number]
[2021-05-11 12:05] VITALS: BP 140/94; PULSE 112; RESP 30; O2SAT 97
[2021-05-11] MEDS: ondansetron 2 mg/ML SDV 2 mL 4 MG IVP (12:23)
--- NOTE | 2021-05-11 12:24 | ED_ITS ---
HPI - Chest Pain General: Chief Complaint: Chest Pain Stated Complaint: PAIN ALL OVER/ CHEST TIGHTNESS Time Seen by Provider: 05/11/21 11:55 History of Present Illness: HPI narrative: 76-year-old female presents complaining of pain all over. She has a history of atrial fibrillation with RVR she is on a Holter monitor. She refuses to take any oral diuretics and states she can only to tolerate IV diuretics for her lower extremity edema. She was seen yesterday we increased her furosemide which was on her oral on her list of medications at home. She has not been taking them. She has several short bursts of atrial fibrillation on her Holter monitor. These are in the chart. She also complaining of generalized pain. MD complaint: chest discomfort Onset (ago): hour(s) Timing of current episode: episodic Prior episodes: Yes Onset: during rest Pain location: left chest Pain radiation: none Quality: tightness Relieving factors: nothing Exacerbating factors: nothing Associated symptoms: Reports abdominal pain and leg edema; Deny diaphoresis, dyspnea, fever(s), nausea, palpitations, sense of impending doom, syncope or vomiting Treatment prior to arrival: none Review of Systems Const: Denies: fever(s) or diaphoresis ENMT: Denies: throat pain, ear or mastoid pain, nasal discharge or nasal congestion Card: Reports: orthopnea; Denies: palpitations or syncope Resp: Denies: dyspnea GI: Reports: abdominal pain; Denies: nausea or vomiting : Denies: flank pain, difficulty voiding, dysuria, urinary frequency or urinary urgency Skin/Breast: Denies: rash or pruritus PFSH ED PFSH: Medical History Acute exacerbation of CHF (congestive heart failure) Benign essential hypertension with target blood pressure below 140/90 Chronic episodic atrial fibrillation Chronic venous insufficiency of lower extremity COPD (chronic obstructive pulmonary disease) Diastolic heart failure Fracture of ribs, multiple GERD (gastroesophageal reflux disease) Hypercholesterolemia Osteoarthritis of left knee Other cervical disc displacement, unspecified cervical region Recurrent UTI Sleep apnea Urgency incontinence Urolithiasis UTI (urinary tract infection) Surgical History H/O cataract extraction H/O esophagogastroduodenoscopy (07/14/20) H/O knee surgery H/O shoulder surgery History of appendectomy History of cholecystectomy S/P hysterectomy Status post colonoscopy (07/14/20) Family History Father Stroke Mother Cancer BLADDER, BREAST Brother Cancer ESOPHAGEAL Family/Other Cancer Sister Cancer Suicide Denies family history of Diabetes CAD (coronary artery disease) Clotting disorder Dementia Chronic kidney disease (CKD) Anesthesia complication Bleeding disorder Lung disease Social History Smoking and tobacco status: current every day smoker cigarettes Packs smoked per day: 1 Alcohol intake: never Marital status: Current occupational status: disabled Physical Exam Const: COMMON NORMALS: no acute distress GENERAL APPEARANCE: cooperative and comfortable ORIENTATION/CONSCIOUSNESS: Yes awake, Yes oriented to person, Yes oriented to place and Yes oriented to time HENMT: COMMON NORMALS: normocephalic, atraumatic and hearing grossly normal bilaterally HEAD & SCALP: normocephalic and atraumatic Neck/C-Spine: COMMON NORMALS: no JVD Resp: COMMON NORMALS: normal respiratory effort, No retractions, No use of accessory muscles and clear to auscultation bilaterally AUSCULTATION: clear to auscultation bilaterally Cardio: COMMON NORMALS: no JVD, regular rate, regular rhythm and No murmurs present (Cardio) RATE: regular rate RHYTHM: regular rhythm GI: COMMON NORMALS: Soft to palpation and No hepatosplenomegaly present AUSCULTATION: Yes normoactive bowel sounds PALPATION: Yes Soft to palpation, No Tenderness to palpation present (GI), No Guarding due to palpation present (GI) and Yes No hepatosplenomegaly present Extremity: COMMON NORMALS: normal to inspection, capillary refill normal, no calf tenderness and no pedal edema GENERAL: Yes edema (Mild chronic edema lower extremities) Neuro: SENSORIUM/ORIENTATION: Yes oriented to person, Yes oriented to place and Yes oriented to time Skin: COMMON NORMALS: no rashes or lesions noted GENERAL SKIN EXAM: no rashes or lesions noted Course Vital Signs: Vital signs: Vital Signs Temperature 98.0 F 05/11/21 11:58 Pulse Rate 95 05/11/21 15:55 Respiratory Rate 18 05/11/21 15:55 Blood Pressure 137/94 05/11/21 15:55 Pulse Oximetry 97 05/11/21 15:55 MDM - Chest Pain MDM Narrative: Medical decision making narrative: Labs EKG and chest x-ray reviewed. There are some chronic pulmonary vascular congestion no worsening from previous x-ray. Patient given Lasix she is not been taking the furosemide at home. Will change to 10 mg twice daily encouraged her to take it and have her follow-up with Dr. Marie later this week. Lab Data: Labs: Lab Results 05/11/21 05/11/21 05/11/21 Range/Units 12:27 12:27 12:27 WBC 7.9 (4.0-10.0) 10^3/ uL RBC 3.77 L (4.1-5.3) 10^6/u L Hgb 11.7 (11.5-15.3) g/dL Hct 38.7 (37.0-47.0) % MCV 102.7 H (81-99) fl MCH 31.0 (28.0-34.0) pg MCHC 30.2 (30.0-36.0) g/dL RDW 14.7 (12.1-15.1) % Plt Count 234 (130-400) 10^3/c mm MPV 10.0 (7.4-10.4) fL Neut % (Auto) 68.3 % Lymph % (Auto) 21.0 % Heard % (Auto) 8.7 % Eos % (Auto) 1.4 % Baso % (Auto) 0.5 % Neut # (Auto) 5.41 (1.8-7.7) 10^3/u L Lymph # (Auto) 1.7 (0.8-4.8) 10^3/u L Heard # (Auto) 0.7 (0.2-0.9) 10^3/u L Eos # (Auto) 0.1 (0.0-0.8) 10^3/u L Baso # (Auto) 0.0 (0.0-0.1) 10^3/u L Nucleated RBC % (a uto) 0 % Nucleated RBCs # 0.0 /100WBC Sodium 140 (136-145) mmol/L Potassium 4.6 (3.5-5.1) mmol/L Chloride 104 (98-107) mmol/L Carbon Dioxide 25 (22-29) mmol/L Anion Gap 15.6 (5-19) BUN 13 (8-23) mg/dL Creatinine 0.6 (0.5-0.9) mg/dL GFR Calculation Not Reportable Glucose 120 H (65-115) mg/dL Calculated Osmolal ity 291 (285-295) mOsm/k g Calcium 10.1 (8.5-10.5) mg/dL Total Bilirubin 0.2 (0.15-1.2) mg/dL AST 10 (0-32) U/L ALT 7 (0-33) U/L Alkaline Phosphata se 175 H (35-105) IU/L Troponin T Baselin e 16 H (0-10) ng/L Troponin T 120 Min citizen [place] (0-10) ng/L Delta Troponin T (0-10) ABS# NT-Pro-B Natriuret Pep 1243 H (0-450) pg/mL Total Protein 6.2 L (6.6-8.7) g/dL Albumin 3.2 L (3.5-5.2) g/dL Globulin 3.0 (1.3-4.6) g/dL Urine Color (Yellow) Urine Appearance (CLEAR) Urine pH (5-7) Ur Specific Gravit y (1.005-1.030) Urine Protein (Negative) Urine Glucose (UA) (Normal) Urine Ketones (Negative) Urine Blood (Negative) Urine Nitrate (Negative) Urine Bilirubin (Negative) Prot Sulfosalicyli c Acd (Negative) Urine Urobilinogen (Negative) mg/dL Ur Leukocyte Ilana ase (Negative) 05/11/21 05/11/21 Range/Units 13:33 14:45 WBC (4.0-10.0) 10^3/ uL RBC (4.1-5.3) 10^6/u L Hgb (11.5-15.3) g/dL Hct (37.0-47.0) % MCV (81-99) fl MCH (28.0-34.0) pg MCHC (30.0-36.0) g/dL RDW (12.1-15.1) % Plt Count (130-400) 10^3/c mm MPV (7.4-10.4) fL Neut % (Auto) % Lymph % (Auto) % Heard % (Auto) % Eos % (Auto) % Baso % (Auto) % Neut # (Auto) (1.8-7.7) 10^3/u L Lymph # (Auto) (0.8-4.8) 10^3/u L Heard # (Auto) (0.2-0.9) 10^3/u L Eos # (Auto) (0.0-0.8) 10^3/u L Baso # (Auto) (0.0-0.1) 10^3/u L Nucleated RBC % (a uto) % Nucleated RBCs # /100WBC Sodium (136-145) mmol/L Potassium (3.5-5.1) mmol/L Chloride (98-107) mmol/L Carbon Dioxide (22-29) mmol/L Anion Gap (5-19) BUN (8-23) mg/dL Creatinine (0.5-0.9) mg/dL GFR Calculation Glucose (65-115) mg/dL Calculated Osmolal ity (285-295) mOsm/k g Calcium (8.5-10.5) mg/dL Total Bilirubin (0.15-1.2) mg/dL AST (0-32) U/L ALT (0-33) U/L Alkaline Phosphata se (35-105) IU/L Troponin T Baselin e (0-10) ng/L Troponin T 120 Min citizen [place] 15.85 H (0-10) ng/L Delta Troponin T -0.15 L (0-10) ABS# NT-Pro-B Natriuret Pep (0-450) pg/mL Total Protein (6.6-8.7) g/dL Albumin (3.5-5.2) g/dL Globulin (1.3-4.6) g/dL Urine Color Yellow (Yellow) Urine Appearance Sl hazy (CLEAR) Urine pH 8 H (5-7) Ur Specific Gravit y 1.010 (1.005-1.030) Urine Protein Neg (Negative) Urine Glucose (UA) Norm (Normal) Urine Ketones Negative (Negative) Urine Blood Neg (Negative) Urine Nitrate Negative (Negative) Urine Bilirubin Neg (Negative) Prot Sulfosalicyli c Acd Negative (Negative) Urine Urobilinogen Norm (Negative) mg/dL Ur Leukocyte Ilana ase Negative (Negative) Discharge Plan Discharge Patient Disposition: Home Clinical Impression: Pedal edema, CHF (congestive heart failure), Atrial fibrillation Condition: Stable Prescriptions: New torsemide 10 mg tablet 10 mg PO BID Qty: 60 RF: 0 Discontinued metoprolol tartrate 25 mg tablet 25 mg PO BID Qty: 60 RF: 5 torsemide 20 mg tablet 20 mg PO BID Qty: 0 RF: 0 No Action melatonin 10 mg capsule 10 mg PO DAILY RF: 0 hydrocodone-acetaminophen 5-325 mg tablet 1 tab PO QID PRN (Reason: Pain) RF: 0 polyethylene glycol 3350 17 gram/dose powder 17 gm PO DAILY PRN (Reason: Constipation) RF: 0 pantoprazole 40 mg tablet,delayed release (DR/EC) 40 mg PO BID Qty: 180 RF: 0 diltiazem HCl 360 mg capsule,extended release 24hr 360 mg PO DAILY Qty: 90 RF: 3 Eliquis 5 mg tablet 5 mg PO BID Qty: 180 RF: 3 tizanidine 4 mg tablet 4 mg PO DAILY Qty: 30 RF: 0 magnesium L-lactate [Magtab] 84 mg tablet extended release 84 mg PO BID Qty: 60 RF: 5 metoprolol tartrate 50 mg tablet 50 mg PO BID Qty: 60 RF: 5 sertraline [Zoloft] 25 mg tablet 25 mg PO DAILY Qty: 30 RF: 0 enoxaparin [Lovenox] 40 mg/0.4 mL syringe 40 mg SUBCUT .COMPLEX Qty: 0.4 RF: 4 cetirizine [Zyrtec] 10 mg Tablet 10 mg PO DAILY RF: 0 acetaminophen [Tylenol 8 Hour] 650 mg Tablet Extended Release 650 mg PO BEDTIME MDD SEE PHARMACH COMMENT PRN (Reason: Pain) RF: 0 Anti-Gas Maximum Strength 166 mg Capsule 166 mg PO PRN RF: 0 vitamin V34-odqih acid 500-400 mcg Tablet 1 tab PO DAILY RF: 0 albuterol sulfate [ProAir HFA] 90 mcg/actuation HFA aerosol inhaler 2 puff INHALATION Q6H PRN (Reason: Shortness Of Breath) RF: 0 ipratropium-albuterol [DuoNeb] 0.5 mg-3 mg(2.5 mg base)/3 mL Solution For Nebulization 3 ml INHALATION BID PRN (Reason: UNKNOWN) RF: 0 vancomycin 250 mg Capsule 250 mg PO QID RF: 0 potassium chloride 8 mEq capsule, extended release 8 meq PO DAILY RF: 0 famotidine 20 mg Tablet 20 mg PO DAILY RF: 0 Milk of Magnesia 400 mg/5 mL Suspension 5 ml PO DAILY PRN (Reason: Constipation) RF: 0 temazepam 30 mg capsule 30 mg PO BEDTIME RF: 0 gemfibrozil 600 mg Tablet 600 mg PO DAILY RF: 0 Dulcolax (bisacodyl) 10 mg Suppository 10 mg OR DAILY PRN (Reason: Constipation) RF: 0 [place] 3 Capsule 1,000 mg PO DAILY RF: 0 Vitamin D3 25 mcg (1,000 unit) Tablet 25 mcg PO DAILY RF: 0 Discharge Orders: Discharge ED (Routine); Ordered 05/11/21 Ordered By: Kashmir Cody Referrals: Alyce Lozoya DO [Primary Care Provider] - Discharge Diet: Usual diet Discharge Activity: Resume usual activity Patient Instructions: Opioid Safety Coding Level of Care Code ED Wad Blanking Press Adjuster for Leta Albarran
[2021-05-11 12:40] LABS: Basophils % 0.5 %; Eosinophils # 0.1 10^3/uL (0.0-0.8); Eosinophils % 1.4 %; Hematocrit 38.7 % (37.0-47.0); Hemoglobin 11.7 g/dL (11.5-15.3); Lymphocytes # 1.7 10^3/uL (0.8-4.8); Mean Corpuscular HGB Conc 30.2 g/dL (30.0-36.0); Mean Corpuscular Volume 102.7 fl (81-99); Monocytes # 0.7 10^3/uL (0.2-0.9); Monocytes % 8.7 %; Neutrophils # 5.41 10^3/uL (1.8-7.7); Neutrophils % 68.3 %; Nucleated Red Blood Cells % 0 %; Platelet Count 234 10^3/cmm (130-400); Red Blood Count 3.77 10^6/uL (4.1-5.3); Red Cell Distribution Width 14.7 % (12.1-15.1); White Blood Count 7.9 10^3/uL (4.0-10.0)
[2021-05-11 12:57] LABS: Troponin(5th) Baseline 16 ng/L (0-10)
[2021-05-11 13:02] LABS: Alanine Aminotransferase 7 U/L (0-33); Albumin Level 3.2 g/dL (3.5-5.2); Alkaline Phosphatase 175 IU/L (35-105); Anion Gap 15.6 (5-19); Aspartate Amino Transferase 10 U/L (0-32); Blood Urea Nitrogen 13 mg/dL (8-23); Calcium 10.1 mg/dL (8.5-10.5); Carbon Dioxide 25 mmol/L (22-29); Chloride 104 mmol/L (98-107); Glucose 120 mg/dL (65-115); NT Pro B Type Natriuretic Pept 1243 pg/mL (0-450); Osmolality Calculated 291 mOsm/kg (285-295); Potassium 4.6 mmol/L (3.5-5.1); Sodium 140 mmol/L (136-145); Total Bilirubin 0.2 mg/dL (0.15-1.2); Total Protein 6.2 g/dL (6.6-8.7)
[2021-05-11] MEDS: FUROsemide 10 mg/mL SDV 10mL 60 MG IVP (13:24)
[2021-05-11] MEDS: metoprolol tartrate 25 mg Tablet PO (13:25)
[2021-05-11] MEDS: metoprolol tartrate 1 mg/1 mL SDV 5 mL 5 MG IVP (13:25)
[2021-05-11] MEDS: HYDROcodone-acetaminophen 5-325 mg Tablet 1 TAB PO (13:25)
[2021-05-11 13:33] VITALS: BP 133/105; PULSE 104; RESP 17; O2SAT 96
--- NOTE | 2021-05-11 13:42 | PC.PHAR ---
PT UNABLE TO CONFIRM MEDICATION. PT HAS [facility]. I AM GOING BY THAT LIST AND THE PHARMACY LIST, PLUS THE PT'S MEDICATION HISTORY.
[2021-05-11 13:45] LABS: Add Urine Microscopic? NO; Charge for UA Resulting for Rev
--- NOTE | 2021-05-11 13:58 | ECG_ITS ---
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1945 Requested By: Kashmir Roland Order Number: [id number] Reading MD: DAYDAY REDDING Measurements Intervals [place] Rate: 101 P: [place]: QRS: -6 QRSD: 81 T: 80 QT: 301 QTc: 392 Interpretive Statements ATRIAL FIBRILLATION WITH RAPID VENTRICULAR RESPONSE POSSIBLE ANTERIOR MYOCARDIAL INFARCTION , PROBABLY OLD [30 ms Q WAVE IN V3/V4, OR R < 0.2 mV IN V4] ABNORMAL RHYTHM ECG Compared to ECG 05/11/2021 12:02:40 No significant changes Electronically Signed On 05-11-2021 21:12:44 CDT by DAYDAY REDDING [id number]
[2021-05-11 14:22] LABS: Bilirubin Urine Neg (Negative); Blood Urine Neg (Negative); Glucose Urine UA Norm (Normal); Ketones Urine Negative (Negative); Leukocyte Esterase Urine Negative (Negative); Nitrate Urine Negative (Negative); Protein Urine Neg (Negative); Sulfosalicylic Acid Urine Negative (Negative); Urine Appearance SL Hazy (CLEAR); Urine Color Yellow (Yellow); Urobilinogen Urine Norm (Negative); pH Urine 8 (5-7)
[2021-05-11 15:25] LABS: Troponin 5 2HR 15.85 ng/L (0-10)
[2021-05-11 15:29] LABS: Troponin 5 2HR Delta -0.15 ABS# (0-10)
[2021-05-11 15:55] VITALS: BP 137/94; PULSE 95; RESP 18; O2SAT 97
== END 2021-05-11 16:09 | disposition home or self-care (01) ==
PROVIDERS: Emergency Provider Family Medicine; PCP Family Medicine
DX: I11.0 Hypertensive heart disease with heart failure (principal); I50.30 Unspecified diastolic (congestive) heart failure; I48.20 Chronic atrial fibrillation, unspecified; R60.0 Localized edema; J44.9 Chronic obstructive pulmonary disease, unspecified; E78.00 Pure hypercholesterolemia, unspecified; F17.210 Nicotine dependence, cigarettes, uncomplicated; Z79.01 Long term (current) use of anticoagulants
CPT/HCPCS: 36415; 51702; 71045; 80053; 81003; 83880; 84484; 85025; 93005; 96374; 96375; 99284; J1940; J2405; J3490

== ENCOUNTER 2021-06-14 08:22 | Outpatient (CLI) | payer MEDICARE, MEDICAID, SELFPAY ==
[2021-06-14 08:52] VITALS: BMI 40.3
--- NOTE | 2021-06-14 08:52 | NMCV_ITS ---
NM satish perf SPECT r/s* [id number] Bre Lara Age: 76 Gender: F : 1945 Exam Date: 06/14/2021 09:54 Ordering Phys: Kwabena Marie MD ([email or web address]) Technologist: JOLYNN Farley Exam Location: [facility] Indications: CHEST PAIN STRESS TEST Please [facility] for [facility] IMAGE PROTOCOL Rest/Stress 1 Lexiscan Day Radiopharmaceutical Dose (mCi) Administration Site Administered by Rest: Tc-99m 10.7 IV JOLYNN Farley Sestamibi Stress:Tc-99m 32.5 IV JOLYNN Gray Sestamibi Rest: 14-Jun-2021 60 Discovery 630 Stress: 14-Jun-2021 30 Discovery 630 0.4mg Lexiscan. Supine position only as patient was unable to lay prone. SPECT RESULTS Technical Quality: Good Raw Data Analysis: Breast attenuation Image Corrections: No attenuation or motion correction applied Summed Stress Score: 1 Summed Rest Score: 1 Summed Difference Score: 0 PERFUSION FINDINGS Patchy areas of decreased tracer uptake in the inferoseptal regions. No significant reversibility was noted in these regions. FUNCTIONAL RESULTS (calculated via Gated SPECT) Stress Image LV EF (%): 77 Stress EDV (mL):65 TID: 1 Stress ESV (mL):15 FUNCTIONAL FINDINGS: Segmental wall motion analysis revealing no gross wall motion normalities. IMPRESSIONS 1. Myocardial perfusion imaging revealing patchy areas of persistent decreased tracer uptake in the inferoseptal regions suggestive of myocardial scarring versus attenuation artifact. 2. Normal LV ejection fraction of 77%. 3. Segmental wall motion analysis revealing no gross wall motion abnormalities 4. Normal LV volume No significant coronary ischemia, based on the above findings Dr Kwabena Marie MD FAC (Electronically Signed) Final Date: 14 June 2021 23:23 S
--- NOTE | 2021-06-14 08:52 | ECG_ITS ---
[facility] Test Date: 2021-06-14 Pat Name: Bre Lara Department: Room: Gender: Female Youth Associate: : 1945 Requested By: Kwabena Marie Order Number: [id number] Emmanuel MD: Kwabena Marie M.D. Interpretive Statements NAME OF STUDY: LEXISCAN SESTAMIBI STRESS TEST INDICATION: Chest Pain, PROCEDURE: At the baseline, the EKG revealed atrial fibrillation with a controlled ventricular response rate of 91 bpm. Diffuse nonspecific T wave changes. Poor R wave progression.. The baseline blood pressure was 108/65 mm Hg with a heart rate of 91 beats/min. Lexiscan was infused over a period of 20 seconds. A total of 0.4 milligrams of Lexiscan was infused. The stress phase was continued for a total of 5 minutes. Heart rate at the end of the stress phase was 99 with a blood pressure 104/53. The EKG at the peak infusion revealed no significant changes. Sestamibi was injected 20 seconds after the Lexiscan infusion. Blood pressure at the end of the recovery phase was 91/54 with a heart rate of 90 per minute. CONCLUSION: 1. No significant EKG changes with the LexiScan infusion 2. No LexiScan induced chest pain or cardiac arrhythmia 3. Normal blood pressure and heart rate response 4. Sestamibi/sestamibi perfusion scan pending; see separate report. Electronically Signed On 06-18-2021 0:32:18 CDT by Kwabena Marie M.D. [id number]
[2021-06-14] MEDS: regadenoson 0.4 Mg/5 ml Syringe IVP (10:55)
[2021-06-14] MEDS: ondansetron 2 mg/ML SDV 2 mL 4 MG IVP (10:58)
[2021-06-14 11:05] VITALS: BP 91/54; PULSE 94
== END 2021-06-14 08:23 | disposition home or self-care (01) ==
PROVIDERS: PCP Family Medicine; Visit Provider Internal Medicine Cardiovascular Disease
DX: R07.9 Chest pain, unspecified (principal)
CPT/HCPCS: 78452; 93017; A9500; J2405; J2785

== ENCOUNTER → 2021-07-15 16:04 | Outpatient (BNVA) | payer MEDICARE, MEDICAID, SELFPAY | PROVIDERS: PCP Family Medicine; Visit Provider Family Medicine | DX: Z01.818 Encounter for other preprocedural examination (principal); Z13.6 Encounter for screening for cardiovascular disorders | CPT/HCPCS: 80053; 85025 ==

== ENCOUNTER → 2021-07-16 08:55 | Outpatient (BNVA) | payer MEDICARE, MEDICAID, SELFPAY | PROVIDERS: PCP Family Medicine; Visit Provider Obstetrics & Gynecology | DX: N39.41 Urge incontinence (principal); Z20.822 Contact with and (suspected) exposure to COVID-19 | CPT/HCPCS: 87635 ==

== ENCOUNTER 2021-07-21 12:53 | Observation (INO) | payer MEDICARE, MEDICAID, SELFPAY ==
--- NOTE | 2021-07-16 10:42 | ECG_ITS ---
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: : 1945 Requested By: Hailey Concepcion Order Number: [id number] Emmanuel MD: DAYDAY REDDING Measurements Intervals [place] Rate: 89 P: [place]: QRS: -18 QRSD: 89 T: 146 QT: 351 QTc: 428 Interpretive Statements ATRIAL FIBRILLATION WITH ABERRANT CONDUCTION OR VENTRICULAR PREMATURE COMPLEXES MODERATE VOLTAGE CRITERIA FOR LVH, CONSIDER NORMAL VARIANT [MEETS CRITERIA IN ONE OF: R(aVL), S(V1), R(V5), R(V5/V6)+S(V1)] POSSIBLE ANTERIOR MYOCARDIAL INFARCTION , PROBABLY OLD [30 ms Q WAVE IN V3/V4, OR R < 0.2 mV IN V4] INFERIOR MYOCARDIAL INFARCTION , PROBABLY OLD [40+ ms Q WAVE AND/OR ST/T ABNORMALITY IN II/aVF] MODERATE T-WAVE ABNORMALITY, CONSIDER LATERAL ISCHEMIA [-0.1+ mV T WAVE IN I/aVL/V5/V6] Compared to ECG 05/11/2021 13:41:00 Ventricular premature complex(es) now present Aberrant conduction of supraventricular beat(s) now present T-wave abnormality now present Possible ischemia now present Myocardial infarct finding still present Electronically Signed On 07-17-2021 0:03:39 CDT by DAYDAY REDDING [id number]
[2021-07-16 11:01] VITALS: BMI 41.9
[2021-07-21] VITALS (20 sets, daily range): BP systolic 99–168; BP diastolic 61–112; PULSE 65–93; RESP 16–20; TEMP 36.1–36.9; O2SAT 92–97; BMI 41.9
--- NOTE | 2021-07-21 09:55 | ANES.PREANE2 ---
Pre-Anesthetic Assessment Pre-Anesthetic Assessment: Height/Weight: Height 1.42 m Weight 84.822 kg Temp Pulse Resp BP Pulse Ox 97.0 F L 79 18 154/84 94 07/21/21 09:18 07/21/21 09:18 07/21/21 09:18 07/21/21 09:30 07/21/21 09:18 Preop Diagnosis: Cystocele, stress urinary incontinence Proposed Procedure: Operation Date: 07/21/21 11:05 Proposed Procedures p Anterior Repair Anterior Colporrhaphy [id number] N39.41(Not Applicable) - Shankar Wilder MD Familial anesthetic complications: was awake during her foot surgery and quit breathing a couple of times, says people were talking to her during the procedure and it didn't bother her to be awake. probable spinal w/ MAC Was Beta [place] taken within 24 hours: Yes Was Clonidine taken within 24 hours: N/A Last intake: Intake Last Liquid Date 07/20/21 Last Liquid Time 23:00 Last Solid Date 07/20/21 Last Solid Time 23:00 Social: Social History: Tobacco and No alcohol Exam: Pre-Anes Outpt Exam: alert, oriented x 3, clear to auscultation bilaterally and regular rate & rhythm Additional Exam Findings (including area of procedure): a fib Airway: Cervical ROM: WNL MP: 3 Dentition: Other (extremely poor dentition) Pulmonary: Pulmonary: COPD, BECKETT and Sleep apnea CV/HEM: CV/HEM: Afib, Angina (Stable), CHF ( Dr. Marie tells me my heart is 85% good ) and HTN Comments: 06/14/21 mycocardial perfusion scan IMPRESSIONS 1. Myocardial perfusion imaging revealing patchy areas of persistent decreased tracer uptake in the inferoseptal regions suggestive of myocardial scarring versus attenuation artifact. 2. Normal LV ejection fraction of 77%. 3. Segmental wall motion analysis revealing no gross wall motion abnormalities 4. Normal LV volume No significant coronary ischemia, based on the above findings 06/14 stress test CONCLUSION: 1. No significant EKG changes with the LexiScan infusion 2. No LexiScan induced chest pain or cardiac arrhythmia 3. Normal blood pressure and heart rate response 4. Sestamibi/sestamibi perfusion scan pending; see separate report. 02/25/21 echo CONCLUSIONS 1. This is a technically very difficult study. 2. Probably normal left ventricle systolic function. Left ventricular ejection fraction is estimated at 60-65%. This study is inadequate for estimation of regional wall motion abnormality. 3. Normal right ventricular size and systolic function. 4. Severely increased left atrial size. 5. Repeat study with echo contrast may be considered for better assessment of regional wall motion abnormality. GI: GI: GERD Anesthetic Plan: ASA status: 4 Anesthesia: General Risk of > 500 ml blood loss (7ml/kg in children): No Other Pertinent Information: scanned echo from 07/16 is EKG (?probable labeling mistake), patient denies having had an echo performed and echo lab has no echos - last one 02/25, nothing from 07/16 PFSH Anesthesia PFSH: Medical History Acute exacerbation of CHF (congestive heart failure) Benign essential hypertension with target blood pressure below 140/90 Chronic episodic atrial fibrillation Chronic venous insufficiency of lower extremity COPD (chronic obstructive pulmonary disease) Diastolic heart failure Fracture of ribs, multiple GERD (gastroesophageal reflux disease) Hypercholesterolemia Osteoarthritis of left knee Other cervical disc displacement, unspecified cervical region Recurrent UTI Sleep apnea Urgency incontinence Urolithiasis UTI (urinary tract infection) Surgical History H/O cataract extraction H/O esophagogastroduodenoscopy (07/14/20) H/O knee surgery H/O shoulder surgery History of appendectomy History of cholecystectomy S/P hysterectomy Status post colonoscopy (07/14/20) Family History Father Stroke Mother Cancer BLADDER, BREAST Brother Cancer ESOPHAGEAL Family/Other Cancer Sister Cancer Suicide Denies family history of Diabetes CAD (coronary artery disease) Clotting disorder Dementia Chronic kidney disease (CKD) Anesthesia complication Bleeding disorder Lung disease Social History (Updated 07/16/21 @ 08:51 by Smiley Cordero RN) Smoking and tobacco status: current every day smoker cigarettes Packs smoked per day: 1 Alcohol intake: never Marital status: Current occupational status: disabled Data Anesthesia Cardiac Studies: Cardiac Event Monitor 04/30/21 Holter Monitor 03/20/20
[2021-07-21] MEDS: scopolamine 1.5 Patch 1 PATCH TRANSDERMA (10:02)
[2021-07-21] MEDS: enoxaparin 40 mg/0.4 mL Syringe SUBCUT (10:03)
[2021-07-21] MEDS: vancomycin 1,000 MG in sodium chloride 0.9% 250 ML 250 MG IV (10:25)
[2021-07-21] MEDS: sodium chloride 0.9% 1,000 ML 30 ML IV (10:25)
--- NOTE | 2021-07-21 10:53 | SUR.PREOP ---
PATIENT STATES SHE HAS MULTIPLE SORES ON BUTTOCKS.
--- NOTE | 2021-07-21 11:09 | W.PM.OPSUD ---
Surgery/Procedure H&P Update DATE OF PROCEDURE: July 21, 2021 DATE H&P PERFORMED: 07/16/21 H&P UPDATE INFORMATION: I have reviewed H&P completed within last 30 days, I have examined patient prior to procedure and No changes to prior documentation PREOP DIAGNOSIS: Cystocele, stress urinary incontinence PLANNED PROCEDURE: Operation Date: 07/21/21 11:05 Proposed Procedures p Anterior Repair Anterior Colporrhaphy [id number] N39.41(Not Applicable) - Shankar Wilder MD
[2021-07-21] MEDS: estrogens Conjugated Cream 30 gm 1 APPLIC VAGINAL (12:30)
--- NOTE | 2021-07-21 12:41 | P.OP_ITS ---
Operative Report Date of procedure: July 21, 2021 Pre-op Diagnosis: Cystocele, stress urinary incontinence Post-op diagnosis: same Procedure Done: Anterior colporrhaphy. Single incision mid urethral sling. Cystoscopy Pathology: none sent Surgeon: Shankar Wilder MD Anesthesia: General Estimated blood loss (mL): 50 IV fluids (mL): 600 Urine output (mL): 200 Complications: none Condition: stable Disposition: PACU Procedure: After obtaining informed consent, the patient was taken to the operating room and placed in the supine position, given general anesthesia, and prepped and draped in sterile fashion. The abdomen, vulva and vagina were prepped and draped in a sterile manner. A time out procedure was performed. A vertical midline incision was made beneath the midurethra, nearly 1.5 cm length. Careful submucosal dissection was performed bilaterally up to the interior portion of the inferior pubic ramus. The insertion of adductor longus tendon on the patient?s pubic ramus was identified as reference land korina. Palpated the notch along the internal edge of ischiopubic ramus where the adductor longus tendon and the inferior pubic ramus meet. The Altis single incision sling (SIS) was selected. Then the needle of the SIS inserted aiming at the location of this notch. One of the integrated self-fixating tips place onto the needle by sliding it over the end of the needle. The needle/sling assembly was inserted toward the location of identified reference notch making sure that the flat of the handle is perpendicular to the desired path. The needle was tracked along the posterior surface of the ischiopubic ramus until the midline korina on the mesh is approximately at the midline position under the urethra. The needle was removed and the same was repeated on the contralateral side until the appropriate sling tension under the urethra was achieved ensuring that the mesh lays flat. The needle was removed and vaginal incision was closed in a running interlocking fashion with 2-0 Vicryl. The vaginal mucosa was then injected in the midline with normal saline. The vaginal mucosa was scored in the midline with the Bovie approximately 1 cm medial to the urethral meatus to 1 cm distal to the vaginal cuff. This vaginal mucosa was then undermined and then incised in the midline with the Metzenbaum scissors. The lateral aspects of the vaginal mucosa were then grasped with the Allis clamps and the vaginal mucosa was then dissected off the underlying fascia with the Metzenbaum scissors. Again, there was noted to be quite a bit of oozing at the incision, which was controlled with cautery. After adequate dissection was performed, bilaterally. A Coloplast dermis allograft is modified at time of application to fit spacea, 3 x 3 cm piece . The allograft placed in front of cystocele ready to be implanted to the vagina mucosa. Suture is placed at distal end of graft and placed towards vaginal cuff. Final suture is placed on proximal portion of the graft to complete the placement overlying the bladder. Then Interrupted vertical mattress sutures of 0 Vicryl were used to elevate the cystocele superiorly. The excessive vaginal mucosa was then trimmed with the Metzenbaum scissors and the vaginal mucosa was then reapproximated in the running interlocking fashion with 2-0 Vicryl. Then the Medina catheter was removed and cystoscope was inserted. The bladder was filled with sterile water. Complete evaluation of the bladder mucosa was performed noting no lacerations, dimpling, tears, bleeding of the mucosa or muscular layers. Both ureteral orifices were identified. Prompt excretion of urine from both ureteral orifices was noted. Cystoscope was withdrawn. The Medina catheter was replaced. Ex cellent hemostasis was obtained. A vaginal pack is placed overnight as postoperative support for the vaginal tissues after graft placement and closure of vaginal incisions. Sponge, lap, needle, and instrument counts were correct times three. The patient was taken to the recovery room, awake and in stable condition.
[2021-07-21] MEDS: fentaNYL 50 mcg/mL INJ 2mL IVP ×2 (12:57→13:01)
[2021-07-21] MEDS: ondansetron 2 mg/ML SDV 2 mL 4 MG IVP (13:04)
[2021-07-21] MEDS: metoclopramide 5 mg/mL SDV 2 mL 10 MG IVP (13:24)
--- NOTE | 2021-07-21 13:35 | PC.NURSE ---
Chronic right arm pain
--- NOTE | 2021-07-21 15:41 | ANE.PACU2 ---
Inpatient post-anesthesia follow up: Airway intact: Yes Vital signs: Temperature 98.2 F Pulse Rate 65 Respiratory Rate 19 Blood Pressure 113/66 Pulse Oximetry 96 Oxygen Delivery Me thod Nasal Cannula Oxygen Flow Rate 2 Fraction of Inspir ed Oxygen Hydration adequate: Yes Nausea and vomiting: No Pain level: 2 Mental status: Baseline
[2021-07-21] MEDS: dextrose 5%-lactated ringers 1,000 ML 125 ML IV (16:01)
[2021-07-21] MEDS: sucralfate 1 gm Tablet PO ×2 (16:03→20:59)
[2021-07-21] MEDS: ketorolac 30 mg/mL INJ IVP ×2 (16:15→20:47)
[2021-07-21] MEDS: TORSEmide 20 mg Tablet 10 MG PO (18:05)
[2021-07-21] MEDS: tizanidine 4 mg Tablet PO (18:06)
[2021-07-21] MEDS: pantoprazole DR 40 mg Tablet PO (18:06)
[2021-07-21] MEDS: docusate sodium 100 mg Capsule PO (18:06)
[2021-07-21] MEDS: HYDROcodone-acetaminophen 5-325 mg Tablet PO (22:34)
[2021-07-22] VITALS (7 sets, daily range): BP systolic 94–116; BP diastolic 52–76; PULSE 68–88; RESP 16–19; TEMP 36.6–37.1; O2SAT 92–97
[2021-07-22] MEDS: dextrose 5%-lactated ringers 1,000 ML 125 ML IV ×4 (01:12→19:37)
[2021-07-22] MEDS: ketorolac 30 mg/mL INJ IVP ×2 (02:26→09:21)
[2021-07-22 05:33] LABS: Hematocrit 36.5 % (37.0-47.0); Hemoglobin 10.8 g/dL (11.5-15.3); Mean Corpuscular HGB Conc 29.6 g/dL (30.0-36.0); Mean Corpuscular Hemoglobin 29.8 pg (28.0-34.0); Mean Corpuscular Volume 100.6 fl (81-99); Mean Platelet Volume 10.6 fL (7.4-10.4); Platelet Count 187 10^3/cmm (130-400); Red Blood Count 3.63 10^6/uL (4.1-5.3); Red Cell Distribution Width 16.6 % (12.1-15.1); White Blood Count 7.7 10^3/uL (4.0-10.0)
[2021-07-22] MEDS: enoxaparin 30 mg/0.3 mL Syringe SUBCUT (06:46)
--- NOTE | 2021-07-22 06:49 | PC.NURSE ---
D/C BARAJAS AND VAGINAL BACKING: THE PATIENT'S BARAJAS AND VAGINAL BACKING WAS REMOVED. PATIENT TOLERATED BOTH WELL. MINIMAL BLEEDING NOTED PACKING AND YOLANDA PAD. YOLANDA CARE PROVIDED AND BEDDING CHANGED OUT WITH CLEAN LINENS AND PADS.
[2021-07-22] MEDS: docusate sodium 100 mg Capsule PO ×2 (09:21→17:42)
[2021-07-22] MEDS: TORSEmide 20 mg Tablet 10 MG PO ×2 (09:21→17:41)
[2021-07-22] MEDS: sertraline 50 mg Tablet PO (09:21)
[2021-07-22] MEDS: gemfibrozil 600 mg Tablet PO (09:22)
[2021-07-22] MEDS: sucralfate 1 gm Tablet PO ×3 (09:22→21:59)
[2021-07-22] MEDS: dilTIAZem ER (24HR) 120 mg Capsule 360 MG PO (09:22)
[2021-07-22] MEDS: tizanidine 4 mg Tablet PO ×2 (09:22→17:41)
[2021-07-22] MEDS: cetirizine 10 mg Tablet PO (09:22)
[2021-07-22] MEDS: ondansetron 2 mg/ML SDV 2 mL 4 MG IVP (09:35)
--- NOTE | 2021-07-22 10:25 | P.DS_ITS ---
Discharge Providers ANALYSIS ENGINEER Date of Admission: 07/21/21 12:53 Date of Discharge: 07/22/21 Attending Provider at Admission: Shankar Wilder MD Attending Provider at Discharge: Shankar Wilder MD Primary Care Provider: Alyce Lozoya DO Diagnoses at Discharge Discharge Diagnosis (1) Postoperative pain: Status: Acute (2) Edema, peripheral: Status: Acute (3) Atrial fibrillation: Status: Acute Qualifiers: Atrial fibrillation type: unspecified Qualified Code(s): I48.91 - Unspecified atrial fibrillation (4) Atypical chest pain: Status: Acute (5) Diastolic heart failure: Status: Acute Qualifiers: Heart failure chronicity: chronic Qualified Code(s): I50.32 - Chronic diastolic (congestive) heart failure (6) Atopic eczema: Status: Acute (7) Macrocytic anemia: Status: Acute (8) Shortness of breath on exertion: Status: Acute (9) Insomnia: Status: Acute Qualifiers: Insomnia type: primary Qualified Code(s): F51.01 - Primary insomnia (10) Hematochezia: Status: Acute (11) Urolithiasis: Status: Acute (12) Hypercholesterolemia: Status: Chronic (13) Hypercalcemia: Status: Acute (14) GERD (gastroesophageal reflux disease): Status: Chronic Qualifiers: Esophagitis presence: esophagitis presence not specified Qualified Code(s): K21.9 - Gastro-esophageal reflux disease without esophagitis (15) Nicotine dependence, cigarettes, with unspecified nicotine-induced disorders: Status: Chronic (16) Lymphedema: Status: Acute Reason for Visit Reason for Visit: anterior colporrhapy Hospital Course Hospital Course Mrs. Lara 76-year-old female with an cystocele and stress urinary incontinence admitted for planned anterior colporrhaphy and single incision mid urethral sling. The procedures were performed without complications. PVR is adequate. Tolerating diet well. She is afebrile and hemodynamically stable postoperative day 1. With case management arrangements have been made for the patient to be discharged to alf. Physical Exam Narrative: EXAM NARRATIVE: GA: Alert and oriented ?3. HEENT: WNL. Heart: Regular rate and rhythm. Lungs: Clear to auscultation bilaterally. Abdomen: Bowel sounds present, nontender THREAD TOOL GRINDER SET UP OPERATOR: spotting bleeding. Extremities: 2+ lower extremity edema, no cyanosis, no calves pain. Urinary Catheter Management^: Medina: Cath Placed During This Visit: yes Urinary Catheter Date of Insertion: 07/21/21 Urinary Catheter Time of Insertion: 12:00 History History History 5 Term 4 Miscarriages/Ectopic 1 0 Living Children 3 Discharge Data Data Completed and Pending: Pending at discharge Category Date Time Status ES surgery / GI i mages Routine Exams 07/21/21 11:57 Taken Labs from last 24 hours 07/22/21 07/21/21 05:00 10:00 WBC 7.7 RBC 3.63 L Hgb 10.8 L Hct 36.5 L MCV 100.6 H MCH 29.8 MCHC 29.6 L RDW 16.6 H Plt Count 187 MPV 10.6 H Blood Type O Positive Rho(D) Type Positive Antibody Screen Negative Vitals: Last Vital Signs Temp 98.7 F 07/22/21 08:00 Pulse 86 07/22/21 08:00 Resp 18 07/22/21 08:00 BP 116/76 07/22/21 08:00 Pulse Ox 94 07/22/21 09:07 Discharge Plan Discharge Patient Disposition: Xfer [facility] Condition: Stable Prescriptions: New acetaminophen 325 mg capsule 325 mg PO Q4H PRN (Reason: fever or pain) Qty: 60 RF: 0 hydrocodone-acetaminophen 5-325 mg tablet 1 tab PO Q4H PRN (Reason: pain) Qty: 20 RF: 0 Continued torsemide 20 mg tablet 10 mg PO BID RF: 0 ipratropium-albuterol 0.5 mg-3 mg(2.5 mg base)/3 mL solution for nebulization 3 ml inhalation QID PRN (Reason: sob) RF: 0 potassium chloride 8 mEq tablet extended release 8 meq PO DAILY RF: 0 melatonin 10 mg capsule 10 mg PO DAILY RF: 0 Eliquis 5 mg tablet 5 mg PO BID RF: 0 enoxaparin [Lovenox] SUBCUT .in the mornings RF: 0 hydrocodone-acetaminophen 5-325 mg tablet 1 tab PO QID PRN (Reason: Pain) RF: 0 polyethylene glycol 3350 17 gram/dose powder 17 gm PO DAILY PRN (Reason: Constipation) RF: 0 pantoprazole 40 mg tablet,delayed release (DR/EC) 40 mg PO BID Qty: 180 RF: 0 tizanidine 4 mg tablet 4 mg PO BID 30 Days Qty: 60 RF: 0 sucralfate [Carafate] 1 gram tablet 1 g PO TID Qty: 90 RF: 0 diltiazem HCl 360 mg capsule,extended release 24hr 360 mg PO DAILY Qty: 90 RF: 3 magnesium L-lactate [Magtab] 84 mg tablet extended release 84 mg PO BID Qty: 60 RF: 5 sertraline 50 mg tablet 50 mg PO DAILY Qty: 90 RF: 0 metoprolol tartrate 50 mg tablet 50 mg PO DIRECTED Qty: 45 RF: 5 cetirizine [Zyrtec] 10 mg Tablet 10 mg PO DAILY RF: 0 acetaminophen [Tylenol 8 Hour] 650 mg Tablet Extended Release 650 mg PO BEDTIME MDD SEE PHARMACH COMMENT PRN (Reason: Pain) RF: 0 Anti-Gas Maximum Strength 166 mg Capsule 166 mg PO PRN RF: 0 vitamin T04-eemah acid 500-400 mcg Tablet 1 tab PO DAILY RF: 0 famotidine 20 mg Tablet 20 mg PO DAILY RF: 0 magnesium hydroxide [Milk of Magnesia] 400 mg/5 mL Suspension 5 ml PO DAILY PRN (Reason: Constipation) RF: 0 gemfibrozil 600 mg Tablet 600 mg PO DAILY RF: 0 bisacodyl [Dulcolax (bisacodyl)] 10 mg Suppository 10 mg NM DAILY PRN (Reason: Constipation) RF: 0 omega-3 fatty acids Capsule 1,000 mg PO DAILY RF: 0 Vitamin D3 25 mcg (1,000 unit) tablet 2,000 unit PO .COMPLEX RF: 0 Discharge Orders: Discharge Order (Routine); Ordered 07/22/21 Ordered By: Shankar Wilder Discharge Diet: Usual diet Discharge Activity: Increase activity as tolerated Patient Instructions: Bladder Sling (GEN), Anterior Vaginal Repair (GEN) Activity Restrictions/Additional Instructions: 1. Please call [facility] on next working day to make your post-operative appointment in 2 weeks. 2. Please stay home until you come back to the clinic on first post-operative check up. 3. Please follow instructions on your medications CAREFULLY. 4. If you have abdominal incision, do not cover it unless dressing is necessary because of drainage. OK to shower, but avoid bath. Leave steri-strips until they fall off. If they are still on one week after surgery, you may remove them. 5. If you had vaginal surgery or vaginal repair, Dr. Wilder may instruct you to take SITZ bath. 6. Yellow, blood tinged odorous vaginal discharge is usually normal after hysterectomy or vaginal surgeries. 7. No sexual intercourse, tampons, or douches until you are completely released from the post-operative care. 8. Avoid constipation by eating right and maybe using some Metamucil or Milk of Magnesia. 9. All prescription refills are given during the working hours. Please do no wait till it runs out. Call the clinic at [phone] before your medication runs out. The clinic will get in touch with your doctor to prescribe medications if necessary. 10. Please remain within 40 mile radius from our hospital because emergencies do happen now and then during the post-operative period. 11. If you have stairs at home, take one step at a time slowly and minimize the number of trips. It helps to stay in one floor for the next few days. No lifting except what you can lift by one hand until you are released from the post-operative care. 12. Driving is discouraged until you are well healed. It may be 3-4 weeks before you feel strong enough to drive. You should be able to turn and look through the rear window without pain and you should be able to push the brake pedal very hard without pain before you drive. No fast rules, but SAFETY should be your primary concern. DO NOT drive if you are on sedating medications such as narcotics. 13. Call the clinic (during working hours) to make urgent appointment or go to the Emergency room, if any of the following occurs: i. Vaginal bleeding becomes heavy, more than a period. ii. Incision becomes red and sore, or drains pus. iii. Your temperature is over 100.4 or you have chill. iv. IV site becomes red and swollen (a little ``knot?? is usually OK) v. Persistent nausea and vomiting vi. Persistent constipation or diarrhea vii. Rash or allergic reaction to medications. Discharge Attestations ANALYSIS ENGINEER Time Spent in Discharge Care*: less than 30 min Status at Discharge: Cognitive status at discharge: cognitively intact , Behavioral status at discharge: cooperative , Coding Level of Care Code Acute Criminal Investigator for [facility] Diagnoses Postoperative pain G89.18 Edema, peripheral R60.9 Atrial fibrillation I48.91 Atrial fibrillation type: unspecified Atypical chest pain R07.89 Diastolic heart failure I50.32 Heart failure chronicity: chronic Atopic eczema L20.9 Macrocytic anemia D53.9 Shortness of breath on exertion R06.02 Insomnia F51.01 Insomnia type: primary Hematochezia K92.1 Urolithiasis N20.9 Hypercholesterolemia E78.00 Hypercalcemia E83.52 GERD (gastroesophageal reflux disease) K21.9 Esophagitis presence: esophagitis presence not specified Nicotine dependence, cigarettes, with unspecified nicotine-induced disorders F17.219 Lymphedema I89.0
--- NOTE | 2021-07-22 11:05 | PC.CHAP ---
Pastoral Care Encounter/Spiritual Assessment Type of Contact [] Declined driving teacher visit [] Patient/Family/Request visit [] Outpatient visit [] Follow-up visit [] Physician referral [] Code/Alert [x] Routine visit [] Staff referral [] Actively dying [] Patient sleeping [] Family support [] [] Out of room [] Palliative care [] [x] Receiving care in room [] Pre-surgical visit [] Trauma [] Long length of stay [] ICU visit [] Other: Relational/Emotional Strength [x] Patient feels connected with others/family/visitors/staff [] Distress [] Loneliness/isolation [] Abandonment Spirituality of Patient [x] Person of Jessica [] Attends Jewish of their Jessica [] Believes in Prayer [] Reads Bible or Synagogue materials [] There are Spiritual issues to be addressed Learning And Development Analyst Interventions [x] Prayer [x] Active listening [x] Non-anxious presence [x] Spiritual/emotional support [] Crisis/trauma care [] Spiritual counseling [] Bereavement support [] Provided bereavement packet [] Provided Bible/devotional materials [] Provided toy/stuffed animal, coloring book to patient or family member [] Provided Communion [] Anointing/[place] [] Salvation [x] Completed spiritual assessment [] Other: Impact on Illness or Injury [] Angry [] Fearful [x] Anxious [] Often cries [] Exhaustion [] Unable to work [] Unable to attend oriental orthodox [] Unable to walk/stand [] Unable to read [] Unable to drive [] Unable to eat/drink [] Unable to sleep [] Unable to be with family [] Patient intubated [] Other: Summary Had a proceeduer feels good and is going home has good attitude about her health and recovery +1 Time spent with patient 10 mins
[2021-07-22] MEDS: ibuprofen 800 mg tablet PO ×2 (16:05→21:59)
[2021-07-22] MEDS: pantoprazole DR 40 mg Tablet PO (17:41)
[2021-07-22] MEDS: HYDROcodone-acetaminophen 5-325 mg Tablet PO (17:46)
--- NOTE | 2021-07-22 18:20 | PC.NURSE ---
Post void residual done this AM, scan showed 20ML. Dr. Wilder notified. patient has slept for most of the day and has been resistive to any type of physical activity, including getting out of bed to urinate.
[2021-07-23] VITALS: BP 108/69; PULSE 66; RESP 18; TEMP 36.4; O2SAT 92
[2021-07-23] MEDS: HYDROcodone-acetaminophen 5-325 mg Tablet PO ×3 (01:24→17:36)
[2021-07-23] MEDS: dextrose 5%-lactated ringers 1,000 ML 125 ML IV (03:43)
[2021-07-23 04:00] VITALS: BP 110/68; PULSE 75; RESP 18; TEMP 36.8; O2SAT 91
[2021-07-23] MEDS: enoxaparin 30 mg/0.3 mL Syringe SUBCUT (06:21)
[2021-07-23] MEDS: ibuprofen 800 mg tablet PO ×3 (06:21→20:48)
[2021-07-23 08:00] VITALS: BP 125/77; PULSE 87; RESP 18; TEMP 37.1; O2SAT 92
[2021-07-23] MEDS: dilTIAZem ER (24HR) 120 mg Capsule 360 MG PO (08:34)
[2021-07-23] MEDS: tizanidine 4 mg Tablet PO ×2 (08:34→17:36)
[2021-07-23] MEDS: docusate sodium 100 mg Capsule PO ×2 (08:34→17:36)
[2021-07-23] MEDS: sucralfate 1 gm Tablet PO ×2 (08:35→20:49)
[2021-07-23] MEDS: famotidine 20 mg Tablet PO (08:35)
[2021-07-23] MEDS: cetirizine 10 mg Tablet PO (08:35)
[2021-07-23] MEDS: pantoprazole DR 40 mg Tablet PO ×2 (08:35→17:36)
[2021-07-23] MEDS: TORSEmide 20 mg Tablet 10 MG PO ×2 (08:35→17:36)
[2021-07-23] MEDS: gemfibrozil 600 mg Tablet PO (08:35)
[2021-07-23] MEDS: sertraline 50 mg Tablet PO (08:35)
[2021-07-23] MEDS: alum-mag-hydroxide-sime 30 mL UDC PO (09:04)
[2021-07-23 11:16] VITALS: BP 106/70; PULSE 79; RESP 18; TEMP 36.7; O2SAT 94
--- NOTE | 2021-07-23 14:30 | PC.CHAP ---
Pastoral Care Encounter/Spiritual Assessment Type of Contact [] Declined post hole digger visit [] Patient/Family/Request visit [] Outpatient visit [] Follow-up visit [] Physician referral [] Code/Alert [] Routine visit [] Staff referral [] Actively dying [] Patient sleeping [] Family support [] [] Out of room [] Palliative care [] [xx] Receiving care in room [] Pre-surgical visit [] Trauma [] Long length of stay [] ICU visit [] Other: Relational/Emotional Strength [] Patient feels connected with others/family/visitors/staff [] Distress [] Loneliness/isolation [] Abandonment Spirituality of Patient [] Person of Jessica [] Attends Zoroastrian of their Jessica [] Believes in Prayer [] Reads Bible or Evangelical materials [] There are Spiritual issues to be addressed Hydrodynamicist Interventions [] Prayer [] Active listening [] Non-anxious presence [] Spiritual/emotional support [] Crisis/trauma care [] Spiritual counseling [] Bereavement support [] Provided bereavement packet [] Provided Bible/devotional materials [] Provided toy/stuffed animal, coloring book to patient or family member [] Provided Communion [] Anointing/[place] [] Salvation [] Completed spiritual assessment [] Other: Impact on Illness or Injury [] Angry [] Fearful [] Anxious [] Often cries [] Exhaustion [] Unable to work [] Unable to attend evangelical [] Unable to walk/stand [] Unable to read [] Unable to drive [] Unable to eat/drink [] Unable to sleep [] Unable to be with family [] Patient intubated [] Other: Summary Follow up Time spent with patient
[2021-07-23 15:34] VITALS: BP 122/79; PULSE 68; RESP 18; TEMP 36.6; O2SAT 96
[2021-07-23 20:00] VITALS: BP 108/72; PULSE 74; RESP 18; TEMP 36.6; O2SAT 92
[2021-07-23] MEDS: acetaminophen 325 mg Tablet 650 MG PO (20:49)
[2021-07-24] VITALS: BP 134/74; PULSE 80; RESP 18; TEMP 36.6; O2SAT 93
[2021-07-24] MEDS: HYDROcodone-acetaminophen 5-325 mg Tablet PO ×3 (00:43→17:49)
[2021-07-24] MEDS: magnesium hydroxide 30 mL UDC 5 ML PO (00:44)
[2021-07-24 04:00] VITALS: BP 126/73; PULSE 78; RESP 18; TEMP 37.1; O2SAT 92
[2021-07-24] MEDS: ibuprofen 800 mg tablet PO ×3 (05:09→21:16)
[2021-07-24] MEDS: enoxaparin 30 mg/0.3 mL Syringe SUBCUT (05:12)
[2021-07-24 07:10] VITALS: BP 121/73; PULSE 77; RESP 18; TEMP 36.8; O2SAT 95
[2021-07-24] MEDS: sertraline 50 mg Tablet PO (08:17)
[2021-07-24] MEDS: tizanidine 4 mg Tablet PO ×2 (08:17→17:50)
[2021-07-24] MEDS: sucralfate 1 gm Tablet PO ×3 (08:17→21:16)
[2021-07-24] MEDS: dilTIAZem ER (24HR) 120 mg Capsule 360 MG PO (08:17)
[2021-07-24] MEDS: docusate sodium 100 mg Capsule PO ×2 (08:18→17:49)
[2021-07-24] MEDS: TORSEmide 20 mg Tablet 10 MG PO ×2 (08:18→17:50)
[2021-07-24] MEDS: famotidine 20 mg Tablet PO (08:18)
[2021-07-24] MEDS: cetirizine 10 mg Tablet PO (08:18)
[2021-07-24] MEDS: pantoprazole DR 40 mg Tablet PO ×2 (08:19→17:50)
[2021-07-24] MEDS: gemfibrozil 600 mg Tablet PO (08:19)
[2021-07-24 12:00] VITALS: BP 92/57; PULSE 72; RESP 18; TEMP 36.5; O2SAT 94
--- NOTE | 2021-07-24 12:34 | PM.PN ---
Subjective Subjective: Interval history: Mrs. Giang 76-year-old female status post anterior colporrhaphy and single incision mid urethral sling. Vitals/I&O/Wt Last Vital Signs Temp 97.7 F 07/24/21 12:00 Pulse 72 07/24/21 12:00 Resp 18 07/24/21 12:00 BP 92/57 07/24/21 12:00 Pulse Ox 94 07/24/21 12:00 07/23/21 07/24/21 07/24/21 22:59 06:59 14:59 Intake Total 240 / 1376.25 1970 / 3346.25 Output Total 100 / 100 2100 / 2200 Balance 140 / 1276.25 -130 / 1146.25 Physical Exam Narrative: EXAM NARRATIVE: GA: Alert and oriented ?3. HEENT: WNL. Heart: Regular rate and rhythm. Lungs: Clear to auscultation bilaterally. Abdomen: Bowel sounds present, nontender, minimal tenderness, incision clean and dry, no redness, pain or edema. SUPERINTENDENT WAREHOUSE: No bleeding. Extremities: No edema, no cyanosis, no calves pain. Urinary Catheter Management^: Medina: Cath Placed During This Visit: yes Urinary Catheter Date of Insertion: 07/21/21 Urinary Catheter Time of Insertion: 12:00 Data : 07/27/21 02:11 07/27/21 02:11 A&P Assessment and plan (1) Status post anterior colporrhaphy: Status: Acute Attestations Medical Necessity Statement*: In my professional opinion per admitting diagnosis Coding Level of Care Code Acute Computer Operations Specialist for [facility] Diagnoses Status post anterior colporrhaphy Z98.890
[2021-07-24 15:44] VITALS: BP 141/79; PULSE 74; RESP 18; TEMP 36.4; O2SAT 97
[2021-07-24 20:00] VITALS: BP 138/76; PULSE 76; RESP 18; TEMP 36.6; O2SAT 95
[2021-07-25] VITALS (7 sets, daily range): BP systolic 112–138; BP diastolic 64–79; PULSE 74–94; RESP 16–18; TEMP 36.6–36.9; O2SAT 92–95
[2021-07-25] MEDS: HYDROcodone-acetaminophen 5-325 mg Tablet PO (01:53)
[2021-07-25] MEDS: magnesium hydroxide 30 mL UDC 5 ML PO (01:54)
[2021-07-25] MEDS: ibuprofen 800 mg tablet PO ×2 (05:57→13:06)
[2021-07-25] MEDS: enoxaparin 30 mg/0.3 mL Syringe SUBCUT (05:57)
[2021-07-25] MEDS: docusate sodium 100 mg Capsule PO ×2 (10:18→18:46)
[2021-07-25] MEDS: famotidine 20 mg Tablet PO (10:19)
[2021-07-25] MEDS: dilTIAZem ER (24HR) 120 mg Capsule 360 MG PO (10:19)
[2021-07-25] MEDS: tizanidine 4 mg Tablet PO ×2 (10:19→18:46)
[2021-07-25] MEDS: TORSEmide 20 mg Tablet 10 MG PO ×2 (10:20→18:46)
[2021-07-25] MEDS: sucralfate 1 gm Tablet PO ×3 (10:21→21:11)
[2021-07-25] MEDS: gemfibrozil 600 mg Tablet PO (10:21)
[2021-07-25] MEDS: cetirizine 10 mg Tablet PO (10:23)
[2021-07-25] MEDS: sertraline 50 mg Tablet PO (10:23)
[2021-07-25] MEDS: pantoprazole DR 40 mg Tablet PO ×2 (10:23→18:46)
--- NOTE | 2021-07-25 12:18 | PM.PN ---
Subjective Subjective: Interval history: Mrs. Reyes 76-year-old female status post anterior colporrhaphy and mid urethral sling. Refers she still waiting to go to a skilled nursing. Vitals/I&O/Wt Last Vital Signs Temp 98.3 F 07/25/21 11:49 Pulse 94 07/25/21 11:49 Resp 16 07/25/21 11:49 BP 115/64 07/25/21 11:49 Pulse Ox 93 07/25/21 11:49 07/24/21 07/25/21 07/25/21 22:59 06:59 14:59 Intake Total 240 / 600 480 / 1080 360 / 360 Output Total 500 / 500 Balance 240 / 600 -20 / 580 360 / 360 Physical Exam Narrative: EXAM NARRATIVE: Narrative EXAM NARRATIVE: GA: Alert and oriented ?3. HEENT: WNL. Heart: Regular rate and rhythm. Lungs: Clear to auscultation bilaterally. Abdomen: Bowel sounds present, nontender SITE SUPERINTENDENT: spotting bleeding. Extremities: 2+ lower extremity edema, no cyanosis, no calves pain. Urinary Catheter Management^: [place]: Cath Placed During This Visit: yes Urinary Catheter Date of Insertion: 07/21/21 Urinary Catheter Time of Insertion: 12:00 Data : 07/22/21 05:00 A&P Assessment and plan (1) Status post anterior colporrhaphy: Mrs. Guerrero 76-year-old female is status post anterior colporrhaphy and single incision mid urethral sling postoperative day 4. She is afebrile and hemodynamically stable. Tolerating diet well. Had a bowel movement. She is still awaiting to be transferred/discharge to a skilled nursing. Due to the patient health status and limited mobility she cannot be discharged home alone. Status: Acute Attestations Medical Necessity Statement*: In my professional opinion per admitting diagnosis Coding Level of Care Code Acute Manager Progressive Care for Leta Fwakash Diagnoses Status post anterior colporrhaphy Z98.890
[2021-07-25] MEDS: acetaminophen 325 mg Tablet 650 MG PO (16:35)
--- NOTE | 2021-07-25 19:27 | XR_ITS ---
WS: [id number] Exam: XR chest 1V portable [id number] Date/Time of Exam: 07/25/2021 7:29 PM Reason For Exam: SOB, wheezing Comparison 05/11/2021. The lungs are fully expanded and clear. Heart size is top limits normal. No pleural effusions. Old pr oximal right humeral fracture noted. The mediastinum is not widened. Bony structures are otherwise in tact. XR/XR chest 1V portable [id number] IMPRESSION: 1. No acute cardiopulmonary finding.
--- NOTE | 2021-07-25 19:39 | P.CONIM_ITS ---
Providers/Reason For Consult Consulting Physician/Specialty*: dr Wilder Reason for Consult*: Shortness of breath, dysuria, medical comanagement Attending Physician: Shankar Wilder MD Primary Care Provider: Alyce Lozoya DO History of Present Illness History of Present Illness Bre Lara is a 76 year old female with past medical history of diastolic CHF, obesity, A. fib, hypertension, recurrent UTIs, history of C. difficile colitis, COPD, GERD, dyslipidemia, chronic venous insufficiency who underwent bladder lift surgery by Dr. Wilder. Hospitalist service was kindly asked by Dr. Wilder(per dr Marie)to co-manage patient's medical problems during this hospitalization. The patient today reports shortness of breath which is more than her baseline, wheezing, and chronic tremors in the shoulders and upper extremities. She also reports urinary frequency and burning with urination. She denies chest pain, cough, chills, nausea, vomiting, diarrhea, abdominal pain, increased peripheral swelling, hematuria, or vaginal bleeding. She reports chronic insomnia. He is a smoker. Review of Systems General: Reports: 10 or more systems reviewed and unremarkable except in HPI and below Meds/Allergies Home Medications and Allergies Home Medications Medication Instructions Recorded Confirmed Last Taken Type hydrocodone 5 mg-acetaminophen 325 1 tab PO QID PRN 09/14/19 07/21/21 07/20/21 History mg tablet polyethylene glycol 3350 17 17 gm PO DAILY PRN gm 09/14/19 07/21/21 07/20/21 History gram/dose oral powder diltiazem HCl 360 mg 360 mg PO DAILY #90 cap 11/23/20 07/21/21 07/21/21 Rx capsule,extended release 24 hr Anti-Gas Maximum Strength 166 mg PO PRN 02/24/21 07/16/21 05/05/21 History acetaminophen [Tylenol 8 Hour] 650 mg PO BEDTIME PRN MDD SEE 02/24/21 07/24/21 05/09/21 History PHARMACH COMMENT cetirizine [Zyrtec] 10 mg PO DAILY 02/24/21 07/21/21 07/20/21 History vitamin J70-tpoob acid 1 tab PO DAILY 02/24/21 07/21/21 07/20/21 History pantoprazole 40 mg tablet,delayed 40 mg PO BID #180 tab 04/29/21 07/21/21 07/20/21 Rx release melatonin 10 mg capsule 10 mg PO DAILY 05/04/21 07/21/21 07/20/21 History bisacodyl [Dulcolax (bisacodyl)] 10 mg NE DAILY PRN 05/11/21 07/16/21 Unknown History famotidine 20 mg PO DAILY 05/11/21 07/21/21 07/20/21 History gemfibrozil 600 mg PO DAILY 05/11/21 07/21/21 07/20/21 History magnesium hydroxide [Milk of 5 ml PO DAILY PRN 05/11/21 07/21/21 07/20/21 History Magnesia] omega-3 fatty acids 1,000 mg PO DAILY 05/11/21 07/21/21 07/17/21 History magnesium L-lactate 84 mg 84 mg PO BID #60 tab 05/12/21 07/21/21 07/20/21 Rx tablet,extended release cholecalciferol (vitamin D3) 25 2,000 unit PO .COMPLEX tab 05/27/21 07/21/21 07/20/21 History mcg (1,000 unit) tablet sertraline 50 mg tablet 50 mg PO DAILY #90 tab 06/14/21 07/21/21 07/20/21 Rx ipratropium 0.5 mg-albuterol 3 mg 3 ml INHALATION QID PRN 07/08/21 07/21/21 07/20/21 History (2.5 mg base)/3 mL nebulization soln potassium chloride 8 mEq 8 meq PO DAILY 07/08/21 07/21/21 07/20/21 History tablet,extended release torsemide 20 mg tablet 10 mg PO BID tab 07/08/21 07/21/21 07/20/21 History metoprolol tartrate 50 mg tablet 50 mg PO DIRECTED #45 tab 07/12/21 07/21/21 07/21/21 Rx sucralfate 1 gram tablet 1 g PO TID #90 tab 07/15/21 07/21/21 07/20/21 Rx tizanidine 4 mg tablet 4 mg PO BID 30 Days #60 tab 07/15/21 07/21/21 07/20/21 Rx apixaban 5 mg tablet 5 mg PO BID tab 07/16/21 07/21/21 07/14/21 History acetaminophen 325 mg PO Q4H PRN #60 cap 07/22/21 Unknown Rx hydrocodone-acetaminophen 1 tab PO Q4H PRN #20 tab 07/22/21 Unknown Rx enoxaparin 40 mg SUBCUT DAILY 07/24/21 07/24/21 Unknown History Allergies Allergy/AdvReac Type Severity Reaction Status Date / Time Penicillins Allergy Unknown Unknown Verified 07/21/21 09:11 ciprofloxacin [From Cipro] Allergy NA Verified 07/21/21 09:11 penicillin G Allergy NA Verified 07/21/21 09:11 pentazocine [From Talwin] Allergy NA Verified 07/21/21 09:11 Sulfa (Sulfonamide Allergy NA Verified 07/21/21 09:11 Antibiotics) zolpidem [From Ambien] Allergy hallucinati Verified 07/21/21 09:11 ons Current Medications Current Medications Generic Name Dose Route Start Last Admin Trade Name Freq PRN Reason Stop Dose Admin Acetaminophen 650 mg 07/21/21 14:16 07/25/21 16:35 Acetaminophen 325 Mg Tablet PO 650 mg Q6H PRN Administration Mild Pain or Temp >100.4 Al Hydrox/Mg Hydrox/Simethicone 30 ml 07/21/21 14:16 07/23/21 09:04 Fxlx-Ile-Ntfqwsyuq-Todd 30 Ml Udc PO 30 ml Q4H PRN Administration INDIGESTION Cetirizine HCl 10 mg 07/22/21 09:00 07/25/21 10:23 Cetirizine 10 Mg Tablet PO 10 mg DAILY ANNELIESE Administration Diltiazem HCl 360 mg 07/22/21 09:00 07/25/21 10:19 Diltiazem Er (24hr) 120 Mg Capsule PO 360 mg DAILY ANNELIESE Administration Docusate Sodium 100 mg 07/21/21 18:00 07/25/21 18:46 Docusate Sodium 100 Mg Capsule PO 100 mg BID ANNELIESE Administration Famotidine 20 mg 07/22/21 09:00 07/25/21 10:19 Famotidine 20 Mg Tablet PO 20 mg DAILY ANNELIESE Administration Gemfibrozil 600 mg 07/22/21 09:00 07/25/21 10:21 Gemfibrozil 600 Mg Tablet PO 600 mg DAILY ANNELIESE Administration Magnesium Hydroxide 5 ml 07/21/21 14:16 07/25/21 01:54 Magnesium Hydroxide 30 Ml Udc PO 5 ml DAILY PRN Administration Constipation Ondansetron HCl 4 mg 07/21/21 14:16 07/22/21 09:35 Ondansetron 2 Mg/Ml Sdv 2 Ml IVP 4 mg Q4H PRN Administration NAUSEA Pantoprazole Sodium 40 mg 07/21/21 18:00 07/25/21 18:[address] 40 Mg Tablet PO 40 mg BID ANNELIESE Administration Sertraline HCl 50 mg 07/22/21 09:00 07/25/21 10:23 Sertraline 50 Mg Tablet PO 50 mg DAILY ANNELIESE Administration Sucralfate 1 gm 07/21/21 15:00 07/25/21 16:35 Sucralfate 1 Gm Tablet PO 1 gm TID ANNELIESE Administration Tizanidine HCl 4 mg 07/21/21 18:00 07/25/21 18:46 Tizanidine 4 Mg Tablet PO 4 mg BID ANNELIESE Administration Torsemide 10 mg 07/21/21 18:00 07/25/21 18:46 Torsemide 20 Mg Tablet PO 10 mg BID ANNELIESE Administration PFSH Acute PFSH: Medical History Acute exacerbation of CHF (congestive heart failure) Benign essential hypertension with target blood pressure below 140/90 Chronic episodic atrial fibrillation Chronic venous insufficiency of lower extremity COPD (chronic obstructive pulmonary disease) Diastolic heart failure Fracture of ribs, multiple GERD (gastroesophageal reflux disease) Hypercholesterolemia Osteoarthritis of left knee Other cervical disc displacement, unspecified cervical region Recurrent UTI Sleep apnea Urgency incontinence Urolithiasis UTI (urinary tract infection) Surgical History H/O cataract extraction H/O esophagogastroduodenoscopy (07/14/20) H/O knee surgery H/O shoulder surgery History of appendectomy History of cholecystectomy S/P hysterectomy Status post colonoscopy (07/14/20) Family History Father Stroke Mother Cancer BLADDER, BREAST Brother Cancer ESOPHAGEAL Family/Other Cancer Sister Cancer Suicide Denies family history of Diabetes CAD (coronary artery disease) Clotting disorder Dementia Chronic kidney disease (CKD) Anesthesia complication Bleeding disorder Lung disease Social History (Updated 07/16/21 @ 08:51 by Smiley Gil, RN) Smoking and tobacco status: current every day smoker cigarettes Packs smoked per day: 1 Alcohol intake: never Marital status: Current occupational status: disabled Vitals/I&O/Wt Last Vital Signs Temp 98.2 F 07/25/21 15:41 Pulse 80 07/25/21 15:54 Resp 18 07/25/21 15:41 BP 113/70 07/25/21 15:41 Pulse Ox 93 07/25/21 15:54 07/25/21 07/25/21 07/25/21 06:59 14:59 22:59 Intake Total 480 / 1080 360 / 360 360 / 720 Output Total 500 / 500 180 / 180 Balance -20 / 580 180 / 180 360 / 540 Physical Exam Narrative: EXAM NARRATIVE: The patient is awake alert oriented. Mild distress secondary to wheezing and shortness of breath. Mood and affect are appropriate. Responses are adequate. Skin is warm and dry. Moist mucous membranes Eyes PERRL, extraocular muscles are intact Neck is supple. No JVD Lungs bilateral diffuse wheezes. Mild tachypnea. Minimal basilar crackles. Heart S1, S2, irregular Abdomen obese, soft, nontender, bowel sounds are present Extremities trace bilateral pedal edema, no cyanosis, no calf tenderness. Left lower extremity more swollen than the right 1. The patient states that it is chronic. She also has significant chronic venous stasis changes in the extremities. There is tremor in the shoulders and upper extremities. Moves all extremities. No focal deficits. No facial asymmetry. Normal speech. Urinary Catheter Management^: [place]: Cath Placed During This Visit: yes Urinary Catheter Date of Insertion: 07/21/21 Urinary Catheter Time of Insertion: 12:00 Data Labs: Other Labs: Laboratory Results WBC 7.7 10^3/uL (4.0- 10.0) 07/22/21 05:00 RBC 3.63 10^6/uL (4.1 -5.3) L 07/22/21 05:00 Hgb 10.8 g/dL (11.5-1 5.3) L 07/22/21 05:00 Hct 36.5 % (37.0-47.0 ) L 07/22/21 05:00 MCV 100.6 fl (81-99) H 07/22/21 05:00 MCH 29.8 pg (28.0-34. 0) 07/22/21 05:00 MCHC 29.6 g/dL (30.0-3 6.0) L 07/22/21 05:00 RDW 16.6 % (12.1-15.1 ) H 07/22/21 05:00 Plt Count 187 10^3/cmm (130 -400) 07/22/21 05:00 MPV 10.6 fL (7.4-10.4 ) H 07/22/21 05:00 Blood Type O Positive 07/21/21 10:00 Rho(D) Type Positive 07/21/21 10:00 Antibody Screen Negative 07/21/21 10:00 A&P Assessment and plan (1) Status post anterior colporrhaphy: Status: Acute (2) Shortness of breath: Status: Acute (3) Dysuria: Status: Acute (4) COPD (chronic obstructive pulmonary disease): Status: Acute (5) Diastolic heart failure: Status: Acute Qualifiers: Heart failure chronicity: chronic Qualified Code(s): I50.32 - Chronic diastolic (congestive) heart failure (6) Anemia: Status: Acute (7) Insomnia: Status: Acute Qualifiers: Insomnia type: primary Qualified Code(s): F51.01 - Primary insomnia (8) Atrial fibrillation: Status: Acute Qualifiers: Atrial fibrillation type: unspecified Qualified Code(s): I48.91 - Unspecified atrial fibrillation Additional A&P Information Bre Lara is a 76 year old female with past medical history of diastolic CHF, obesity, A. fib, hypertension, recurrent UTIs, history of C. difficile colitis, COPD, GERD, dyslipidemia, chronic venous insufficiency who underwent bladder lift surgery by Dr. Wilder. Hospitalist service was kindly asked by Dr. Wilder(per dr Marie)to co-manage patient's medical problems during this hospitalization. Shortness of breath with associated wheezes. COPD or CHF exacerbation is suspected. The symptoms are mild. Will order chest x-ray, BNP, CBC and chemistry panel. Will ask for respiratory evaluation. She will need breathing treatments. If there is evidence of CHF exacerbation we will use IV diuretics. Her anemia also could be contributing to her shortness of breath. I will order anemia work-up. Possible UTI. Since she has history of C. difficile colitis I will not start empiric treatment yet. I am ordering UA and urine culture and sensitivity if UTI is confirmed. Insomnia. We will resume her home melatonin. We will try to avoid any other medications to avoid delirium. History of A. fib. Rate controlled currently. [facility]. DVT prophylaxis. Eliquis. Thank you very much for allowing us to participate in treatment of this patient Coding Level of Care Code Acute Fleet Administrator for Leta Albarran Diagnoses Status post anterior colporrhaphy Z98.890 Shortness of breath R06.02 Dysuria R30.0 COPD (chronic obstructive pulmonary disease) J44.9 Diastolic heart failure I50.32 Heart failure chronicity: chronic Anemia D64.9 Insomnia F51.01 Insomnia type: primary Atrial fibrillation I48.91 Atrial fibrillation type: unspecified
[2021-07-25 22:33] LABS: Folate Level 11.7 ng/mL (4.8-37.3)
[2021-07-25 22:39] LABS: Add Urine Microscopic? YES; Bilirubin Urine Neg (Negative); Blood Urine 2+ (Negative); Glucose Urine UA Norm (Normal); Ketones Urine Negative (Negative); Leukocyte Esterase Urine 2+ (Negative); Nitrate Urine Negative (Negative); Protein Urine Neg (Negative); Specific Gravity, Urine 1.005 (1.005-1.030); Urine Color Colorless (Yellow); Urobilinogen Urine Norm (Negative); pH Urine 5 (5-7)
[2021-07-25 22:49] LABS: Squamous Epithelial Cell Urine 15-25 /hpf (0-5); WBC Urine 55-80 /hpf (0-5)
[2021-07-25 22:50] LABS: Add Urine Culture? No; Bacteria Urine 3+ /hpf
[2021-07-25 23:15] LABS: Basophils % 0.6 %; Eosinophils # 0.2 10^3/uL (0.0-0.8); Eosinophils % 2.9 %; Hematocrit 37.4 % (37.0-47.0); Hemoglobin 10.8 g/dL (11.5-15.3); Lymphocytes # 1.6 10^3/uL (0.8-4.8); Lymphocytes % 23.6 %; Mean Corpuscular HGB Conc 28.9 g/dL (30.0-36.0); Mean Corpuscular Hemoglobin 29.7 pg (28.0-34.0); Mean Corpuscular Volume 102.7 fl (81-99); Mean Platelet Volume 11.2 fL (7.4-10.4); Monocytes # 0.6 10^3/uL (0.2-0.9); Neutrophils # 4.19 10^3/uL (1.8-7.7); Neutrophils % 63.6 %; Nucleated Red Blood Cells % 0 %; Platelet Count 195 10^3/cmm (130-400); Red Blood Count 3.64 10^6/uL (4.1-5.3); Red Cell Distribution Width 16.2 % (12.1-15.1); White Blood Count 6.6 10^3/uL (4.0-10.0)
[2021-07-25 23:24] LABS: Slide Review Slide Review Perform
[2021-07-26] VITALS (10 sets, daily range): BP systolic 100–122; BP diastolic 61–76; PULSE 70–96; RESP 16–18; TEMP 36.6–36.8; O2SAT 90–96
[2021-07-26 00:16] LABS: Alanine Aminotransferase 6 U/L (0-33); Albumin Level 3.1 g/dL (3.5-5.2); Alkaline Phosphatase 130 IU/L (35-105); Anion Gap 12.9 (5-19); Aspartate Amino Transferase 10 U/L (0-32); Blood Urea Nitrogen 15 mg/dL (8-23); Calcium 9.7 mg/dL (8.5-10.5); Carbon Dioxide 28 mmol/L (22-29); Chloride 104 mmol/L (98-107); Ferritin 73 ng/mL (15-150); Globulin 2.8 g/dL (1.3-4.6); Glucose 100 mg/dL (65-115); Iron 30 ug/dL (37-145); Magnesium 2.1 mg/dL (1.7-2.3); NT Pro B Type Natriuretic Pept 3089 pg/mL (0-450); Osmolality Calculated 293 mOsm/kg (285-295); Percent Saturation 11.1 % (20-50); Potassium 3.9 mmol/L (3.5-5.1); Sodium 141 mmol/L (136-145); Total Bilirubin 0.2 mg/dL (0.15-1.2); Total Iron Binding Capacity 269 mcg/dl; Total Protein 5.9 g/dL (6.6-8.7); Unsaturated Iron Binding 239 ug/dL (112-347); Vitamin B12 324 pg/mL (232-1245)
[2021-07-26] MEDS: acetaminophen 325 mg Tablet 650 MG PO ×2 (01:43→09:02)
[2021-07-26] MEDS: magnesium hydroxide 30 mL UDC 5 ML PO (01:51)
[2021-07-26] MEDS: FUROsemide 10 mg/mL SDV 4mL 40 MG IVP ×2 (03:16→13:24)
[2021-07-26] MEDS: cefTRIAXone 1,000 MG in sodium chloride 0.9% (plus) 50 ML 100 MG IV (03:42)
[2021-07-26] MEDS: docusate sodium 100 mg Capsule PO ×2 (08:52→17:39)
[2021-07-26] MEDS: sucralfate 1 gm Tablet PO ×3 (08:52→20:47)
[2021-07-26] MEDS: pantoprazole DR 40 mg Tablet PO ×2 (08:53→17:39)
[2021-07-26] MEDS: cetirizine 10 mg Tablet PO (08:53)
[2021-07-26] MEDS: dilTIAZem ER (24HR) 120 mg Capsule 360 MG PO (08:53)
[2021-07-26] MEDS: gemfibrozil 600 mg Tablet PO (08:53)
[2021-07-26] MEDS: sertraline 50 mg Tablet PO (08:54)
[2021-07-26] MEDS: TORSEmide 20 mg Tablet 10 MG PO (08:54)
[2021-07-26] MEDS: tizanidine 4 mg Tablet PO ×2 (08:54→17:39)
[2021-07-26] MEDS: famotidine 20 mg Tablet PO (08:54)
[2021-07-26] MEDS: apixaban 5 mg Tablet PO ×2 (08:55→17:39)
--- NOTE | 2021-07-26 10:14 | USCV_ITS ---
Bre Lara Age: 76 Gender: F : 1945 Exam Date: 07/26/2021 15:22 Ordering Phys: Cristino Mims MD Technologist: Nisreen Schulz Exam Location: [facility] [place] Indication: SOB HISTORY: SOB PROCEDURES: The venous duplex Doppler examination of both lower extremities was performed in the standard fashion. The following venous structures were evaluated: common femoral vein, profunda vein, proximal portion of the greater saphenous vein, superficial femoral vein, and the popliteal vein. In addition, the posterior tibial and peroneal trunk were evaluated. Serial compression, augmentation maneuvers, and spectral Doppler flow evaluation were performed. FINDINGS: Normal 2-D Doppler and augmentation and compressibility throughout the lower extremity venous structures. Additional imaging through the proximal calf veins also reveals no thrombus. Limited evaluation of the greater saphenous vein is patent with no thrombus.. Normal 2-D Doppler and augmentation and compressibility throughout the lower extremity venous structures. Additional imaging through the proximal calf veins also reveals no thrombus. Limited evaluation of the greater saphenous vein is patent with no thrombus.. The veins were found to be easily compressible with spontaneous blood flow. Non pulsatile flow pattern. CONCLUSIONS No evidence of DVT in the above-mentioned identifiable veins. The proximal segments of the greater saphenous vein also were found to be free of any thrombus Dr Kwabena Marie MD [facility] (Electronically Signed) Final Date: 27 July 2021 08:09 S
--- NOTE | 2021-07-26 10:14 | ECG_ITS ---
[facility] Test Date: 2021-07-26 Pat Name: Bre Lara Department: Room: 279 Gender: Female Splunk Developer: : 1945 Requested By: Cristino Mims Order Number: [id number] Emmanuel MD: Destiny Goodman M.D. Measurements Intervals [place] Rate: 71 P: AR: QRS: 1 QRSD: 90 T: 129 QT: 406 QTc: 442 Interpretive Statements ATRIAL FIBRILLATION SEPTAL MYOCARDIAL INFARCTION , OF INDETERMINATE AGE [40+ ms Q WAVE IN V1/V2] MODERATE T-WAVE ABNORMALITY, CONSIDER LATERAL ISCHEMIA [-0.1+ mV T-WAVE IN I/aVL/V5/V6] Compared to ECG 07/16/2021 11:29:03 Ventricular premature complex(es) no longer present Aberrant conduction of supraventricular beat(s) no longer present Myocardial infarct finding still present T-wave abnormality still present Possible ischemia still present Electronically Signed On 07-27-2021 12:41:18 POST DOCTORAL RESEARCHER by Destiny Goodman M.D. [id number]
--- NOTE | 2021-07-26 10:14 | USCV_ITS ---
Bre Lara Age: 76 Gender: F : 1945 Exam Date: 07/26/2021 15:03 Ordering Phys: Cristino Mims MD Technologist: Nisreen Schulz Exam Location: [place] Indication: SOB BP: 122 / 69 HR: 74 Rhythm: Sinus Technical Quality: Adequate MEASUREMENTS (Male / Female) Normal Values 2D ECHO LV Diastolic Diameter PLAX 3.9 cm 4.2 - 5.9 / 3.9 - 5.3 cm LV Systolic Diameter PLAX 2.9 cm LV Chamber Size 3.5 cm IVS Diastolic Thickness 1.4 cm 0.6 - 1.0 / 0.6 - 0.9 cm IVS Systolic Thickness 1.5 cm LVPW Diastolic Thickness 1.5 cm 0.6 - 1.0 / 0.6 - 0.9 cm LVPW Systolic Thickness 1.5 cm RV Chamber Size 3.3 cm LVOT Diameter 2.1 cm LV Ejection Fraction 2D Teich 51.3 % LV Ejection Fraction MOD 2C 72.9 % LV Ejection Fraction 2C AL 70.5 % LA Diameter 5.4 cm LA Width 4.5 cm LA Height 5.3 cm RA Width 3.7 cm RA Height 6.1 cm Aorta at Sinotubular Diameter 3.4 cm M-MODE LV Diastolic Diameter MM 5.5 cm 4.2 - 5.9 / 3.9 - 5.3 cm LV Systolic Diameter MM 3.7 cm LV Ejection Fraction MM Teich 61.3 % IVS Diastolic Thickness MM 1.3 cm 0.6 - 1.0 / 0.6 - 0.9 cm IVS Systolic Thickness MM 2.1 cm LVPW Diastolic Thickness MM 1.2 cm 0.6 - 1.0 / 0.6 - 0.9 cm LVPW Systolic Thickness MM 1.7 cm Aortic Annulus Diameter 3.4 cm LA Ao Ratio MM 1.9 MV E Point Septal Separation 0.9 cm DOPPLER AV Peak Velocity 183.0 cm/s LVOT Peak Velocity 88.0 cm/s AV Area Cont Eq vti 1.5 cm squared AV Area Cont Eq pk 1.7 cm squared MV Area PHT 3.5 cm squared Mitral E to A Ratio 48.6 MV E' Velocity 58.0 cm/s Mitral E to MV E' Ratio 7.6 Mitral E to LV E' Lateral Ratio 7.3 Mitral E to LV E' Septal Ratio 7.8 TR Peak Velocity 191.9 cm/s TR Peak Gradient 14.7 mmHg TR Mean Velocity 134.1 cm/s TR Mean Gradient 8.2 mmHg TR Velocity Time Integral 48.7 cm TV Peak E Velocity 49.0 cm/s Right Atrial Pressure 3.0 mmHg Pulmonary Artery Systolic Pressu 17.7 mmHg PV Peak Velocity 68.0 cm/s RV Acceleration Time 0.1 s RV Ejection Time 0.4 s RV AcT/ET 0.4 FINDINGS Left Ventricle Normal left ventricular size and systolic function, EF 64 %. No regional wall motion abnormalities. Mild left ventricular hypertrophy. No regional wall motion abnormalities. Right Ventricle The right ventricle is normal in size and function. Right Atrium Mildly increased right atrial size. Left Atrium Mildly increased left atrial size. Mitral Valve Thickened mitral valve. Mild mitral annular calcification. Mild to moderate mitral regurgitation. Multiple regurgitant jets were noted Aortic Valve Thickened aortic valve. Tricuspid Valve Trace to mild tricuspid valve regurgitation. Pulmonic Valve Pulmonic valve not well visualized. Pericardium Normal pericardium without effusion. Aorta Normal ascending aorta dimension. CONCLUSIONS Normal left ventricular size and systolic function, EF 64 %. No regional wall motion abnormalities. Mild left ventricular hypertrophy. No regional wall motion abnormalities. Mild biatrial enlargement Mild to moderate mitral regurgitation with multiple regurgitant jets. Thickened mitral valve. Mild mitral annular calcification. Thickened aortic valve. Trace to mild tricuspid valve regurgitation. Estimated pulmonary artery peak systolic pressure of 18 mmHg There is no pericardial effusion. There are no intracardiac masses. Compared to the study from 02/25/2021, there may not be a significant change Dr Kwabena Marie MD [facility] (Electronically Signed) Final Date: 26 July 2021 21:48 S
[2021-07-26 11:45] LABS: Troponin(5th) Baseline 26 ng/L (0-10)
[2021-07-26 11:52] LABS: C Reactive Protein 75.6 mg/L (0.0-4.9)
[2021-07-26] MEDS: ipratropium-albuterol 3 mL Neb INHALATION (11:57)
[2021-07-26 11:59] LABS: Procalcitonin 0.04 ng/mL (0-0.5)
--- NOTE | 2021-07-26 12:14 | ECG_ITS ---
[facility] Test Date: 2021-07-26 Pat Name: Bre Lara Department: Room: 279 Gender: Female Care Manager: : 1945 Requested By: Cristino Mims Order Number: [id number] Emmanuel MD: Destiny Goodman M.D. Measurements Intervals [place] Rate: 80 P: FL: QRS: -2 QRSD: 87 T: 149 QT: 382 QTc: 442 Interpretive Statements ATRIAL FIBRILLATION ST DEVIATION AND MODERATE T-WAVE ABNORMALITY, CONSIDER LATERAL ISCHEMIA [-0.1+ mV T-WAVE IN I/aVL/V5/V6] Compared to ECG 07/26/2021 11:02:48 Myocardial infarct finding no longer present T-wave abnormality still present Possible ischemia still present Electronically Signed On 07-27-2021 12:58:50 PREPARED FOODS SERVICE TEAM MEMBER by Destiny Goodman M.D. [id number]
[2021-07-26] MEDS: HYDROcodone-acetaminophen 5-325 mg Tablet 1 TAB PO ×2 (13:25→21:05)
[2021-07-26 13:44] LABS: Troponin 5 2HR 26.85 ng/L (0-10); Troponin 5 2HR Delta 0.85 ABS# (0-10)
--- NOTE | 2021-07-26 16:14 | ECG_ITS ---
[facility] Test Date: 2021-07-26 Pat Name: Bre Lara Department: Room: 279 Gender: Female Client Onboarding Analyst: : 1945 Requested By: Cristino Mims Order Number: [id number] Emmanuel MD: Destiny Goodman M.D. Measurements Intervals [place] Rate: 75 P: NE: QRS: -4 QRSD: 88 T: 139 QT: 397 QTc: 444 Interpretive Statements ATRIAL FIBRILLATION WITH ABERRANT CONDUCTION OR VENTRICULAR PREMATURE COMPLEXES INFERIOR MYOCARDIAL INFARCTION , PROBABLY OLD MODERATE T-WAVE ABNORMALITY, CONSIDER LATERAL ISCHEMIA Compared to ECG 07/26/2021 12:11:35 Ventricular premature complex(es) now present Aberrant conduction of supraventricular beat(s) now present Myocardial infarct finding now present T-wave abnormality still present Possible ischemia still present Electronically Signed On 07-27-2021 12:58:05 DUPLIGRAPH OPERATOR by Destiny Goodman M.D. [email or web address] [email or web address].[id number]
[2021-07-26 18:19] LABS: Troponin 5 6HR 31.82 ng/L (0-10); Troponin 5 6HR Delta 5.82 ng/L (0-12)
--- NOTE | 2021-07-26 21:41 | P.PN_ITS ---
Subjective Subjective: Interval history: Patient was seen this morning, denies any fevers, no chills, no nausea, no vomiting, she does report shortness of breath, and increased bilateral extremity edema, no chest pain, no palpitations Vitals/I&O/Wt Last Vital Signs Temp 98.2 F 07/26/21 20:00 Pulse 76 07/26/21 20:35 Resp 16 07/26/21 20:35 BP 100/61 07/26/21 20:00 Pulse Ox 92 07/26/21 20:35 07/26/21 07/26/21 07/26/21 06:59 14:59 22:59 Intake Total 450 / 1170 240 / 240 240 / 480 Output Total 1200 / 1380 Balance -750 / -210 240 / 240 240 / 480 Physical Exam Const: COMMON NORMALS: no acute distress and patient oriented x3 HENMT: COMMON NORMALS: normocephalic HEAD & SCALP: normocephalic Resp: COMMON NORMALS: normal respiratory effort, No retractions and No use of accessory muscles AUSCULTATION: crackles Cardio: COMMON NORMALS: regular rate, regular rhythm, S1 normal heart sound present and S2 normal heart sound present RATE: regular rate RHYTHM: regular rhythm HEART SOUNDS: S1 normal heart sound present and S2 normal heart sound present GI: COMMON NORMALS: Normal to inspection, nondistended, normoactive bowel sounds present, Soft to palpation, non-tender and No hepatosplenomegaly present PALPATION: Yes Soft to palpation and Yes No hepatosplenomegaly present Extremity: NARRATIVE EXTREMITY EXAM: 2+ pedal edema Neuro: COMMON NORMALS: patient oriented x3 Psych: COMMON NORMALS: mental status grossly normal Urinary Catheter Management^: [place]: Cath Placed During This Visit: yes Urinary Catheter Date of Insertion: 07/21/21 Urinary Catheter Time of Insertion: 12:00 Data : 07/25/21 20:27 07/25/21 23:29 A&P Assessment and plan (1) Status post anterior colporrhaphy: Status: Acute (2) Shortness of breath: Status: Acute (3) Dysuria: Status: Acute (4) COPD (chronic obstructive pulmonary disease): Status: Acute (5) Diastolic heart failure: Status: Acute Qualifiers: Heart failure chronicity: chronic Qualified Code(s): I50.32 - Chronic diastolic (congestive) heart failure (6) Anemia: Status: Acute (7) Insomnia: Status: Acute Qualifiers: Insomnia type: primary Qualified Code(s): F51.01 - Primary insomnia (8) Atrial fibrillation: Status: Acute Qualifiers: Atrial fibrillation type: unspecified Qualified Code(s): I48.91 - Unspecified atrial fibrillation Additional A&P Information Bre Lara is a 76 year old female with past medical history of diastolic CHF, obesity, A. fib, hypertension, recurrent UTIs, history of C. difficile colitis, COPD, GERD, dyslipidemia, chronic venous insufficiency who underwent bladder lift surgery by Dr. Wilder. Hospitalist service was kindly asked by Dr. Wilder(per dr Marie)to co-manage patient's medical problems during this hospitalization. Acute on chronic diastolic CHF exacerbation -Lasix 40 IV every 12 hours -Fluid restrictions 1200 cc -Monitor creatinine, mag, Phos NSTEMI -6-hour troponin 31.2, delta 5.82 -EKG shows T wave changes laterally -No chest pain complaints -Likely secondary to CHF exacerbation -Continue telemetry -echocardiogram -Is on Eliquis Possible UTI. Continue Rocephin follow urine culture Insomnia. We will resume her home melatonin. We will try to avoid any other medications to avoid delirium. History of A. fib. Rate controlled currently. We will resume her home Eliquis. DVT prophylaxis. Eliquis. Thank you very much for allowing us to participate in treatment of this patient Attestations Medical Necessity Statement*: Patient requires hospitalization for CHF exacerbation, NSTEMI, UTI Coding Level of Care Code Acute [employer] for [facility] Diagnoses Status post anterior colporrhaphy Z98.890 Shortness of breath R06.02 Dysuria R30.0 COPD (chronic obstructive pulmonary disease) J44.9 Diastolic heart failure I50.32 Heart failure chronicity: chronic Anemia D64.9 Insomnia F51.01 Insomnia type: primary Atrial fibrillation I48.91 Atrial fibrillation type: unspecified
[2021-07-27] VITALS: BP 110/66; PULSE 74; RESP 17; TEMP 36.7; O2SAT 95
[2021-07-27] MEDS: HYDROcodone-acetaminophen 5-325 mg Tablet 1 TAB PO ×2 (01:16→09:05)
[2021-07-27] MEDS: FUROsemide 10 mg/mL SDV 4mL 40 MG IVP (01:16)
[2021-07-27] MEDS: cefTRIAXone 1,000 MG in sodium chloride 0.9% (plus) 50 ML 100 MG IV (01:16)
[2021-07-27 02:25] LABS: Basophils % 0.5 %; Eosinophils # 0.1 10^3/uL (0.0-0.8); Eosinophils % 1.7 %; Hematocrit 38.6 % (37.0-47.0); Hemoglobin 11.9 g/dL (11.5-15.3); Lymphocytes # 2.2 10^3/uL (0.8-4.8); Lymphocytes % 28.4 %; Mean Corpuscular HGB Conc 30.8 g/dL (30.0-36.0); Mean Corpuscular Hemoglobin 29.8 pg (28.0-34.0); Mean Corpuscular Volume 96.7 fl (81-99); Mean Platelet Volume 10.4 fL (7.4-10.4); Monocytes # 0.8 10^3/uL (0.2-0.9); Monocytes % 9.8 %; Neutrophils # 4.66 10^3/uL (1.8-7.7); Neutrophils % 59.5 %; Nucleated Red Blood Cells % 0 %; Platelet Count 239 10^3/cmm (130-400); Red Blood Count 3.99 10^6/uL (4.1-5.3); Red Cell Distribution Width 16.3 % (12.1-15.1); White Blood Count 7.8 10^3/uL (4.0-10.0)
[2021-07-27 02:57] LABS: Alanine Aminotransferase 6 U/L (0-33); Albumin Level 3.4 g/dL (3.5-5.2); Alkaline Phosphatase 139 IU/L (35-105); Aspartate Amino Transferase 11 U/L (0-32); Blood Urea Nitrogen 12 mg/dL (8-23); C Reactive Protein 63.2 mg/L (0.0-4.9); Calcium 9.8 mg/dL (8.5-10.5); Carbon Dioxide 26 mmol/L (22-29); Chloride 100 mmol/L (98-107); Globulin 3.3 g/dL (1.3-4.6); Glucose 100 mg/dL (65-115); Magnesium 2.1 mg/dL (1.7-2.3); Osmolality Calculated 294 mOsm/kg (285-295); Phosphorus 2.4 mg/dL (2.5-4.5); Sodium 142 mmol/L (136-145); Total Bilirubin 0.2 mg/dL (0.15-1.2); Total Protein 6.7 g/dL (6.6-8.7)
[2021-07-27 03:06] LABS: NT Pro B Type Natriuretic Pept 2750 pg/mL (0-450); Procalcitonin 0.05 ng/mL (0-0.5)
[2021-07-27 04:00] VITALS: BP 108/63; PULSE 89; RESP 17; TEMP 36.6; O2SAT 98
--- NOTE | 2021-07-27 07:00 | XR_ITS ---
WS: [id number] Exam: XR chest 1V portable [id number] Date/Time of Exam: 07/27/2021 6:29 AM Reason For Exam: sob There appears to be mild infiltrate in the left lower lobe in the retrocardiac region. Remaining lung zurita are clear. Normal cardiomediastinal silhouette. Old fracture of the proximal right humerus. XR/XR chest 1V portable [id number] IMPRESSION: 1. Probable mild infiltrate in the left lower lobe in the retrocardiac region.
[2021-07-27 07:39] VITALS: BP 102/67; PULSE 76; RESP 17; TEMP 36.6; O2SAT 98
[2021-07-27] MEDS: dilTIAZem ER (24HR) 120 mg Capsule 360 MG PO (09:05)
[2021-07-27] MEDS: docusate sodium 100 mg Capsule PO (09:05)
[2021-07-27] MEDS: gemfibrozil 600 mg Tablet PO (09:06)
[2021-07-27] MEDS: tizanidine 4 mg Tablet PO (09:06)
[2021-07-27] MEDS: famotidine 20 mg Tablet PO (09:06)
[2021-07-27] MEDS: sertraline 50 mg Tablet PO (09:06)
[2021-07-27] MEDS: sucralfate 1 gm Tablet PO (09:06)
[2021-07-27] MEDS: apixaban 5 mg Tablet PO (09:06)
[2021-07-27] MEDS: pantoprazole DR 40 mg Tablet PO (09:06)
[2021-07-27] MEDS: cetirizine 10 mg Tablet PO (09:06)
[2021-07-27 09:40] VITALS: O2SAT 94
[2021-07-27] MEDS: azithromycin 500 MG in sodium chloride 0.9% 250 ML 250 MG IV (11:34)
[2021-07-27 11:53] LABS: SARS Covid-2 Antigen Negative (Negative)
[2021-07-27 12:00] VITALS: BP 105/66; PULSE 70; RESP 17; TEMP 36.7; O2SAT 96
--- NOTE | 2021-07-27 14:09 | P.DS_ITS ---
Discharge Providers Date of Admission: 07/21/21 12:53 Date of Discharge: July 27, 2021 Attending Provider at Admission: Shankar Wilder MD Attending Provider at Discharge: Shankar Wilder MD Primary Care Provider: Alyce Lozoya DO Diagnoses at Discharge Discharge Diagnosis (1) Status post anterior colporrhaphy: Status: Acute (2) Shortness of breath: Status: Acute (3) Dysuria: Status: Acute (4) COPD (chronic obstructive pulmonary disease): Status: Acute (5) Diastolic heart failure: Status: Acute Qualifiers: Heart failure chronicity: chronic Qualified Code(s): I50.32 - Chronic diastolic (congestive) heart failure (6) Anemia: Status: Acute (7) Insomnia: Status: Acute Qualifiers: Insomnia type: primary Qualified Code(s): F51.01 - Primary insomnia (8) Atrial fibrillation: Status: Acute Qualifiers: Atrial fibrillation type: unspecified Qualified Code(s): I48.91 - Unspecified atrial fibrillation Reason for Visit Reason for Visit: anterior colporrhapy Hospital Course Hospital Course Mrs. Lara 76-year-old female with an cystocele and stress urinary incontinence admitted for planned anterior colporrhaphy and single incision mid urethral sling. The procedures were performed without complications. PVR is adequate. Tolerating diet well. She is afebrile and hemodynamically stable postoperative day 3. Called by case management to informed me that Mrs. Lara have not been able to be discharge because they have not found a facility for the patient to be discharged to and their [employer] don't work on weekends, and informed me that discharge have to be canceled. Hospitalist team was called for medical management for CHF exacerbation and pneumonia. She received inpatient antibiotics, diuretic therapy, clinically improved. I have discharged her on 4 remaining days of cefdinir azithromycin for pneumonia. She was discharged on 2 L nasal cannula. For CHF exacerbation discharged on Lasix 40 mg twice daily with potassium placement therapy. residential is been instructed to keep an eye on her creatinine, repeat BMP in 48 hours, check potassium in 48 hours, adjust Lasix as needed. Physical Exam Const: COMMON NORMALS: no acute distress and patient oriented x3 Resp: COMMON NORMALS: normal respiratory effort, No retractions, No use of accessory muscles and clear to auscultation bilaterally AUSCULTATION: clear to auscultation bilaterally Cardio: COMMON NORMALS: regular rate, regular rhythm, S1 normal heart sound present and S2 normal heart sound present RATE: regular rate RHYTHM: regular rhythm HEART SOUNDS: S1 normal heart sound present and S2 normal heart sound present GI: COMMON NORMALS: Normal to inspection, nondistended, normoactive bowel sounds present, Soft to palpation, non-tender and No hepatosplenomegaly present PALPATION: Yes Soft to palpation and Yes No hepatosplenomegaly present Extremity: COMMON NORMALS: no pedal edema Neuro: COMMON NORMALS: patient oriented x3 Psych: COMMON NORMALS: mental status grossly normal Urinary Catheter Management^: [place]: Cath Placed During This Visit: yes Urinary Catheter Date of Insertion: 07/21/21 Urinary Catheter Time of Insertion: 12:00 Discharge Data Data Completed and Pending: Completed Studies During Hospitalization Category Date Time Status XR chest 1V erika ble [id number] Routine Exams 07/25/21 19:27 Completed XR chest 1V erika ble [id number] Routine Exams 07/27/21 07:00 [place] [id number] Routin e Ultrasound 07/26/21 10:14 Completed CV. echo complete * [id number] Routine Ultrasound 07/26/21 10:14 Completed Pending at discharge Category Date Time Status ES surgery / GI i mages Routine Exams 07/21/21 11:57 Taken C Reactive Protei n AM LABS Lab 07/28/21 04:00 Ordered C Reactive Protei n AM LABS Lab 07/29/21 04:00 Ordered Clostridioides Di fficile PCR Routin e Lab 07/26/21 10:17 Ordered Complete Blood Co unt w/Auto AM LABS Lab 07/28/21 04:00 Ordered Complete Blood Co unt w/Auto AM LABS Lab 07/29/21 04:00 Ordered Comprehensive Met abolic Panel AM LA BS Lab 07/28/21 04:00 Ordered Comprehensive Met abolic Panel AM LA BS Lab 07/29/21 04:00 Ordered Enteric Bacterial Panel by PCR Rout ine Lab 07/26/21 10:17 Ordered Enteric Parasite Panel by PCR Routi ne Lab 07/26/21 10:17 Ordered Immunochemical Fe mirza OCB Routine Lab 07/26/21 10:17 Ordered Lactoferrin Routi ne Lab 07/26/21 10:17 Ordered Magnesium AM LABS Lab 07/28/21 04:00 Ordered Magnesium AM LABS Lab 07/29/21 04:00 Ordered NT Pro B Type Ernestina riuretic Pept QAM Lab 07/28/21 06:00 Ordered NT Pro B Type Ernestina riuretic Pept QAM Lab 07/29/21 06:00 Ordered Phosphorus AM LAB S Lab 07/28/21 04:00 Ordered Phosphorus AM LAB S Lab 07/29/21 04:00 Ordered Procalcitonin AM LABS Lab 07/28/21 04:00 Ordered Procalcitonin AM LABS Lab 07/29/21 04:00 Ordered Labs from last 24 hours 07/27/21 07/27/21 07/27/21 10:30 02:11 02:11 WBC RBC Hgb Hct MCV MCH MCHC RDW Plt Count MPV Neut % (Auto) Lymph % (Auto) [place] % (Auto) Eos % (Auto) Baso % (Auto) Neut # (Auto) Lymph # (Auto) [place] # (Auto) Eos # (Auto) Baso # (Auto) Nucleated RBC % (a uto) Nucleated RBCs # Sodium 142 Potassium 3.0 L Chloride 100 Carbon Dioxide 26 Anion Gap 19.0 BUN 12 Creatinine 0.8 GFR Calculation Not Reportable Glucose 100 Calculated Osmolal ity 294 Calcium 9.8 Phosphorus 2.4 L Magnesium 2.1 Total Bilirubin 0.2 AST 11 ALT 6 Alkaline Phosphata se 139 H Troponin T Hi Sens 6Hr Troponin T Hi Sens 6Hr Delta C-Reactive Protein 63.2 H NT-Pro-B Natriuret Pep 2750 H Total Protein 6.7 Albumin 3.4 L Globulin 3.3 Procalcitonin 0.05 SARS-CoV-2 Ag (Rap id) Negative 07/27/21 07/26/21 02:11 17:16 WBC 7.8 RBC 3.99 L Hgb 11.9 Hct 38.6 MCV 96.7 D MCH 29.8 MCHC 30.8 D RDW 16.3 H Plt Count 239 MPV 10.4 Neut % (Auto) 59.5 Lymph % (Auto) 28.4 [place] % (Auto) 9.8 Eos % (Auto) 1.7 Baso % (Auto) 0.5 Neut # (Auto) 4.66 Lymph # (Auto) 2.2 [place] # (Auto) 0.8 Eos # (Auto) 0.1 Baso # (Auto) 0.0 Nucleated RBC % (a uto) 0 Nucleated RBCs # 0.0 Sodium Potassium Chloride Carbon Dioxide Anion Gap BUN Creatinine GFR Calculation Glucose Calculated Osmolal ity Calcium Phosphorus Magnesium Total Bilirubin AST ALT Alkaline Phosphata se Troponin T Hi Sens 6Hr 31.82 H Troponin T Hi Sens 6Hr Delta 5.82 C-Reactive Protein NT-Pro-B Natriuret Pep Total Protein Albumin Globulin Procalcitonin SARS-CoV-2 Ag (Rap id) Vitals: Last Vital Signs Temp 98.1 F 07/27/21 12:00 Pulse 70 07/27/21 12:00 Resp 17 07/27/21 12:00 BP 105/66 07/27/21 12:00 Pulse Ox 96 07/27/21 12:00 Discharge Plan Discharge Patient Disposition: Xfer SNF Condition: Stable Prescriptions: New acetaminophen 325 mg capsule 325 mg PO Q4H PRN (Reason: fever or pain) Qty: 60 RF: 0 azithromycin 250 mg tablet 250 mg PO DAILY 4 Days Qty: 4 RF: 0 cefdinir 300 mg capsule 300 mg PO BID 4 Days Qty: 8 RF: 0 Lasix 40 mg tablet 40 mg PO BID 30 Days Qty: 60 RF: 0 Klor-Con M20 20 mEq tablet,ER particles/crystals 20 meq PO BID 30 Days Qty: 60 RF: 0 Continued ipratropium-albuterol 0.5 mg-3 mg(2.5 mg base)/3 mL solution for nebulization 3 ml inhalation QID PRN (Reason: sob) RF: 0 potassium chloride 8 mEq tablet extended release 8 meq PO DAILY RF: 0 melatonin 10 mg capsule 10 mg PO DAILY RF: 0 Eliquis 5 mg tablet 5 mg PO BID RF: 0 polyethylene glycol 3350 17 gram/dose powder 17 gm PO DAILY PRN (Reason: Constipation) RF: 0 pantoprazole 40 mg tablet,delayed release (DR/EC) 40 mg PO BID Qty: 180 RF: 0 tizanidine 4 mg tablet 4 mg PO BID 30 Days Qty: 60 RF: 0 sucralfate [Carafate] 1 gram tablet 1 g PO TID Qty: 90 RF: 0 diltiazem HCl 360 mg capsule,extended release 24hr 360 mg PO DAILY Qty: 90 RF: 3 magnesium L-lactate [Magtab] 84 mg tablet extended release 84 mg PO BID Qty: 60 RF: 5 sertraline 50 mg tablet 50 mg PO DAILY Qty: 90 RF: 0 metoprolol tartrate 50 mg tablet 50 mg PO DIRECTED Qty: 45 RF: 5 cetirizine [Zyrtec] 10 mg Tablet 10 mg PO DAILY RF: 0 acetaminophen [Tylenol 8 Hour] 650 mg Tablet Extended Release 650 mg PO BEDTIME MDD SEE PHARMACH COMMENT PRN (Reason: Pain) RF: 0 Anti-Gas Maximum Strength 166 mg Capsule 166 mg PO PRN RF: 0 vitamin S80-lhmmt acid 500-400 mcg Tablet 1 tab PO DAILY RF: 0 famotidine 20 mg Tablet 20 mg PO DAILY RF: 0 magnesium hydroxide [Milk of Magnesia] 400 mg/5 mL Suspension 5 ml PO DAILY PRN (Reason: Constipation) RF: 0 gemfibrozil 600 mg Tablet 600 mg PO DAILY RF: 0 bisacodyl [Dulcolax (bisacodyl)] 10 mg Suppository 10 mg LA DAILY PRN (Reason: Constipation) RF: 0 omega-3 fatty acids Capsule 1,000 mg PO DAILY RF: 0 Vitamin D3 25 mcg (1,000 unit) tablet 2,000 unit PO .COMPLEX RF: 0 hydrocodone-acetaminophen 5-325 mg tablet 1 tab PO QID PRN (Reason: Pain) 7 Days Qty: 28 RF: 0 Discontinued torsemide 20 mg tablet 10 mg PO BID RF: 0 enoxaparin 40 mg/0.4 mL syringe 40 mg SUBCUT DAILY RF: 0 Discharge Orders: Discharge Order (Routine); Ordered 07/22/21 Ordered By: Shankar Wilder Referrals: [facility] [Outside] Shankar Wilder MD [Physician] - 08/03/21 12:45 pm (Please follow up with Dr Wilder.) Discharge Diet: Usual diet Discharge Activity: Increase activity as tolerated Patient Instructions: Hydrocodone/Acetaminophen (By mouth) (Vicodin, [place], Lortab), Opioid Safety (DC), Bladder Sling (GEN), Anterior Vaginal Repair (GEN) Activity Restrictions/Additional Instructions: 1. Please call [facility] on next working day to make your post-operative appointment in 2 weeks. 2. Please stay home until you come back to the clinic on first post-operative check up. 3. Please follow instructions on your medications CAREFULLY. 4. If you have abdominal incision, do not cover it unless dressing is necessary because of drainage. OK to shower, but avoid bath. Leave steri-strips until they fall off. If they are still on one week after surgery, you may remove them. 5. If you had vaginal surgery or vaginal repair, Dr. Wilder may instruct you to take SITZ bath. 6. Yellow, blood tinged odorous vaginal discharge is usually normal after hysterectomy or vaginal surgeries. 7. No sexual intercourse, tampons, or douches until you are completely released from the post-operative care. 8. Avoid constipation by eating right and maybe using some Metamucil or Milk of Magnesia. 9. All prescription refills are given during the working hours. Please do no wait till it runs out. Call the clinic at [phone] before your medication runs out. The clinic will get in touch with your doctor to prescribe medications if necessary. 10. Please remain within 40 mile radius from our hospital because emergencies do happen now and then during the post-operative period. 11. If you have stairs at home, take one step at a time slowly and minimize the number of trips. It helps to stay in one floor for the next few days. No lifting except what you can lift by one hand until you are released from the post-operative care. 12. Driving is discouraged until you are well healed. It may be 3-4 weeks before you feel strong enough to drive. You should be able to turn and look through the rear window without pain and you should be able to push the brake pedal very hard without pain before you drive. No fast rules, but SAFETY should be your primary concern. DO NOT drive if you are on sedating medications such as narcotics. 13. Call the clinic (during working hours) to make urgent appointment or go to the Emergency room, if any of the following occurs: i. Vaginal bleeding becomes heavy, more than a period. ii. Incision becomes red and sore, or drains pus. iii. Your temperature is over 100.4 or you have chill. iv. IV site becomes red and swollen (a little ``knot?? is usually OK) v. Persistent nausea and vomiting- vi. Persistent constipation or diarrhea vii. Rash or allergic reaction to medications. -We will discharge on antibiotics for pneumonia -Lasix twice daily for CHF, home monitor creatinine, monitor urine output, Discharge Attestations Time Spent in Discharge Care*: less than 30 min Status at Discharge: Cognitive status at discharge: cognitively intact , Behavioral status at discharge: cooperative , Quality Metrics Clinical Quality Measures During this hospital stay, did patient experience: None Coding Level of Care Code Acute Chg FW DC note Diagnoses Status post anterior colporrhaphy Z98.890 Shortness of breath R06.02 Dysuria R30.0 COPD (chronic obstructive pulmonary disease) J44.9 Diastolic heart failure I50.32 Heart failure chronicity: chronic Anemia D64.9 Insomnia F51.01 Insomnia type: primary Atrial fibrillation I48.91 Atrial fibrillation type: unspecified
--- NOTE | 2021-07-27 14:24 | PC.NURSE ---
Report called to CAMPOS Davidson, at [facility].
[2021-07-27 15:36] VITALS: BP 105/66; PULSE 70; RESP 17; TEMP 36.7; O2SAT 96
== END 2021-07-27 15:37 | disposition skilled nursing facility (03) ==
LOC: MEDSURG 12:54
PROVIDERS: Family Medicine; Internal Medicine; Admitting Provider Obstetrics & Gynecology; PCP Family Medicine; Visit Provider Obstetrics & Gynecology
PROC: 0JQC0ZZ Repair Pelvic Region Subcutaneous Tissue and Fascia, Open Approach (ICD-10-PCS; CPT 57240; principal; 2021-07-21 10:55)
PROC: (CPT 57288; 2021-07-21 10:55)
PROC: 0TJB8ZZ Inspection of Bladder, Via Natural or Artificial Opening Endoscopic (ICD-10-PCS; CPT 52000; 2021-07-21 10:55)
DX: N81.10 Cystocele, unspecified (principal); N39.3 Stress incontinence (female) (male); J44.9 Chronic obstructive pulmonary disease, unspecified; I48.91 Unspecified atrial fibrillation; I11.0 Hypertensive heart disease with heart failure; I50.9 Heart failure, unspecified; K21.9 Gastro-esophageal reflux disease without esophagitis; E78.00 Pure hypercholesterolemia, unspecified; G89.18 Other acute postprocedural pain; R60.9 Edema, unspecified; L20.9 Atopic dermatitis, unspecified; D53.9 Nutritional anemia, unspecified; E83.52 Hypercalcemia; I89.0 Lymphedema, not elsewhere classified; F17.210 Nicotine dependence, cigarettes, uncomplicated; Z79.01 Long term (current) use of anticoagulants; Z79.899 Other long term (current) drug therapy; Z90.710 Acquired absence of both cervix and uterus; R06.02 Shortness of breath
CPT/HCPCS: 57240; 57288; 36415; 71045; 80053; 81001; 82607; 82728; 82746; 83540; 83550; 83735; 83880; 84100; 84145; 84484; 85025; 85027; 86140; 86850; 86900; 87426; 93005; 93306; 93970; 94640; 94664; 96365; 96372; C1713; C1762; G0378; J0456; J0696; J1650; J1885; J1940; J2370; J2405; J2704; J2765; J3010; J3370; J7030; J7050

== ENCOUNTER → 2022-01-06 13:34 | Outpatient (BNVA) | payer MEDICARE, MEDICAID, SELFPAY | PROVIDERS: PCP Internal Medicine; Visit Provider Nurse Practitioner Family | DX: I48.91 Unspecified atrial fibrillation (principal); I11.0 Hypertensive heart disease with heart failure; I50.32 Chronic diastolic (congestive) heart failure; R60.0 Localized edema; F17.210 Nicotine dependence, cigarettes, uncomplicated; Z79.01 Long term (current) use of anticoagulants | CPT/HCPCS: 99214 ==

== ENCOUNTER → 2022-03-10 08:25 | Outpatient (BNVA) | payer MEDICARE, MEDICAID, SELFPAY | PROVIDERS: PCP Family Medicine; Visit Provider Surgery | DX: K21.9 Gastro-esophageal reflux disease without esophagitis (principal); F41.1 Generalized anxiety disorder | CPT/HCPCS: 99213 ==

== ENCOUNTER 2022-04-02 15:37 | Emergency (ER) | payer MEDICARE, MEDICAID, SELFPAY ==
--- NOTE | 2022-04-02 15:41 | XRR_ITS ---
PROCEDURE INFORMATION: Exam: XR Left Elbow Exam date and time: 04/02/2022 4:13 PM Age: 76 years old Clinical indication: Injury or trauma; Fall; Blunt trauma (contusions or hematomas); Elbow; Left TECHNIQUE: Imaging protocol: Radiologic exam of the Left elbow. Views: 3 or more views. COMPARISON: CR ( EX, ) 04/02/2022 4:10 PM FINDINGS: Bones/joints: Normal. Soft tissues: Normal. XR/XR elbow LT min 3V* [id number] IMPRESSION: No acute findings.
--- NOTE | 2022-04-02 15:41 | XRR_ITS ---
PROCEDURE INFORMATION: Exam: XR Left Wrist Exam date and time: 04/02/2022 4:10 PM Age: 76 years old Clinical indication: Injury or trauma; Fall; Blunt trauma (contusions or hematomas); Wrist; Left TECHNIQUE: Imaging protocol: Radiologic exam of the Left wrist. Views: 3 or more views. COMPARISON: No relevant prior studies available. FINDINGS: Bones/joints: Moderate thumb CMC erosive primary osteoarthritis. Arthritis involving the articulation of the distal scaphoid with the multangular bones. Chondrocalcinosis. Soft tissues: Normal. XR/XR wrist LT w scaphoid [id number] IMPRESSION: 1. Moderate thumb CMC erosive primary osteoarthritis. 2. Arthritis involving the articulation of the distal scaphoid with the multangular bones. 3. Chondrocalcinosis. 4. No acute findings.
[2022-04-02 15:42] VITALS: BP 138/81; PULSE 77; RESP 17; TEMP 36.7; O2SAT 96; BMI 42.5
--- NOTE | 2022-04-02 15:45 | CTR_ITS ---
PROCEDURE INFORMATION: Exam: CT Cervical Spine Without Contrast Exam date and time: 04/02/2022 4:29 PM Age: 76 years old Clinical indication: Injury or trauma; Blunt trauma; Patient HX: Nh PT unwitnessed fall C/O SHRESTHA and neck pain TECHNIQUE: Imaging protocol: Computed tomography of the cervical spine without contrast. Radiation optimization: All CT scans at this facility use at least one of these dose optimization techniques: automated exposure control; mA and/or kV adjustment per patient size (includes targeted exams where dose is matched to clinical indication); or iterative reconstruction. COMPARISON: CT cervical spin wo con* [id number] 03/27/2021 6:07 PM RADIATION DOSE METRICS: Total DLP (mGy-cm): 1135.67 FINDINGS: Bones/joints: [id number] degenerative changes are again seen in the cervical spine. No area of significant canal stenosis. No acute fracture. Spinal alignment is normal. Lungs: Lung apices are normal. Soft tissues: Unremarkable. CT/CT cervical spin wo con* [id number] IMPRESSION: No cervical spine fracture.
--- NOTE | 2022-04-02 15:45 | CTR_ITS ---
PROCEDURE INFORMATION: Exam: CT Head Without Contrast Exam date and time: 04/02/2022 4:26 PM Age: 76 years old Clinical indication: Injury or trauma; Blunt trauma (contusions or hematomas); Consciousness not specified; Patient HX: Nh PT unwitnessed fall C/O SHRESTHA and neck pain TECHNIQUE: Imaging protocol: Computed tomography of the head without contrast. Radiation optimization: All CT scans at this facility use at least one of these dose optimization techniques: automated exposure control; mA and/or kV adjustment per patient size (includes targeted exams where dose is matched to clinical indication); or iterative reconstruction. COMPARISON: CT head wo con* [id number] 03/27/2021 6:00 PM RADIATION DOSE METRICS: Total DLP (mGy-cm): 1006.4 FINDINGS: Brain: Mild atrophy and mild white matter chronic microvascular changes are noted. No hemorrhage or evidence of acute infarction. Cerebral ventricles: No ventriculomegaly. Paranasal sinuses: Mild left sphenoid sinusitis is noted. Mastoid air cells: Visualized mastoid air cells are well aerated. Bones/joints: The calvarium is demineralized. No acute fracture. Soft tissues: Unremarkable. CT/CT head wo con* [id number] IMPRESSION: No acute intracranial abnormality. Mild sinusitis.
--- NOTE | 2022-04-02 15:46 | W.ED.HA ---
HPI - Headache General: Chief Complaint: Fall Stated Complaint: HEAD PAIN S/P FALL Time Seen by Provider: 04/02/22 15:40 History of Present Illness: 76-year-old presents with a headache neck pain left elbow pain left wrist pain after mechanical fall. States she tripped. Denies any prodrome. Denies any focal numbness weakness or tingling. Denies any vision or hearing change. Denies any other focal pain except as above. Review of Systems Narrative: - CONSTITUTIONAL: Denies weight loss, fever and chills. - HEENT: Denies changes in vision and hearing. - RESPIRATORY: Denies SOB and cough. - CV: Denies palpitations and CP. - GI: Denies abdominal pain, nausea, vomiting and diarrhea. - : Denies dysuria and urinary frequency. - MSK: Denies myalgia and joint pain. - SKIN: Denies rash and pruritus. - NEUROLOGICAL: As above - PSYCHIATRIC: Denies suicidal ideation [facility] ED PFSH: Medical History Acute exacerbation of CHF (congestive heart failure) Aftercare following surgery of the genitourinary system Benign essential hypertension with target blood pressure below 140/90 Chronic episodic atrial fibrillation Chronic venous insufficiency of lower extremity COPD (chronic obstructive pulmonary disease) Diastolic heart failure Fracture of ribs, multiple GERD (gastroesophageal reflux disease) Hypercholesterolemia Osteoarthritis of left knee Other cervical disc displacement, unspecified cervical region Recurrent UTI Sleep apnea Urgency incontinence Urolithiasis UTI (urinary tract infection) Surgical History H/O cataract extraction H/O esophagogastroduodenoscopy (07/14/20) H/O knee surgery H/O of anterior colporrhaphy 07/21/2021- anterior colporrhaphy, single incision mid urethral sling and cystoscopy performed by Dr. Wilder at [facility] H/O shoulder surgery History of appendectomy History of cholecystectomy S/P hysterectomy Status post colonoscopy (07/14/20) Family History Father Stroke Mother Cancer BLADDER, BREAST Brother Cancer ESOPHAGEAL Family/Other Cancer Sister Cancer Suicide Denies family history of Diabetes CAD (coronary artery disease) Clotting disorder Dementia Chronic kidney disease (CKD) Anesthesia complication Bleeding disorder Lung disease Social History Smoking and tobacco status: current every day smoker cigarettes Alcohol intake: never Marital status: Current occupational status: disabled Physical Exam Narrative: EXAM NARRATIVE: - GENERAL: Alert and oriented x 3. No acute distress. Well-nourished. - EYES: EOMI. Anicteric. - HENT: No hemotympanum, no blind ligamentous laxity, no nasal septal hematoma. No C-spine tenderness. Moist mucous membranes. No scleral icterus. No cervical lymphadenopathy. - LUNGS: Clear to auscultation bilaterally. No accessory muscle use. Equal lung sounds bilaterally. No respiratory distress. - CARDIOVASCULAR: Regular rate and rhythm. No murmur. No JVD. - ABDOMEN: Soft, non-tender and non-distended. Negative CVA tenderness bilaterally, no rebound or guarding, negative Phillips sign. No palpable masses. - EXTREMITIES: No edema. Tenderness to left elbow and left wrist. No snuffbox tenderness. Extremities are neurovascularly intact. Compartments are soft. No other focal point tenderness except as above. - SKIN: No rashes or lesions. Warm. - NEUROLOGIC: No meningismus or focal neurological deficits. CN II-XII grossly intact. - PSYCHIATRIC: Cooperative. Appropriate mood and affect. Course Vital Signs: Vital signs: Vital Signs Temperature 98.1 F 04/02/22 15:42 Pulse Rate 77 04/02/22 15:42 Respiratory Rate 17 04/02/22 15:42 Blood Pressure 138/81 04/02/22 15:42 Pulse Oximetry 96 04/02/22 15:42 [facility] - Headache Medical Decision Making 76-year-old presents due to headache and neck pain left elbow and left wrist pain after mechanical fall. Denies any prodrome. Patient is from fall was mechanical. CT scan of the head does not reveal any intracranial hemorrhage. CT of the C-spine and x-rays of the wrist and elbow do not reveal any fracture or dislocation. Extremities are neurovascularly intact. There is no other focal bony tenderness except as above. She is neurologically intact. At this time I believe patient would be safe for discharge and outpatient follow-up. Return precautions provided. Plan was reviewed with the patient who expressed understanding. Questions answered. Patient will follow up with PCP. Patient discharged in stable condition. Lab Data Radiology Impressions Elbow X-Ray 04/02/22 15:41 IMPRESSION: No acute findings. Wrist X-Ray 04/02/22 15:41 IMPRESSION: 1. Moderate thumb CMC erosive primary osteoarthritis. 2. Arthritis involving the articulation of the distal scaphoid with the multangular bones. 3. Chondrocalcinosis. 4. No acute findings. Cervical Spine CT 04/02/22 15:45 IMPRESSION: No cervical spine fracture. Head CT 04/02/22 15:45 IMPRESSION: No acute intracranial abnormality. Mild sinusitis. Discharge Plan Discharge Condition: Stable Prescriptions: No Action potassium chloride 8 mEq tablet extended release 8 meq PO DAILY 0RF melatonin 10 mg capsule 10 mg PO DAILY 0RF Xtampza ER 18 mg cap,sprinkl,ER12hr(DONT CRUSH) 18 mg PO BID 0RF Rx Instructions: must administer with a meal/food polyethylene glycol 3350 17 gram/dose powder 17 gm PO DAILY PRN (Reason: Constipation) 0RF pantoprazole 40 mg tablet,delayed release (DR/EC) 40 mg PO BID Qty: 180 0RF metoprolol tartrate 50 mg tablet 25 mg PO BID 0RF Rx Instructions: 50mg qam and 25mg qpm tizanidine 4 mg tablet 4 mg PO BID 30 Days Qty: 60 0RF sucralfate [Carafate] 1 gram tablet 1 g PO TID Qty: 90 0RF furosemide [Lasix] 40 mg tablet 40 mg PO BID 0RF albuterol sulfate 2.5 mg /3 mL (0.083 %) solution for nebulization 2.5 mg inhalation Q4H PRN0RF docusate sodium [Colace] 100 mg capsule 200 mg PO BID 0RF oxybutynin chloride 5 mg tablet extended release 24hr 10 mg PO DAILY 0RF Rx Instructions: called in to nurse Rhiannon Hernandez at [facility] diltiazem HCl 240 mg capsule,extended release 24 hr 240 mg PO DAILY 0RF nystatin 100,000 unit/gram cream 1 applic topical BID PRN0RF Biofreeze (menthol) 4 % gel 1 applic topical QID PRN0RF lorazepam 0.5 mg tablet 0.5 mg PO ONCE PRN0RF sertraline 50 mg tablet 50 mg PO BID 0RF magnesium L-lactate [Magtab] 84 mg tablet extended release 84 mg PO BID Qty: 60 5RF Eliquis 5 mg tablet 5 mg PO BID Qty: 180 3RF cetirizine [Zyrtec] 10 mg Tablet 10 mg PO DAILY 0RF Anti-Gas Maximum Strength 166 mg Capsule 166 mg PO PRN 0RF vitamin [id number] acid 500-400 mcg Tablet 1 tab PO DAILY 0RF magnesium hydroxide [Milk of Magnesia] 400 mg/5 mL Suspension 5 ml PO DAILY PRN (Reason: Constipation) 0RF bisacodyl [Dulcolax (bisacodyl)] 10 mg Suppository 10 mg [place] DAILY PRN (Reason: Constipation) 0RF omega-3 fatty acids Capsule 1,000 mg PO DAILY 0RF Vitamin D3 25 mcg (1,000 unit) tablet 2,000 unit PO .COMPLEX 0RF Rx Instructions: 2,000 units PO Mon, , Mon; Take on Monday, , Monday acetaminophen 325 mg capsule 325 mg PO Q4H PRN (Reason: fever or pain) Qty: 60 0RF Referrals: Daniel Hamilton MD [Primary Care Provider] - Coding Level of Care Code ED Sleeve Turner for Leta Albarran
[2022-04-02] MEDS: acetaminophen 500 mg Tablet PO (15:52)
[2022-04-02] MEDS: metoclopramide 5 mg/mL SDV 2 mL 10 MG IVP (17:20)
[2022-04-02] MEDS: diphenhydrAMINE 50 mg/mL SDV 1mL 25 MG IVP (17:20)
== END 2022-04-02 18:54 | disposition home or self-care (01) ==
PROVIDERS: Emergency Provider Emergency Medicine; PCP Family Medicine
DX: R51.9 Headache, unspecified (principal); M54.2 Cervicalgia; M25.522 Pain in left elbow; Z79.01 Long term (current) use of anticoagulants; I11.0 Hypertensive heart disease with heart failure; I50.9 Heart failure, unspecified; J44.9 Chronic obstructive pulmonary disease, unspecified; F17.210 Nicotine dependence, cigarettes, uncomplicated
CPT/HCPCS: 70450; 72125; 73080; 73110; 96374; 96375; 99285; J1200; J2765

== ENCOUNTER → 2022-06-22 11:52 | Outpatient (BNVA) | payer MEDICARE, MEDICAID, SELFPAY | PROVIDERS: PCP Family Medicine; Visit Provider Internal Medicine Cardiovascular Disease | DX: R07.89 Other chest pain (principal); I48.91 Unspecified atrial fibrillation; Z79.01 Long term (current) use of anticoagulants; I50.32 Chronic diastolic (congestive) heart failure; E78.00 Pure hypercholesterolemia, unspecified; F41.1 Generalized anxiety disorder | CPT/HCPCS: 99214 ==

== ENCOUNTER 2022-06-24 12:16 | Emergency (ER) | payer MEDICARE, MEDICAID, SELFPAY ==
[2022-06-24 12:25] VITALS: BMI 35.2
[2022-06-24 12:28] VITALS: BP 131/75; PULSE 73; RESP 17; TEMP 36.9; O2SAT 92
--- NOTE | 2022-06-24 12:35 | CT_ITS ---
WS: [id number] CT HEAD NONCONTRAST HISTORY: fall, hit head, on blood thinners TECHNIQUE: Contiguous axial imaging performed through the brain in 2.5 mm imaging. Bone and soft tiss ue windows. Sagittal and coronal reformats reviewed. All CT scans at [facility] use at least one of these dose optimization techniques: automated exposure control; mA and/or kV adjustment per pa tient size (includes targeted exams where dose is matched to clinical indication); or iterative recon struction. DLP: 1149.28 mGy.cm COMPARISON: 04/02/2022 No acute intracranial hemorrhage, midline shift or mass effect. Moderate atrophy and small vessel ischemic disease. Ventricles: Normal size with no hydrocephalus. No inferior displacement of cerebellar tonsils. Paranasal sinuses: As visualized are clear. Mastoid air cells: Well pneumatized. Calvarium and scalp: Skull is intact with no soft tissue edema or swelling. CT/CT head wo con* [id number] IMPRESSION: 1. No acute intracranial hemorrhage or edema. 2. Moderate atrophy and small vessel ischemic disease. 3. No skull fracture.
--- NOTE | 2022-06-24 13:51 | W.ED.FALL ---
HPI - Fall General: Chief Complaint: Fall Stated Complaint: Fall Time Seen by Provider: 06/24/22 12:32 Source: patient and EMS Mode of arrival: EMS Limitations: no limitations History of Present Illness: 77-year-old female who lives in a residential facility presents to the ER today after a fall this morning. Patient reports she was walking and was using her walker with a wheelchair behind her when she fell. Patient reports she hit her head and her tailbone. She reports at this time she has dizziness and also tailbone pain. Patient reports she is on a blood thinner. Patient reports chronic back pain but more acute at this time in the low back. Patient rates her pain a 7 out of 10 at this time. Patient denies any loss of bowel or bladder control. Patient denies any blurry vision. Review of Systems General: Reports: 10 or more systems reviewed and unremarkable except in HPI and below PFSH ED PFSH: Medical History Acute exacerbation of CHF (congestive heart failure) Aftercare following surgery of the genitourinary system Benign essential hypertension with target blood pressure below 140/90 Chronic episodic atrial fibrillation Chronic venous insufficiency of lower extremity COPD (chronic obstructive pulmonary disease) Diastolic heart failure Fracture of ribs, multiple GERD (gastroesophageal reflux disease) Hypercholesterolemia Osteoarthritis of left knee Other cervical disc displacement, unspecified cervical region Recurrent UTI Sleep apnea Urgency incontinence Urolithiasis UTI (urinary tract infection) Surgical History H/O cataract extraction H/O esophagogastroduodenoscopy (07/14/20) H/O knee surgery H/O of anterior colporrhaphy 07/21/2021- anterior colporrhaphy, single incision mid urethral sling and cystoscopy performed by Dr. Wilder at [facility] H/O shoulder surgery History of appendectomy History of cholecystectomy S/P hysterectomy Status post colonoscopy (07/14/20) Family History Father Stroke Mother Cancer BLADDER, BREAST Brother Cancer ESOPHAGEAL Family/Other Cancer Sister Cancer Suicide Denies family history of Diabetes CAD (coronary artery disease) Clotting disorder Dementia Chronic kidney disease (CKD) Anesthesia complication Bleeding disorder Lung disease Social History Smoking and tobacco status: former smoker Alcohol intake: never Marital status: Current occupational status: disabled Physical Exam Const: COMMON NORMALS: patient oriented x3, no limitations and alert HENMT: COMMON NORMALS: normocephalic, atraumatic, external ears normal, TM's normal bilaterally and Normal nasal mucous membranes and turbinates present HEAD & SCALP: normocephalic and atraumatic NOSE: Normal nasal mucous membranes and turbinates present EXTERNAL EAR: Yes external ears normal TYMPANIC MEMBRANE: TM's normal bilaterally Eye: COMMON NORMALS: conjunctivae normal CONJUNCTIVA: Yes conjunctivae normal Neck/C-Spine: COMMON NORMALS: full ROM and no lymphadenopathy Chest: COMMONS NORMALS: normal palpation of entire chest wall Resp: COMMON NORMALS: normal respiratory effort, No retractions and clear to auscultation bilaterally AUSCULTATION: clear to auscultation bilaterally Cardio: COMMON NORMALS: regular rate, regular rhythm and No murmurs present (Cardio) RATE: regular rate RHYTHM: regular rhythm GI: COMMON NORMALS: Normal to inspection, nondistended, normoactive bowel sounds present, Soft to palpation and non-tender PALPATION: Yes Soft to palpation Back/Pelvis: THORACIC SPINE/UPPER BACK: No thoracic spinal tenderness, No paraspinal muscle tenderness and No paraspinal muscle spasm LUMBAR SPINE/LOWER BACK: Yes ROM limited (chronic), Yes pain with ROM, No lumbar spinal tenderness, No paraspinal muscle tenderness and No paraspinal muscle spasm COCCYX: Coccyx tenderness present Extremity: COMMON NORMALS: normal to inspection Neuro: COMMON NORMALS: patient oriented x3 SENSORIUM/ORIENTATION: Yes alert Psych: COMMON NORMALS: cooperative Skin: COMMON NORMALS: no rashes or lesions noted and no wounds GENERAL SKIN EXAM: no rashes or lesions noted Course ED course: Patient presents to the ER via EMS residential facility after fall this morning. Patient had a fall from standing. She reports hitting the back of her head and also having low back pain. Patient is on Eliquis so we will go ahead and get a head CT. Also would like to get an L-spine x-ray however patient refuses at this time because she reports she cannot lay on the exam table. Vital Signs: Vital signs: Vital Signs Temperature 98.4 F 06/24/22 12:28 Pulse Rate 73 06/24/22 12:28 Respiratory Rate 17 06/24/22 12:28 Blood Pressure 131/75 06/24/22 12:28 Pulse Oximetry 92 06/24/22 12:28 Oxygen Delivery Me thod 06/24/22 12:28 MDM - Fall Medical Decision Making CT of the head without contrast was normal. Patient likely has a head contusion. Unable to get L-spine x-ray because patient refuses to lie down on the table. Discussed with patient we cannot diagnose anything without an x-ray at this time of her L-spine. She likely has a contusion. Patient was given Toradol in the ER today for pain. She has no loss of bowel or bladder control. No neurological deficits are noted. Discussed with patient she also has a head contusion. Recommended rest. Patient should follow-up with her PCP in 3 to 5 days. Return to the ER with new or worsening symptoms. Patient verbalized understanding and was in agreement with the treatment plan. Lab Data Radiology Impressions Head CT 06/24/22 12:35 IMPRESSION: 1. No acute intracranial hemorrhage or edema. 2. Moderate atrophy and small vessel ischemic disease. 3. No skull fracture. Critical Care Time Critical Care Time: Critical Care Time: No Discharge Plan Discharge Patient Disposition: Home Clinical Impression: Fall Qualifiers: Encounter type: initial encounter Qualified Code(s): W19.XXXA - Unspecified fall, initial encounter Low back pain Qualifiers: Chronicity: acute Back pain laterality: midline Sciatica presence: without sciatica Qualified Code(s): M54.50 - Low back pain, unspecified Contusion of head Qualifiers: Encounter type: initial encounter Contusion of head detail: other part of head Qualified Code(s): S00.83XA - Contusion of other part of head, initial encounter Condition: Stable Prescriptions: No Action melatonin 10 mg capsule 10 mg PO DAILY polyethylene glycol 3350 17 gram/dose powder 17 gm PO DAILY PRN (Reason: Constipation) pantoprazole 40 mg tablet,delayed release (DR/EC) 40 mg PO BID Qty: 180 0RF metoprolol tartrate 50 mg tablet 25 mg PO BID Rx Instructions: 50mg qam and 25mg qpm sucralfate [Carafate] 1 gram tablet 1 g PO TID Qty: 90 0RF albuterol sulfate 2.5 mg /3 mL (0.083 %) solution for nebulization 2.5 mg inhalation Q4H PRN docusate sodium [Colace] 100 mg capsule 200 mg PO BID diltiazem HCl 240 mg capsule,extended release 24 hr 240 mg PO DAILY nystatin 100,000 unit/gram cream 1 applic topical BID PRN Biofreeze (menthol) 4 % gel 1 applic topical QID PRN furosemide [Lasix] 40 mg tablet 20 mg PO DAILY tizanidine 4 mg tablet 2 mg PO Q8H PRN potassium chloride 20 mEq tablet,ER particles/crystals 20 meq PO .qod Xtampza ER 27 mg cap,sprinkl,ER12hr(DONT CRUSH) 27 mg PO BID PRN lorazepam 0.5 mg tablet 0.5 mg PO ONCE PRN sertraline 50 mg tablet 100 mg PO DAILY magnesium L-lactate [Magtab] 84 mg tablet extended release 84 mg PO BID Qty: 60 5RF Eliquis 5 mg tablet 5 mg PO BID Qty: 180 3RF cetirizine [Zyrtec] 10 mg Tablet 10 mg PO DAILY Anti-Gas Maximum Strength 166 mg Capsule 166 mg PO PRN vitamin [id number] acid 500-400 mcg Tablet 1 tab PO DAILY magnesium hydroxide [Milk of Magnesia] 400 mg/5 mL Suspension 5 ml PO DAILY PRN (Reason: Constipation) bisacodyl [Dulcolax (bisacodyl)] 10 mg Suppository 10 mg [place] DAILY PRN (Reason: Constipation) Vitamin D3 25 mcg (1,000 unit) tablet 2,000 unit PO .COMPLEX Rx Instructions: 2,000 units PO Mon, , Mon; Take on Monday, , Monday acetaminophen 325 mg capsule 325 mg PO Q4H PRN (Reason: fever or pain) Qty: 60 0RF Discharge Orders: Discharge ED (Routine); Ordered 06/24/22 Ordered By: Olimpia Castrejon Referrals: Daniel Hamilton MD [Primary Care Provider] - Discharge Diet: Usual diet Discharge Activity: Increase activity as tolerated Patient Instructions: Opioid Safety, Pain Management Activity Restrictions/Additional Instructions: Continue home medications. Follow-up with PCP in 3 to 5 days. Return to the ER with new or worsening symptoms. Coding Level of Care Code ED Communications Advisor for Yashirag Deion
[2022-06-24 14:21] VITALS: RESP 17; O2SAT 93
[2022-06-24] MEDS: morphine 4 mg/mL SDV 1 mL 2 MG IM (14:21)
--- NOTE | 2022-06-24 14:48 | PC.NURSE ---
Report called to Nancy under[facility], unable to transport patient, logistics ride requested.
[2022-06-24 15:14] VITALS: BP 137/90; PULSE 77; RESP 15; TEMP 36.7; O2SAT 95
--- NOTE | 2022-06-24 18:28 | PC.NURSE ---
Patient dc'd to waiting room after waiting in [facility] for some time for her ride, assisted to bathroom prior to moving to waiting room, patient remains a/o, provided with something to drink and a snack
== END 2022-06-24 18:29 | disposition home or self-care (01) ==
PROVIDERS: Emergency Provider Physician Assistant; PCP Family Medicine
DX: S00.83XA Contusion of other part of head, initial encounter (principal); M54.50 Low back pain, unspecified; Z79.620 Long term (current) use of immunosuppressive biologic; Z87.891 Personal history of nicotine dependence; I11.0 Hypertensive heart disease with heart failure; I50.9 Heart failure, unspecified; J44.9 Chronic obstructive pulmonary disease, unspecified; W17.89XA Other fall from one level to another, initial encounter
CPT/HCPCS: 70450; 96372; 99285; J1885; J2270

== ENCOUNTER 2022-08-11 08:47 | Day surgery (SDC) | payer MEDICARE, MEDICAID, SELFPAY ==
[2022-08-09 13:12] VITALS: BMI 27.1
--- NOTE | 2022-08-11 08:37 | P.HP_ITS ---
Same Day Surgery H&P Indication for Procedure/HPI DATE OF PROCEDURE: August 11, 2022 CHIEF COMPLAINT/INDICATIONFOR SURGICAL PROCEDURE: Issues with acid reflux PREOP DIAGNOSIS: Acid reflux PLANNED PROCEDURE: Operation Date: 08/11/22 10:15 Proposed Procedures p EGD 19302,K21.9Th(Not Applicable) - Doc Díaz MD This is a pleasant 77 years old female patient was seen and evaluated by my partner Dr. Estevez back in 03/10/2022. For worsening acid reflux. And epigastric pain. Patient had dull aching constant pain in the epigastrium being radiated to the back. Nothing seems to make it better. Eating and not eating according to patient's description makes the pain worse. Patient is scheduled today for EGD. ROS All systems have been reviewed negative except as for the above or per problem list. Medications/Allergies* Home Medications Medication Instructions Recorded Confirmed Type polyethylene glycol 3350 17 17 gm PO DAILY PRN Constipation 09/14/19 08/09/22 History gram/dose oral powder cetirizine 10 mg tablet (Zyrtec) 5 mg PO DAILY 02/24/21 08/09/22 History simethicone 166 mg capsule 180 mg PO PRN 02/24/21 08/09/22 History (Anti-Gas Maximum Strength) vitamin B12 500 mcg-folic acid 400 1 tab PO DAILY 02/24/21 08/09/22 History mcg tablet melatonin 10 mg capsule 3 mg PO DAILY 05/04/21 08/09/22 History bisacodyl 10 mg rectal suppository 10 mg [place] DAILY PRN Constipation 05/11/21 08/09/22 History (Dulcolax (bisacodyl)) magnesium hydroxide 400 mg/5 mL 5 ml PO DAILY PRN Constipation 05/11/21 08/09/22 History oral suspension (Milk of Magnesia) cholecalciferol (vitamin D3) 25 2,000 unit PO .COMPLEX 05/27/21 08/09/22 History mcg (1,000 unit) tablet (Vitamin D3) albuterol sulfate 2.5 mg/3 mL 2.5 mg inhalation Q4H PRN 10/22/21 08/09/22 History (0.083 %) solution for nebulization Shortness Of Breath diltiazem HCl 240 mg capsule,24 240 mg PO DAILY 10/22/21 08/09/22 History hr,extended release docusate sodium 100 mg capsule 200 mg PO BID 10/22/21 08/09/22 History (Colace) nystatin 100,000 unit/gram topical 1 applic topical BID PRN Rash 10/22/21 08/09/22 History cream lorazepam 0.5 mg tablet 0.5 mg PO ONCE PRN Anxiety 03/10/22 08/09/22 History furosemide 40 mg tablet (Lasix) 20 mg PO DAILY 06/22/22 08/09/22 History potassium chloride 20 mEq 20 meq PO .qod 06/22/22 08/09/22 History tablet,extended release(part/cryst) sertraline 50 mg tablet 100 mg PO DAILY 06/22/22 08/09/22 History tizanidine 4 mg tablet 2 mg PO Q8H PRN unknown 06/22/22 08/09/22 History acetaminophen 325 mg capsule 500 mg PO Q4H PRN fever or pain 08/09/22 08/11/22 History oxycodone myristate 27 mg capsule 27 mg PO BID 08/09/22 08/09/22 History sprinkle extended release 12hr(DON'T CRUSH) (Xtampza ER) Allergies/Adverse Reactions Allergy/AdvReac Type Severity Reaction Status Date / Time fluoxetine Allergy Unknown Unknown Verified 08/11/22 09:58 nabumetone Allergy Unknown unknown Verified 08/11/22 09:58 Penicillins Allergy Unknown Unknown Verified 08/11/22 09:58 ciprofloxacin [From Cipro] Allergy NA Verified 08/11/22 09:58 penicillin G Allergy NA Verified 08/11/22 09:58 pentazocine [From Talwin] Allergy NA Verified 08/11/22 09:58 Sulfa (Sulfonamide Allergy NA Verified 08/11/22 09:58 Antibiotics) zolpidem [From Ambien] Allergy hallucinati Verified 08/11/22 09:58 ons Pertinent History/Comorbid Conditions* Medical History (Updated 07/02/22 @ 00:02 by ) Acute exacerbation of CHF (congestive heart failure) Aftercare following surgery of the genitourinary system Benign essential hypertension with target blood pressure below 140/90 Chronic episodic atrial fibrillation Chronic venous insufficiency of lower extremity COPD (chronic obstructive pulmonary disease) Diastolic heart failure Fracture of ribs, multiple GERD (gastroesophageal reflux disease) Hypercholesterolemia Osteoarthritis of left knee Other cervical disc displacement, unspecified cervical region Recurrent UTI Sleep apnea Urgency incontinence Urolithiasis UTI (urinary tract infection) Surgical History (Updated 08/09/21 @ 12:53 by Shankar Wilder MD) H/O cataract extraction H/O esophagogastroduodenoscopy (07/14/20) H/O knee surgery H/O of anterior colporrhaphy 07/21/2021- anterior colporrhaphy, single incision mid urethral sling and cystoscopy performed by Dr. Wilder at [facility] H/O shoulder surgery History of appendectomy History of cholecystectomy S/P hysterectomy Status post colonoscopy (07/14/20) Family History (Updated 11/12/20 @ 15:07 by Justine August RN) Father Mother Suicide Sister Cancer Mother BLADDER, BREAST Brother ESOPHAGEAL Family/Other Sister Stroke Father Denies family history of Diabetes CAD (coronary artery disease) Clotting disorder Dementia Chronic kidney disease (CKD) Anesthesia complication Bleeding disorder Lung disease Social History Smoking and tobacco status: current every day smoker cigarettes Alcohol intake: never Marital status: Current occupational status: disabled Pertinent Exam Findings alert, oriented x 3, regular rate & rhythm and procedure specific exam findings (Abdominal exam nontender nondistended soft) Recommendations Surgery/Procedure today (EGD with possible biopsy) Other Plans: Plan of care; After thorough history and physical examination and reviewing the chart, plan to perform a diagnostic esophagogastroduodenoscopy with possible biopsy in the GI lab. I discussed with the patient in detail the risk,benefits,alternatives and indications.The risk of aspiration, bleeding, soft tissue injury, perforation of the stomach/esophagus and other potential concomitant complications were explained to the patient in details,aslo the potential need for Thoracic and or Abdominal surgery to repair any complications.The patient understood this well and did agree to proceed. Rationale was carefully and clearly discussed with the patient.Appropriate informed consent have been reviewed and signed All questions have been answered and all concerns have been addressed to patient's satisfaction. Coding Level of Care Code Acute Clinical Safety Manager for Leta Albarran
[2022-08-11] MEDS: sodium chloride 0.9% 1,000 ML 30 ML IV (09:19)
--- NOTE | 2022-08-11 09:50 | ANES.PREANE2 ---
Pre-Anesthetic Assessment Height/Weight: Height 1.6 m Weight 69.4 kg Preop Diagnosis: GERD on chronic PPI Operation Date: 08/11/22 10:15 Proposed Procedures p EGD 83172,K21.9Th(Not Applicable) - Doc Díaz MD Familial anesthetic complications: None Was Beta [place] taken within 24 hours: N/A Was Clonidine taken within 24 hours: N/A Last intake: Intake Last Liquid Date 08/10/22 Last Liquid Time 23:30 Last Solid Date 08/10/22 Last Solid Time 20:30 Social No alcohol and No tobacco Exam alert, oriented x 3, clear to auscultation bilaterally and regular rate & rhythm Airway Mallampati: Class III Pulmonary Chronic Obstructive Pulmonary Disease (3 L NC at night) CV/HEM Atrial Fibrillation, Congestive Heart Failure and Hypertension Mod MVR GI Gastroesophageal Reflux Disease Anesthetic Plan ASA status: 4 Anesthesia: MAC Risk of > 500 ml blood loss (7ml/kg in children): No Medications/Allergies Home Medications Medication Instructions Recorded Confirmed Last Taken Type polyethylene glycol 3350 17 17 gm PO DAILY PRN Constipation 09/14/19 08/09/22 07/20/21 History gram/dose oral powder cetirizine 10 mg tablet (Zyrtec) 5 mg PO DAILY 02/24/21 08/09/22 07/20/21 History simethicone 166 mg capsule 180 mg PO PRN 02/24/21 08/09/22 05/05/21 History (Anti-Gas Maximum Strength) vitamin B12 500 mcg-folic acid 400 1 tab PO DAILY 02/24/21 08/09/22 07/20/21 History mcg tablet pantoprazole 40 mg tablet,delayed 40 mg PO BID #180 tabs 04/29/21 08/09/22 07/20/21 Rx release melatonin 10 mg capsule 3 mg PO DAILY 05/04/21 08/09/22 07/20/21 History bisacodyl 10 mg rectal suppository 10 mg WI DAILY PRN Constipation 05/11/21 08/09/22 Unknown History (Dulcolax (bisacodyl)) magnesium hydroxide 400 mg/5 mL 5 ml PO DAILY PRN Constipation 05/11/21 08/09/22 07/20/21 History oral suspension (Milk of Magnesia) magnesium L-lactate 84 mg 84 mg PO BID #60 tabs 05/12/21 08/09/22 07/20/21 Rx tablet,extended release (Magtab) cholecalciferol (vitamin D3) 25 2,000 unit PO .COMPLEX 05/27/21 08/09/22 07/20/21 History mcg (1,000 unit) tablet (Vitamin D3) sucralfate 1 gram tablet (Carafate) 1 g PO TID #90 tabs 07/15/21 08/09/22 07/20/21 Rx albuterol sulfate 2.5 mg/3 mL 2.5 mg inhalation Q4H PRN 10/22/21 08/09/22 Unknown History (0.083 %) solution for nebulization Shortness Of Breath diltiazem HCl 240 mg capsule,24 240 mg PO DAILY 10/22/21 08/09/22 Unknown History hr,extended release docusate sodium 100 mg capsule 200 mg PO BID 10/22/21 08/09/22 Unknown History (Colace) nystatin 100,000 unit/gram topical 1 applic topical BID PRN Rash 10/22/21 08/09/22 Unknown History cream apixaban 5 mg tablet (Eliquis) 5 mg PO BID #180 tabs 12/09/21 08/11/22 08/08/22 Rx lorazepam 0.5 mg tablet 0.5 mg PO ONCE PRN Anxiety 03/10/22 08/09/22 Unknown History furosemide 40 mg tablet (Lasix) 20 mg PO DAILY 06/22/22 08/09/22 Unknown History potassium chloride 20 mEq 20 meq PO .qod 06/22/22 08/09/22 Unknown History tablet,extended release(part/cryst) sertraline 50 mg tablet 100 mg PO DAILY 06/22/22 08/09/22 Unknown History tizanidine 4 mg tablet 2 mg PO Q8H PRN unknown 06/22/22 08/09/22 Unknown History metoprolol tartrate 50 mg tablet 25 mg PO BID #135 tabs 07/11/22 08/09/22 Unknown Rx acetaminophen 325 mg capsule 500 mg PO Q4H PRN fever or pain 08/09/22 08/11/22 08/11/22 03:00 History oxycodone myristate 27 mg capsule 27 mg PO BID 08/09/22 08/09/22 Unknown History sprinkle extended release 12hr(DON'T CRUSH) (Xtampza ER) Allergies Allergy/AdvReac Type Severity Reaction Status Date / Time fluoxetine Allergy Unknown Unknown Verified 08/11/22 09:15 nabumetone Allergy Unknown unknown Verified 08/11/22 09:15 Penicillins Allergy Unknown Unknown Verified 08/11/22 09:15 ciprofloxacin [From Cipro] Allergy NA Verified 08/11/22 09:15 penicillin G Allergy NA Verified 08/11/22 09:15 pentazocine [From Talwin] Allergy NA Verified 08/11/22 09:15 Sulfa (Sulfonamide Allergy NA Verified 08/11/22 09:15 Antibiotics) zolpidem [From Ambien] Allergy hallucinati Verified 08/11/22 09:15 ons Current Medications Generic Name Dose Route Start Last Admin Trade Name Freq PRN Reason Stop Dose Admin Sodium Chloride 1,000 mls @ 30 mls/hr 08/11/22 09:00 08/11/22 09:19 Sodium Chloride 0.9% IV 08/12/22 08:59 30 mls/hr .Q24H ANNELIESE Administration PFSH Anesthesia Medical History Acute exacerbation of CHF (congestive heart failure) Aftercare following surgery of the genitourinary system Benign essential hypertension with target blood pressure below 140/90 Chronic episodic atrial fibrillation Chronic venous insufficiency of lower extremity COPD (chronic obstructive pulmonary disease) Diastolic heart failure Fracture of ribs, multiple GERD (gastroesophageal reflux disease) Hypercholesterolemia Osteoarthritis of left knee Other cervical disc displacement, unspecified cervical region Recurrent UTI Sleep apnea Urgency incontinence Urolithiasis UTI (urinary tract infection) Surgical History H/O cataract extraction H/O esophagogastroduodenoscopy (07/14/20) H/O knee surgery H/O of anterior colporrhaphy 07/21/2021- anterior colporrhaphy, single incision mid urethral sling and cystoscopy performed by Dr. Wilder at [facility] H/O shoulder surgery History of appendectomy History of cholecystectomy S/P hysterectomy Status post colonoscopy (07/14/20) Family History Father Stroke Mother Cancer BLADDER, BREAST Brother Cancer ESOPHAGEAL Family/Other Cancer Sister Cancer Suicide Denies family history of Diabetes CAD (coronary artery disease) Clotting disorder Dementia Chronic kidney disease (CKD) Anesthesia complication Bleeding disorder Lung disease Social History Smoking and tobacco status: current every day smoker cigarettes Alcohol intake: never Marital status: Current occupational status: disabled Data Anesthesia Cardiac Studies: Echocardiogram 07/26/21 Echocardiogram Ultrasound 02/25/21 Sestamibi Stress Test (Cardiology) 06/14/21 Cardiac Event Monitor 04/30/21 Holter Monitor 03/20/20
[2022-08-11 10:53] VITALS: BP 109/56; PULSE 68; RESP 16; TEMP 36.6; O2SAT 98
[2022-08-11 11:08] VITALS: BP 124/64; PULSE 74; RESP 18; O2SAT 97
[2022-08-11 11:10] VITALS: BP 115/57; PULSE 73; RESP 16; O2SAT 96
--- NOTE | 2022-08-11 15:48 | ANE.PACU2 ---
Inpatient post-anesthesia follow up: Airway intact: Yes Vital signs: Temperature 98 F Pulse Rate 73 Respiratory Rate 16 Blood Pressure 115/57 Pulse Oximetry 96 Oxygen Delivery Me thod Room Air Oxygen Flow Rate Fraction of Inspir ed Oxygen Hydration adequate: Yes Nausea and vomiting: No Pain level: 1 Mental status: Baseline
== END 2022-08-11 11:44 | disposition home or self-care (01) ==
PROVIDERS: PCP Family Medicine; Visit Provider Surgery
PROC: 0DJ08ZZ Inspection of Upper Intestinal Tract, Via Natural or Artificial Opening Endoscopic (ICD-10-PCS; CPT 43235; principal; 2022-08-11 10:15)
DX: K21.9 Gastro-esophageal reflux disease without esophagitis (principal); K31.7 Polyp of stomach and duodenum; K21.00 Gastro-esophageal reflux disease with esophagitis, without bleeding; K44.9 Diaphragmatic hernia without obstruction or gangrene; K29.50 Unspecified chronic gastritis without bleeding; B96.81 Helicobacter pylori [H. pylori] as the cause of diseases classified elsewhere; K29.80 Duodenitis without bleeding; J44.9 Chronic obstructive pulmonary disease, unspecified; I11.0 Hypertensive heart disease with heart failure; I50.30 Unspecified diastolic (congestive) heart failure; E78.00 Pure hypercholesterolemia, unspecified; G47.30 Sleep apnea, unspecified; F17.210 Nicotine dependence, cigarettes, uncomplicated
CPT/HCPCS: 43239; 88305; 88342; J7030

== ENCOUNTER → 2022-08-24 10:51 | Outpatient (BNVA) | payer MEDICARE, MEDICAID, SELFPAY | PROVIDERS: PCP Family Medicine; Visit Provider Surgery | DX: Z09 Encounter for follow-up examination after completed treatment for conditions other than malignant neoplasm (principal); K29.90 Gastroduodenitis, unspecified, without bleeding; D13.2 Benign neoplasm of duodenum | CPT/HCPCS: 99212 ==

== ENCOUNTER 2022-10-29 23:43 | Emergency (ER) | payer MEDICARE, MEDICAID, SELFPAY ==
[2022-10-29 23:44] VITALS: BP 127/64; PULSE 107; RESP 18; TEMP 36.3; O2SAT 93
--- NOTE | 2022-10-29 23:49 | XRR_ITS ---
PROCEDURE INFORMATION: Exam: XR Pelvis Exam date and time: 10/30/2022 12:18 AM Age: 77 years old Clinical indication: Injury or trauma; Fall; Blunt trauma (contusions or hematomas); Bilateral; Pelvic region TECHNIQUE: Imaging protocol: Radiologic exam of the pelvis. Views: 1 or 2 view. COMPARISON: CT abdomen pelvis w con* [id number] 05/10/2021 3:09 PM FINDINGS: Bones/joints: There is no acute fracture or dislocation. If symptoms persist, follow-up imaging in several days may be useful to exclude an occult fracture. No other significant acute bone or joint abnormality. Mild to moderate arthritic changes in both hips for age. Moderate degenerative disc changes in the lower lumbar spine. Soft tissues: No significant acute finding. XR/XR pelvis 1-2V* [id number] IMPRESSION: 1. No acute fracture or dislocation. 2. Other findings discussed above.
--- NOTE | 2022-10-29 23:49 | CTR_ITS ---
PROCEDURE INFORMATION: Exam: CT Head Without Contrast Exam date and time: 10/30/2022 12:09 AM Age: 77 years old Clinical indication: Injury or trauma; Fall; Blunt trauma (contusions or hematomas) TECHNIQUE: Imaging protocol: Computed tomography of the head without contrast. Radiation optimization: All CT scans at this facility use at least one of these dose optimization techniques: automated exposure control; mA and/or kV adjustment per patient size (includes targeted exams where dose is matched to clinical indication); or iterative reconstruction. Other protocol: This patient has received 3 known CTs and 0 known cardiac nuclear medicine studies in the 12 months prior to the current study. COMPARISON: CT head wo con* [id number] 06/24/2022 1:07 PM RADIATION DOSE METRICS: Total DLP (mGy-cm): 1058.15 FINDINGS: Brain: No acute intracranial hemorrhage or mass effect. There is decreased attenuation in the periventricular white matter, likely from microvascular disease. No definite acute infarct by CT. Cerebral ventricles: Ventricle size is normal for age. Paranasal sinuses: Included paranasal sinuses are essentially clear. Mastoid air cells: No significant acute finding. Bones/joints: No definite acute skull fracture. Soft tissues: No significant acute finding. Vasculature: Vascular calcifications in the internal carotid arteries. CT/CT head wo con* [id number] IMPRESSION: 1. No acute intracranial hemorrhage or mass effect. 2. Changes of microvascular disease. 3. Other findings discussed above.
--- NOTE | 2022-10-29 23:49 | CTR_ITS ---
PROCEDURE INFORMATION: Exam: CT Cervical Spine Without Contrast Exam date and time: 10/30/2022 12:13 AM Age: 77 years old Clinical indication: Injury or trauma; Fall; Blunt trauma TECHNIQUE: Imaging protocol: Computed tomography of the cervical spine without contrast. Radiation optimization: All CT scans at this facility use at least one of these dose optimization techniques: automated exposure control; mA and/or kV adjustment per patient size (includes targeted exams where dose is matched to clinical indication); or iterative reconstruction. Other protocol: This patient has received 4 known CTs and 0 known cardiac nuclear medicine studies in the 12 months prior to the current study. COMPARISON: CT cervical spine wo con* [id number] 04/02/2022 4:29 PM RADIATION DOSE METRICS: Total DLP (mGy-cm): 367.67 FINDINGS: Bones/joints: On axial CT images, no definite acute fracture is visible. Sagittal and coronal reconstructions show no acute fracture or subluxation. Moderate to severe degenerative disc changes and facet joint arthritis at multiple levels. Moderate bulging/protruding disc at C4-C5. Mild bulging disc suspected at C3-C4. These findings appear similar to the prior exam. MRI could be more specific/sensitive if clinically indicated. Lungs: No significant acute finding in the upper lungs. Thyroid: Enlarged right lobe of the thyroid gland, probably containing several subtle nodules. The largest nodule is suspected measure up to about 16 mm in size. The appearance is similar to the prior exam. Non-emergent ultrasound could be useful for further evaluation, as an initial step to evaluate for possible malignancy, if not already performed. CT/CT cervical spin wo con* [id number] IMPRESSION: 1. No definite acute fracture or subluxation by CT. 2. Degenerative/arthritic changes as discussed above. 3. Enlarged right lobe of the thyroid gland, containing several nodules, see above. 4. Other findings discussed above. COMMENTS: Consistent with the [employer]'s Incidental Findings Committee white paper (J Am Marielos Radiol 2015): In patients aged 35 years and older with an incidental thyroid nodule equal to or greater than 1.[address], MRI or extrathyroidal US, further evaluation with dedicated thyroid US is recommended for patients with normal life expectancy and without comorbidities. For smaller nodules without suspicious features, no further evaluation or follow up is recommended.
--- NOTE | 2022-10-29 23:57 | W.ED.FALL ---
HPI - Fall General: Chief Complaint: Fall Stated Complaint: FALL Time Seen by Provider: 10/29/22 23:44 Source: patient and EMS Mode of arrival: EMS Limitations: no limitations History of Present Illness: 77-year-old female who had slipped out of her wheelchair at the long term just prior to arrival. States she has neck and head pain along with right hip pain she denies any other pain elsewhere at this time no obvious deformities. She rates her pain a 5 out of 10. Associated symptoms-after fall: Reports headache(s) and neck pain; Denies abdominal pain or chest pain Review of Systems Const: Denies: fever(s), chills, body aches or change in appetite Eyes: Denies: blurry vision or eye discomfort ENMT: Denies: throat pain or dental pain Card: Denies: chest pain Resp: Denies: dyspnea GI: Denies: abdominal pain, nausea, vomiting or diarrhea : Denies: dysuria Musc: Reports: neck pain and extremity pain Skin/Breast: Denies: rash Neuro: Reports: headache(s) Psych: Denies: depression Timo/Lymph: Denies: easy bruising All/Imm: Denies: urticaria PFSH ED PFSH: Medical History Acute exacerbation of CHF (congestive heart failure) Aftercare following surgery of the genitourinary system Benign essential hypertension with target blood pressure below 140/90 Chronic episodic atrial fibrillation Chronic venous insufficiency of lower extremity COPD (chronic obstructive pulmonary disease) Diastolic heart failure Fracture of ribs, multiple GERD (gastroesophageal reflux disease) Hypercholesterolemia Osteoarthritis of left knee Other cervical disc displacement, unspecified cervical region Recurrent UTI Sleep apnea Urgency incontinence Urolithiasis UTI (urinary tract infection) Surgical History H/O cataract extraction H/O esophagogastroduodenoscopy (07/14/20) H/O knee surgery H/O of anterior colporrhaphy 07/21/2021- anterior colporrhaphy, single incision mid urethral sling and cystoscopy performed by Dr. Wilder at [facility] H/O shoulder surgery History of appendectomy History of cholecystectomy S/P hysterectomy Status post colonoscopy (07/14/20) Family History Father Stroke Mother Cancer BLADDER, BREAST Brother Cancer ESOPHAGEAL Family/Other Cancer Sister Cancer Suicide Denies family history of Diabetes CAD (coronary artery disease) Clotting disorder Dementia Chronic kidney disease (CKD) Anesthesia complication Bleeding disorder Lung disease Social History Smoking and tobacco status: current every day smoker cigarettes Alcohol intake: never Marital status: Current occupational status: disabled Course Vital Signs: Vital signs: Vital Signs Temperature 97.4 F L 10/29/22 23:44 Pulse Rate 107 H 10/29/22 23:44 Respiratory Rate 18 10/29/22 23:44 Blood Pressure 127/64 10/29/22 23:44 Pulse Oximetry 93 10/29/22 23:44 MDM - Fall Medical Decision Making Patient presents here after a fall out of her wheelchair imaging here is all negative she has no signs any major injuries she is stable for discharge back to long term. Lab Data Radiology Impressions Cervical Spine CT 10/29/22 23:49 IMPRESSION: 1. No definite acute fracture or subluxation by CT. 2. Degenerative/arthritic changes as discussed above. 3. Enlarged right lobe of the thyroid gland, containing several nodules, see above. 4. Other findings discussed above. COMMENTS: Consistent with the [employer]'s Incidental Findings Committee white paper (J Am Marielos Radiol 2015): In patients aged 35 years and older with an incidental thyroid nodule equal to or greater than 1.[address], MRI or extrathyroidal US, further evaluation with dedicated thyroid US is recommended for patients with normal life expectancy and without comorbidities. For smaller nodules without suspicious features, no further evaluation or follow up is recommended. Head CT 10/29/22 23:49 IMPRESSION: 1. No acute intracranial hemorrhage or mass effect. 2. Changes of microvascular disease. 3. Other findings discussed above. Pelvis X-Ray 10/29/22 23:49 IMPRESSION: 1. No acute fracture or dislocation. 2. Other findings discussed above. Discharge Plan Discharge Patient Disposition: Home Clinical Impression: Fall Condition: Stable Prescriptions: No Action melatonin 10 mg capsule 3 mg PO DAILY polyethylene glycol 3350 17 gram/dose powder 17 gm PO DAILY PRN (Reason: Constipation) pantoprazole 40 mg tablet,delayed release (DR/EC) 40 mg PO BID Qty: 180 0RF albuterol sulfate 2.5 mg /3 mL (0.083 %) solution for nebulization 2.5 mg inhalation Q4H PRN (Reason: Shortness Of Breath) docusate sodium [Colace] 100 mg capsule 200 mg PO BID diltiazem HCl 240 mg capsule,extended release 24 hr 240 mg PO DAILY nystatin 100,000 unit/gram cream 1 applic topical BID PRN (Reason: Rash) furosemide [Lasix] 40 mg tablet 20 mg PO DAILY tizanidine 4 mg tablet 2 mg PO Q8H PRN (Reason: unknown) potassium chloride 20 mEq tablet,ER particles/crystals 20 meq PO .qod lorazepam 0.5 mg tablet 0.5 mg PO ONCE PRN (Reason: Anxiety) sertraline 50 mg tablet 100 mg PO DAILY magnesium L-lactate [Magtab] 84 mg tablet extended release 84 mg PO BID Qty: 60 5RF Eliquis 5 mg tablet 5 mg PO BID Qty: 180 3RF Hold Instructions: Resume on 08/16/22. clarithromycin 500 mg tablet 500 mg PO TID 14 Days Qty: 42 0RF metronidazole 500 mg tablet 500 mg PO TID 14 Days Qty: 42 0RF pantoprazole [Protonix] 40 mg tablet,delayed release (DR/EC) 40 mg PO BID 14 Days Qty: 28 0RF cetirizine [Zyrtec] 10 mg Tablet 5 mg PO DAILY Anti-Gas Maximum Strength 166 mg Capsule 180 mg PO PRN vitamin D51-teilk acid 500-400 mcg Tablet 1 tab PO DAILY magnesium hydroxide [Milk of Magnesia] 400 mg/5 mL Suspension 5 ml PO DAILY PRN (Reason: Constipation) bisacodyl [Dulcolax (bisacodyl)] 10 mg Suppository 10 mg VT DAILY PRN (Reason: Constipation) Vitamin D3 25 mcg (1,000 unit) tablet 2,000 unit PO .COMPLEX Rx Instructions: 2,000 units PO Mon, , Mon; Take on Monday, , Monday Xtampza ER 27 mg cap,sprinkl,ER12hr(DONT CRUSH) 27 mg PO BID acetaminophen 325 mg capsule 500 mg PO Q4H PRN (Reason: fever or pain) Carafate 1 gram tablet 1 g PO BID metoprolol tartrate 50 mg tablet 25 mg PO BEDTIME Rx Instructions: Take 1 tab every morning and 1/2 tab every evening Discharge Orders: Discharge ED (Routine); Ordered 10/30/22 Ordered By: Roland Smith Referrals: Daniel Hamilton MD [Primary Care Provider] - Discharge Diet: Advance as tolerated Discharge Activity: Resume usual activity Patient Instructions: Fall Prevention (ED) Coding Level of Care Code ED Electronic Engineering Draftsperson for Leta Albarran
[2022-10-30 01:59] VITALS: BP 131/46; PULSE 78; RESP 18; O2SAT 91
== END 2022-10-30 02:18 | disposition home or self-care (01) ==
PROVIDERS: Emergency Provider Emergency Medicine; PCP Family Medicine
DX: M54.2 Cervicalgia (principal); R51.9 Headache, unspecified; Z79.01 Long term (current) use of anticoagulants; W05.0XXA Fall from non-moving wheelchair, initial encounter; Y92.129 Unspecified place in nursing home as the place of occurrence of the external cause; I11.0 Hypertensive heart disease with heart failure; I50.9 Heart failure, unspecified; J44.9 Chronic obstructive pulmonary disease, unspecified; F17.210 Nicotine dependence, cigarettes, uncomplicated
CPT/HCPCS: 70450; 72125; 72170; 99284

== ENCOUNTER → 2022-12-27 13:03 | Outpatient (BNVA) | payer MEDICARE, MEDICAID, SELFPAY | PROVIDERS: PCP Family Medicine; Visit Provider Internal Medicine Cardiovascular Disease | DX: R06.02 Shortness of breath (principal); I48.91 Unspecified atrial fibrillation; Z79.01 Long term (current) use of anticoagulants; I50.32 Chronic diastolic (congestive) heart failure; E78.00 Pure hypercholesterolemia, unspecified; F17.210 Nicotine dependence, cigarettes, uncomplicated | CPT/HCPCS: 36415; 80048; 83880; 85025; 99214 ==

== ENCOUNTER → 2023-06-09 08:08 | Outpatient (BNVA) | payer MEDICARE, MEDICAID, SELFPAY | PROVIDERS: PCP Family Medicine; Referring Provider Family Medicine; Visit Provider Surgery | DX: K92.1 Melena (principal) | CPT/HCPCS: 99204; 99214 ==

== ENCOUNTER → 2023-07-19 11:17 | Outpatient (BNVA) | payer MEDICARE, MEDICAID, SELFPAY | PROVIDERS: PCP Family Medicine; Visit Provider Internal Medicine Cardiovascular Disease | DX: R06.02 Shortness of breath (principal); I73.9 Peripheral vascular disease, unspecified; I48.91 Unspecified atrial fibrillation; I10 Essential (primary) hypertension | CPT/HCPCS: 36415; 80048; 83880; 99214 ==

== ENCOUNTER 2023-08-11 11:28 | Outpatient (CLI) | payer MEDICARE, MEDICAID, SELFPAY ==
--- NOTE | 2023-08-11 12:00 | USCV_ITS ---
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 Intimal thickening and minimal plaques in the iliac, femoral and popliteal arteries bilaterally Normal /near normal arterial Doppler flow velocities bilaterally Resting MICHALE 1.2 on the right side. Left-sided MICHAEL could not be obtained CONCLUSIONS 1. Intimal thickening and minimal plaques in the iliac, femoral and popliteal arteries bilaterally. 2. Near/near normal Doppler flow velocities bilaterally 3. Normal resting MICHAEL on the right side. 4. No significant arterial obstruction, bilaterally, based on the above findings Dr Kwabena Marie MD [facility] (Electronically Signed) Final Date: 12 August 2023 12:46 S
== END 2023-08-11 11:29 | disposition home or self-care (01) ==
LOC: RAD 11:29
PROVIDERS: PCP Family Medicine; Visit Provider Internal Medicine Cardiovascular Disease
DX: I73.9 Peripheral vascular disease, unspecified (principal); M79.604 Pain in right leg; M79.605 Pain in left leg
CPT/HCPCS: 93925

== ENCOUNTER 2023-08-11 20:15 | Emergency (ER) | payer OTHER, MEDICAID, SELFPAY ==
[2023-08-11 20:17] VITALS: BP 130/91; PULSE 95; RESP 20; TEMP 37.1; O2SAT 97; BMI 26.5
--- NOTE | 2023-08-11 20:28 | CTR_ITS ---
PROCEDURE INFORMATION: Exam: CT Head Without Contrast Exam date and time: 08/11/2023 8:35 PM Age: 78 years old Clinical indication: Injury or trauma; Blunt trauma (contusions or hematomas); Patient HX: Fall out of wheelchair at half-way. C/O head and neck pain. Anticoagulated. C collar in place. TECHNIQUE: Imaging protocol: Computed tomography of the head without contrast. Axial, coronal and sagittal reformatted images were created and reviewed. Radiation optimization: All CT scans at this facility use at least one of these dose optimization techniques: automated exposure control; mA and/or kV adjustment per patient size (includes targeted exams where dose is matched to clinical indication); or iterative reconstruction. REPORTING DATA: Count of CT and Cardiac NM exams in prior 12 months: This patient has received 2 known CTs and 0 known cardiac nuclear medicine studies in the 12 months prior to the current study. COMPARISON: CT head wo con* [id number] 10/30/2022 12:09 AM RADIATION DOSE METRICS: Total DLP (mGy-cm): 1095.58 FINDINGS: Brain: Patchy areas of hypoattenuation in the periventricular and subcortical white matter, consistent with chronic small vessel ischemic disease. No CT evidence of acute intracranial hemorrhage or acute territorial infarction. No significant mass effect or midline shift. Basal cisterns patent. Cerebral ventricles: Prominence of the cortical sulci, cisterns and ventricular system, consistent with cerebral and cerebellar volume loss. Paranasal sinuses: Unremarkable. No fluid levels. Mastoid air cells: Grossly unremarkable. Bones/joints: No acute osseous abnormality. Soft tissues: Grossly unremarkable. Vasculature: Calcific atherosclerotic disease in the cavernous internal carotid arteries. CT/CT head wo con* [id number] IMPRESSION: 1[address] No CT evidence of acute intracranial pathology. 2. Additional findings, as above.
--- NOTE | 2023-08-11 20:28 | XRR_ITS ---
PROCEDURE INFORMATION: Exam: XR Left Hip Exam date and time: 08/11/2023 8:42 PM Age: 78 years old Clinical indication: Injury or trauma; Other: Lt knee/hip pain; Patient HX: Lt hip/knee pain post fall; AMS; Additional info: Fall pain TECHNIQUE: Imaging protocol: Radiologic exam of the left hip. Views: 2 or 3 views hip with pelvis when performed. COMPARISON: CR XR pelvis 1-2V* [id number] 10/30/2022 12:18 AM FINDINGS: Bones/joints: Possible left superior and inferior pubic rami fractures. Confirmation with CT may be helpful. Soft tissues: Unremarkable. XR/XR hip LT 2-3V wo/w pel* [id number] IMPRESSION: Possible left superior and inferior pubic rami fractures. Confirmation with CT may be helpful.
--- NOTE | 2023-08-11 20:28 | CTR_ITS ---
PROCEDURE INFORMATION: Exam: CT Cervical Spine Without Contrast Exam date and time: 08/11/2023 8:38 PM Age: 78 years old Clinical indication: Injury or trauma; Blunt trauma; Patient HX: Fall out of wheelchair at long term. C/O head and neck pain. Anticoagulated. C collar in place. ; Additional info: Fall neck pain TECHNIQUE: Imaging protocol: Computed tomography of the cervical spine without contrast. Axial, coronal and sagittal reformatted images were created and reviewed. Radiation optimization: All CT scans at this facility use at least one of these dose optimization techniques: automated exposure control; mA and/or kV adjustment per patient size (includes targeted exams where dose is matched to clinical indication); or iterative reconstruction. REPORTING DATA: Count of CT and Cardiac NM exams in prior 12 months: This patient has received 2 known CTs and 0 known cardiac nuclear medicine studies in the 12 months prior to the current study. COMPARISON: CT cervical spin wo con* [id number] 10/30/2022 12:13 AM RADIATION DOSE METRICS: Total DLP (mGy-cm): 343.77 FINDINGS: Bones/joints: Osteopenia. Normal cervical lordosis. No CT evidence of acute fracture, dislocation or subluxation. Minimal anterolisthesis of C3 on C4. Alignment otherwise anatomic. Vertebral body heights maintained. Multilevel degenerative changes, characterized by disc space narrowing, osteophytosis and uncovertebral and facet joint hypertrophy. Mild multilevel spinal canal and neural foraminal narrowing. Thyroid gland: Mildly nodular, likely due to goiter. Lungs: Grossly unremarkable. Soft tissues: Grossly unremarkable. CT/CT cervical spin wo con* [id number] IMPRESSION: 1. No CT evidence of acute cervical spine traumatic injury. 2. Additional findings, as above.
--- NOTE | 2023-08-11 20:28 | XRR_ITS ---
PROCEDURE INFORMATION: Exam: XR Left Knee Exam date and time: 08/11/2023 8:42 PM Age: 78 years old Clinical indication: Injury or trauma; Patient HX: Lt hip/knee pain post fall; AMS; Additional info: Fall pain TECHNIQUE: Imaging protocol: Radiologic exam of the left knee. Views: 3 views. COMPARISON: No relevant prior studies available. FINDINGS: Bones/joints: Severe medial knee compartment primary osteoarthritis. Chondrocalcinosis. Mild patellofemoral compartment primary osteoarthritis. Soft tissues: Normal. XR/XR knee LT 3V* [id number] IMPRESSION: 1. Severe medial knee compartment primary osteoarthritis. 2. No acute posttraumatic findings.
--- NOTE | 2023-08-11 20:30 | ED_ITS ---
HPI - Fall General: Chief Complaint: Fall Stated Complaint: FALL Time Seen by Provider: 08/11/23 20:22 History of Present Illness: patient presents here by EMS from [facility]. Patient fell out of her wheelchair that was unlocked. Patient complaining of neck pain left hip pain left knee pain. Patient is currently on Eliquis. Unsure why she fell and unsure of any loss of consciousness. Patient is a poor historian in general. MD complaint: fall Onset (ago): minute(s) Fall from: wheelchair Place fall occurred: custodial/[facility] Loss of consciousness: Unsure Symptoms prior to fall: none Location of injury: head ( Neck left hip left knee) Review of Systems General: Reports: 10 or more systems reviewed and unremarkable except in HPI and below PFSH ED PFSH: Medical History Aftercare following surgery of the genitourinary system Diastolic heart failure Fracture of ribs, multiple Acute exacerbation of CHF (congestive heart failure) UTI (urinary tract infection) Urolithiasis Benign essential hypertension with target blood pressure below 140/90 Chronic episodic atrial fibrillation Osteoarthritis of left knee Chronic venous insufficiency of lower extremity Urgency incontinence Recurrent UTI COPD (chronic obstructive pulmonary disease) Other cervical disc displacement, unspecified cervical region GERD (gastroesophageal reflux disease) Hypercholesterolemia Sleep apnea Surgical History H/O of anterior colporrhaphy 07/21/2021- anterior colporrhaphy, single incision mid urethral sling and cystoscopy performed by Dr. Wilder at [facility] Status post colonoscopy (07/14/20) H/O esophagogastroduodenoscopy (07/14/20) S/P hysterectomy History of cholecystectomy History of appendectomy H/O knee surgery H/O shoulder surgery H/O cataract extraction Family History Father Stroke Mother Cancer BLADDER, BREAST Brother Cancer ESOPHAGEAL Family/Other Cancer Sister Cancer Suicide Denies family history of Diabetes CAD (coronary artery disease) Clotting disorder Dementia Chronic kidney disease (CKD) Anesthesia complication Bleeding disorder Lung disease Social History Smoking and tobacco/nicotine status: current every day tobacco/nicotine user cigarettes Alcohol intake: never Substance/Drug Use: never Marital status: Current occupational status: disabled Physical Exam Const: COMMON NORMALS: no acute distress, average body habitus, patient oriented x3, no limitations, healthy appearing, alert and well nourished HENMT: COMMON NORMALS: normocephalic, atraumatic, hearing grossly normal bilaterally, external ears normal, Normal external nose present, moist oral mucous membranes and oropharynx normal HEAD & SCALP: normocephalic and atraumatic NOSE: Normal external nose present EXTERNAL EAR: Yes external ears normal Neck/C-Spine: COMMON NORMALS: no JVD OTHER: in c-collar placed by EMS Chest: COMMONS NORMALS: normal inspection of the chest and normal palpation of entire chest wall Resp: COMMON NORMALS: normal respiratory effort, No retractions and No use of accessory muscles Cardio: COMMON NORMALS: no JVD, regular rate, regular rhythm, S1 normal heart sound present, S2 normal heart sound present, No gallops present (Cardio), No clicks present (Cardio), No murmurs present (Cardio) and No rub (Cardio) RATE: regular rate RHYTHM: regular rhythm HEART SOUNDS: S1 normal heart sound present and S2 normal heart sound present GI: COMMON NORMALS: Normal to inspection, nondistended, normoactive bowel sounds present, Soft to palpation, non-tender, No hepatosplenomegaly present and no masses PALPATION: Yes Soft to palpation and Yes No hepatosplenomegaly present Extremity: NARRATIVE EXTREMITY EXAM: tender to palpation over left hip area and left knee area. No obvious deformity crepitus noted. There is swelling to left knee. Neuro: COMMON NORMALS: patient oriented x3 SENSORIUM/ORIENTATION: Yes alert Course Vital Signs: Vital signs: Vital Signs Temperature 98.7 F 08/11/23 20:17 Pulse Rate 95 08/11/23 20:17 Respiratory Rate 20 H 08/11/23 20:17 Blood Pressure 130/91 08/11/23 20:17 Pulse Oximetry 97 08/11/23 20:17 MDM - Fall Medical Decision Making Patient presents to the ER from the custodial with falling out of her wheelchair. Patient had her C-spine, head, hip and pelvis, knee, pelvis either CT or x-rayed. They did not show any acute findings. Patient be discharged home. Differential Diagnosis Unlikely syncope, dislocation of shoulder region, fracture of wrist, compression fracture, concussion with loss of consciousness or concussion without loss of consciousness Medical Records I reviewed the patient's medical records. Lab Data I reviewed the patient's lab results. Radiology Impressions Cervical Spine CT 08/11/23 20:[address]: [address] evidence of acute cervical spine traumatic injury. 2. Additional findings, as above. Head CT 08/11/23 20:[address]: [address] evidence of acute intracranial pathology. 2. Additional findings, as above. Hip/Pelvis X-Ray 08/11/23 20:28 IMPRESSION: Possible left superior and inferior pubic rami fractures. Confirmation with CT may be helpful. Knee X-Ray 08/11/23 20:28 IMPRESSION: 1. Severe medial knee compartment primary osteoarthritis. 2. No acute posttraumatic findings. Pelvis CT 08/11/23 21:37 IMPRESSION: 1. Status post hysterectomy. 2. Possible rectal prolapse versus neoplasm in the region of the vagina/vulva/perianal area. Direct inspection may be helpful. 3. No acute fracture. All radiology interpretation(s) finalized by discharge Discharge Plan Discharge Patient Disposition: Home Clinical Impression: Fall, Contusion of multiple sites Condition: Stable Prescriptions: No Action polyethylene glycol 3350 17 gram/dose powder 17 gm PO DAILY PRN (Reason: Constipation) pantoprazole 40 mg tablet,delayed release (DR/EC) 40 mg PO BID Qty: 180 0RF albuterol sulfate 2.5 mg /3 mL (0.083 %) solution for nebulization 2.5 mg inhalation Q4H PRN (Reason: Shortness Of Breath) docusate sodium [Colace] 100 mg capsule 200 mg PO BID diltiazem HCl 240 mg capsule,extended release 24 hr 240 mg PO DAILY nystatin 100,000 unit/gram cream 1 applic topical BID PRN (Reason: Rash) furosemide [Lasix] 40 mg tablet 20 mg PO DAILY potassium chloride 20 mEq tablet,ER particles/crystals 20 meq PO .qod lorazepam 0.5 mg tablet 0.5 mg PO ONCE PRN (Reason: Anxiety) sertraline 50 mg tablet 100 mg PO DAILY sucralfate 100 mg/mL suspension 10 ml PO BID 30 Days Qty: 840 5RF docusate sodium 100 mg capsule 100 mg PO BID Qty: 60 5RF Rx Instructions: avoid taking suppository magnesium L-lactate [Magtab] 84 mg tablet extended release 84 mg PO BID Qty: 60 5RF Eliquis 5 mg tablet 5 mg PO BID Qty: 180 3RF Hold Instructions: Resume on 08/16/22. pantoprazole [Protonix] 40 mg tablet,delayed release (DR/EC) 40 mg PO BID 14 Days Qty: 28 0RF Anti-Gas Maximum Strength 166 mg Capsule 180 mg PO PRN vitamin [id number]-[id number] acid 500-400 mcg Tablet 1 tab PO DAILY magnesium hydroxide [Milk of Magnesia] 400 mg/5 mL Suspension 5 ml PO DAILY PRN (Reason: Constipation) bisacodyl [Dulcolax (bisacodyl)] 10 mg Suppository 10 mg DC DAILY PRN (Reason: Constipation) Vitamin D3 25 mcg (1,000 unit) tablet 2,000 unit PO .COMPLEX Rx Instructions: 2,000 units PO Mon, , Mon; Take on Monday, , Monday Xtampza ER 27 mg cap,sprinkl,ER12hr(DONT CRUSH) 27 mg PO BID acetaminophen 325 mg capsule 500 mg PO Q4H PRN (Reason: fever or pain) Carafate 1 gram tablet 1 g PO BID Discharge Orders: Discharge ED (Routine); Ordered 08/11/23 Ordered By: Javy Reich Referrals: Daniel Hamilton MD [Primary Care Provider] - 1 week Patient Instructions: Contusion in Adults (ED), Fall Prevention for Older Adults (ED) Activity Restrictions/Additional Instructions: Your x-rays and CT scans did not reveal any acute fractures. Please continue your current regimen of pain medicine as previously prescribed. Please follow- up with your family practice doctor over the next 7 to 10 days or sooner as needed for further evaluation and treatment. Coding Level of Care Code ED [employer] Supervisor for Leta Albarran
--- NOTE | 2023-08-11 21:37 | CTR_ITS ---
PROCEDURE INFORMATION: Exam: CT Pelvis Without Contrast Exam date and time: 08/11/2023 10:49 PM Age: 78 years old Clinical indication: Injury or trauma; Blunt trauma (contusions or hematomas); Pelvic region; Prior surgery; Surgery date: 6+ months; Surgery type: Appy. Hysterectomy; Patient HX: Fall out of wheelchair at halfway. Possible left superior/inferior pubic rami fractures noted on plain films. ; Additional info: Fall, abnormal XR, possible FX TECHNIQUE: Imaging protocol: Computed tomography of the pelvis without contrast. Radiation optimization: All CT scans at this facility use at least one of these dose optimization techniques: automated exposure control; mA and/or kV adjustment per patient size (includes targeted exams where dose is matched to clinical indication); or iterative reconstruction. REPORTING DATA: Count of CT and Cardiac NM exams in prior 12 months: This patient has received 2 known CTs and 0 known cardiac nuclear medicine studies in the 12 months prior to the current study. COMPARISON: CT abdomen pelvis w con* [id number] 05/10/2021 3:09 PM RADIATION DOSE METRICS: Total DLP (mGy-cm): 549.64 FINDINGS: Stomach and bowel: Possible rectal prolapse versus neoplasm in the region of the vagina/vulva/perianal area. Direct inspection may be helpful. Appendix: No evidence of appendicitis. Intraperitoneal space: Unremarkable. No free air. No significant fluid collection. Vasculature: Calcification of the abdominal aorta and/or iliac arteries consistent with atherosclerotic vessel disease. Lymph nodes: Unremarkable. No enlarged lymph nodes. Urinary bladder: Normal. No mass. Reproductive: Status post hysterectomy. Bones/joints: Grade 1 anterior non-spondylitic spondylolisthesis of L4 on L5 with central spinal stenosis and prominent bilateral facet hypertrophy and facet degenerative changes. Soft tissues: Unremarkable. CT/CT bony pelvis [id number] IMPRESSION: 1. Status post hysterectomy. 2. Possible rectal prolapse versus neoplasm in the region of the vagina/vulva/perianal area. Direct inspection may be helpful. 3. No acute fracture.
[2023-08-11] MEDS: ondansetron 2 mg/ML SDV 2 mL 4 MG IVP (21:45)
[2023-08-11] MEDS: morphine 4 mg/mL SDV 1 mL IVP (21:45)
[2023-08-12 00:07] VITALS: BP 137/81; PULSE 97; O2SAT 96
[2023-08-12] MEDS: LORazepam 0.5 mg Tablet PO (01:15)
== END 2023-08-12 02:40 | disposition home or self-care (01) ==
PROVIDERS: Emergency Provider Emergency Medicine; PCP Family Medicine
DX: T14.8XXA Other injury of unspecified body region, initial encounter (principal); W05.0XXA Fall from non-moving wheelchair, initial encounter; Y92.129 Unspecified place in nursing home as the place of occurrence of the external cause; I11.0 Hypertensive heart disease with heart failure; I50.30 Unspecified diastolic (congestive) heart failure; J44.9 Chronic obstructive pulmonary disease, unspecified; F17.210 Nicotine dependence, cigarettes, uncomplicated
CPT/HCPCS: 70450; 72125; 72192; 73502; 73562; 96374; 96375; 99285; J2270; J2405

== ENCOUNTER 2023-09-01 08:10 | Outpatient (CLI) | payer OTHER, MEDICAID, SELFPAY ==
--- NOTE | 2023-09-01 08:45 | USCV_ITS ---
Bre Lara Age: 78 Gender: F : 1945 Exam Date: 09/01/2023 08:43 Ordering Phys: Kwabena Marie MD ([email or web address]) Technologist: NATHEN Exam Location: [facility] [place] Indication: afib BP: 122 / 68 HR: 95 Rhythm: Sinus Technical Quality: Adequate MEASUREMENTS (Male / Female) Normal Values 2D ECHO LV Chamber Size 4.7 cm RV Chamber Size 3.0 cm LVOT Diameter 2.0 cm LV Ejection Fraction MOD 2C 57.2 % LV Ejection Fraction 2C AL 57.7 % LA Diameter 5.5 cm LA Width 4.0 cm LA Height 6.5 cm RA Width 4.4 cm RA Height 6.0 cm Aorta at Sinotubular Diameter 2.8 cm IVC Diameter 1.8 cm M-MODE Aortic Annulus Diameter 3.3 cm LA Ao Ratio MM 1.8 MV E Point Septal Separation 1.6 cm DOPPLER AV Peak Velocity 222.0 cm/s LVOT Peak Velocity 111.0 cm/s AV Area Cont Eq vti 1.7 cm squared AV Area Cont Eq pk 1.6 cm squared MV Area PHT 5.4 cm squared Mitral E to A Ratio 3.8 MV E' Velocity 51.5 cm/s Mitral E to MV E' Ratio 10.5 Mitral E to LV E' Lateral Ratio 9.3 Mitral E to LV E' Septal Ratio 12.0 TR Peak Velocity 142.0 cm/s TR Peak Gradient 8.1 mmHg TV Peak E Velocity 97.0 cm/s Right Atrial Pressure 3.0 mmHg Pulmonary Artery Systolic Pressu 11.1 mmHg PV Peak Velocity 99.0 cm/s FINDINGS Left Ventricle Normal left ventricular size and systolic function, EF 55 %. No regional wall motion abnormalities. Right Ventricle The right ventricle is normal in size and function. Right Atrium Mildly increased right atrial size. Left Atrium Moderately increased left atrial size. Mitral Valve Thickened mitral valve. Mild mitral annular calcification. Aortic Valve Mild calcification aortic valve. Aortic valve sclerosis. Tricuspid Valve No gross abnormalities noted Pulmonic Valve No gross abnormalities noted Pericardium Normal pericardium without effusion. Aorta Normal ascending aorta dimension. IVC The inferior vena cava appears normal. CONCLUSIONS Normal left ventricular size and systolic function, EF 55 %. No regional wall motion abnormalities. Thickened mitral valve. Mild mitral annular calcification. Moderately increased left atrial size. Mildly increased right atrial size. Thickened mitral valve. Mild mitral annular calcification. Mild calcification of the aortic valve. Aortic valve sclerosis. There is no pericardial effusion. There are no intracardiac masses. Dr Kwabena Marie MD [facility] (Electronically Signed) Final Date: 03 September 2023 23:34 S
== END 2023-09-01 08:11 | disposition home or self-care (01) ==
LOC: RAD 08:11
PROVIDERS: PCP Family Medicine; Visit Provider Internal Medicine Cardiovascular Disease
DX: I48.91 Unspecified atrial fibrillation (principal); I50.30 Unspecified diastolic (congestive) heart failure; I08.0 Rheumatic disorders of both mitral and aortic valves
CPT/HCPCS: 93306

== ENCOUNTER → 2023-10-24 08:57 | Outpatient (BNVA) | payer OTHER, MEDICAID, SELFPAY | PROVIDERS: PCP Family Medicine; Visit Provider Surgery | DX: K64.9 Unspecified hemorrhoids (principal) | CPT/HCPCS: 99213 ==

== ENCOUNTER 2023-11-02 15:03 | Outpatient (CLI) | payer OTHER, MEDICAID, SELFPAY ==
--- NOTE | 2023-11-02 15:10 | CT_ITS ---
WS: [id number] CT NECK TECHNIQUE: Contrast-enhanced CT of the neck with coronal and sagittal reformatted images. CLINICAL INFORMATION: NON TOXIC SINGLE THYROID NODULE, OTHER DYSPHAGIA COMPARISON: None. DLP: 138.[address] scans at [facility] use at least one of these dose optimization techniques: automated e xposure control; mA and/or kV adjustment per patient size (includes targeted exams where dose is matc hed to clinical indication); or iterative reconstruction. FINDINGS: Some images degraded by motion limited by thoracic kyphosis. RIGHT lower pole thyroid nodule measuring approximately 1.7 x 2.1 cm. Small LEFT thyroid lobe. Aortic calcification. Emphysematous changes in the lung apices. Mastoid air cells are well aerated. Paranas al sinuses are well aerated. Normal posterior nasopharynx. Normal parapharyngeal fat. Parotid glands are normal. Normal submandibular glands. Mild carotid bulb calcification. Normal posterior nasopharynx and parapharyngeal fat. No evidence of supraglottic or glottic mass. No cervical lymphadenopathy. Advancement spondylitic changes cervical s pine. Cervical curve with thoracic kyphosis. IMPRESSION: 1. RIGHT lower pole thyroid nodule measuring 1.7 x 2.1 cm. 2. No cervical lymphadenopathy. 3. Normal salivary glands. 4. No other acute findings.
[2023-11-02] MEDS: iohexol 350 mg/mL 100 mL Btl IV (15:31)
== END 2023-11-02 15:04 | disposition home or self-care (01) ==
LOC: RAD 15:03
PROVIDERS: PCP Family Medicine; Visit Provider Specialist
DX: E04.1 Nontoxic single thyroid nodule (principal); R13.19 Other dysphagia; H69.83 Other specified disorders of Eustachian tube, bilateral
CPT/HCPCS: 70491; Q9967

== ENCOUNTER 2023-12-09 18:47 | Emergency (ER) | payer OTHER, MEDICAID, SELFPAY ==
[2023-12-09 18:49] VITALS: BP 142/73; PULSE 68; RESP 20; TEMP 37.1; O2SAT 94; BMI 37.2
--- NOTE | 2023-12-09 19:11 | XRR_ITS ---
PROCEDURE INFORMATION: Exam: XR Chest Exam date and time: 12/09/2023 7:41 PM Age: 78 years old Clinical indication: Other: AMS; Prior surgery; Surgery date: 6+ months; Surgery type: Shoulder. Gb; Patient HX: EMS arrival from [facility] for confusion. History of chf, copd, and afib. TECHNIQUE: Imaging protocol: Radiologic exam of the chest. Views: 1 view. COMPARISON: CR XR chest 1V portable [id number] 07/27/2021 6:49 AM FINDINGS: Lungs: Unremarkable. No consolidation. Pleural spaces: Left costophrenic angle is obscured and a small pleural effusion cannot be excluded. Heart/Mediastinum: Cardiomegaly. Vasculature: There is calcified plaque in the aortic arch. Bones/joints: Unremarkable. XR/XR chest 1V portable [id number] IMPRESSION: Cardiomegaly.
--- NOTE | 2023-12-09 19:11 | CTR_ITS ---
PROCEDURE INFORMATION: Exam: CT Head Without Contrast Exam date and time: 12/09/2023 8:01 PM Age: 78 years old Clinical indication: Altered mental status/memory loss; Patient HX[facility] TECHNIQUE: Imaging protocol: Computed tomography of the head without contrast. Radiation optimization: All CT scans at this facility use at least one of these dose optimization techniques: automated exposure control; mA and/or kV adjustment per patient size (includes targeted exams where dose is matched to clinical indication); or iterative reconstruction. COMPARISON: CT head wo con* [id number] 08/11/2023 8:35 PM RADIATION DOSE METRICS: Total DLP (mGy-cm): 1067.88 FINDINGS: Brain: There is diffuse cerebral atrophy present, consistent with this patient's age. Periventricular and subcortical white matter low densities are present which at this age likely represent microvascular ischemic change. No evidence for large acute ischemic infarction. Please note acute ischemia can be occult by head CT. No evidence for acute intracranial hemorrhage. Cerebral ventricles: No ventriculomegaly. Paranasal sinuses: Visualized sinuses are unremarkable. No fluid levels. Mastoid air cells: Visualized mastoid air cells are well aerated. Bones/joints: Unremarkable. No acute fracture. Soft tissues: Unremarkable. Vasculature: Calcified plaque is present within the carotid siphons. Other findings: Incidental benign floccular calcifications. CT/CT head wo con* [id number] IMPRESSION: There are senescent changes of the brain as described above. No evidence for large acute ischemic infarction or acute intracranial injury.
--- NOTE | 2023-12-09 19:17 | ED_ITS ---
HPI - Altered Mental Status 2 General: Chief Complaint: Altered Mental Status Stated Complaint: AMS Time Seen by Provider: 12/09/23 18:56 History of Present Illness: 78-year-old female presenting from a [facility] home environment with altered mental status. The report given to nursing staff was that she seemed confused, more than usual. She was holding her phone, asked where her phone was. She pushed her call light for someone to come and, when a staff member was already inside the room. On EMS arrival, she seemed alert, oriented to situation. She has 2 complaints. First is chronic back pain. The second is burning when she urinates. She is chilled, but not febrile. Review of Systems 2 Const: Reports: chills; Denies: fever(s) ENMT: Denies: throat pain Card: Reports: palpitations; Denies: chest pain Resp: Denies: dyspnea, productive cough or non-productive cough GI: Denies: abdominal pain, nausea or vomiting : Reports: difficulty voiding and dysuria PFSH ED 2 PFSH: Medical History Aftercare following surgery of the genitourinary system Diastolic heart failure Fracture of ribs, multiple Acute exacerbation of CHF (congestive heart failure) UTI (urinary tract infection) Urolithiasis Benign essential hypertension with target blood pressure below 140/90 Chronic episodic atrial fibrillation Osteoarthritis of left knee Chronic venous insufficiency of lower extremity Urgency incontinence Recurrent UTI COPD (chronic obstructive pulmonary disease) Other cervical disc displacement, unspecified cervical region GERD (gastroesophageal reflux disease) Hypercholesterolemia Sleep apnea Surgical History H/O of anterior colporrhaphy 07/21/2021- anterior colporrhaphy, single incision mid urethral sling and cystoscopy performed by Dr. Wilder at [facility] Status post colonoscopy (07/14/20) H/O esophagogastroduodenoscopy (07/14/20) S/P hysterectomy History of cholecystectomy History of appendectomy H/O knee surgery H/O shoulder surgery H/O cataract extraction Family History Father Stroke Mother Cancer BLADDER, BREAST Brother Cancer ESOPHAGEAL Family/Other Cancer Sister Cancer Suicide Denies family history of Diabetes CAD (coronary artery disease) Clotting disorder Dementia Chronic kidney disease (CKD) Anesthesia complication Bleeding disorder Lung disease Social History Smoking and tobacco/nicotine status: current every day tobacco/nicotine user cigarettes Alcohol intake: never Substance/Drug Use: never Marital status: Current occupational status: disabled Physical Exam 2 Const: COMMON NORMALS: no acute distress GENERAL APPEARANCE: frail appearing HENMT: COMMON NORMALS: normocephalic and atraumatic HEAD & SCALP: n ormocephalic and atraumatic FACE & SINUS: normal facial exam and face symmetric Eye: COMMON NORMALS: Equal, round and reactive pupils present and EOMs intact bilaterally PUPIL: Yes Equal, round and reactive pupils present Neck/C-Spine: GENERAL: Yes trachea midline Chest: CHEST: Yes Symmetrical chest wall rise Resp: COMMON NORMALS: normal respiratory effort, No use of accessory muscles and clear to auscultation bilaterally AUSCULTATION: clear to auscultation bilaterally Cardio: COMMON NORMALS: regular rate and regular rhythm RATE: regular rate RHYTHM: regular rhythm GI: COMMON NORMALS: Normal to inspection, nondistended, normoactive bowel sounds present Extremity: COMMON NORMALS: no pedal edema Course 2 Vital Signs: Vital signs: Vital Signs Temperature 98.8 F 12/09/23 23:00 Pulse Rate 74 12/09/23 23:00 Respiratory Rate 16 12/09/23 23:00 Blood Pressure 125/79 12/09/23 23:00 Pulse Oximetry 92 12/09/23 23:00 Oxygen Delivery Me thod Room Air 12/09/23 22:10 MDM - Altered Mental Status Medical Decision Making 78-year-old female with mild mental status changes. She has no focal neurological deficits. Her vitals have been stable. She is afebrile. Her white blood cell count is 5.8. Hemoglobin 11.3. Chest x-ray is nonacute. Head CT is nonacute. She has a significant urinary tract infection by urinalysis. This is treated with IV antibiotics here. She will continue oral antibiotics. She will be allowed back to the residential. Lab Data 12/09/23 19:40 12/09/23 19:40 Radiology Impressions Chest X-Ray 12/09/23 19:11 IMPRESSION: Cardiomegaly. Head CT 12/09/23 19:11 IMPRESSION: There are senescent changes of the brain as described above. No evidence for large acute ischemic infarction or acute intracranial injury. Laboratory Results WBC 5.76 10^3/uL (3.29-11.43) 12/09/23 19:40 RBC 4.28 10^6/uL (3.85-5.65) 12/09/23 19:40 Hgb 11.30 g/dL (11.27-16.99) 12/09/23 19:40 Hct 38.0 % (36-47) 12/09/23 19:40 MCV 88.8 fl (85-98) 12/09/23 19:40 MCH 26.4 pg (27-33) L 12/09/23 19:40 MCHC 29.7 g/dL (30-55) L 12/09/23 19:40 RDW 15.5 % (12.1-15.1) H 12/09/23 19:40 Plt Count 170 10^3/cmm (157-399) 12/09/23 19:40 MPV 10.1 fL (7.4-10.4) 12/09/23 19:40 Neut % (Auto) 57.3 % 12/09/23 19:40 Lymph % (Auto) 30.4 % 12/09/23 19:40 [place] % (Auto) 8.5 % 12/09/23 19:40 Eos % (Auto) 3.1 % 12/09/23 19:40 Baso % (Auto) 0.5 % 12/09/23 19:40 Neut # (Auto) 3.30 10^3/uL (1.8-7.7) 12/09/23 19:40 Lymph # (Auto) 1.8 10^3/uL (0.8-4.8) 12/09/23 19:40 [place] # (Auto) 0.5 10^3/uL (0.2-0.9) 12/09/23 19:40 Eos # (Auto) 0.2 10^3/uL (0.0-0.8) 12/09/23 19:40 Baso # (Auto) 0.0 10^3/uL (0.0-0.1) 12/09/23 19:40 Nucleated RBC % (auto) 0 % 12/09/23 19:40 Nucleated RBCs # 0.0 /100WBC 12/09/23 19:40 PT 14.90 SECONDS (12.1-14.9) 12/09/23 19:40 INR 1.13 (0.8-1.2) 12/09/23 19:40 APTT 31.9 SECONDS (23.9-36.7) 12/09/23 19:40 Sodium 146 mmol/L (136-145) H 12/09/23 19:40 Potassium 4.1 mmol/L (3.5-5.1) 12/09/23 19:40 Chloride 106 mmol/L (98-107) 12/09/23 19:40 Carbon Dioxide 30 mmol/L (22-29) H 12/09/23 19:40 Anion Gap 14.1 (5-19) 12/09/23 19:40 BUN 14 mg/dL (8-23) 12/09/23 19:40 Creatinine 0.8 mg/dL (0.5-0.9) 12/09/23 19:40 GFR Calculation Not Reportable 12/09/23 19:40 Glucose 114 mg/dL (65-115) 12/09/23 19:40 Calculated Osmolality 303 mOsm/kg (285-295) H 12/09/23 19:40 Lactic Acid 1.2 mmol/L (0.5-2.2) 12/09/23 19:40 Calcium 10.3 mg/dL (8.5-10.5) 12/09/23 19:40 Total Bilirubin 0.2 mg/dL (0.15-1.2) 12/09/23 19:40 AST 9 U/L (0-32) 12/09/23 19:40 ALT 7 U/L (0-33) 12/09/23 19:40 Alkaline Phosphatase 115 U/L (35-105) H 12/09/23 19:40 C-Reactive Protein 17.8 mg/L (0.0-4.9) H 12/09/23 19:40 Total Protein 6.6 g/dL (6.6-8.7) 12/09/23 19:40 Albumin 3.8 g/dL (3.5-5.2) 12/09/23 19:40 Globulin 2.8 g/dL (1.3-4.6) 12/09/23 19:40 Urine Color Straw (Yellow) 12/09/23 20:34 Urine Appearance Hazy (CLEAR) A 12/09/23 20:34 Urine pH 7 (5-7) 12/09/23 20:34 Ur Specific [place] 1.010 (1.005-1.030) 12/09/23 20:34 Urine Protein Neg (Negative) 12/09/23 20:34 Urine Glucose (UA) Norm (Normal) 12/09/23 20:34 Urine Ketones Negative (Negative) 12/09/23 20:34 Urine Blood Neg (Negative) 12/09/23 20:34 Urine Nitrate Negative (Negative) 12/09/23 20:34 Urine Bilirubin Neg (Negative) 12/09/23 20:34 Urine Urobilinogen Neg mg/dL (Negative) 12/09/23 20:34 Ur Leukocyte Esterase 2+ (Negative) H 12/09/23 20:34 Urine RBC 0-4 /hpf (0-2) H 12/09/23 20:34 Urine WBC 25-40 /hpf (0-5) H 12/09/23 20:34 Ur Squamous Epith Cells 0-4 /hpf (0-5) H 12/09/23 20:34 Amorphous Sediment Not Reportable 12/09/23 20:34 Urine Bacteria 3+ /hpf (NONE) H 12/09/23 20:34 Urine Mucus Trace /hpf 12/09/23 20:34 All radiology interpretation(s) finalized by discharge Discharge Plan Discharge Patient Disposition: Home Clinical Impression: Acute UTI Condition: Stable Prescriptions: New cefdinir 300 mg capsule 300 mg PO BID Qty: 14 0RF No Action polyethylene glycol 3350 17 gram/dose powder 17 gm PO DAILY PRN (Reason: Constipation) pantoprazole 40 mg tablet,delayed release (DR/EC) 40 mg PO BID Qty: 180 0RF albuterol sulfate 2.5 mg /3 mL (0.083 %) solution for nebulization 2.5 mg inhalation Q4H PRN (Reason: Shortness Of Breath) docusate sodium [Colace] 100 mg capsule 200 mg PO BID diltiazem HCl 240 mg capsule,extended release 24 hr 240 mg PO DAILY nystatin 100,000 unit/gram cream 1 applic topical BID PRN (Reason: Rash) furosemide [Lasix] 40 mg tablet 20 mg PO DAILY potassium chloride 20 mEq tablet,ER particles/crystals 20 meq PO .qod lorazepam 0.5 mg tablet 0.5 mg PO ONCE PRN (Reason: Anxiety) sertraline 50 mg tablet 100 mg PO DAILY sucralfate 100 mg/mL suspension 10 ml PO BID 30 Days Qty: 840 5RF docusate sodium 100 mg capsule 100 mg PO BID Qty: 60 5RF Rx Instructions: avoid taking suppository magnesium L-lactate [Magtab] 84 mg tablet extended release 84 mg PO BID Qty: 60 5RF Eliquis 5 mg tablet 5 mg PO BID Qty: 180 3RF Hold Instructions: Resume on 08/16/22. pantoprazole [Protonix] 40 mg tablet,delayed release (DR/EC) 40 mg PO BID 14 Days Qty: 28 0RF Anti-Gas Maximum Strength 166 mg Capsule 180 mg PO PRN vitamin P90-zwnil acid 500-400 mcg Tablet 1 tab PO DAILY magnesium hydroxide [Milk of Magnesia] 400 mg/5 mL Suspension 5 ml PO DAILY PRN (Reason: Constipation) bisacodyl [Dulcolax (bisacodyl)] 10 mg Suppository 10 mg IN DAILY PRN (Reason: Constipation) Vitamin D3 25 mcg (1,000 unit) tablet 2,000 unit PO .COMPLEX Rx Instructions: 2,000 units PO Mon, , Mon; Take on Monday, , Monday Xtampza ER 27 mg cap,sprinkl,ER12hr(DONT CRUSH) 27 mg PO BID acetaminophen 325 mg capsule 500 mg PO Q4H PRN (Reason: fever or pain) Carafate 1 gram tablet 1 g PO BID Discharge Orders: Discharge ED (Routine); Ordered 12/09/23 Ordered By: Sammy Cedeno Referrals: Daniel Hamilton MD [Primary Care Provider] - Patient Instructions: Altered Mental Status (ED), Opioid Safety, Pain Management Activity Restrictions/Additional Instructions: Return for fever despite 2-3 doses of antibiotics, worsening mental status, any other concerning symptoms. Antibiotics as directed. Follow-up with your doctor. Coding Level of Care Code ED Balance Truer for Leta Albarran
[2023-12-09 19:45] LABS: Basophils % 0.5 %; Eosinophils # 0.2 10^3/uL (0.0-0.8); Eosinophils % 3.1 %; Lymphocytes # 1.8 10^3/uL (0.8-4.8); Lymphocytes % 30.4 %; Mean Corpuscular HGB Conc 29.7 g/dL (30-55); Mean Corpuscular Hemoglobin 26.4 pg (27-33); Mean Corpuscular Volume 88.8 fl (85-98); Mean Platelet Volume 10.1 fL (7.4-10.4); Monocytes # 0.5 10^3/uL (0.2-0.9); Monocytes % 8.5 %; Neutrophils % 57.3 %; Nucleated Red Blood Cells % 0 %; Platelet Count 170 10^3/cmm (157-399); Red Blood Count 4.28 10^6/uL (3.85-5.65); Red Cell Distribution Width 15.5 % (12.1-15.1); White Blood Count 5.76 10^3/uL (3.29-11.43)
--- NOTE | 2023-12-09 19:56 | ECG_ITS ---
[facility] Test Date: 2023-12-09 Pat Name: Bre Lara Department: Room: Gender: Female Document Preparer Microfilming: : 1945 Requested By: Sammy Martinez Order Number: [id number] Emmanuel MD: Kwabena Marie M.D. Measurements Intervals [place] Rate: 72 P: 0 MN: 0 QRS: -15 QRSD: 85 T: 146 QT: 392 QTc: 431 Interpretive Statements ATRIAL FIBRILLATION LOW QRS VOLTAGE IN PRECORDIAL LEADS [QRS DEFLECTION < 1.0 mV IN CHEST LEADS] MINIMAL VOLTAGE CRITERIA FOR LVH, CONSIDER NORMAL VARIANT [MEETS CRITERIA IN ONE OF: R(aVL), S(V1), R(V5), R(V5/V6)+S(V1)] ST DEVIATION AND MODERATE T-WAVE ABNORMALITY, CONSIDER LATERAL ISCHEMIA [-0.1+ mV T-WAVE IN I/aVL/V5/V6] Compared to ECG 07/26/2021 16:25:55 Low QRS voltage now present Ventricular premature complex(es) no longer present Aberrant conduction of supraventricular beat(s) no longer present Myocardial infarct finding no longer present T-wave abnormality still present Possible ischemia still present Electronically Signed On 12-10-2023 18:36:42 CDT by Kwabena Marie M.D. [id number]
[2023-12-09 19:57] LABS: INR 1.13 (0.8-1.2)
[2023-12-09 19:58] LABS: Partial Thromboplastin Time 31.9 SECONDS (23.9-36.7)
[2023-12-09 20:02] LABS: Alanine Aminotransferase 7 U/L (0-33); Albumin Level 3.8 g/dL (3.5-5.2); Alkaline Phosphatase 115 U/L (35-105); Anion Gap 14.1 (5-19); Aspartate Amino Transferase 9 U/L (0-32); Blood Urea Nitrogen 14 mg/dL (8-23); C Reactive Protein 17.8 mg/L (0.0-4.9); Calcium 10.3 mg/dL (8.5-10.5); Carbon Dioxide 30 mmol/L (22-29); Chloride 106 mmol/L (98-107); Creatinine Clr Calc Pharmacy 66.6683; Globulin 2.8 g/dL (1.3-4.6); Glucose 114 mg/dL (65-115); Lactic Sepsis W/Reflex 1.2 mmol/L (0.5-2.2); Osmolality Calculated 303 mOsm/kg (285-295); Potassium 4.1 mmol/L (3.5-5.1); Sodium 146 mmol/L (136-145); Total Bilirubin 0.2 mg/dL (0.15-1.2); Total Protein 6.6 g/dL (6.6-8.7)
[2023-12-09 20:53] LABS: Glucose Urine UA Norm (Normal); Ketones Urine Negative (Negative); Protein Urine Neg (Negative); Urine Appearance Hazy (CLEAR); Urine Color Straw (Yellow); pH Urine 7 (5-7)
[2023-12-09 20:54] LABS: Add Urine Microscopic? YES; Bacteria Urine 3+ /hpf; Bilirubin Urine Neg (Negative); Blood Urine Neg (Negative); Leukocyte Esterase Urine 2+ (Negative); Mucus Urine TRACE /hpf; Nitrate Urine Negative (Negative); RBC Urine 0-4 /hpf (0-2); Squamous Epithelial Cell Urine 0-4 /hpf (0-5); Urobilinogen Urine Neg (Negative); WBC Urine 25-40 /hpf (0-5)
[2023-12-09 20:55] LABS: Add Urine Culture? Yes
[2023-12-09] MEDS: cefTRIAXone 1,000 MG in sodium chloride 0.9% (plus) 50 ML 100 MG IV (21:17)
[2023-12-09 22:10] VITALS: BP 125/79; PULSE 74; RESP 16; O2SAT 92
[2023-12-09 23:00] VITALS: BP 125/79; PULSE 74; RESP 16; TEMP 37.1; O2SAT 92
== END 2023-12-09 23:02 | disposition home or self-care (01) ==
PROVIDERS: Emergency Provider Emergency Medicine; PCP Family Medicine
DX: N39.0 Urinary tract infection, site not specified (principal); Z79.01 Long term (current) use of anticoagulants; F17.210 Nicotine dependence, cigarettes, uncomplicated; I11.0 Hypertensive heart disease with heart failure; I50.9 Heart failure, unspecified; J44.9 Chronic obstructive pulmonary disease, unspecified
CPT/HCPCS: 36415; 70450; 71045; 80053; 81001; 83605; 85025; 85610; 85730; 86140; 87077; 87086; 87186; 93005; 96365; 99285; J0696

== ENCOUNTER → 2024-01-18 15:48 | Outpatient (BNVA) | payer OTHER, MEDICAID, SELFPAY | PROVIDERS: PCP Family Medicine; Visit Provider Internal Medicine Cardiovascular Disease | DX: R06.02 Shortness of breath (principal); I10 Essential (primary) hypertension | CPT/HCPCS: 80048; 83880; 99214 ==

== ENCOUNTER 2024-02-01 13:26 | Inpatient (IN) | payer OTHER, MEDICAID, SELFPAY ==
[2024-02-01] VITALS (12 sets, daily range): BP systolic 100–164; BP diastolic 53–94; PULSE 80–113; RESP 17–26; TEMP 36.3–39.6; O2SAT 92–98; BMI 35.9; BMI 37.8
--- NOTE | 2024-02-01 13:46 | CT_ITS ---
WS: [id number] CT HEAD NONCONTRAST HISTORY: ams TECHNIQUE: Contiguous axial imaging performed through the brain in 3.0 mm imaging. Bone and soft tiss ue windows. Sagittal and coronal reformats reviewed. All CT scans at [facility] use at least one of these dose optimization techniques: automated exposure control; mA and/or kV adjustment per pa tient size (includes targeted exams where dose is matched to clinical indication); or iterative recon struction. DLP: 1141.88 mGy.cm COMPARISON: 12/09/2023 Diffuse marked atrophy of the brain similar to the prior study. Mild small vessel ischemic disease. N o prior infarct. No hemorrhage. No midline shift or mass effect. Ventricles: Normal size with no hydrocephalus. No inferior displacement of the cerebellar tonsils. Paranasal sinuses: As visualized are clear. Mastoid air cells: Well pneumatized. Calvarium and scalp: Skull is intact with no soft tissue edema or swelling. CT/CT head wo con* [id number] IMPRESSION: 1. Advanced cerebral atrophy. 2. No acute intracranial hemorrhage or edema. 3. Stable noncontrast head CT since 12/09/2023
--- NOTE | 2024-02-01 13:46 | XR_ITS ---
WS: [id number] Portable AP upright chest, 02/01/2024 Clinical Data: fever Comparison: Portable chest, 12/09/2023 Findings: No nodules, masses or effusions are seen. The heart is slightly enlarged. The pulmonary vas cularity is not increased. No pneumonia or pneumothorax is seen. The aortic arch shows mild calcifica tion and tortuosity. There is a dextroscoliosis of the thoracic spine. There is an old right lateral sixth rib fracture. Monitor leads are on the chest wall. XR/XR chest 1V portable [id number] Impression: Atherosclerosis and cardiomegaly.
--- NOTE | 2024-02-01 13:54 | ECG_ITS ---
[facility] Test Date: 2024-02-01 Pat Name: Bre Lara Department: Room: Gender: Female Trainer: : 1945 Requested By: Roland Smith Order Number: [id number] Emmanuel MD: Keven Leyva M.D. Measurements Intervals [place] Rate: 102 P: 0 TN: 0 QRS: -24 QRSD: 92 T: 160 QT: 319 QTc: 417 Interpretive Statements ATRIAL FIBRILLATION WITH RAPID VENTRICULAR RESPONSE LOW QRS VOLTAGE IN PRECORDIAL LEADS [QRS DEFLECTION < 1.0 mV IN CHEST LEADS] VOLTAGE CRITERIA FOR LVH [MEETS CRITERIA IN ONE OF: R(aVL), S(V1), R(V5), R(V5/V6)+S(V1)] INFERIOR MYOCARDIAL INFARCTION , PROBABLY OLD [40+ ms Q WAVE AND/OR ST/T ABNORMALITY IN II/aVF] MODERATE T-WAVE ABNORMALITY, CONSIDER LATERAL ISCHEMIA [-0.1+ mV T-WAVE IN I/aVL/V5/V6] Compared to ECG 12/09/2023 19:56:11 Myocardial infarct finding now present T-wave abnormality still present Possible ischemia still present Electronically Signed On 02-01-2024 17:07:56 CDT by Keven Leyva M.D. [id number]
[2024-02-01 14:06] LABS: Basophils % 0.2 %; Hematocrit 38.9 % (36-47); Lymphocytes # 0.5 10^3/uL (0.8-4.8); Lymphocytes % 5.3 %; Mean Corpuscular HGB Conc 29.3 g/dL (30-55); Mean Corpuscular Volume 88.8 fl (85-98); Mean Platelet Volume 10.9 fL (7.4-10.4); Monocytes # 0.7 10^3/uL (0.2-0.9); Monocytes % 7.4 %; Neutrophils % 86.8 %; Nucleated Red Blood Cells % 0 %; Platelet Count 146 10^3/cmm (157-399); Red Blood Count 4.38 10^6/uL (3.85-5.65); Red Cell Distribution Width 16.4 % (12.1-15.1)
[2024-02-01] MEDS: sodium chloride 0.9% 1,000 ML 999 ML IV ×2 (14:08→15:46)
[2024-02-01] MEDS: acetaminophen 1,000 MG/100 ML PIGGYBACK 400 MG IV (14:11)
[2024-02-01 14:16] LABS: ABG PH Result 7.39 (7.35-7.45); Arterial Blood Gas Hematocrit 40.8 % (37-47); Base Excess ABG 1.6 mmol/L (-2.0-2.0); Blood Gas Allen Test Pos; Blood Gas LPM 2.5 %; Blood Gas Operator Identificat glc; Blood Gas Sample Site Radial, left; Blood Gas Sample Type Arterial; HCO3 ABG 26.9 mmol/L (22-26); Oxygen Device NC; PO2 FiO2 Ratio Arterial Blood 0
[2024-02-01 14:18] LABS: Blood Gas CCRB Time 1418
[2024-02-01 14:37] LABS: Alanine Aminotransferase 8 U/L (0-33); Albumin Level 3.9 g/dL (3.5-5.2); Alkaline Phosphatase 113 U/L (35-105); Blood Urea Nitrogen 13 mg/dL (8-23); Calcium 9.9 mg/dL (8.5-10.5); Carbon Dioxide 23 mmol/L (22-29); Chloride 105 mmol/L (98-107); Creatinine Clr Calc Pharmacy 57.1192; Globulin 2.4 g/dL (1.3-4.6); Glucose 196 mg/dL (65-115); NT Pro B Type Natriuretic Pept 1401 pg/mL (0-450); Osmolality Calculated 296 mOsm/kg (285-295); Sodium 140 mmol/L (136-145); Thyroid Stimulating Hormone 0.65 uIU/mL (0.27-4.20); Total Bilirubin 0.4 mg/dL (0.15-1.2); Total Protein 6.3 g/dL (6.6-8.7)
[2024-02-01 14:40] LABS: Aspartate Amino Transferase 17 U/L (0-32)
--- NOTE | 2024-02-01 15:25 | W.ED.WEAKNES ---
HPI - Weakness General: Chief complaint: Weakness Stated complaint: ams, possible sepsis Time Seen by Provider: 02/01/24 13:45 Source: EMS Mode of arrival: EMS Limitations: altered mental status History of Present Illness: 78-year-old female is here from a custodial she has been altered throughout the day today she is also been febrile she has a fever 103 here. She is able to tell me her name she is confused otherwise. No known cough no known vomiting or diarrhea. Review of Systems General: Reports: ROS unobtainable due to mental status PFSH ED PFSH: Medical History Aftercare following surgery of the genitourinary system Diastolic heart failure Fracture of ribs, multiple Acute exacerbation of CHF (congestive heart failure) UTI (urinary tract infection) Urolithiasis Benign essential hypertension with target blood pressure below 140/90 Chronic episodic atrial fibrillation Osteoarthritis of left knee Chronic venous insufficiency of lower extremity Urgency incontinence Recurrent UTI COPD (chronic obstructive pulmonary disease) Other cervical disc displacement, unspecified cervical region GERD (gastroesophageal reflux disease) Hypercholesterolemia Sleep apnea Surgical History H/O of anterior colporrhaphy 07/21/2021- anterior colporrhaphy, single incision mid urethral sling and cystoscopy performed by Dr. Wilder at [facility] Status post colonoscopy (07/14/20) H/O esophagogastroduodenoscopy (07/14/20) S/P hysterectomy History of cholecystectomy History of appendectomy H/O knee surgery H/O shoulder surgery H/O cataract extraction Family History Father Stroke Mother Cancer BLADDER, BREAST Brother Cancer ESOPHAGEAL Family/Other Cancer Sister Cancer Suicide Denies family history of Diabetes CAD (coronary artery disease) Clotting disorder Dementia Chronic kidney disease (CKD) Anesthesia complication Bleeding disorder Lung disease Social History Smoking and tobacco/nicotine status: current every day tobacco/nicotine user cigarettes Alcohol intake: never Substance/Drug Use: never Marital status: Current occupational status: disabled Physical Exam Const: COMMON NORMALS: alert; negative for patient oriented x3 GENERAL APPEARANCE: ill appearing ORIENTATION/CONSCIOUSNESS: Yes oriented to person; not oriented to place and not oriented to time HENMT: COMMON NORMALS: normocephalic and atraumatic HEAD & SCALP: normocephalic and atraumatic Neck/C-Spine: COMMON NORMALS: full ROM and supple Chest: COMMONS NORMALS: normal inspection of the chest Resp: COMMON NORMALS: normal respiratory effort, No retractions, No use of accessory muscles and clear to auscultation bilaterally AUSCULTATION: clear to auscultation bilaterally Cardio: COMMON NORMALS: regular rate, regular rhythm and No murmurs present (Cardio) RATE: regular rate RHYTHM: regular rhythm GI: COMMON NORMALS: Normal to inspection, nondistended, normoactive bowel sounds present, Soft to palpation, non-tender and no masses PALPATION: Yes Soft to palpation Extremity: COMMON NORMALS: normal to inspection and full ROM Neuro: COMMON NORMALS: moves all extremities and no focal motor deficits; negative for patient oriented x3 SENSORIUM/ORIENTATION: Yes alert, Yes oriented to person, No oriented to place and No oriented to time Psych: COMMON NORMALS: mental status grossly normal, Normal thought process present and cooperative THOUGHT PROCESS: Normal thought process present Skin: COMMON NORMALS: no rashes or lesions noted and no wounds GENERAL SKIN EXAM: no rashes or lesions noted Course Vital Signs: Vital signs: Vital Signs Temperature 103.2 F H 02/01/24 13:36 Pulse Rate 113 H 02/01/24 13:36 Respiratory Rate 26 H 02/01/24 13:36 Blood Pressure 164/94 02/01/24 13:36 Pulse Oximetry 92 02/01/24 13:36 Oxygen Delivery Me thod Nasal Cannula 02/01/24 13:36 Oxygen Flow Rate 3 02/01/24 13:36 MDM - Weakness Medical Decision Making Patient presents with fever along with ultimately status she was found to have a UTI her vital signs here have been normal her heart rates improved after fever improved currently 91 her blood pressures been normal as well. Patient given 2 L of fluid here did not give her the full sepsis bolus that she has a history of CHF and did not want to cause fluid overload she did get IV antibiotics I spoke to the hospitalist will admit Medical Records I reviewed the patient's medical records. Lab Data I reviewed the patient's lab results. 02/01/24 13:55 02/01/24 13:55 Radiology Impressions Chest X-Ray 02/01/24 13:46 Impression: Atherosclerosis and cardiomegaly. Head CT 02/01/24 13:46 IMPRESSION: 1. Advanced cerebral atrophy. 2. No acute intracranial hemorrhage or edema. 3. Stable noncontrast head CT since 12/09/2023 Laboratory Results WBC 9.00 10^3/uL (3.29-11.43) 02/01/24 13:55 RBC 4.38 10^6/uL (3.85-5.65) 02/01/24 13:55 Hgb 11.40 g/dL (11.27-16.99) 02/01/24 13:55 Hct 38.9 % (36-47) 02/01/24 13:55 MCV 88.8 fl (85-98) 02/01/24 13:55 MCH 26.0 pg (27-33) L 02/01/24 13:55 MCHC 29.3 g/dL (30-55) L 02/01/24 13:55 RDW 16.4 % (12.1-15.1) H 02/01/24 13:55 Plt Count 146 10^3/cmm (157-399) L 02/01/24 13:55 MPV 10.9 fL (7.4-10.4) H 02/01/24 13:55 Neut % (Auto) 86.8 % 02/01/24 13:55 Lymph % (Auto) 5.3 % 02/01/24 13:55 [place] % (Auto) 7.4 % 02/01/24 13:55 Eos % (Auto) 0.0 % 02/01/24 13:55 Baso % (Auto) 0.2 % 02/01/24 13:55 Neut # (Auto) 7.80 10^3/uL (1.8-7.7) H 02/01/24 13:55 Lymph # (Auto) 0.5 10^3/uL (0.8-4.8) L 02/01/24 13:55 [place] # (Auto) 0.7 10^3/uL (0.2-0.9) 02/01/24 13:55 Eos # (Auto) 0.0 10^3/uL (0.0-0.8) 02/01/24 13:55 Baso # (Auto) 0.0 10^3/uL (0.0-0.1) 02/01/24 13:55 Nucleated RBC % (auto) 0 % 02/01/24 13:55 Nucleated RBCs # 0.0 /100WBC 02/01/24 13:55 PT 15.60 SECONDS (12.1-14.9) H 02/01/24 13:55 INR 1.20 (0.8-1.2) 02/01/24 13:55 Specimen Type Arterial 02/01/24 14:00 Sample Site Radial, left 02/01/24 14:00 ABG pH 7.39 (7.35-7.45) 02/01/24 14:00 ABG pCO2 44.0 mmHg (35-45) 02/01/24 14:00 ABG pO2 115.0 mmHg (80.0-100.0) H 02/01/24 14:00 ABG PO2/FiO2 Ratio 0 02/01/24 14:00 ABG HCO3 26.9 mmol/L (22-26) H 02/01/24 14:00 ABG Base Excess 1.6 mmol/L (-2.0-2.0) 02/01/24 14:00 Jj Test Pos 02/01/24 14:00 Hematocrit 40.8 % (37-47) 02/01/24 14:00 O2 Delivery Device Nc 02/01/24 14:00 O2 Liters/Min 2.5 % 02/01/24 14:00 FiO2 30.0 % 02/01/24 14:00 [place] ID glc 02/01/24 14:00 Blood Gas Notified Time 1418 02/01/24 14:00 Sodium 140 mmol/L (136-145) 02/01/24 13:55 Potassium 4.0 mmol/L (3.5-5.1) 02/01/24 13:55 Chloride 105 mmol/L (98-107) 02/01/24 13:55 Carbon Dioxide 23 mmol/L (22-29) 02/01/24 13:55 Anion Gap 16.0 (5-19) 02/01/24 13:55 BUN 13 mg/dL (8-23) 02/01/24 13:55 Creatinine 0.9 mg/dL (0.5-0.9) 02/01/24 13:55 GFR Calculation Not Reportable 02/01/24 13:55 Glucose 196 mg/dL (65-115) H 02/01/24 13:55 POC Glucose 201 mg/dL (70-110) H 02/01/24 15:29 Calculated Osmolality 296 mOsm/kg (285-295) H 02/01/24 13:55 Lactic Acid 2.0 mmol/L (0.5-2.2) 02/01/24 13:55 Calcium 9.9 mg/dL (8.5-10.5) 02/01/24 13:55 Magnesium 2.0 mg/dL (1.7-2.3) 02/01/24 13:55 Total Bilirubin 0.4 mg/dL (0.15-1.2) 02/01/24 13:55 AST 17 U/L (0-32) 02/01/24 13:55 ALT 8 U/L (0-33) 02/01/24 13:55 Alkaline Phosphatase 113 U/L (35-105) H 02/01/24 13:55 NT-Pro-B Natriuret Pep 1401 pg/mL (0-450) H 02/01/24 13:55 Total Protein 6.3 g/dL (6.6-8.7) L 02/01/24 13:55 Albumin 3.9 g/dL (3.5-5.2) 02/01/24 13:55 Globulin 2.4 g/dL (1.3-4.6) 02/01/24 13:55 TSH 0.65 uIU/mL (0.27-4.20) 02/01/24 13:55 Urine Color Yellow (Yellow) 02/01/24 14:36 Urine Appearance Slightly cloudy (CLEAR) 02/01/24 14:36 Urine pH 6 (5-7) 02/01/24 14:36 Ur Specific [place] 1.010 (1.005-1.030) 02/01/24 14:36 Urine Protein Neg (Negative) 02/01/24 14:36 Urine Glucose (UA) Norm (Normal) 02/01/24 14:36 Urine Ketones Negative (Negative) 02/01/24 14:36 Urine Blood 2+ (Negative) H 02/01/24 14:36 Urine Nitrate Positive (Negative) H 02/01/24 14:36 Urine Bilirubin Neg (Negative) 02/01/24 14:36 Urine Urobilinogen Norm mg/dL (Negative) 02/01/24 14:36 Ur Leukocyte Esterase 1+ (Negative) H 02/01/24 14:36 Amorphous Sediment Not Reportable 02/01/24 14:36 All radiology interpretation(s) finalized by discharge EKG Data EKG 1: I personally reviewed and interpreted this EKG as follows: EKG interpretation date: 02/01/24 EKG interpretation time: 13:54 Interpretation: afib hr 102 nos t elevation qrs 92 qtc 378 Discharge Plan Discharge Patient Disposition: Admitted As Inpatient Clinical Impression: Acute cystitis, Fever, Altered mental status Condition: Stable Prescriptions: No Action polyethylene glycol 3350 17 gram/dose powder 17 gm PO DAILY PRN (Reason: Constipation) diltiazem HCl 240 mg capsule,extended release 24 hr 240 mg PO DAILY nystatin 100,000 unit/gram cream 1 applic topical BID PRN (Reason: Rash) furosemide [Lasix] 40 mg tablet 20 mg PO DAILY potassium chloride 20 mEq tablet,ER particles/crystals 20 meq PO DAILY lorazepam 0.5 mg tablet 0.5 mg PO BEDTIME Eliquis 5 mg tablet 5 mg PO BID Qty: 180 3RF Hold Instructions: Resume on 08/16/22. magnesium hydroxide [Milk of Magnesia] 400 mg/5 mL Suspension 30 ml PO DAILY PRN (Reason: Constipation) bisacodyl [Dulcolax (bisacodyl)] 10 mg Suppository 10 mg [place] DAILY PRN (Reason: Constipation) acetaminophen 325 mg capsule 500 mg PO Q4H PRN (Reason: fever or pain) Zoloft 100 mg Tablet 100 mg PO DAILY dicyclomine 20 mg tablet 20 mg PO Q8H PRN (Reason: IBS) vitamin Y80-gmhlv acid 500-400 mcg Tablet 1 tab PO DAILY Rx Instructions: administer with a meal cholecalciferol (vitamin D3) 1,250 mcg (50,000 unit) Tablet 1,250 mcg PO Q7D Rx Instructions: ON MONDAY Xtampza ER 27 mg cap,sprinkl,ER12hr(DONT CRUSH) 27 mg PO BID pantoprazole 20 mg tablet,delayed release (DR/EC) 20 mg PO BID potassium chloride 20 mEq Tablet,Er Particles/Crystals 20 meq PO BID oxybutynin chloride 5 mg tablet 5 mg PO DAILY loratadine 10 mg Tablet 10 mg PO DAILY Hemorrhoidal Cream 0.25-1 % Cream 1 applic [place] BID PRN (Reason: Hemorrhoids) Referrals: Daniel Hamilton MD [Primary Care Provider] - Coding Level of Care Code ED [employer] Manager for Leta Albarran
[2024-02-01 15:33] LABS: Glucose Point of Care 201 mg/dL (70-110)
[2024-02-01] MEDS: cefTRIAXone 1,000 MG in sodium chloride 0.9% (plus) 50 ML 100 MG IV (15:46)
[2024-02-01 16:02] LABS: Urine Color Yellow (Yellow)
[2024-02-01 16:03] LABS: Add Urine Microscopic? YES; Bilirubin Urine Neg (Negative); Blood Urine 2+ (Negative); Glucose Urine UA Norm (Normal); Ketones Urine Negative (Negative); Leukocyte Esterase Urine 1+ (Negative); Nitrate Urine Positive (Negative); Protein Urine Neg (Negative); Urine Appearance Slightly Cloudy (CLEAR); Urobilinogen Urine Norm (Negative); pH Urine 6 (5-7)
[2024-02-01 16:26] LABS: Bacteria Urine 1+ /hpf; Squamous Epithelial Cell Urine 0-4 /hpf (0-5)
[2024-02-01 16:26] LABS: Influenza A by IFA negative (Negative); Influenza B by IFA negative (Negative)
[2024-02-01 16:27] LABS: Add Urine Culture? Yes
[2024-02-01] MEDS: azithromycin 500 MG in sodium chloride 0.9% 250 ML 250 MG IV (16:43)
[2024-02-01 17:00] LABS: SARS Covid-2 Antigen negative (Negative)
--- NOTE | 2024-02-01 18:14 | PM.HP ---
Providers/Chief Complaint Admitting Physician: Dorothea Burch MD Primary Care Provider: Daniel Hamilton MD Chief Complaint: ams, possible sepsis History of Present Illness Bre Lara is a 78 year old female who presented to the hospital from the senior care with chief complaint of fever abdomen status. In the ER she was diagnosed with UTI. She was given antibiotics urine culture was obtained, patient is awake and alert at the time of evaluation stating that she does not use oxygen at baseline, she is complaining of back pain which is chronic. She is also stating that her neck pain is also chronic. Review of records revealed that patient has history of diastolic CHF cognitive impairment, she is DNI/DNr Review of Systems Const: Reports: fever(s) and chills Eyes: Denies: change in vision ENMT: Denies: throat pain Card: Denies: chest pain Resp: Denies: dyspnea Medications/Allergies Home Medications Medication Instructions Recorded Confirmed Last Taken Type polyethylene glycol 3350 17 17 gm PO DAILY PRN Constipation 09/14/19 02/01/24 08/10/22 History gram/dose oral powder bisacodyl 10 mg rectal suppository 10 mg W[place] DAILY PRN Constipation 05/11/21 02/01/24 Unknown History (Dulcolax (bisacodyl)) magnesium hydroxide 400 mg/5 mL 30 ml PO DAILY PRN Constipation 05/11/21 02/01/24 07/20/21 History oral suspension (Milk of Magnesia) diltiazem HCl 240 mg capsule,24 240 mg PO DAILY 10/22/21 02/01/24 08/11/22 History hr,extended release nystatin 100,000 unit/gram topical 1 applic topical BID PRN Rash 10/22/21 02/01/24 08/10/22 History cream apixaban 5 mg tablet (Eliquis) 5 mg PO BID #180 tabs 12/09/21 02/01/24 08/08/22 Rx lorazepam 0.5 mg tablet 0.5 mg PO BEDTIME 03/10/22 02/01/24 08/10/22 History furosemide 40 mg tablet (Lasix) 20 mg PO DAILY 06/22/22 02/01/24 08/10/22 History potassium chloride 20 mEq 20 meq PO DAILY 06/22/22 02/01/24 08/10/22 History tablet,extended release(part/cryst) acetaminophen 325 mg capsule 500 mg PO Q4H PRN fever or pain 08/09/22 02/01/24 08/11/22 03:00 History cholecalciferol (vitamin D3) 1,250 1,250 mcg PO Q7D 02/01/24 02/01/24 Unknown History mcg (50,000 unit) tablet dicyclomine 20 mg tablet 20 mg PO Q8H PRN IBS 02/01/24 02/01/24 Unknown History loratadine 10 mg tablet 10 mg PO DAILY 02/01/24 02/01/24 Unknown History oxybutynin chloride 5 mg tablet 5 mg PO DAILY 02/01/24 02/01/24 Unknown History oxycodone myristate 27 mg capsule 27 mg PO BID 02/01/24 02/01/24 Unknown History sprinkle extended release 12hr(DON'T CRUSH) (Xtampza ER) pantoprazole 20 mg tablet,delayed 20 mg PO BID 02/01/24 02/01/24 Unknown History release phenylephrine 0.25 %-pramoxine 1 1 applic W[place] BID PRN Hemorrhoids 02/01/24 02/01/24 Unknown History %-glycerin-wh.petrolatum rectal cream (Hemorrhoidal Cream) potassium chloride 20 mEq 20 meq PO BID 02/01/24 02/01/24 Unknown History tablet,extended release(part/cryst) sertraline 100 mg tablet (Zoloft) 100 mg PO DAILY 02/01/24 02/01/24 Unknown History vitamin B12 500 mcg-folic acid 400 1 tab PO DAILY 02/01/24 02/01/24 Unknown History mcg tablet Allergies Allergy/AdvReac Type Severity Reaction Status Date / Time fluoxetine Allergy Unknown Unknown Verified 01/18/24 14:52 nabumetone Allergy Unknown unknown Verified 01/18/24 14:52 Penicillins Allergy Unknown Unknown Verified 01/18/24 14:52 ciprofloxacin [From Cipro] Allergy NA Verified 01/18/24 14:52 penicillin G Allergy NA Verified 01/18/24 14:52 pentazocine [From Talwin] Allergy NA Verified 01/18/24 14:52 Sulfa (Sulfonamide Allergy NA Verified 01/18/24 14:52 Antibiotics) zolpidem [From Ambien] Allergy hallucinati Verified 01/18/24 14:52 ons PFSH Acute PFSH: Medical History Aftercare following surgery of the genitourinary system Diastolic heart failure Fracture of ribs, multiple Acute exacerbation of CHF (congestive heart failure) UTI (urinary tract infection) Urolithiasis Benign essential hypertension with target blood pressure below 140/90 Chronic episodic atrial fibrillation Osteoarthritis of left knee Chronic venous insufficiency of lower extremity Urgency incontinence Recurrent UTI COPD (chronic obstructive pulmonary disease) Other cervical disc displacement, unspecified cervical region GERD (gastroesophageal reflux disease) Hypercholesterolemia Sleep apnea Surgical History H/O of anterior colporrhaphy 07/21/2021- anterior colporrhaphy, single incision mid urethral sling and cystoscopy performed by Dr. Wilder at [facility] Status post colonoscopy (07/14/20) H/O esophagogastroduodenoscopy (07/14/20) S/P hysterectomy History of cholecystectomy History of appendectomy H/O knee surgery H/O shoulder surgery H/O cataract extraction Family History Father Stroke Mother Cancer BLADDER, BREAST Brother Cancer ESOPHAGEAL Family/Other Cancer Sister Cancer Suicide Denies family history of Diabetes CAD (coronary artery disease) Clotting disorder Dementia Chronic kidney disease (CKD) Anesthesia complication Bleeding disorder Lung disease Social History Smoking and tobacco/nicotine status: current every day tobacco/nicotine user cigarettes Alcohol intake: never Substance/Drug Use: never Marital status: Current occupational status: disabled Vitals/I&O/Wt Last Vital Signs Temp 103.2 F H 02/01/24 13:36 Pulse 89 02/01/24 17:15 Resp 18 02/01/24 17:15 BP 107/59 02/01/24 17:00 Pulse Ox 98 02/01/24 17:15 O2 Del Method Nasal Cannula 02/01/24 13:36 O2 Flow Rate 3 02/01/24 13:36 02/01/24 02/01/24 02/01/24 06:59 14:59 22:59 Intake Total 100 / 100 1050 / 1150 Balance 100 / 100 1050 / 1150 Weight last 48 hrs Weight 72.575 kg Physical Exam Narrative: Awake and alert No active focal deficit No active signs of meningitis No sign of stroke GCS 15 Nonfocal exam Awake and alert nonfocal Currently on 2 L [place] catheter in place. Abdomen soft however distended Data 02/01/24 13:55 02/01/24 13:55 Micro: Microbiology 02/01/24 13:55 Blood Culture - Preliminary Blood SPECIMEN COLLECTED A&P Assessment and plan (1) FLORENTIN (generalized anxiety disorder): (2) Shortness of breath on exertion: (3) GERD (gastroesophageal reflux disease): Qualifiers: Esophagitis presence: esophagitis presence not specified Qualified Code(s): K21.9 - Gastro-esophageal reflux disease without esophagitis (4) Acute cystitis: (5) Macrocytic anemia: (6) Insomnia: Qualifiers: Insomnia type: primary Qualified Code(s): F51.01 - Primary insomnia (7) Delirium: Plan sepsis related to UTI Criteria met with tachypnea tachycardia fever source is UTI UTI w Delirium Start Aztreonam History of E. coli pansensitive No active sign of sepsis Start antibiotics Fluid hydration given No need of IV fluids overnight Metabolic encephalopathy related to UTI: Resolved Diastolic CHF no acute exacerbation holding Lasix for now Thromboembolic history: Continue Eliquis DNR/DNI Attestations Medical Necessity Statement*: dc in 48 hrs Diagnoses FLORENTIN (generalized anxiety disorder) F41.1 Shortness of breath on exertion R06.02 Gastroesophageal reflux disease, esophagitis presence not specified K21.9 Esophagitis presence: esophagitis presence not specified Acute cystitis N30.00 Macrocytic anemia D53.9 Primary insomnia F51.01 Insomnia type: primary Delirium R41.0
[2024-02-01] MEDS: aztreonam 2,000 MG in sodium chloride 0.9% (plus) 100 ML 200 MG IV (20:08)
[2024-02-01] MEDS: FUROsemide 10 mg/mL SDV 2mL 20 MG IVP (20:20)
[2024-02-02] VITALS (7 sets, daily range): BP systolic 111–129; BP diastolic 67–79; PULSE 72–93; RESP 16–20; TEMP 36.3–36.9; O2SAT 93–99
[2024-02-02 05:54] LABS: Basophils % 0.2 %; Eosinophils % 0.1 %; Hematocrit 35.5 % (36-47); Lymphocytes # 0.9 10^3/uL (0.8-4.8); Lymphocytes % 10.3 %; Mean Corpuscular HGB Conc 28.5 g/dL (30-55); Mean Corpuscular Hemoglobin 25.6 pg (27-33); Mean Corpuscular Volume 89.9 fl (85-98); Mean Platelet Volume 10.8 fL (7.4-10.4); Monocytes # 0.7 10^3/uL (0.2-0.9); Monocytes % 7.5 %; Neutrophils % 81.5 %; Nucleated Red Blood Cells % 0 %; Platelet Count 144 10^3/cmm (157-399); Red Blood Count 3.95 10^6/uL (3.85-5.65); Red Cell Distribution Width 16.4 % (12.1-15.1); White Blood Count 9.09 10^3/uL (3.29-11.43)
[2024-02-02 06:13] LABS: Anion Gap 11.4 (5-19); Blood Urea Nitrogen 14 mg/dL (8-23); Calcium 9.7 mg/dL (8.5-10.5); Carbon Dioxide 26 mmol/L (22-29); Chloride 105 mmol/L (98-107); Creatinine Clr Calc Pharmacy 69.0386; Glucose 115 mg/dL (65-115); Magnesium 1.9 mg/dL (1.7-2.3); Osmolality Calculated 289 mOsm/kg (285-295); Potassium 3.4 mmol/L (3.5-5.1); Sodium 139 mmol/L (136-145)
[2024-02-02] MEDS: aztreonam 2,000 MG in sodium chloride 0.9% (plus) 100 ML 200 MG IV ×2 (06:34→17:21)
--- NOTE | 2024-02-02 07:00 | PM.PN ---
Subjective Subjective: No significant events overnight Fever 103 yesterday No leukocytosis, lactic acid is normal No tachycardia Continue antibiotics Previous urine culture positive for E. coli which was pansensitive Altered mental status has significantly improved Vitals/I&O/Wt Last Vital Signs Temp 98.5 F 02/02/24 04:00 Pulse 84 02/02/24 04:00 Resp 16 02/02/24 04:00 BP 112/68 02/02/24 04:00 Pulse Ox 98 02/02/24 04:00 O2 Del Method Nasal Cannula 02/02/24 04:00 O2 Flow Rate 3 02/01/24 13:36 02/01/24 02/02/24 02/02/24 22:59 06:59 14:59 Intake Total 2400 / 2500 480 / 2980 Output Total 875 / 875 850 / 1725 Balance 1525 / 1625 -370 / 1255 Weight last 48 hrs Weight 77.973 kg Weight 76.459 kg Weight 72.575 kg Physical Exam Narrative: Pleasant and cooperative GCS 15 Signs of dehydration improving Nonfocal neuroexam Awake and alert S1, S2 Currently on room air Abdomen soft Data 02/02/24 05:22 02/02/24 05:22 Micro: Microbiology 02/01/24 13:55 Blood Culture - Preliminary Blood SPECIMEN COLLECTED A&P Assessment and plan (1) FLORENTIN (generalized anxiety disorder): (2) Diastolic heart failure: Qualifiers: Heart failure chronicity: chronic Qualified Code(s): I50.32 - Chronic diastolic (congestive) heart failure (3) Atrial fibrillation: Qualifiers: Atrial fibrillation type: unspecified Qualified Code(s): I48.91 - Unspecified atrial fibrillation (4) Acute cystitis: (5) Delirium: (6) Altered mental status: (7) Insomnia: Qualifiers: Insomnia type: primary Qualified Code(s): F51.01 - Primary insomnia (8) Shortness of breath on exertion: (9) GERD (gastroesophageal reflux disease): Qualifiers: Esophagitis presence: esophagitis presence not specified Qualified Code(s): K21.9 - Gastro-esophageal reflux disease without esophagitis (10) Macrocytic anemia: Plan 78-year-old female who presented from the group home with chief complaint of fever altered mental status, patient was diagnosed with UTI and sepsis in the ER, she responded very well to the use of fluids and antibiotic, awaiting urine cultures, delirium improved, Sepsis related to UTI Previous urine culture positive for E. coli which was pansensitive Continue antibiotics Awaiting urine cultures No signs of stroke or meningitis History of A-fib currently not in RVR Continue anticoagulating agent Dehydration: Improving with IV fluid hydration Diastolic CHF: Currently patient does not look to be in fluid overloaded state Chronic hypoxia currently patient is on 1 to 2 L of oxygen patient stating that she uses oxygen only at nighttime Goals of care: DNR/DNI Disposition: Likely back to group home once we get urine culture report We do not have case management until Monday, will coordinate with our nursing staff and the MA once she is ready to be discharged Attestations Medical Necessity Statement*: Continue medical management Coding Level of Care Code 57655 Diagnoses FLORENTIN (generalized anxiety disorder) F41.1 Chronic diastolic heart failure I50.32 Heart failure chronicity: chronic Atrial fibrillation, unspecified type I48.91 Atrial fibrillation type: unspecified Acute cystitis N30.00 Delirium R41.0 Altered mental status R41.82 Primary insomnia F51.01 Insomnia type: primary Shortness of breath on exertion R06.02 Gastroesophageal reflux disease, esophagitis presence not specified K21.9 Esophagitis presence: esophagitis presence not specified Macrocytic anemia D53.9
[2024-02-02] MEDS: dilTIAZem ER (24HR) 240 mg Capsule PO (08:20)
[2024-02-02] MEDS: sennosides-docusate Tablet 1 TAB PO (08:20)
[2024-02-02] MEDS: apixaban 5 mg Tablet PO ×2 (08:20→17:21)
[2024-02-02] MEDS: acetaminophen 500 mg Tablet PO (11:46)
[2024-02-02] MEDS: FUROsemide 10 mg/mL SDV 2mL 20 MG IVP (19:52)
[2024-02-02] MEDS: HYDROcodone-acetaminophen 5-325 mg Tablet 1 TAB PO (23:18)
[2024-02-03] VITALS (11 sets, daily range): BP systolic 110–143; BP diastolic 70–80; PULSE 76–92; RESP 16–21; TEMP 36.6–37.1; O2SAT 93–99
[2024-02-03] MEDS: morphine 4 mg/mL SDV 1 mL IVP (04:55)
[2024-02-03 06:24] LABS: Basophils % 0.1 %; Eosinophils % 0.2 %; Hematocrit 37.8 % (36-47); Lymphocytes # 1.1 10^3/uL (0.8-4.8); Lymphocytes % 12.6 %; Mean Corpuscular HGB Conc 29.4 g/dL (30-55); Mean Corpuscular Hemoglobin 25.6 pg (27-33); Mean Corpuscular Volume 87.3 fl (85-98); Mean Platelet Volume 10.7 fL (7.4-10.4); Monocytes # 0.8 10^3/uL (0.2-0.9); Monocytes % 9.2 %; Neutrophils # 6.66 10^3/uL (1.8-7.7); Neutrophils % 77.6 %; Nucleated Red Blood Cells % 0 %; Platelet Count 149 10^3/cmm (157-399); Red Blood Count 4.33 10^6/uL (3.85-5.65); Red Cell Distribution Width 16.5 % (12.1-15.1); White Blood Count 8.59 10^3/uL (3.29-11.43)
[2024-02-03] MEDS: aztreonam 2,000 MG in sodium chloride 0.9% (plus) 100 ML 200 MG IV ×2 (06:31→18:13)
[2024-02-03 06:52] LABS: Anion Gap 13.1 (5-19); Blood Urea Nitrogen 12 mg/dL (8-23); Calcium 10.3 mg/dL (8.5-10.5); Carbon Dioxide 29 mmol/L (22-29); Chloride 102 mmol/L (98-107); Creatinine Clr Calc Pharmacy 66.7091; Glucose 85 mg/dL (65-115); Osmolality Calculated 291 mOsm/kg (285-295); Potassium 3.1 mmol/L (3.5-5.1); Sodium 141 mmol/L (136-145)
[2024-02-03] MEDS: sennosides-docusate Tablet 1 TAB PO (09:45)
[2024-02-03] MEDS: apixaban 5 mg Tablet PO ×2 (09:45→18:13)
[2024-02-03] MEDS: dilTIAZem ER (24HR) 240 mg Capsule PO (09:45)
[2024-02-03] MEDS: potassium chloride oral liq 20 mEq/15 mL UDC 40 MEQ PO (12:15)
[2024-02-03] MEDS: oxyCODONE 5 mg IR Tab/Cap PO ×3 (12:15→21:36)
--- NOTE | 2024-02-03 12:35 | PC.NURSE ---
Dr. Franklin asked if patient can return to [facility] this weekend. This nurse called and spoke with Elba who stated patient could not return today due to not having enough staff or a spine supervisor available
--- NOTE | 2024-02-03 14:39 | PM.PN ---
Subjective Subjective: Patient reports worsening of chronic low back and leg pain. Denies fevers or chills overnight. Reports mentation is improving. Discussed plan of care and she is in agreement. Medications: Reviewed: Yes Vitals/I&O/Wt Last Vital Signs Temp 98.6 F 02/03/24 12:00 Pulse 80 02/03/24 12:00 Resp 16 02/03/24 12:15 BP 132/76 02/03/24 12:00 Pulse Ox 98 02/03/24 12:00 O2 Del Method Nasal Cannula 02/03/24 12:00 O2 Flow Rate 1 02/03/24 12:00 02/02/24 02/03/24 02/03/24 22:59 06:59 14:59 Intake Total 100 / 318 480 / 798 460 / 460 Balance 100 / 318 480 / 798 460 / 460 Weight last 48 hrs Weight 75.342 kg Weight 77.973 kg Weight 76.459 kg Physical Exam Narrative: General: Patient is awake and alert. Head: Normocephalic. Atraumatic. EOM intact. Neck: No JVD. Cardiovascular: RRR. No gallops. No murmurs. Lungs: Clear to auscultation, no use of accessory muscles, no crackles or wheezes. Skin: No jaundice. No rashes. Abdomen: Normal bowel sounds, abdomen soft and nontender. Extremities: No cyanosis or clubbing. Musculoskeletal: No swollen or erythematous joints. Neurological: Moves all 4 extremities. No myoclonus. Data 02/03/24 05:13 02/03/24 05:13 Micro: Microbiology 02/01/24 14:36 Urine Culture - Preliminary Urine,Clean Catch Gram Negative Rods 02/01/24 13:55 Blood Culture - Preliminary Blood NEGATIVE TO DATE A&P Assessment and plan (1) FLORENTIN (generalized anxiety disorder): (2) Diastolic heart failure: Qualifiers: Heart failure chronicity: chronic Qualified Code(s): I50.32 - Chronic diastolic (congestive) heart failure (3) Atrial fibrillation: Qualifiers: Atrial fibrillation type: unspecified Qualified Code(s): I48.91 - Unspecified atrial fibrillation (4) Delirium: (5) Altered mental status: (6) Insomnia: Qualifiers: Insomnia type: primary Qualified Code(s): F51.01 - Primary insomnia (7) Shortness of breath on exertion: (8) GERD (gastroesophageal reflux disease): Qualifiers: Esophagitis presence: esophagitis presence not specified Qualified Code(s): K21.9 - Gastro-esophageal reflux disease without esophagitis (9) Macrocytic anemia: (10) Acute UTI: Plan 78-year-old female who presented from the skilled nursing with chief complaint of fever altered mental status, patient was diagnosed with UTI and sepsis in the ER, she responded very well to the use of fluids and antibiotic, awaiting urine cultures, delirium improved. Urine culture remains pending. Will continue with IV antibiotics and await culture to guide treatment. Hopefully they will be an oral option and she will be able to discharge back to the nursing facility in the next 24 to 48 hours. Sepsis related to UTI -Previous urine culture positive for E. coli which was pansensitive -Continue antibiotics -Awaiting urine cultures Acute infectious and metabolic encephalopathy 2/2 acute complicated UTI -Mentation is improving, suspect approaching baseline -Continue treating underlying sepsis Hypokalemia -Replace K Chronic pain -Continue home Xtampza -Add oxycodone for breakthrough pain History of A-fib currently not in RVR -Continue anticoagulating agent Dehydration, resolved Chronic HFpEF -Daily assessment of volume Chronic hypoxia -Usually on nocturnal oxygen support, requiring low dose during the day currently Goals of care: DNR/DNI Disposition: Bback to skilled nursing once we get urine culture report Attestations Medical Necessity Statement*: Patient requires ongoing hospitalization for IV antibiotics awaiting culture to guide treatment. Coding Level of Care Code Acute Code for [facility] Fwd Diagnoses FLORENTIN (generalized anxiety disorder) F41.1 Chronic diastolic heart failure I50.32 Heart failure chronicity: chronic Atrial fibrillation, unspecified type I48.91 Atrial fibrillation type: unspecified Delirium R41.0 Altered mental status R41.82 Primary insomnia F51.01 Insomnia type: primary Shortness of breath on exertion R06.02 Gastroesophageal reflux disease, esophagitis presence not specified K21.9 Esophagitis presence: esophagitis presence not specified Macrocytic anemia D53.9 Acute UTI N39.0
--- NOTE | 2024-02-03 15:48 | PICC.NOTE ---
Midline placed to left basilic vein. Referred to vascular access nurse for midline placement due to poor access and need for IV antibiotics. Risks and benefits discussed and informed consent obtained from patient. Left arm assessed with left basilic vein measuring 3.9 mm, straight, and apparent best choice for placement. Using sterile technique and MST, left basilic vein accessed x 1 stick. Mid-arm circumference measured 10 cm from left AC 33 cm. Trimmed cath 10 cm with 0 cm external length noted. Line secured with stat-lock. Insertion site covered with Biopatch and TSM. Report given to bedside nurse, CAMPOS Hahn.
[2024-02-03] MEDS: FUROsemide 10 mg/mL SDV 2mL 20 MG IVP (19:40)
[2024-02-03] MEDS: ondansetron 2 mg/ML SDV 2 mL 4 MG IVP (19:40)
[2024-02-03] MEDS: LORazepam 2 mg/mL INJ 10 mL MDV 0.25 MG IVP (22:46)
[2024-02-04] VITALS (10 sets, daily range): BP systolic 99–139; BP diastolic 63–82; PULSE 73–96; RESP 16–73; TEMP 36.6–37.2; O2SAT 93–99; BMI 37.4
[2024-02-04] MEDS: lidocaine 5% Patch 2 PATCH TOPICAL ×2 (01:18→21:58)
[2024-02-04] MEDS: oxyCODONE 5 mg IR Tab/Cap PO ×2 (02:18→09:23)
[2024-02-04] MEDS: OLANZapine 10 mg VIAL 2.5 MG IM (04:09)
[2024-02-04] MEDS: water for injection-sterile 10 ML 0.0100000000000000002 ML (04:10)
[2024-02-04] MEDS: aztreonam 2,000 MG in sodium chloride 0.9% (plus) 100 ML 200 MG IV ×2 (07:35→19:56)
[2024-02-04] MEDS: apixaban 5 mg Tablet PO ×2 (09:24→17:20)
[2024-02-04] MEDS: dilTIAZem ER (24HR) 240 mg Capsule PO (09:24)
[2024-02-04] MEDS: sennosides-docusate Tablet 1 TAB PO (09:24)
--- NOTE | 2024-02-04 13:36 | P.PN_ITS ---
Subjective 2 Subjective: Patient reports improvement in back pain. Reports she didn't sleep that well. Denies fevers, chills, shortness of breath or chest pains. Medications: Reviewed: Yes Vitals/I&O/Wt Last Vital Signs Temp 98.3 F 02/04/24 12:18 Pulse 91 02/04/24 12:18 Resp 16 02/04/24 12:18 BP 114/64 02/04/24 12:18 Pulse Ox 99 02/04/24 12:18 O2 Del Method Nasal Cannula 02/04/24 12:18 O2 Flow Rate 1.5 02/04/24 12:18 02/03/24 02/04/24 02/04/24 22:59 06:59 14:59 Intake Total 220 / 680 60 / 740 820 / 820 Output Total 200 / 200 Balance 20 / 480 60 / 540 820 / 820 Weight last 48 hrs Weight 75.75 kg Weight 75.342 kg Physical Exam 2 Narrative: General: Patient is awake. Somewhat drowsy. Head: Normocephalic. Atraumatic. EOM intact. Neck: No JVD. Cardiovascular: RRR. No gallops. No murmurs. Lungs: Clear to auscultation, no use of accessory muscles, no crackles or wheezes. Skin: No jaundice. No rashes. Abdomen: Normal bowel sounds, abdomen soft and nontender. Extremities: No cyanosis or clubbing. Musculoskeletal: No swollen or erythematous joints. Neurological: Moves all 4 extremities. No myoclonus. Data 02/03/24 05:13 02/03/24 05:13 Micro: Microbiology 02/01/24 14:36 Urine Culture - Final Urine,Clean Catch Escherichia coli A&P Assessment and plan (1) FLORENTIN (generalized anxiety disorder): (2) Diastolic heart failure: Qualifiers: Heart failure chronicity: chronic Qualified Code(s): I50.32 - Chronic diastolic (congestive) heart failure (3) Atrial fibrillation: Qualifiers: Atrial fibrillation type: unspecified Qualified Code(s): I48.91 - Unspecified atrial fibrillation (4) Delirium: (5) Altered mental status: (6) Insomnia: Qualifiers: Insomnia type: primary Qualified Code(s): F51.01 - Primary insomnia (7) Shortness of breath on exertion: (8) GERD (gastroesophageal reflux disease): Qualifiers: Esophagitis presence: esophagitis presence not specified Qualified Code(s): K21.9 - Gastro-esophageal reflux disease without esophagitis (9) Macrocytic anemia: (10) Acute UTI: Plan 78-year-old female who presented from the [facility] with chief complaint of fever altered mental status, patient was diagnosed with UTI and sepsis in the ER, she responded very well to the use of fluids and antibiotic. Urine culture with pansensitive E coli. Medically ready for discharge today. 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 Nursing facility refused to accept her today due to their reported staffing issues. Sepsis related to E coli UTI -Ux w/ same E coli as prior -Continue antibiotics Acute infectious and metabolic encephalopathy 2/2 acute complicated UTI -Mentation appears to be at baseline -Continue abx Hypokalemia -Replace K as needed Chronic pain -Continue home Xtampza -Oxycodone for breakthrough pain History of A-fib currently not in RVR -Continue anticoagulating agent Dehydration, resolved Chronic HFpEF -Daily assessment of volume Chronic hypoxia -Usually on nocturnal oxygen support, requiring low dose during the day currently Goals of care: DNR/DNI Disposition: Back to [facility] whenever they will accept. Attestations 2 Medical Necessity Statement*: Patient has no safe discharge disposition today as her nursing facility is unable to assess requiring ongoing hospitalization for safe care. Coding Level of Care Code Acute Code for Chg Fwd Diagnoses FLORENTIN (generalized anxiety disorder) F41.1 Chronic diastolic heart failure I50.32 Heart failure chronicity: chronic Atrial fibrillation, unspecified type I48.91 Atrial fibrillation type: unspecified Delirium R41.0 Altered mental status R41.82 Primary insomnia F51.01 Insomnia type: primary Shortness of breath on exertion R06.02 Gastroesophageal reflux disease, esophagitis presence not specified K21.9 Esophagitis presence: esophagitis presence not specified Macrocytic anemia D53.9 Acute UTI N39.0
[2024-02-04] MEDS: FUROsemide 10 mg/mL SDV 2mL 20 MG IVP (22:28)
[2024-02-04] MEDS: potassium chloride ER 20 mEq Tablet 40 MEQ PO (22:29)
[2024-02-05] VITALS (10 sets, daily range): BP systolic 112–133; BP diastolic 64–81; PULSE 74–92; RESP 16–18; TEMP 36.8–37.3; O2SAT 92–98
[2024-02-05] MEDS: oxyCODONE 5 mg IR Tab/Cap PO ×3 (04:11→16:31)
[2024-02-05] MEDS: aztreonam 2,000 MG in sodium chloride 0.9% (plus) 100 ML 200 MG IV (08:02)
[2024-02-05] MEDS: dilTIAZem ER (24HR) 240 mg Capsule PO (08:58)
[2024-02-05] MEDS: sennosides-docusate Tablet 1 TAB PO (08:58)
[2024-02-05] MEDS: apixaban 5 mg Tablet PO ×2 (08:59→17:21)
--- NOTE | 2024-02-05 11:03 | P.PN_ITS ---
Subjective 2 Subjective: Patient reports she had a good night. Reports she did not have any back pain or muscle cramps last night. I discussed she is medically ready for discharge for facility will accept her back today. She is in agreement. Medications: Reviewed: Yes Vitals/I&O/Wt Last Vital Signs Temp 98.3 F 02/05/24 08:00 Pulse 92 02/05/24 08:22 Resp 16 02/05/24 08:22 BP 133/81 02/05/24 08:00 Pulse Ox 96 02/05/24 08:22 O2 Del Method Nasal Cannula 02/05/24 08:22 O2 Flow Rate 1 02/05/24 08:22 02/04/24 02/05/24 02/05/24 22:59 06:59 14:59 Intake Total 390 / 1210 480 / 1690 340 / 340 Balance 390 / 1210 480 / 1690 340 / 340 Weight last 48 hrs Weight 76.345 kg Weight 75.75 kg Physical Exam 2 Narrative: General: Patient is awake. Pleasant. Head: Normocephalic. Atraumatic. EOM intact. Neck: No JVD. Cardiovascular: RRR. No gallops. No murmurs. Lungs: Clear to auscultation, no use of accessory muscles, no crackles or wheezes. Skin: No jaundice. No rashes. Abdomen: Normal bowel sounds, abdomen soft and nontender. Extremities: No cyanosis or clubbing. Musculoskeletal: No swollen or erythematous joints. Neurological: Moves all 4 extremities. No myoclonus. Data 02/03/24 05:13 02/03/24 05:13 Micro: Microbiology 02/01/24 14:36 Urine Culture - Final Urine,Clean Catch Escherichia coli A&P Assessment and plan (1) FLORENTIN (generalized anxiety disorder): (2) Diastolic heart failure: Qualifiers: Heart failure chronicity: chronic Qualified Code(s): I50.32 - Chronic diastolic (congestive) heart failure (3) Atrial fibrillation: Qualifiers: Atrial fibrillation type: unspecified Qualified Code(s): I48.91 - Unspecified atrial fibrillation (4) Delirium: (5) Altered mental status: (6) Insomnia: Qualifiers: Insomnia type: primary Qualified Code(s): F51.01 - Primary insomnia (7) Shortness of breath on exertion: (8) GERD (gastroesophageal reflux disease): Qualifiers: Esophagitis presence: esophagitis presence not specified Qualified Code(s): K21.9 - Gastro-esophageal reflux disease without esophagitis (9) Macrocytic anemia: (10) Acute UTI: Plan 78-year-old female who presented from the group home with chief complaint of fever altered mental status, patient was diagnosed with UTI and sepsis. Urine culture resulted with E. coli sensitive to cephalosporins. Patient is previously tolerated cephalosporins. Will rotate to oral cephalosporins today. Has been medically ready for discharge however her facility was unable to accept her over this holiday weekend. Sepsis secondary to to E coli UTI -Ux w/ pansensitive E. coli -Discontinue IV antibiotics -Start cefdinir Acute infectious and metabolic encephalopathy 2/2 acute complicated UTI, resolved Hypokalemia -Potassium has been replaced Chronic pain -Continue home Xtampza -Oxycodone for breakthrough pain History of A-fib currently not in RVR -Continue anticoagulating agent Dehydration, resolved Chronic HFpEF -Daily assessment of volume Chronic hypoxia -Continue supplemental support Goals of care: DNR/DNI Disposition: Back to group home whenever they will accept. Attestations 2 Medical Necessity Statement*: Patient requires ongoing hospitalization until a nursing facility is able to accept her back. Coding Level of Care Code Acute Code for [facility] Fwd Diagnoses FLORENTIN (generalized anxiety disorder) F41.1 Chronic diastolic heart failure I50.32 Heart failure chronicity: chronic Atrial fibrillation, unspecified type I48.91 Atrial fibrillation type: unspecified Delirium R41.0 Altered mental status R41.82 Primary insomnia F51.01 Insomnia type: primary Shortness of breath on exertion R06.02 Gastroesophageal reflux disease, esophagitis presence not specified K21.9 Esophagitis presence: esophagitis presence not specified Macrocytic anemia D53.9 Acute UTI N39.0
[2024-02-05] MEDS: potassium chloride ER 20 mEq Tablet PO (17:21)
[2024-02-05] MEDS: cefdinir 300 MG CAPSULE PO (17:21)
[2024-02-05] MEDS: lidocaine 5% Patch 2 PATCH TOPICAL (19:55)
[2024-02-05] MEDS: LORazepam 0.5 mg Tablet PO (19:57)
[2024-02-06] VITALS (11 sets, daily range): BP systolic 108–152; BP diastolic 68–82; PULSE 79–88; RESP 16–20; TEMP 36.6–37.3; O2SAT 93–99
[2024-02-06] MEDS: oxyCODONE 5 mg IR Tab/Cap PO ×6 (00:35→22:00)
[2024-02-06] MEDS: FUROsemide 40 mg Tablet 20 MG PO (08:27)
[2024-02-06] MEDS: oxybutynin 5 mg Tablet PO (08:27)
[2024-02-06] MEDS: potassium chloride ER 20 mEq Tablet PO ×2 (08:27→17:18)
[2024-02-06] MEDS: cefdinir 300 MG CAPSULE PO ×2 (08:27→17:18)
[2024-02-06] MEDS: dilTIAZem ER (24HR) 240 mg Capsule PO (08:28)
[2024-02-06] MEDS: pantoprazole DR 40 mg Tablet PO (08:28)
[2024-02-06] MEDS: sennosides-docusate Tablet 1 TAB PO (08:28)
[2024-02-06] MEDS: loratadine 10 mg Tablet PO (08:28)
[2024-02-06] MEDS: sertraline 100 mg Tablet PO (08:28)
[2024-02-06] MEDS: apixaban 5 mg Tablet PO ×2 (08:28→17:18)
[2024-02-06] MEDS: lidocaine 5% Patch 2 PATCH TOPICAL ×2 (08:29→20:08)
--- NOTE | 2024-02-06 09:29 | PC.CHAP ---
Pastoral Care Encounter/Spiritual Assessment Type of Contact [] Declined coil inspector visit [] Patient/Family/Request visit [] Outpatient visit [] Follow-up visit [] Physician referral [] Code/Alert [x] Routine visit [] Staff referral [] Actively dying [] Patient sleeping [] Family support [] [] Out of room [] Palliative care [] [] Receiving care in room [] Pre-surgical visit [] Trauma [] Long length of stay [] ICU visit [] Other: Relational/Emotional Strength [x] Patient feels connected with others/family/visitors/staff [] Distress [] Loneliness/isolation [] Abandonment Spirituality of Patient [x] Person of Jessica [] Attends Yazidism of their Jessica [x] Believes in Prayer [] Reads Bible or Tenriism materials [] There are Spiritual issues to be addressed Vp Director Of Finance Interventions [x] Prayer [x] Active listening [x] Non-anxious presence [x] Spiritual/emotional support [] Crisis/trauma care [] Spiritual counseling [] Bereavement support [] Provided bereavement packet [] Provided Bible/devotional materials [] Provided toy/stuffed animal, coloring book to patient or family member [] Provided Communion [] Anointing/[place] [] Salvation [x] Completed spiritual assessment [] Other: Impact on Illness or Injury [] Angry [] Fearful [] Anxious [] Often cries [] Exhaustion [] Unable to work [] Unable to attend christian [] Unable to walk/stand [] Unable to read [] Unable to drive [] Unable to eat/drink [] Unable to sleep [] Unable to be with family [] Patient intubated [] Other: Summary Time spent with patient 5 min
--- NOTE | 2024-02-06 11:16 | P.DS_ITS ---
Discharge Providers Date of Admission: 02/05/24 11:05 Date of Discharge: February 06, 2024 Attending Provider at Admission: Dorothea Burch MD Attending Provider at Discharge: Dorothea Burch MD Primary Care Provider: Daniel Hamilton MD Diagnoses at Discharge Discharge Diagnosis (1) FLORENTIN (generalized anxiety disorder): Status: Acute (2) Diastolic heart failure: Status: Acute Qualifiers: Heart failure chronicity: chronic Qualified Code(s): I50.32 - Chronic diastolic (congestive) heart failure (3) Atrial fibrillation: Status: Acute Qualifiers: Atrial fibrillation type: unspecified Qualified Code(s): I48.91 - Unspecified atrial fibrillation (4) Delirium: Status: Acute (5) Altered mental status: Status: Acute (6) Insomnia: Status: Acute Qualifiers: Insomnia type: primary Qualified Code(s): F51.01 - Primary insomnia (7) Shortness of breath on exertion: Status: Acute (8) GERD (gastroesophageal reflux disease): Status: Chronic Qualifiers: Esophagitis presence: esophagitis presence not specified Qualified Code(s): K21.9 - Gastro-esophageal reflux disease without esophagitis (9) Macrocytic anemia: Status: Acute (10) Acute UTI: Status: Acute Reason for Visit Reason for Visit: ams, possible sepsis Hospital Course Hospital Course 6-year-old female who present to the hospital with sepsis related to UTI, metabolic encephalopathy, during hospitalization her metabolic encephalopathy improved significantly, she was given IV fluid hydration along antibiotics, at the time of discharge she will be given cefpodoxime 7-day regimen, she is being discharged with stable hemodynamics, she is alert and oriented, no active encephalopathy, patient will be discharged back to her senior living. At baseline she uses 2 L of oxygen at nighttime. She is DNR/DNI. She will resume her Eliquis for A-fib. Her stay in the hospital was prolonged secondary to weekend. Physical Exam Narrative: Awake and alert GCS 15 Currently on 1.5 to 2 L Pleasant cough Abdomen soft Able to answer all my questions Ecchymosis around the IV line left arm Discharge Data Studies Completed and Pending Completed Studies During Hospitalization Category Date Time Status CT head wo con* [id number] Stat Cat Scan 02/01/24 13:46 Completed XR chest 1V portable [id number] Stat Exams 02/01/24 13:46 Completed Pending at discharge Category Date Time Status Blood Culture Stat Lab 02/01/24 13:46 Ordered COVID [SARS Covid-2 Antigen] Routine Lab 02/06/24 10:42 Received Radiology Impressions Chest X-Ray 02/01/24 13:46 Impression: Atherosclerosis and cardiomegaly. Head CT 02/01/24 13:46 IMPRESSION: 1. Advanced cerebral atrophy. 2. No acute intracranial hemorrhage or edema. 3. Stable noncontrast head CT since 12/09/2023 Laboratory Results WBC 8.59 10^3/uL (3.29-11.43) 02/03/24 05:13 RBC 4.33 10^6/uL (3.85-5.65) 02/03/24 05:13 Hgb 11.10 g/dL (11.27-16.99) L 02/03/24 05:13 Hct 37.8 % (36-47) 02/03/24 05:13 MCV 87.3 fl (85-98) 02/03/24 05:13 MCH 25.6 pg (27-33) L 02/03/24 05:13 MCHC 29.4 g/dL (30-55) L 02/03/24 05:13 RDW 16.5 % (12.1-15.1) H 02/03/24 05:13 Plt Count 149 10^3/cmm (157-399) L 02/03/24 05:13 MPV 10.7 fL (7.4-10.4) H 02/03/24 05:13 Neut % (Auto) 77.6 % 02/03/24 05:13 Lymph % (Auto) 12.6 % 02/03/24 05:13 [place] % (Auto) 9.2 % 02/03/24 05:13 Eos % (Auto) 0.2 % 02/03/24 05:13 Baso % (Auto) 0.1 % 02/03/24 05:13 Neut # (Auto) 6.66 10^3/uL (1.8-7.7) 02/03/24 05:13 Lymph # (Auto) 1.1 10^3/uL (0.8-4.8) 02/03/24 05:13 [place] # (Auto) 0.8 10^3/uL (0.2-0.9) 02/03/24 05:13 Eos # (Auto) 0.0 10^3/uL (0.0-0.8) 02/03/24 05:13 Baso # (Auto) 0.0 10^3/uL (0.0-0.1) 02/03/24 05:13 Nucleated RBC % (auto) 0 % 02/03/24 05:13 Nucleated RBCs # 0.0 /100WBC 02/03/24 05:13 PT 15.60 SECONDS (12.1-14.9) H 02/01/24 13:55 INR 1.20 (0.8-1.2) 02/01/24 13:55 Specimen Type Arterial 02/01/24 14:00 Sample Site Radial, left 02/01/24 14:00 ABG pH 7.39 (7.35-7.45) 02/01/24 14:00 ABG pCO2 44.0 mmHg (35-45) 02/01/24 14:00 ABG pO2 115.0 mmHg (80.0-100.0) H 02/01/24 14:00 ABG PO2/FiO2 Ratio 0 02/01/24 14:00 ABG HCO3 26.9 mmol/L (22-26) H 02/01/24 14:00 ABG Base Excess 1.6 mmol/L (-2.0-2.0) 02/01/24 14:00 Jj Test Pos 02/01/24 14:00 Hematocrit 40.8 % (37-47) 02/01/24 14:00 O2 Delivery Device Nc 02/01/24 14:00 O2 Liters/Min 2.5 % 02/01/24 14:00 FiO2 30.0 % 02/01/24 14:00 Digital Analyst ID glc 02/01/24 14:00 Blood Gas Notified Time 1418 02/01/24 14:00 Sodium 141 mmol/L (136-145) 02/03/24 05:13 Potassium 3.1 mmol/L (3.5-5.1) L 02/03/24 05:13 Chloride 102 mmol/L (98-107) 02/03/24 05:13 Carbon Dioxide 29 mmol/L (22-29) 02/03/24 05:13 Anion Gap 13.1 (5-19) 02/03/24 05:13 BUN 12 mg/dL (8-23) 02/03/24 05:13 Creatinine 0.6 mg/dL (0.5-0.9) 02/03/24 05:13 GFR Calculation Not Reportable 02/03/24 05:13 Glucose 85 mg/dL (65-115) 02/03/24 05:13 POC Glucose 201 mg/dL (70-110) H 02/01/24 15:29 Calculated Osmolality 291 mOsm/kg (285-295) 02/03/24 05:13 Lactic Acid 2.0 mmol/L (0.5-2.2) 02/01/24 13:55 Calcium 10.3 mg/dL (8.5-10.5) 02/03/24 05:13 Magnesium 1.9 mg/dL (1.7-2.3) 02/02/24 05:22 Total Bilirubin 0.4 mg/dL (0.15-1.2) 02/01/24 13:55 AST 17 U/L (0-32) 02/01/24 13:55 ALT 8 U/L (0-33) 02/01/24 13:55 Alkaline Phosphatase 113 U/L (35-105) H 02/01/24 13:55 C-Reactive Protein 127.0 mg/L (0.0-4.9) H 02/02/24 05:22 NT-Pro-B Natriuret Pep 1401 pg/mL (0-450) H 02/01/24 13:55 Total Protein 6.3 g/dL (6.6-8.7) L 02/01/24 13:55 Albumin 3.9 g/dL (3.5-5.2) 02/01/24 13:55 Globulin 2.4 g/dL (1.3-4.6) 02/01/24 13:55 TSH 0.65 uIU/mL (0.27-4.20) 02/01/24 13:55 Urine Color Yellow (Yellow) 02/01/24 14:36 Urine Appearance Slightly cloudy (CLEAR) 02/01/24 14:36 Urine pH 6 (5-7) 02/01/24 14:36 Ur Specific [place] 1.010 (1.005-1.030) 02/01/24 14:36 Urine Protein Neg (Negative) 02/01/24 14:36 Urine Glucose (UA) Norm (Normal) 02/01/24 14:36 Urine Ketones Negative (Negative) 02/01/24 14:36 Urine Blood 2+ (Negative) H 02/01/24 14:36 Urine Nitrate Positive (Negative) H 02/01/24 14:36 Urine Bilirubin Neg (Negative) 02/01/24 14:36 Urine Urobilinogen Norm mg/dL (Negative) 02/01/24 14:36 Ur Leukocyte Esterase 1+ (Negative) H 02/01/24 14:36 Urine RBC 5-10 /hpf (0-2) H 02/01/24 14:36 Urine WBC 10-15 /hpf (0-5) H 02/01/24 14:36 Ur Squamous Epith Cells 0-4 /hpf (0-5) H 02/01/24 14:36 Amorphous Sediment Not Reportable 02/01/24 14:36 Urine Bacteria 1+ /hpf (NONE) H 02/01/24 14:36 Influenza Type A Ag negative (Negative) 02/01/24 15:56 Influenza Type B Ag negative (Negative) 02/01/24 15:56 SARS-CoV-2 Ag (Rapid) negative (Negative) 02/01/24 15:56 Vitals Last Vital Signs Temp 99.2 F 02/06/24 07:38 Pulse 88 02/06/24 08:18 Resp 18 02/06/24 08:18 BP 136/82 02/06/24 07:38 Pulse Ox 99 02/06/24 08:18 O2 Del Method Nasal Cannula 02/06/24 08:18 O2 Flow Rate 1 02/06/24 08:18 Discharge Plan Discharge Patient Disposition: Xfer SNF Condition: Stable Prescriptions: New cefpodoxime 200 mg tablet 200 mg PO BID Qty: 14 0RF Rx Instructions: must administer with a meal/food Continued polyethylene glycol 3350 17 gram/dose powder 17 gm PO DAILY PRN (Reason: Constipation) diltiazem HCl 240 mg capsule,extended release 24 hr 240 mg PO DAILY nystatin 100,000 unit/gram cream 1 applic topical BID PRN (Reason: Rash) furosemide [Lasix] 40 mg tablet 20 mg PO DAILY potassium chloride 20 mEq tablet,ER particles/crystals 20 meq PO DAILY lorazepam 0.5 mg tablet 0.5 mg PO BEDTIME Eliquis 5 mg tablet 5 mg PO BID Qty: 180 3RF Hold Instructions: Resume on 08/16/22. magnesium hydroxide [Milk of Magnesia] 400 mg/5 mL Suspension 30 ml PO DAILY PRN (Reason: Constipation) bisacodyl [Dulcolax (bisacodyl)] 10 mg Suppository 10 mg AR DAILY PRN (Reason: Constipation) acetaminophen 325 mg capsule 500 mg PO Q4H PRN (Reason: fever or pain) Zoloft 100 mg Tablet 100 mg PO DAILY dicyclomine 20 mg tablet 20 mg PO Q8H PRN (Reason: IBS) vitamin H50-gtxyv acid 500-400 mcg Tablet 1 tab PO DAILY Rx Instructions: administer with a meal cholecalciferol (vitamin D3) 1,250 mcg (50,000 unit) Tablet 1,250 mcg PO Q7D Rx Instructions: ON MONDAY Xtampza ER 27 mg cap,sprinkl,ER12hr(DONT CRUSH) 27 mg PO BID pantoprazole 20 mg tablet,delayed release (DR/EC) 20 mg PO BID potassium chloride 20 mEq Tablet,Er Particles/Crystals 20 meq PO BID oxybutynin chloride 5 mg tablet 5 mg PO DAILY loratadine 10 mg Tablet 10 mg PO DAILY Hemorrhoidal Cream 0.25-1 % Cream 1 applic AR BID PRN (Reason: Hemorrhoids) Discharge Orders: Discharge Order (Routine); Ordered 02/06/24 Ordered By: Dorothea Burch Referrals: Daniel Hamilton MD [Primary Care Provider] - Discharge Attestations Time Spent in Discharge Care*: greater than 30 min Status at Discharge: Cognitive status at discharge: cognitively intact , Behavioral status at discharge: cooperative , Quality Metrics Clinical Quality Measures [ No reported AMI, CVA or VTE this stay] Coding Level of Care Code Acute Code for Chg Fwd Diagnoses FLORENTIN (generalized anxiety disorder) F41.1 Chronic diastolic heart failure I50.32 Heart failure chronicity: chronic Atrial fibrillation, unspecified type I48.91 Atrial fibrillation type: unspecified Delirium R41.0 Altered mental status R41.82 Primary insomnia F51.01 Insomnia type: primary Shortness of breath on exertion R06.02 Gastroesophageal reflux disease, esophagitis presence not specified K21.9 Esophagitis presence: esophagitis presence not specified Macrocytic anemia D53.9 Acute UTI N39.0
[2024-02-06 11:24] LABS: SARS Covid-2 Antigen negative (Negative)
--- NOTE | 2024-02-06 13:42 | PC.NURSE ---
Discharge pending authorization per CM.
[2024-02-06] MEDS: nystatin cream 30 gm 1 APPLIC TOPICAL (17:18)
--- NOTE | 2024-02-06 19:19 | PM.PN ---
Subjective Subjective: Patient endorsing feeling better Plan to discharge her today versus tomorrow Vitals/I&O/Wt Last Vital Signs Temp 97.9 F 02/06/24 16:00 Pulse 81 02/06/24 16:00 Resp 18 02/06/24 17:18 BP 117/72 02/06/24 16:00 Pulse Ox 99 02/06/24 17:18 O2 Del Method Nasal Cannula 02/06/24 16:00 O2 Flow Rate 1 02/06/24 08:18 02/06/24 02/06/24 02/06/24 06:59 14:59 22:59 Intake Total 480 / 1700 240 / 240 240 / 480 Balance 480 / 1700 240 / 240 240 / 480 Weight last 48 hrs Weight 73.567 kg Weight 76.345 kg Physical Exam Narrative: Awake and alert GCS 15 Currently on 1.5 to 2 L Pleasant cough Abdomen soft Able to answer all my questions Ecchymosis around the IV line left arm Data 02/03/24 05:13 02/03/24 05:13 Micro: Microbiology 02/01/24 13:55 Blood Culture - Final Blood NO GROWTH AFTER 5 DAYS A&P Assessment and plan (1) FLORENTIN (generalized anxiety disorder): (2) Delirium: (3) Altered mental status: (4) Acute UTI: Plan Awaiting placement Continue antibiotics Currently on oral antibiotics Continue Eliquis for A-fib Medically cleared to be discharged awaiting authorization Attestations Medical Necessity Statement*: Awaiting placement Coding Level of Care Code Acute Code for [facility] Fwd Diagnoses FLORENTIN (generalized anxiety disorder) F41.1 Delirium R41.0 Altered mental status R41.82 Acute UTI N39.0
[2024-02-06] MEDS: LORazepam 0.5 mg Tablet PO (20:08)
[2024-02-07] VITALS (7 sets, daily range): BP systolic 119–140; BP diastolic 68–82; PULSE 75–89; RESP 16–18; TEMP 36.4–37.4; O2SAT 92–99
[2024-02-07] MEDS: oxyCODONE 5 mg IR Tab/Cap PO ×2 (03:45→09:06)
[2024-02-07] MEDS: acetaminophen 500 mg Tablet PO ×2 (05:14→13:33)
[2024-02-07] MEDS: cefdinir 300 MG CAPSULE PO (09:05)
[2024-02-07] MEDS: oxybutynin 5 mg Tablet PO (09:05)
[2024-02-07] MEDS: sertraline 100 mg Tablet PO (09:06)
[2024-02-07] MEDS: dilTIAZem ER (24HR) 240 mg Capsule PO (09:06)
[2024-02-07] MEDS: FUROsemide 40 mg Tablet 20 MG PO (09:06)
[2024-02-07] MEDS: loratadine 10 mg Tablet PO (09:06)
[2024-02-07] MEDS: sennosides-docusate Tablet 1 TAB PO (09:06)
[2024-02-07] MEDS: potassium chloride ER 20 mEq Tablet PO (09:06)
[2024-02-07] MEDS: pantoprazole DR 40 mg Tablet PO (09:07)
[2024-02-07] MEDS: nystatin cream 30 gm 1 APPLIC TOPICAL (09:07)
[2024-02-07] MEDS: apixaban 5 mg Tablet PO (09:07)
[2024-02-07] MEDS: lidocaine 5% Patch 2 PATCH TOPICAL (09:09)
--- NOTE | 2024-02-07 11:28 | PM.DCS ---
Discharge Providers Date of Admission: 02/05/24 11:05 Date of Discharge: February 07, 2024 Attending Provider at Admission: Dorothea Burch MD Attending Provider at Discharge: Dorothea Burch MD Primary Care Provider: Daniel Hamilton MD Diagnoses at Discharge Discharge Diagnosis (1) FLORENTIN (generalized anxiety disorder): Status: Acute (2) Delirium: Status: Acute (3) Altered mental status: Status: Acute (4) Acute UTI: Status: Acute Reason for Visit Reason for Visit: ams, possible sepsis Hospital Course Hospital Course 6-year-old female who present to the hospital with sepsis related to UTI, metabolic encephalopathy, during hospitalization her metabolic encephalopathy improved significantly, she was given IV fluid hydration along antibiotics, at the time of discharge she will be given cefpodoxime 7-day regimen, she is being discharged with stable hemodynamics, she is alert and oriented, no active encephalopathy, patient will be discharged back to her fdc. At baseline she uses 2 L of oxygen at nighttime. She is DNR/DNI. She will resume her Eliquis for A-fib. Her stay in the hospital was prolonged secondary to . Physical Exam Narrative: Awake and alert GCS 15 Currently on 1.5 to 2 L Pleasant cough Abdomen soft Able to answer all my questions Ecchymosis around the IV line left arm Discharge Data Studies Completed and Pending Completed Studies During Hospitalization Category Date Time Status CT head wo con* [id number] Stat Cat Scan 02/01/24 13:46 Completed XR chest 1V portable [id number] Stat Exams 02/01/24 13:46 Completed Radiology Impressions Chest X-Ray 02/01/24 13:46 Impression: Atherosclerosis and cardiomegaly. Head CT 02/01/24 13:46 IMPRESSION: 1. Advanced cerebral atrophy. 2. No acute intracranial hemorrhage or edema. 3. Stable noncontrast head CT since 12/09/2023 Laboratory Results WBC 8.59 10^3/uL (3.29-11.43) 02/03/24 05:13 RBC 4.33 10^6/uL (3.85-5.65) 02/03/24 05:13 Hgb 11.10 g/dL (11.27-16.99) L 02/03/24 05:13 Hct 37.8 % (36-47) 02/03/24 05:13 MCV 87.3 fl (85-98) 02/03/24 05:13 MCH 25.6 pg (27-33) L 02/03/24 05:13 MCHC 29.4 g/dL (30-55) L 02/03/24 05:13 RDW 16.5 % (12.1-15.1) H 02/03/24 05:13 Plt Count 149 10^3/cmm (157-399) L 02/03/24 05:13 MPV 10.7 fL (7.4-10.4) H 02/03/24 05:13 Neut % (Auto) 77.6 % 02/03/24 05:13 Lymph % (Auto) 12.6 % 02/03/24 05:13 [place] % (Auto) 9.2 % 02/03/24 05:13 Eos % (Auto) 0.2 % 02/03/24 05:13 Baso % (Auto) 0.1 % 02/03/24 05:13 Neut # (Auto) 6.66 10^3/uL (1.8-7.7) 02/03/24 05:13 Lymph # (Auto) 1.1 10^3/uL (0.8-4.8) 02/03/24 05:13 [place] # (Auto) 0.8 10^3/uL (0.2-0.9) 02/03/24 05:13 Eos # (Auto) 0.0 10^3/uL (0.0-0.8) 02/03/24 05:13 Baso # (Auto) 0.0 10^3/uL (0.0-0.1) 02/03/24 05:13 Nucleated RBC % (auto) 0 % 02/03/24 05:13 Nucleated RBCs # 0.0 /100WBC 02/03/24 05:13 PT 15.60 SECONDS (12.1-14.9) H 02/01/24 13:55 INR 1.20 (0.8-1.2) 02/01/24 13:55 Specimen Type Arterial 02/01/24 14:00 Sample Site Radial, left 02/01/24 14:00 ABG pH 7.39 (7.35-7.45) 02/01/24 14:00 ABG pCO2 44.0 mmHg (35-45) 02/01/24 14:00 ABG pO2 115.0 mmHg (80.0-100.0) H 02/01/24 14:00 ABG PO2/FiO2 Ratio 0 02/01/24 14:00 ABG HCO3 26.9 mmol/L (22-26) H 02/01/24 14:00 ABG Base Excess 1.6 mmol/L (-2.0-2.0) 02/01/24 14:00 Jj Test Pos 02/01/24 14:00 Hematocrit 40.8 % (37-47) 02/01/24 14:00 O2 Delivery Device Nc 02/01/24 14:00 O2 Liters/Min 2.5 % 02/01/24 14:00 FiO2 30.0 % 02/01/24 14:00 Environmental Protection Inspector ID glc 02/01/24 14:00 Blood Gas Notified Time 1418 02/01/24 14:00 Sodium 141 mmol/L (136-145) 02/03/24 05:13 Potassium 3.1 mmol/L (3.5-5.1) L 02/03/24 05:13 Chloride 102 mmol/L (98-107) 02/03/24 05:13 Carbon Dioxide 29 mmol/L (22-29) 02/03/24 05:13 Anion Gap 13.1 (5-19) 02/03/24 05:13 BUN 12 mg/dL (8-23) 02/03/24 05:13 Creatinine 0.6 mg/dL (0.5-0.9) 02/03/24 05:13 GFR Calculation Not Reportable 02/03/24 05:13 Glucose 85 mg/dL (65-115) 02/03/24 05:13 POC Glucose 201 mg/dL (70-110) H 02/01/24 15:29 Calculated Osmolality 291 mOsm/kg (285-295) 02/03/24 05:13 Lactic Acid 2.0 mmol/L (0.5-2.2) 02/01/24 13:55 Calcium 10.3 mg/dL (8.5-10.5) 02/03/24 05:13 Magnesium 2.0 mg/dL (1.7-2.3) 02/07/24 05:32 Total Bilirubin 0.4 mg/dL (0.15-1.2) 02/01/24 13:55 AST 17 U/L (0-32) 02/01/24 13:55 ALT 8 U/L (0-33) 02/01/24 13:55 Alkaline Phosphatase 113 U/L (35-105) H 02/01/24 13:55 C-Reactive Protein 127.0 mg/L (0.0-4.9) H 02/02/24 05:22 NT-Pro-B Natriuret Pep 1401 pg/mL (0-450) H 02/01/24 13:55 Total Protein 6.3 g/dL (6.6-8.7) L 02/01/24 13:55 Albumin 3.9 g/dL (3.5-5.2) 02/01/24 13:55 Globulin 2.4 g/dL (1.3-4.6) 02/01/24 13:55 TSH 0.65 uIU/mL (0.27-4.20) 02/01/24 13:55 Urine Color Yellow (Yellow) 02/01/24 14:36 Urine Appearance Slightly cloudy (CLEAR) 02/01/24 14:36 Urine pH 6 (5-7) 02/01/24 14:36 Ur Specific [place] 1.010 (1.005-1.030) 02/01/24 14:36 Urine Protein Neg (Negative) 02/01/24 14:36 Urine Glucose (UA) Norm (Normal) 02/01/24 14:36 Urine Ketones Negative (Negative) 02/01/24 14:36 Urine Blood 2+ (Negative) H 02/01/24 14:36 Urine Nitrate Positive (Negative) H 02/01/24 14:36 Urine Bilirubin Neg (Negative) 02/01/24 14:36 Urine Urobilinogen Norm mg/dL (Negative) 02/01/24 14:36 Ur Leukocyte Esterase 1+ (Negative) H 02/01/24 14:36 Urine RBC 5-10 /hpf (0-2) H 02/01/24 14:36 Urine WBC 10-15 /hpf (0-5) H 02/01/24 14:36 Ur Squamous Epith Cells 0-4 /hpf (0-5) H 02/01/24 14:36 Amorphous Sediment Not Reportable 02/01/24 14:36 Urine Bacteria 1+ /hpf (NONE) H 02/01/24 14:36 Influenza Type A Ag negative (Negative) 02/01/24 15:56 Influenza Type B Ag negative (Negative) 02/01/24 15:56 SARS-CoV-2 Ag (Rapid) negative (Negative) 02/06/24 10:42 Vitals Last Vital Signs Temp 97.8 F 02/07/24 07:39 Pulse 85 02/07/24 07:45 Resp 18 02/07/24 09:06 BP 119/81 02/07/24 07:39 Pulse Ox 99 02/07/24 09:06 O2 Del Method Nasal Cannula 02/07/24 07:45 O2 Flow Rate 0.5 02/07/24 07:45 Discharge Plan Discharge Patient Disposition: Xfer SNF Condition: Stable Prescriptions: New cefpodoxime 200 mg tablet 200 mg PO BID Qty: 14 0RF Rx Instructions: must administer with a meal/food Continued polyethylene glycol 3350 17 gram/dose powder 17 gm PO DAILY PRN (Reason: Constipation) diltiazem HCl 240 mg capsule,extended release 24 hr 240 mg PO DAILY nystatin 100,000 unit/gram cream 1 applic topical BID PRN (Reason: Rash) furosemide [Lasix] 40 mg tablet 20 mg PO DAILY potassium chloride 20 mEq tablet,ER particles/crystals 20 meq PO DAILY lorazepam 0.5 mg tablet 0.5 mg PO BEDTIME Eliquis 5 mg tablet 5 mg PO BID Qty: 180 3RF Hold Instructions: Resume on 08/16/22. magnesium hydroxide [Milk of Magnesia] 400 mg/5 mL Suspension 30 ml PO DAILY PRN (Reason: Constipation) bisacodyl [Dulcolax (bisacodyl)] 10 mg Suppository 10 mg [place] DAILY PRN (Reason: Constipation) acetaminophen 325 mg capsule 500 mg PO Q4H PRN (Reason: fever or pain) Zoloft 100 mg Tablet 100 mg PO DAILY dicyclomine 20 mg tablet 20 mg PO Q8H PRN (Reason: IBS) vitamin F75-cnist acid 500-400 mcg Tablet 1 tab PO DAILY Rx Instructions: administer with a meal cholecalciferol (vitamin D3) 1,250 mcg (50,000 unit) Tablet 1,250 mcg PO Q7D Rx Instructions: ON MONDAY Xtampza ER 27 mg cap,sprinkl,ER12hr(DONT CRUSH) 27 mg PO BID pantoprazole 20 mg tablet,delayed release (DR/EC) 20 mg PO BID potassium chloride 20 mEq Tablet,Er Particles/Crystals 20 meq PO BID oxybutynin chloride 5 mg tablet 5 mg PO DAILY loratadine 10 mg Tablet 10 mg PO DAILY Hemorrhoidal Cream 0.25-1 % Cream 1 applic PA BID PRN (Reason: Hemorrhoids) Discharge Orders: Discharge Order (Routine); Ordered 02/07/24 Ordered By: Dorothea Burch Referrals: Daniel Hamilton MD [Primary Care Provider] - Patient Instructions: Cefpodoxime Proxetil (By mouth) Discharge Attestations Time Spent in Discharge Care*: greater than 30 min Status at Discharge: Cognitive status at discharge: cognitively intact, Behavioral status at discharge: cooperative, Quality Metrics Clinical Quality Measures [ No reported AMI, CVA or VTE this stay] Coding Level of Care Code Acute Code for Chg Fwd Diagnoses FLORENTIN (generalized anxiety disorder) F41.1 Delirium R41.0 Altered mental status R41.82 Acute UTI N39.0
--- NOTE | 2024-02-07 13:08 | PC.NURSE ---
This nurse called report to Eusebia at [facility] at [phone]. Christine with [facility] is setting up a medicaid ride. D/C pending transportation.
== END 2024-02-07 13:43 | disposition skilled nursing facility (03) | DRG 871 ==
LOC: ER 16:14 → MEDSURG 22:42
PROVIDERS: Internal Medicine; Admitting Provider Internal Medicine; Emergency Provider Emergency Medicine; PCP Family Medicine; Visit Provider Internal Medicine
DX: A41.9 Sepsis, unspecified organism (principal); G93.41 Metabolic encephalopathy; N39.0 Urinary tract infection, site not specified; I50.32 Chronic diastolic (congestive) heart failure; I48.20 Chronic atrial fibrillation, unspecified; G89.29 Other chronic pain; M54.9 Dorsalgia, unspecified; M54.2 Cervicalgia; I11.0 Hypertensive heart disease with heart failure; G31.84 Mild cognitive impairment of uncertain or unknown etiology; Z66 Do not resuscitate; M17.12 Unilateral primary osteoarthritis, left knee; J44.9 Chronic obstructive pulmonary disease, unspecified; E78.00 Pure hypercholesterolemia, unspecified; G47.30 Sleep apnea, unspecified; F17.210 Nicotine dependence, cigarettes, uncomplicated; E87.6 Hypokalemia; R09.02 Hypoxemia; E86.0 Dehydration; F51.01 Primary insomnia; D53.9 Nutritional anemia, unspecified; K21.9 Gastro-esophageal reflux disease without esophagitis; F41.1 Generalized anxiety disorder; Z11.52 Encounter for screening for COVID-19; Z79.01 Long term (current) use of anticoagulants
CPT/HCPCS: 36415; 36416; 36569; 36573; 36600; 70450; 71045; 80048; 80053; 81001; 82803; 82962; 83605; 83735; 83880; 84443; 85025; 85610; 86140; 87040; 87077; 87086; 87186; 87426; 87804; 93005; 96365; 96366; 96367; 96372; 96375; 97110; 97161; 97530; 99285; C1751; G0378; J0131; J0456; J0696; J1940; J2060; J2270; J2405; J3490; J7030; J7050

== ENCOUNTER 2024-05-23 19:59 | Emergency (ER) | payer OTHER, MEDICAID, SELFPAY ==
[2024-05-23 20:01] VITALS: BP 129/68; PULSE 81; RESP 20; TEMP 36.6; O2SAT 97; BMI 35.9
--- NOTE | 2024-05-23 20:03 | XRR_ITS ---
PROCEDURE INFORMATION: Exam: XR Left Hip Exam date and time: 05/23/2024 8:10 PM Age: 79 years old Clinical indication: Injury or trauma; Fall; Blunt trauma (contusions or hematomas); Left; Pelvic region; Additional info: Fall, left hip pain. With pelvis TECHNIQUE: Imaging protocol: Radiologic exam of the left hip. Views: 2 or 3 views hip with pelvis when performed. COMPARISON: CT bony pelvis [id number] 08/11/2023 10:49 PM FINDINGS: Bones/joints: Mild degenerative disease of the left hip joint. No acute fracture or dislocation. No suspicious osseous lesion. Chondrocalcinosis of the symphysis pubis. Demineralization of the visualized bones. Soft tissues: Unremarkable. Vasculature: Pelvic phleboliths. XR/XR hip LT 2-3V wo/w pel* [id number] IMPRESSION: Demineralization of the visualized bones, limiting sensitivity for nondisplaced fractures. No displaced fracture.
--- NOTE | 2024-05-23 20:08 | W.ED.FALL ---
HPI - Fall General: Chief Complaint: Fall Stated Complaint: FALL Time Seen by Provider: 05/23/24 20:00 History of Present Illness: 79-year-old female with a history of anxiety, A-fib, congestive heart failure, COPD, hyperlipidemia who presents to the emergency room by ambulance after she fell trying to transition into her wheelchair. She is having some left hip pain. No obvious deformities. No shortening. No rotation. Complains of pain in the left hip with movement. No head injury. No other injuries. No skin tears. No chest pain. No shortness of breath. Related Data Home Medications Medication Instructions Recorded Confirmed polyethylene glycol 3350 17 17 gm PO DAILY PRN Constipation 09/14/19 02/01/24 gram/dose oral powder bisacodyl 10 mg rectal suppository 10 mg NH DAILY PRN Constipation 05/11/21 02/01/24 (Dulcolax (bisacodyl)) magnesium hydroxide 400 mg/5 mL 30 ml PO DAILY PRN Constipation 05/11/21 02/01/24 oral suspension (Milk of Cimetrix) diltiazem HCl 240 mg capsule,24 240 mg PO DAILY 10/22/21 02/01/24 hr,extended release nystatin 100,000 unit/gram topical 1 applic topical BID PRN Rash 10/22/21 02/01/24 cream lorazepam 0.5 mg tablet 0.5 mg PO BEDTIME 03/10/22 02/01/24 furosemide 40 mg tablet (Lasix) 20 mg PO DAILY 06/22/22 02/01/24 potassium chloride 20 mEq 20 meq PO DAILY 06/22/22 02/01/24 tablet,extended release(part/cryst) acetaminophen 325 mg capsule 500 mg PO Q4H PRN fever or pain 08/09/22 02/01/24 cholecalciferol (vitamin D3) 1,250 1,250 mcg PO Q7D 02/01/24 02/01/24 mcg (50,000 unit) tablet dicyclomine 20 mg tablet 20 mg PO Q8H PRN IBS 02/01/24 02/01/24 loratadine 10 mg tablet 10 mg PO DAILY 02/01/24 02/01/24 oxybutynin chloride 5 mg tablet 5 mg PO DAILY 02/01/24 02/01/24 oxycodone myristate 27 mg capsule 27 mg PO BID 02/01/24 02/01/24 sprinkle extended release 12hr(DON'T CRUSH) (Xtampza ER) pantoprazole 20 mg tablet,delayed 20 mg PO BID 02/01/24 02/01/24 release phenylephrine 0.25 %-pramoxine 1 1 applic NH BID PRN Hemorrhoids 02/01/24 02/01/24 %-glycerin-wh.petrolatum rectal cream (Hemorrhoidal Cream) potassium chloride 20 mEq 20 meq PO BID 02/01/24 02/01/24 tablet,extended release(part/cryst) sertraline 100 mg tablet (Zoloft) 100 mg PO DAILY 02/01/24 02/01/24 vitamin B12 500 mcg-folic acid 400 1 tab PO DAILY 02/01/24 02/01/24 mcg tablet Previous Rx's Medication Instructions Recorded apixaban 5 mg tablet (Eliquis) 5 mg PO BID #180 tabs 12/09/21 cefpodoxime 200 mg tablet 200 mg PO BID #14 tabs 02/06/24 hydrocodone 5 mg-acetaminophen 325 1 tab PO Q8H PRN pain #14 tabs 05/23/24 mg tablet polyethylene glycol 3350 17 17 g PO DAILY #510 grams 05/23/24 gram/dose oral powder (Miralax) Allergies Allergy/AdvReac Type Severity Reaction Status Date / Time fluoxetine Allergy Unknown Unknown Verified 01/18/24 14:52 nabumetone Allergy Unknown unknown Verified 01/18/24 14:52 Penicillins Allergy Unknown Unknown Verified 01/18/24 14:52 ciprofloxacin [From Cipro] Allergy NA Verified 01/18/24 14:52 penicillin G Allergy NA Verified 01/18/24 14:52 pentazocine [From Talwin] Allergy NA Verified 01/18/24 14:52 Sulfa (Sulfonamide Allergy NA Verified 01/18/24 14:52 Antibiotics) zolpidem [From Ambien] Allergy hallucinati Verified 01/18/24 14:52 ons Review of Systems Narrative: Constitutional symptoms: Negative except as documented in HPI. Skin symptoms: Negative except as documented in HPI. Eye symptoms: Negative except as documented in HPI. ENMT symptoms: Negative except as documented in HPI. Respiratory symptoms: Negative except as documented in HPI. Cardiovascular symptoms: Negative except as documented in HPI. Gastrointestinal symptoms: Negative except as documented in HPI. Genitourinary symptoms: Negative except as documented in HPI. Musculoskeletal symptoms: Negative except as documented in HPI. Neurologic symptoms: Negative except as documented in HPI. Psychiatric symptoms: Negative except as documented in HPI. Endocrine symptoms: Negative except as documented in HPI. PFSH ED PFSH: Medical History (Updated 05/23/24 @ 21:32 by Monika Thao MD) Delirium Altered mental status Fever Acute cystitis Atrial fibrillation LFORENTIN (generalized anxiety disorder) Macrocytic anemia Insomnia Shortness of breath on exertion Acute UTI Aftercare following surgery of the genitourinary system Diastolic heart failure Fracture of ribs, multiple Acute exacerbation of CHF (congestive heart failure) UTI (urinary tract infection) Urolithiasis Benign essential hypertension with target blood pressure below 140/90 Chronic episodic atrial fibrillation Osteoarthritis of left knee Chronic venous insufficiency of lower extremity Urgency incontinence Recurrent UTI COPD (chronic obstructive pulmonary disease) Other cervical disc displacement, unspecified cervical region GERD (gastroesophageal reflux disease) Hypercholesterolemia Sleep apnea Surgical History (Updated 02/08/24 @ 00:02 by GAL Valenzuela) H/O of anterior colporrhaphy 07/21/2021- anterior colporrhaphy, single incision mid urethral sling and cystoscopy performed by Dr. Wilder at [facility] Status post colonoscopy (07/14/20) H/O esophagogastroduodenoscopy (07/14/20) S/P hysterectomy History of cholecystectomy History of appendectomy H/O knee surgery H/O shoulder surgery H/O cataract extraction Family History Father Stroke Mother Cancer BLADDER, BREAST Brother Cancer ESOPHAGEAL Family/Other Cancer Sister Cancer Suicide Denies family history of Diabetes CAD (coronary artery disease) Clotting disorder Dementia Chronic kidney disease (CKD) Anesthesia complication Bleeding disorder Lung disease Social History Smoking and tobacco/nicotine status: current every day tobacco/nicotine user cigarettes Alcohol intake: never Substance/Drug Use: never Marital status: Current occupational status: disabled Physical Exam Narrative: EXAM NARRATIVE: General: Alert, no acute distress. Skin: Warm, dry. Head: Normocephalic, atraumatic. Neck: Supple, trachea midline. Eye: Extraocular movements are intact. Ears, nose, mouth and throat: mucosa moist. Cardiovascular: Regular, Normal peripheral perfusion. Respiratory: Lungs are clear to auscultation, respirations are non-labored, breath sounds are equal, Symmetrical chest wall expansion. Gastrointestinal: Soft, Nontender, Non distended Musculoskeletal: No obvious deformity. No shortening. No rotation. Pain in the left hip with movement of the leg. Neurovascularly intact. Neurological: Alert and oriented, No focal neurological deficit observed. Psychiatric: Cooperative, appropriate mood & affect. Course Vital Signs: Vital signs: Vital Signs Temperature 98 F 05/23/24 20:01 Pulse Rate 81 05/23/24 21:14 Respiratory Rate 20 H 05/23/24 20:01 Blood Pressure 115/67 05/23/24 21:14 Pulse Oximetry 96 05/23/24 21:14 MDM - Fall Medical Decision Making X-ray of the left hip and pelvis: No obvious fractures. No dislocation. No pelvic fractures. Given the level of her pain I have ordered a CT scan to evaluate for occult fractures. This was reviewed and interpreted by myself the emergency room physician. I also reviewed the radiology report. CT of the pelvis and left hip: No fractures or dislocations. This was reviewed and interpreted by myself the emergency room physician. I also reviewed the radiology report. Sepsis alert: I assume this was because her respiratory rate was 20. This is secondary to pain. No lab work was done or needed. Her blood pressure has been normal her heart rate has been normal. She is not septic. Assessment and plan: Fall Hip injury ? [place] in the emergency room. - Discharged home - Discussed plan with patient. Answered any questions. - Evaluation and treatment of this problem were appropriate in the emergency setting. Lab Data Radiology Impressions Hip/Pelvis X-Ray 05/23/24 20:03 IMPRESSION: Demineralization of the visualized bones, limiting sensitivity for nondisplaced fractures. No displaced fracture. Pelvis CT 05/23/24 20:19 IMPRESSION: No acute fracture or dislocation. All radiology interpretation(s) finalized by discharge Discharge Plan Discharge Patient Disposition: Home Clinical Impression: Fall, Hip injury Condition: Stable Prescriptions: New hydrocodone-acetaminophen 5-325 mg tablet 1 tab PO Q8H PRN (Reason: pain) Qty: 14 0RF Rx Instructions: Take 1/2 to 1 tab every 8 hours as needed for pain Miralax 17 gram/dose powder 17 g PO DAILY Qty: 510 0RF Rx Instructions: Take 1 scoop daily while taking pain medications. No Action polyethylene glycol 3350 17 gram/dose powder 17 gm PO DAILY PRN (Reason: Constipation) diltiazem HCl 240 mg capsule,extended release 24 hr 240 mg PO DAILY nystatin 100,000 unit/gram cream 1 applic topical BID PRN (Reason: Rash) furosemide [Lasix] 40 mg tablet 20 mg PO DAILY potassium chloride 20 mEq tablet,ER particles/crystals 20 meq PO DAILY lorazepam 0.5 mg tablet 0.5 mg PO BEDTIME Eliquis 5 mg tablet 5 mg PO BID Qty: 180 3RF Hold Instructions: Resume on 08/16/22. magnesium hydroxide [Milk of Magnesia] 400 mg/5 mL Suspension 30 ml PO DAILY PRN (Reason: Constipation) bisacodyl [Dulcolax (bisacodyl)] 10 mg Suppository 10 mg NH DAILY PRN (Reason: Constipation) acetaminophen 325 mg capsule 500 mg PO Q4H PRN (Reason: fever or pain) Zoloft 100 mg Tablet 100 mg PO DAILY dicyclomine 20 mg tablet 20 mg PO Q8H PRN (Reason: IBS) vitamin Z59-gzydg acid 500-400 mcg Tablet 1 tab PO DAILY Rx Instructions: administer with a meal cholecalciferol (vitamin D3) 1,250 mcg (50,000 unit) Tablet 1,250 mcg PO Q7D Rx Instructions: ON MONDAY Xtampza ER 27 mg cap,sprinkl,ER12hr(DONT CRUSH) 27 mg PO BID pantoprazole 20 mg tablet,delayed release (DR/EC) 20 mg PO BID potassium chloride 20 mEq Tablet,Er Particles/Crystals 20 meq PO BID oxybutynin chloride 5 mg tablet 5 mg PO DAILY loratadine 10 mg Tablet 10 mg PO DAILY Hemorrhoidal Cream 0.25-1 % Cream 1 applic NH BID PRN (Reason: Hemorrhoids) cefpodoxime 200 mg tablet 200 mg PO BID Qty: 14 0RF Rx Instructions: must administer with a meal/food Discharge Orders: Discharge ED (Routine); Ordered 05/23/24 Ordered By: Monika Thao Referrals: Daniel Hamilton MD [Primary Care Provider] - Discharge Diet: Usual diet Discharge Activity: Increase activity as tolerated Patient Instructions: Opioid Safety, Pain Management Activity Restrictions/Additional Instructions: Thank you for choosing [facility] for your healthcare needs today. Please realize this is an emergency room and that we are providing you with a medical screening exam and this may not be complete and all inclusive of all the testing and or work up that you may need to determine your ailment or severity of your illness. You have been screened and evaluated and felt safe for discharge. Health conditions do change or evolve sometimes and as such it is important that you follow up with your Primary Doctor to be re checked, 3-5 days is a general good time frame for follow up. You are always welcome to return to the ED for re assessment if your symptoms are worsening or you have new concerns Coding Level of Care Code ED Wide Piece Goods Inspector for Leta Albarran
--- NOTE | 2024-05-23 20:19 | CTR_ITS ---
PROCEDURE INFORMATION: Exam: CT Pelvis Without Contrast, Skeleton Exam date and time: 05/23/2024 8:28 PM Age: 79 years old Clinical indication: Injury or trauma; Fall; Other: Pain; Additional info: Traumatic pelvic pain, left hip TECHNIQUE: Imaging protocol: Computed tomography of the pelvis without contrast. Exam focused on the skeleton. Radiation optimization: All CT scans at this facility use at least one of these dose optimization techniques: automated exposure control; mA and/or kV adjustment per patient size (includes targeted exams where dose is matched to clinical indication); or iterative reconstruction. COMPARISON: CT bony pelvis [id number] 08/11/2023 10:49 PM RADIATION DOSE METRICS: Total DLP (mGy-cm): 560 FINDINGS: Kidneys and ureters: Nonobstructing stone in the lower pole of the left kidney measuring 9 mm. Bones/joints: Demineralization of the visualized bones. Mild degenerative disease of bilateral sacroiliac joints and bilateral hip joints. Right gluteal calcific tendinosis. Chondrocalcinosis of the symphysis pubis. Bilateral facet joint arthropathy at L5-S1 with anterolisthesis. Soft tissues: Unremarkable. CT/CT pelvis wo con [id number] IMPRESSION: No acute fracture or dislocation.
[2024-05-23 20:54] VITALS: BP 118/74; PULSE 77; O2SAT 96
[2024-05-23 21:14] VITALS: BP 115/67; PULSE 81; O2SAT 96
--- NOTE | 2024-05-23 21:18 | PC.NURSE ---
This nurse updated patient's daughter Lola on current pending status of tests and informed daughter that primary nurse would call with any updates.
[2024-05-23 21:48] VITALS: BP 118/78; PULSE 75; O2SAT 95
[2024-05-23 21:52] VITALS: RESP 18
[2024-05-23] MEDS: oxyCODONE-APAP 10-325 mg Tablet 1 TAB PO (21:52)
--- NOTE | 2024-05-23 22:06 | PC.NURSE ---
Report called to Carolina Joel at 2006.
[2024-05-23 23:08] VITALS: BP 124/85; PULSE 72; O2SAT 96
== END 2024-05-23 22:45 | disposition home or self-care (01) ==
PROVIDERS: Emergency Provider Emergency Medicine; PCP Family Medicine
DX: S79.912A Unspecified injury of left hip, initial encounter (principal); I11.0 Hypertensive heart disease with heart failure; I50.9 Heart failure, unspecified; J44.9 Chronic obstructive pulmonary disease, unspecified; E78.5 Hyperlipidemia, unspecified; W05.0XXA Fall from non-moving wheelchair, initial encounter; F17.210 Nicotine dependence, cigarettes, uncomplicated; Z79.01 Long term (current) use of anticoagulants
CPT/HCPCS: 72192; 73502; 99284

== ENCOUNTER 2024-07-27 12:07 | Emergency (ER) | payer OTHER, MEDICAID, SELFPAY ==
[2024-07-27 12:12] VITALS: BP 113/72; PULSE 68; RESP 18; TEMP 36.6; O2SAT 96; BMI 32.5
--- NOTE | 2024-07-27 12:18 | ED_ITS ---
HPI - General Adult General: Chief complaint: General Medical Stated complaint: replaced picc line Time Seen by Provider: 07/27/24 12:15 Source: EMS Mode of arrival: EMS Limitations: no limitations History of Present Illness: 79-year-old female here from [facility] patient has left lower leg cellulitis she has been on IV antibiotics through a PICC line she had pulled her PICC line out today [facility] sent her here for PICC replacement no fever she has no complaints this time Associated symptoms: Deny chest pain, dyspnea, headache(s), nausea, rash or vomiting Related Data Home Medications Medication Instructions Recorded Confirmed bisacodyl 10 mg rectal suppository 10 mg PA DAILY PRN Constipation 05/11/21 07/27/24 (Dulcolax (bisacodyl)) diltiazem HCl 240 mg capsule,24 240 mg PO DAILY 10/22/21 07/27/24 hr,extended release lorazepam 0.5 mg tablet 0.5 mg PO BEDTIME 03/10/22 07/27/24 potassium chloride 20 mEq 20 meq PO DAILY 06/22/22 07/27/24 tablet,extended release(part/cryst) acetaminophen 325 mg capsule 500 mg PO Q4H PRN fever or pain 08/09/22 07/27/24 oxybutynin chloride 5 mg tablet 5 mg PO DAILY 02/01/24 07/27/24 pantoprazole 20 mg tablet,delayed 20 mg PO BID 02/01/24 07/27/24 release vitamin B12 500 mcg-folic acid 400 1 tab PO DAILY 02/01/24 07/27/24 mcg tablet acetaminophen 500 mg tablet 1,000 mg PO DAILY PRN Pain 07/27/24 07/27/24 apixaban 5 mg tablet (Eliquis) 5 mg PO BID 07/27/24 07/27/24 cetirizine 10 mg tablet 10 mg PO DAILY 07/27/24 07/27/24 esomeprazole magnesium 40 mg 40 mg PO DAILY 07/27/24 07/27/24 capsule,delayed release fluticasone propionate 50 1 spray intranasal DAILY 07/27/24 07/27/24 mcg/actuation nasal spray,suspension oxycodone myristate 27 mg capsule 27 mg PO DAILY 07/27/24 07/27/24 sprinkle extended release 12hr(DON'T CRUSH) (Xtampza ER) sucralfate 1 gram tablet 1 g PO TID 07/27/24 07/27/24 vit A 7,160 unit-vit C 113 mg-vit 1 tab PO DAILY 07/27/24 07/27/24 E 100 ytzz-lazf-eiludf tablet Previous Rx's Medication Instructions Recorded apixaban 5 mg tablet (Eliquis) 5 mg PO BID #180 tabs 12/09/21 hydrocodone 5 mg-acetaminophen 325 1 tab PO Q8H PRN pain #14 tabs 05/23/24 mg tablet polyethylene glycol 3350 17 17 g PO DAILY #510 grams 05/23/24 gram/dose oral powder (Miralax) Allergies Allergy/AdvReac Type Severity Reaction Status Date / Time fluoxetine Allergy Unknown Unknown Verified 01/18/24 14:52 nabumetone Allergy Unknown unknown Verified 01/18/24 14:52 Penicillins Allergy Unknown Unknown Verified 01/18/24 14:52 ciprofloxacin [From Cipro] Allergy NA Verified 01/18/24 14:52 penicillin G Allergy NA Verified 01/18/24 14:52 pentazocine [From Talwin] Allergy NA Verified 01/18/24 14:52 Sulfa (Sulfonamide Allergy NA Verified 01/18/24 14:52 Antibiotics) zolpidem [From Ambien] Allergy hallucinati Verified 01/18/24 14:52 ons Review of Systems Const: Denies: fever(s), chills, body aches or change in appetite ENMT: Denies: throat pain or dental pain Card: Denies: chest pain Resp: Denies: dyspnea GI: Denies: abdominal pain, nausea, vomiting or diarrhea Musc: Denies: neck pain or back pain Skin/Breast: Denies: rash Neuro: Denies: headache(s) PFS ED PFSH: Medical History Delirium Altered mental status Fever Acute cystitis Atrial fibrillation FLORENTIN (generalized anxiety disorder) Macrocytic anemia Insomnia Shortness of breath on exertion Acute UTI Aftercare following surgery of the genitourinary system Diastolic heart failure Fracture of ribs, multiple Acute exacerbation of CHF (congestive heart failure) UTI (urinary tract infection) Urolithiasis Benign essential hypertension with target blood pressure below 140/90 Chronic episodic atrial fibrillation Osteoarthritis of left knee Chronic venous insufficiency of lower extremity Urgency incontinence Recurrent UTI COPD (chronic obstructive pulmonary disease) Other cervical disc displacement, unspecified cervical region GERD (gastroesophageal reflux disease) Hypercholesterolemia Sleep apnea Surgical History H/O of anterior colporrhaphy 07/21/2021- anterior colporrhaphy, single incision mid urethral sling and cystoscopy performed by Dr. Wilder at [facility] Status post colonoscopy (07/14/20) H/O esophagogastroduodenoscopy (07/14/20) S/P hysterectomy History of cholecystectomy History of appendectomy H/O knee surgery H/O shoulder surgery H/O cataract extraction Family History Father Stroke Mother Cancer BLADDER, BREAST Brother Cancer ESOPHAGEAL Family/Other Cancer Sister Cancer Suicide Denies family history of Diabetes CAD (coronary artery disease) Clotting disorder Dementia Chronic kidney disease (CKD) Anesthesia complication Bleeding disorder Lung disease Social History Smoking and tobacco/nicotine status: current every day tobacco/nicotine user cigarettes Alcohol intake: never Substance/Drug Use: never Marital status: Current occupational status: disabled Physical Exam Const: COMMON NORMALS: no acute distress, patient oriented x3 and healthy appearing HENMT: COMMON NORMALS: normocephalic and atraumatic HEAD & SCALP: normocephalic and atraumatic Neck/C-Spine: COMMON NORMALS: full ROM and supple Chest: COMMONS NORMALS: normal inspection of the chest Resp: COMMON NORMALS: normal respiratory effort Cardio: COMMON NORMALS: regular rate, regular rhythm and No murmurs present (Cardio) RATE: regular rate RHYTHM: regular rhythm Extremity: COMMON NORMALS: full ROM NARRATIVE EXTREMITY EXAM: erythema to left lower leg Neuro: COMMON NORMALS: patient oriented x3, moves all extremities and no focal motor deficits Psych: COMMON NORMALS: mental status grossly normal, Normal thought process present and cooperative THOUGHT PROCESS: Normal thought process present Skin: COMMON NORMALS: no rashes or lesions noted and no wounds GENERAL SKIN EXAM: no rashes or lesions noted Course Vital Signs: Vital signs: Vital Signs Temperature 97.8 F 07/27/24 12:12 Pulse Rate 68 07/27/24 12:12 Respiratory Rate 18 07/27/24 12:12 Blood Pressure 113/72 07/27/24 12:12 Pulse Oximetry 96 07/27/24 12:12 Oxygen Delivery Me thod Room Air 07/27/24 12:12 MDM - General Adult Medical Decision Making Patient presents here with pulling on her PICC line not able to set up PICC line placement today will place an IV for the [place] [facility] to use over the weekend and they have the company can place a PICC on Monday she is return if worsening understand agree to plan Medical Records I reviewed the patient's medical records. No radiology studies performed this visit Discharge Plan Discharge Patient Disposition: Home Clinical Impression: Status post PICC central line placement Condition: Stable Prescriptions: No Action diltiazem HCl 240 mg capsule,extended release 24 hr 240 mg PO DAILY potassium chloride 20 mEq tablet,ER particles/crystals 20 meq PO DAILY lorazepam 0.5 mg tablet 0.5 mg PO BEDTIME Eliquis 5 mg tablet 5 mg PO BID Qty: 180 3RF Hold Instructions: Resume on 08/16/22. bisacodyl [Dulcolax (bisacodyl)] 10 mg Suppository 10 mg PA DAILY PRN (Reason: Constipation) acetaminophen 325 mg capsule 500 mg PO Q4H PRN (Reason: fever or pain) vitamin U85-dsxel acid 500-400 mcg Tablet 1 tab PO DAILY Rx Instructions: administer with a meal pantoprazole 20 mg tablet,delayed release (DR/EC) 20 mg PO BID oxybutynin chloride 5 mg tablet 5 mg PO DAILY hydrocodone-acetaminophen 5-325 mg tablet 1 tab PO Q8H PRN (Reason: pain) Qty: 14 0RF Rx Instructions: Take 1/2 to 1 tab every 8 hours as needed for pain polyethylene glycol 3350 [Miralax] 17 gram/dose powder 17 g PO DAILY Qty: 510 0RF Rx Instructions: Take 1 scoop daily while taking pain medications. cetirizine 10 mg Tablet 10 mg PO DAILY esomeprazole magnesium 40 mg Capsule,Delayed Release(Dr/Ec) 40 mg PO DAILY Eliquis 5 mg Tablet 5 mg PO BID sucralfate 1 gram Tablet 1 g PO TID acetaminophen [Tylenol Ex Str Arthritis Pain] 500 mg Tablet 1,000 mg PO DAILY PRN (Reason: Pain) Eye Vitamin and Minerals 7,160-113-100 chiv-ah-cchq Tablet 1 tab PO DAILY fluticasone propionate 50 mcg/actuation spray,suspension 1 spray INTRANASAL DAILY Xtampza ER 27 mg cap,sprinkl,ER12hr(DONT CRUSH) 27 mg PO DAILY Discharge Orders: Discharge ED (Routine); Ordered 07/27/24 Ordered By: Roland Smith Referrals: Daniel Hamilton MD [Primary Care Provider] - Discharge Diet: Advance as tolerated Discharge Activity: Resume usual activity Patient Instructions: Removal of a Central Line, PICC, or Midline Catheter (ED) Coding Level of Care Code ED Magnetic Prospecting Operator for Leta Albarran
[2024-07-27 15:12] VITALS: BP 128/74; PULSE 65; RESP 16; O2SAT 91
--- NOTE | 2024-07-27 15:14 | PC.NURSE ---
pt discharged with peripheral IV in place for IV abx until a new PICC line can be placed per Dr. Smith's orders. report called to Olimpia WHELAN at [place] who verbalized understanding.
== END 2024-07-27 15:14 | disposition home or self-care (01) ==
PROVIDERS: Emergency Provider Emergency Medicine; PCP Family Medicine
DX: Z45.2 Encounter for adjustment and management of vascular access device (principal); Z79.01 Long term (current) use of anticoagulants; F17.210 Nicotine dependence, cigarettes, uncomplicated; I11.0 Hypertensive heart disease with heart failure; I50.30 Unspecified diastolic (congestive) heart failure; J44.9 Chronic obstructive pulmonary disease, unspecified
CPT/HCPCS: 99283

== ENCOUNTER → 2025-01-14 13:14 | Outpatient (BNVA) | payer OTHER, MEDICAID, SELFPAY | PROVIDERS: PCP Family Medicine; Visit Provider Surgery | DX: R10.9 Unspecified abdominal pain (principal); K44.9 Diaphragmatic hernia without obstruction or gangrene | CPT/HCPCS: 99213 ==

== ENCOUNTER 2025-02-10 09:29 | Outpatient (CLI) | payer OTHER, MEDICAID, SELFPAY ==
--- NOTE | 2025-02-10 10:00 | FL_ITS ---
WS: [id number] FL barium swallow modifd [id number] REASON FOR EXAM: Difficulty swallowing. FLUOROSCOPY TIME: 4min [id number] # OF SPOT FILMS: 0 TECHNIQUE: Examination was supervised by the speech therapy department. Patient was examined in the sitting upright position lateral projection. The swallowing of varying consistencies of barium was monitored fluoroscopically and video recorded. There was a significant amount of extraneous movement during the exa mination. FINDINGS: There is penetration of contrast into the laryngeal vestibule without emily aspiration. The remainder of the cervical esophagus appears normal. Patient could not swallow the barium tablet. It was fragmented and swallowed with a small amount of thin liquid barium. There appears to be a significant dysmotility with lack of primary peristalsis in the thoracic esophagus. There was significant retention of contrast and intermittent retrograde reflux from the mid to the upper thoracic esophagus. There did not appear to be a stricture at the the gastroesophageal junction. FL/FL barium swallow modifd [id number] IMPRESSION: Fluoroscopic findings as above. A detailed report of the swallowing will be rendered by the speech therapy depa rtment.
== END 2025-02-10 09:30 | disposition home or self-care (01) ==
PROVIDERS: PCP Family Medicine; Visit Provider Surgery
DX: R13.10 Dysphagia, unspecified (principal); R93.89 Abnormal findings on diagnostic imaging of other specified body structures; K22.4 Dyskinesia of esophagus
CPT/HCPCS: 74230; 92611

== ENCOUNTER → 2025-03-04 12:51 | Outpatient (BNVA) | payer OTHER, MEDICAID, SELFPAY | PROVIDERS: PCP Family Medicine; Visit Provider Surgery | DX: Z09 Encounter for follow-up examination after completed treatment for conditions other than malignant neoplasm (principal) | CPT/HCPCS: 99213 ==

== ENCOUNTER 2025-07-31 15:07 | Outpatient (CLI) | payer OTHER, MEDICAID, SELFPAY ==
--- NOTE | 2025-07-31 15:16 | CT_ITS ---
WS: [id number] CT facial bones wo con* [id number] REASON FOR EXAM: BILATERAL EAR PAIN IV CONTRAST ADMINISTERED: None. TOTAL EXAM DLP: 1270.[address] scans at [facility] use at least one of these dose optimization techniques: automated exposure control; mA and/or kV adjustment per patient size (includes targeted exams where dose is matched to clinical indication); or iterative reconstruction. TECHNIQUE: Multiple axial images without contrast. Coronal and sagittal reconstructions. FINDINGS: Examination was degraded by patient talking motion. No facial bone fracture. Mild inflammatory sinus disease with mild mucosal thickening in the ethmoids, maxillary, and frontal sinuses. Normal temporal bone aeration. Normal cochlea, vestibule and semicircular canals. Normal middle ear ossicles. Moderate degenerative arthropathy in the left temporal mandibular joint. CT/CT facial bones wo con* [id number] IMPRESSION: Mild inflammatory sinus disease. Moderate left TMJ arthropathy. No temporal bone abnormality.
--- NOTE | 2025-07-31 15:16 | CT_ITS ---
WS: [id number] CT temporal bone wo con* [id number] REASON FOR EXAM: BILATERAL EAR PAIN IV CONTRAST ADMINISTERED: None. TOTAL EXAM DLP: 354.[address] scans at [facility] [place] use at least one of these dose optimization techniques: automated exposure control; mA and/or kV adjustment per patient size (includes targeted exams where dose is matched to clinical indication); or iterative reconstruction. TECHNIQUE: Multiple axial images without intravenous contrast enhancement. Coronal and sagittal reconstructions of the temporal bone. FINDINGS: Examination degraded by patient motion artifact. Normal aeration of the temporal bone. Normal internal auditory canals, vestibules, and semicircular canals. Normal middle ear ossicles. No skull base bony abnormality. Normal soft tissues in the nasal and oral pharynx. 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 Mild inflammatory sinus disease in the ethmoid, maxillary and frontal sinuses. CT/CT temporal bone wo con* [id number] IMPRESSION: No significant abnormality of the temporal bones.
== END 2025-07-31 15:08 | disposition home or self-care (01) ==
LOC: RAD 15:09
PROVIDERS: PCP Family Medicine; Visit Provider Physician Assistant
DX: H92.03 Otalgia, bilateral (principal); M26.652 Arthropathy of left temporomandibular joint; J34.89 Other specified disorders of nose and nasal sinuses
CPT/HCPCS: 70480; 70486